=== PATIENT | male | born 1960 | race Caucasian/White ===

== ENCOUNTER 2024-02-08 20:42 | Inpatient (IN) | payer OTHER, SELFPAY ==
[2024-02-08 17:45] VITALS: BP 140/91
[2024-02-08 18:09] LABS: % Basophils 0.6 % (0-2); % Eosinophils 0.6 % (0-6); % Immature Granulocytes 0.4 % (0-0.5); % Lymphocytes 22.4 % (20.5-51.1); % Monocytes 7.7 % (1.7-9.3); % Neutrophils 68.3 % (42.2-75.2); Absolute Basophils 0.1 10^3/uL (0-0.2); Absolute Eosinophils 0.1 10^3/uL (0-0.7); Absolute Lymphocytes 2.4 10^3/uL (1.2-3.4); Absolute Monocytes 0.8 10^3/uL (0.1-0.6); Absolute Neutrophils 7.3 10^3/uL (1.4-6.5); Hematocrit 49.8 % (39.0-52.0); Hemoglobin 16.5 g/dL (13.0-18.0); Mean Corp Hgb Conc. 33.1 g/dL (33.0-37.0); Mean Corpuscular Hgb 31.1 pg (27.0-31.0); Mean Platelet Volume 11.3 fL (7.4-10.4); Nucleated Red Blood Cells % 0 % (-); Platelet Count 207 10^3/uL (130-400); Red Cell Dist. Width 13.8 % (11.5-14.5); White Blood Cell Count 10.7 10^3/uL (4.8-10.8)
[2024-02-08 18:21] LABS: ALT (SGPT) 39 U/L (0-50); AST (SGOT) 35 U/L (17-59); Alkaline Phosphatase 101 U/L (38-126); Blood Urea Nitrogen 24 mg/dl (9-20); Calcium 8.9 mg/dl (8.4-10.2); Carbon Dioxide 30 mmol/L (22-30); Chloride 101 mmol/L (98-107); Glucose 142 mg/dl (70-99); Potassium 4.8 mmol/L (3.5-5.1); Sodium 139 mmol/L (135-145); Total Bilirubin 0.9 mg/dl (0.2-1.3); eGFR > 60.00
[2024-02-08 18:34] LABS: NT-proBNP 6110 pg/ml; Troponin I 0.148 ng/ml
--- NOTE | 2024-02-08 18:51 | ED.GENMED ---
History of Present Illness
General
Chief Complaint: Cardiac Symptoms
Source: patient
Exam Limitations: none
Time Seen by Provider: 02/08/24 18:40
History of Present Illness
History of Present Illness:
This is a 63 year old male that comes in with c/o leg swelling. States that he believes he started with atrial fib about a month go. States that he has been SOB for the past 2 years and he just stopped smoking. State that for the past 2 weeks he has
been sweating but he feels cold. Then in the past 5 days his knee's started with discoloration. States that he has no chest pain. States that he gets dizzy once and while. Denies any fever, chills, chest pain, abd pain, nausea, vomiting, diarrhea,
headache, urinary burning.
Past History
Past History
ED Past Medical History: Arrthythmia (Atrial fibrillation with conversion to sinus rhythm), COPD and Other (Back pain)
ED Past Surgical History: Tonsilectomy and Other
Social History
Tobacco: Former smoker (States that he just stopped recently)
Alcohol: None
Personal:
Living: with family
Employment: Employed
Family History
Family History: Other
Review of Systems
Review of Systems
All Other Systems: ROS reviewed and negative except as documented in HPI and ROS
Constitutional: Reports other (Feels cold and is sweating); Denies fever or chills
EENT: Reports no symptoms
Respiratory: Reports trouble breathing; Denies cough
Cardiac: Denies chest pain
ABD/GI: Reports no symptoms; Denies abdominal pain, nausea, diarrhea or bloody stools
: Reports no symptoms; Denies dysuria, frequency or urgency
Musculoskeletal: Reports no symptoms
Skin: Reports other (Sweating,)
Neurological: Reports dizzy; Denies headache
Psychiatric: Reports no symptoms
Phy Exam
General Physical Exam
General Presentation: no apparent distress
General age: appears stated age
General Skin: diaphoretic
General Habitus: normal
General Mental: alert
General Hydration: appears well hydrated
ENT Exam
ENT Exam: TM's normal, pharynx normal and neck supple
Eye Exam
Eye Exam: EOMI
Cardiovascular Exam
Cardiovascular Exam: normal peripheral pulses and irregularly irregular
Pulmonary Exam
Pulmonary Exam: no respiratory distress, no rales, chest non tender, no crackles, no rhonchi, no cough and other (Faint insp and exp wheezing throughout)
Gastrointestinal Exam
Gastrointestinal Exam: normal bowel sounds, non tender, soft, no organomegaly, no pulsatile mass and distended
Musculoskeletal Exam
Musculoskeletal Exam: full ROM and edema (Pitting +2 of ankles and lower legs into thights)
Skin Exam
Skin Exam: normal color, no petechia and other (Mottling of the knee's and abd)
Psychiatric Exam
Psychiatric Exam: normal mood/affect
Course
Orders/Labs/Results
Orders:
Orders
02/08/24 17:48
ECG [Electrocardiogram (*1)] Urgent
Reason for Study: Shortness of Breath
EKG- Treatment ONCE
02/08/24 17:55
Chest [CR Chest - 2 Views ] Urgent
Comment:
Reason For Exam: shortness of breath
02/08/24 18:03
Complete Blood Count/With Diff Urgent
Comprehensive Metabolic Panel Urgent
NT-proBNP Urgent
Troponin I Urgent
02/08/24 18:49
Diltiazem 125 mg/125 ml Nss [Cardizem] 125 mg in 125 ml IV NOW
Initial dose in mg/hr, then titrate:: 5
Titrate to keep:: Heart rate 80-100 bpm
Titrate by mg/hr:: 5 mg/hr
Frequency of titrations (minutes):: 15
Maximum dose in mg/hr:: 15
Diltiazem HCl [Cardizem] 10 mg IV NOW STA
02/08/24 19:00
CT Chest/abd/pelvis Angio W/wo Urgent
Comment:
Reason For Exam: Hypotension, BP different in arms, abd pain
02/08/24 19:50
EKG- Treatment ONCE
02/08/24 20:02
Furosemide [Lasix] 40 mg IV NOW STA
Ipratropium/Albuterol Sulfate [Duoneb] 3 ml INH R NOW ONE
02/08/24 20:17
Admit/Transfer Patient As Directed
Co-Sign Provider:
Level of Care: Inpatient admission
Assign to:: ICU
Physician / Group: javier oglesby
Diagnosis: atrial fib with RVR
Reason for Hospitalization: atrial fib with RVR
Expected length of stay greater than two midnights?: Yes
ELOS- Estimated Length of Stay in days: 3
I certify the patient meets the requirements for IP care: Yes
PRN Pain Medication Management As Directed
May give lesser potent ordered pain med per pt: Yes
preference::
Protocol:: Medication orders for pain may be administered in a
manner that supports deferring to patient preference
when the pt is:
- Requesting an ordered lesser potent pain medication.
Least to most potent pain medications are defined
as: acetaminophen < NSAID < tramadol < opioids
(morphine, oxycodone, hydromorphone).
- Requesting a lesser dose of the same medication IF
ORDERED.
- Requesting a less intrusive route of administration
if both routes are prescribed by the provider (PO <
IV).
02/08/24 20:18
Code Status As Directed
Resuscitation Status: Full Code
02/08/24 20:58
COVID-19 Antigen Stat
Source: Nasal Swab
Troponin I Urgent
02/08/24 21:00
Electrocardiogram (*1) Urgent
Reason for Study: Shortness of Breath
Other Reason for Exam: Repeat with Troponin
Abnormal Lab Results
02/08/24
18:03
MCH 31.1 H pg
(27.0-31.0)
MPV 11.3 H fL
(7.4-10.4)
Absolute Neuts (auto) 7.3 H 10^3/uL
(1.4-6.5)
Absolute Monos (auto) 0.8 H 10^3/uL
(0.1-0.6)
BUN 24 H mg/dl
(9-20)
Glucose 142 H mg/dl
(70-99)
Troponin I 0.148 H* ng/ml
02/08/24 18:03
02/08/24 18:03
Dehydration. Glucose nonfasting. Troponin 0.148, Pro-BNP 6110
Vital Signs
Initial and Last Documented VS:
Initial Vital Signs
Temp Pulse Resp BP Pulse Ox
98.6 F 121 20 140/91 91
02/08/24 17:45 02/08/24 17:45 02/08/24 17:45 02/08/24 17:45 02/08/24 17:45
Last Documented Vital Signs
Temp Pulse Resp BP Pulse Ox
98.6 F 112 18 127/92 98
02/08/24 17:45 02/08/24 20:33 02/08/24 20:33 02/08/24 20:00 02/08/24 20:00
MDM/Problems Addressed
Differential Diagnosis Includes:
Atrial fib, PVD
MDM/Problems Addressed:
This is a 63 year old male that comes in with c/o legs swelling and atrial fib. States that the atrial fib started a few months ago and he has been SOB for 2 years. States that he has been cold and sweating for the past 2 weeks. States that his legs
started with some discoloration about 5 days ago.
Will get labs, Chest x-ray. Will also get CTA of chest/abd./pelvis. Started on Cardizem and admit patient.
Repeat ECG: Rate 111, NSR with PAC's, Normal axis. NSR. T wave inversion, I, II, aVL, V4, V5, V6
Chronic conditions affecting care:
Atrial fib /flutter
Acute Exacerbation and/or Progression of Chronic Illness:
atrial fib/flutter
*Radiology
Radiology exam reviewed: radiology read reviewed (CTA-No aortic aneurysm or dissectioin. NO significant acute abnormality identified in the chest, abdomen or pelvis as described above. )
*Critical Care Note
Total Time (30-74mins, 75-104mins- exclusive of procedures): Not Applicable
ED Attending Note
-
Portions of this chart may have been created with voice recognition software.� Occasional wrong word or��sound alike� substitutions may have occurred due to the inherent limitations of voice recognition software.
Discharge Plan
Departure
Patient Disposition: Admit
Date of Disposition: 02/08/24
Time of Disposition: 19:50
Admit to: Telemetry
Presentation/result/management discussed w/ accepting MD/DO: Hospitalist
Patient with high blood pressure during this ER visit?: Yes
Condition: Good
Covid-19: Not Applicable
Discharge Problem:
Uncontrolled atrial fibrillation, Elevated troponin, SOB (shortness of breath)
Interventions
Interventions:
*Risk Screen - Suicide Last Done: 02/08/24 19:18
*General Assessment Last Done: 02/08/24 19:18
*Neglect/Abuse Screening Last Done: 02/08/24 19:18
ED- Pulmonary Assessment Last Done: 02/08/24 19:18
ED- Cardiac Assessment Last Done: 02/08/24 19:18
[2024-02-08] MEDS: CARDIZEM 125 IV (19:06)
[2024-02-08] MEDS: CARDIZEM 10 MG IV (19:07)
--- NOTE | 2024-02-08 19:50 | HPS.HSE ---
Family Physician
-
Family Physician: Leticia Quinonez
Chief Complaint
-
sob
cough
discoloration of LE
History of Present Illness
63 year old with PMH of atrial fib presented to us with worsening b/l LE discoloration, edema/ patient stated just noticed discoloration for past two weeks. progressively worsening LE edema. he complained of sob which is worse with exertion. denied
fever, chills, but stated cough with white sputum. denied GIMENEZ, dizzy or syncopal episode. denied abdominal pain,n,v,d. denied dysuria or hematuria. patient also complained f sweating,but he feels cold.
upon arrival patient requiring oxygen. he is also noted in atrial fib with RVR. initiated on heparin drip. gave a dose of Lasix. chest x ray and CT pending.
Medical History
Past Medical History
Past Medical History: Reports Other
Additional Past Medical History:
atrial flutter
COPD
Past Surgical History: Reports Other
Additional Past Surgical History:
back cyst surgery
tonsillectomy
Social History
Tobacco: Smoker (quit today)
Alcohol: Occasional
Drug: None
Personal:
Living: With Family
Employment: Retired
Family History
Family History: Not pertinent
Allergies / Home Medications
Allergies reflects when Allergies were last updated in [facility].
Home Medications with original date entered in [facility]
Allergy/Medication List:
Allergies
Allergy/AdvReac Type Severity Reaction Status Date / Time
No Known Allergies Allergy Verified 02/08/24 17:46
Home Medications
aspirin 81 mg tablet,delayed release 81 mg PO DAILY #1 tab 06/18/17
Review of Systems
-
Constitutional: Reports No Symptoms
EENT: Reports No Symptoms
Respiratory: Reports Cough and Trouble Breathing
Cardiac: Reports Diaphoresis and Palpitations
Abdomen/GI: Reports No Symptoms
: Reports No Symptoms
Musculoskeletal: Reports Edema
Skin: Reports No Symptoms
Neurological: Reports No Symptoms
Endocrine: Reports No Symptoms
Hematologic/Lymphatic: Reports No Symptoms
Psych: Reports No Symptoms
Physical Exam
Vital Signs
Vital Signs
Temp Pulse Resp BP Pulse Ox
98.6 F 124 25 140/91 98
02/08/24 17:45 02/08/24 19:30 02/08/24 19:30 02/08/24 17:45 02/08/24 19:30
Physical Exam
General: Well Developed, Well Nourished and No Apparent Distress
HEENT: NormoCephalic, Moist mucous membranes and Atraumatic
Respiratory: Wheezes
Cardiac: Irregular Rhythm and Tachycardia; No Murmur or Rub
GI: Normal Bowel Sounds, Tender and Distended; No Organomegaly
Rectal: Deferred by Provider
Musculoskeletal: No Clubbing and Other (lE +3edema, b/l LE mottled skin)
Skin: No Rash
Neuro: AO x 3 and Nonfocal/grossly intact
Psych: Calm
Laboratory Results
-
02/08/24 18:03
02/08/24 18:03
Laboratory Results
Total Bilirubin 0.9 mg/dl (0.2-1.3) 02/08/24 18:03
AST 35 U/L (17-59) 02/08/24 18:03
ALT 39 U/L (0-50) 02/08/24 18:03
Alkaline Phosphatase 101 U/L (38-126) 02/08/24 18:03
Troponin I 0.148 ng/ml H* 02/08/24 18:03
Data Reviewed
-
Lab Data: Labs Reviewed by me
Impression/Plan
-
#atrial fib with RVR
-EKg with atrial fib with RVR
-Cardizem drip continued
-cardiology consulted
#elevated trop likely demand ischemia likely from atrial fib
-trop 0.148,trend trop
-no c/o chest pain
#sob/edema/acute hypoxic respiratory failure likely new onset CHF
-BNP in 6000's
-CTA No aortic aneurysm or dissection.No significant acute abnormality identified in the chest, abdomen or pelvis as described above.
-chest x ray pending
-iv Lasix 4o daily
-will obtain ECHO
-strict I &O
-daily weight
-fluid restriction
-Xopenex prn for sob/wheezing
-continue supplemental oxygen to keep sat >92
-wean as tolerated.
-cardiology consulted
#possible COPD
-wheezing on auscultation
-Xopenex added sob/wheezing
-pulmonology consulted
#mottled skin unclear cause
-CTA No aortic aneurysm or dissection.. No significant acute abnormality identified in the chest, abdomen or pelvis as described above.
#nicotine dependence
-quit today
-nicotine patch
#DVT prophylaxis
-heparin sq
#CODE status
-full code
[2024-02-08 20:00] VITALS: BP 127/92
--- NOTE | 2024-02-08 20:12 | W.PN.UPDATE ---
Addendum entered and electronically signed by Bill Perdomo MD 02/09/24 12:23:
Correction:
Total Critical Care Time_70___ minutes. Not 7 mins.
Addendum entered and electronically signed by Bill Perdomo MD 02/08/24 21:16:
Total Critical Care Time_7____ minutes.
I was immediately available to the patient and staff. I personally examined, reviewed labs, diagnostic images/reports, interpretations, treatment plans, discussed patient care with other providers and family or caregivers (if patient is unable to
make decisions), entered orders as appropriate and documented the medical record.
Addendum entered and electronically signed by Bill Perdomo MD 02/08/24 21:13:
02/08/24 Urgent CTA C/A/P
1. No aortic aneurysm or dissection.
2. No significant acute abnormality identified in the chest, abdomen or pelvis as described above.
Original Note:
Update Note
Progress Note Update
This note serves as an addendum to the H&P by chief hydroelectric station operator Bobbi HOPE
HPI
63M Recently quit smoking HX Prx AF since 2014 with conversion to NSR, only on ASA seen at ER for evaluation of discoloration both distal Gerardo and UExs. Associated with sweating and chills.
- associated with b/l Gerardo swelling and significant wt gain
- cold and mottled skin of edematous
ROS:
No CP.
Denies any fever, chills, chest pain, abd pain, nausea, vomiting, diarrhea, headache, urinary burning.
PMHX
Paroxysmal atrial flutter diagnosed in October of 2014.
COPD and Other (Back pain
tobacco abuse.
SHX:
Tobacco: Former smoker (States that he just stopped recently)
Reviewed VS: HR 155- 125 BP 140/90 POx low 90s need 2 L NC O2
PE
Gen: uncomfortable looking , Dyspnea at rest , 2 O2
HEENT: anicteric
Neck: supple , JVD up to 8-10 cm
Lungs: symmetric AE, b/l wheeze
Cor: S1 S2 irregular in AF with VR 120s
Abdomen: distended and firm suspect ant abdominal edema
LATH TIER: AAO3
MS:b/l Gerardo edema 3 plus
Skin: cold and mottled skin both distal Gerardo more than UEx
Psych: appropriate
Data
Unremarkable CBC
BUN 24
Cr 1.0 eGFR > 60
nl LFTs
TPNI pending
pro BNP 6110
Pending CXR
Pending CTA of chest/abd/pelvis.
EKG
ATRIAL FIBRILLATION WITH RAPID VENTRICULAR RESPONSE
ST and T WAVE ABNORMALITY, CONSIDER INFEROLATERAL ISCHEMIA
ABNORMAL ECG
WHEN COMPARED WITH ECG OF 17-JUN-2017 06:05,
SIGNIFICANT CHANGES HAVE OCCURRED
2014 ECHO
LVEF 50-55%
diastolic filling pattern suggests possible mild abnormal relaxation.
ASSESSMENT & PLAN
Acute on chronic SoB with acute hypoxic RI need 2 L O2 + B/L Gerardo edema +pro BNP 6000s
PDX: Suspect acute CHF type unknown : HX nl LVEF in 2014
Significant volume expansion suspect anasarca due to CHF
- CXR pending
- IV Lasix 40 x1 and cont IV Lasix 40 daily daily
- daily IOs and wt
- daily BMPs
- check INR
- ECHO in AM
- DCA card consult
Cold and mottled periphery with dusky discoloration of both Gerardo and UExs ; DDx; Primary vascular insufficiency vs secondary vascular insufficiency
Associated with sweating and chills
- POS both radial pulses of both UEx
- faintly POS Doppler b/l pedal pulse
- Current smoker - reports just quit smoking today
- Pending urgent CTA C/A/P
- Vascular consult
Converted to NSR on Diltiazem gtt
S/p Prox fast AF
[id number] score 1 ( CHF) 0.6 % stroke risk
Maintaining Normotension : BP is holding up
- Cont Diltiazem gtt
- Echo in AM
B/l diffuse wheeze ? Bronchitis vs. acute Pul edema vs both
Suspect undiagnosed COPD given long standing HX smoking
- add Xopenex tid and PRN
-Consult Pul
HX non compliance with medical follow up
DVT Px: LMWH
Code: Full
ICU
[2024-02-08] MEDS: LASIX 40 MG IV (20:32)
[2024-02-08 21:00] VITALS: BP 136/97
[2024-02-08 21:19] LABS: COVID-19 Antigen Negative (Negative)
[2024-02-08 21:53] LABS: Troponin I 0.134 ng/ml
[2024-02-08 22:28] VITALS: BMI 31.1
[2024-02-08 22:39] VITALS: BMI 31.1
--- NOTE | 2024-02-08 23:23 | PTCARENOTE ---
[id number]: Received patient from ED RN to room 3369 on 4L/O2 nc and on Cardizem gtt at 5 mg/hr. Patient ambulated to the bathroom from the stretcher and voided 450 ml yellow urine. Sinus tachy with HR 110. Pt's AAOx3 and able to make his needs
known. Denies pain. Plan of care for the shift and unit orientation reviewed with the patient. Doppler pulses to bilateral lower extremities. B/l LE are cold to the touch and mottled. +2 pitting edema to feet. +1 edema to bilateral upper
extremities. BL/UE red and blanchable . Pt states that swelling and redness have been 'going on for weeks,' and was told to come to the hospital by his friend. Heart failure package and teaching provided. Coarse breath sounds throughout. SpO2 at 94%
on 4L. No cough. abdomen is round and firm. Per the patient, abdomen was 'a lot harder earlier.' Skin is intact. Fluid restriction reviewed with the patient. Swallow evaluation completed. No difficulty with swallowing. The patient however stated
that he had a food bolus about 9 months ago, and his had to perform the Heimlich maneuver. Labs drawn and sent. All needs are met at this time. Bed in the lowest position. Call tompkins and personal belonigns are within reach.
[2024-02-08 23:24] LABS: Magnesium 2.1 mg/dl (1.6-2.3)
[2024-02-09] VITALS (52 sets, daily range): BP systolic 85–156; BP diastolic 48–139; BMI 30.8
--- NOTE | 2024-02-09 00:52 | PTCARENOTE ---
Patient reassessed. Remains on Cardizem gtt at 5 mg/hr. SpO2 at 94% on 4L/O2. pt verbalized being able to 'breath better.' All needs remain within reach. Call tompkins is within reach. No changes from previous assessment.
[2024-02-09 04:05] LABS: Hematocrit 48.4 % (39.0-52.0); Hemoglobin 15.8 g/dL (13.0-18.0); Mean Corp Hgb Conc. 32.6 g/dL (33.0-37.0); Mean Corpuscular Hgb 31.7 pg (27.0-31.0); Mean Platelet Volume 11.4 fL (7.4-10.4); Platelet Count 170 10^3/uL (130-400); Red Blood Cell Count 4.99 10^6/uL (4.70-6.10); Red Cell Dist. Width 13.7 % (11.5-14.5); White Blood Cell Count 12.5 10^3/uL (4.8-10.8)
[2024-02-09 04:15] LABS: INR 1.18; PT 14.9 Sec (11.4-14.6)
[2024-02-09 04:16] LABS: APTT 34.1 Sec (23.4-35.0)
[2024-02-09 04:35] LABS: ALT (SGPT) 38 U/L (0-50); AST (SGOT) 34 U/L (17-59); Albumin 3.6 g/dl (3.5-5.0); Alkaline Phosphatase 95 U/L (38-126); Blood Urea Nitrogen 23 mg/dl (9-20); Calcium 8.7 mg/dl (8.4-10.2); Carbon Dioxide 36 mmol/L (22-30); Chloride 98 mmol/L (98-107); Direct Bilirubin 0.3 mg/dl (0.0-0.4); Estimated Creatinine Clearance 95 ml/min; Glucose 124 mg/dl (70-99); HDL Cholesterol 40 mg/dl; LDL Cholesterol, Calculated 92 mg/dl; Magnesium 1.9 mg/dl (1.6-2.3); Potassium 4.7 mmol/L (3.5-5.1); Sodium 139 mmol/L (135-145); Total Bilirubin 0.9 mg/dl (0.2-1.3); Total Cholesterol 152 mg/dl (50-199); Total Protein 6.3 g/dl (6.3-8.2); Triglyceride 102 mg/dl (10-149); Very Low Density Lipoprotein 20 mg/dl (0-30); eGFR > 60.00
[2024-02-09 04:46] LABS: Troponin I 0.106 ng/ml
[2024-02-09 05:04] LABS: TSH Reflex To Free T4 3.39 uIU/ml (0.47-4.68)
--- NOTE | 2024-02-09 05:11 | PTCARENOTE ---
Patient reassessed. Remains on 4L /O2. SpO2 at 92%. Coarse breath sounds with expiratory wheeze. labs drawn and sent.
[2024-02-09] MEDS: XOPENEX 0.63 MG INHALANT SOLUTION INH ×3 (07:27→19:37)
[2024-02-09] MEDS: NICODERM TRANSDERMAL 21 MG TRANSDERM (07:42)
[2024-02-09] MEDS: HEPARIN 5000 UNITS SC (07:43)
[2024-02-09] MEDS: ASPIR LOW (ENTERIC COATED) 81 MG PO (07:43)
[2024-02-09] MEDS: LASIX 40 MG IV ×2 (07:43→13:31)
--- NOTE | 2024-02-09 07:58 | CON.CAR ---
Addendum entered and electronically signed by Yung Garnica MD 02/09/24 09:54:
I saw and examined the patient.
The PULPER OPERATOR or PA's note was reviewed and I agree with the note.
Comment: General: Well developed, well nourished in NAD.
Neck: Supple, no JVD, HJR, carotids +2 B/L, no bruits bilaterally.
Heart: Non displaced PMI, RRR, no murmurs, No S3, S4, no rubs.
Lungs: Scattered rhonchi
Abdomen: Normal bowel sounds, soft, non-tender, non-distended.
Extremities: Mild lower extremity edema bilaterally.
Neuro: Grossly nonfocal, awake, alert and oriented x3.
Romero has a history of atrial flutter status post ablation, tobacco abuse, COPD, medical noncompliance. He presented with shortness of breath abdominal bloating and lower extremity edema. He is found to have acute CHF and elevated troponin of
0.148.
Will treat with IV Lasix and track troponin. Check echocardiogram. Could consider ischemic evaluation given very high risk of significant CAD and elevated troponin. Continue IV heparin for now. Hold off on Plavix with possible three-vessel
disease.
Original Note:
Consultation
Consultation Request
Date/Time Consultation Requested: 02/09/2024
Date/Time Consultation Performed: 02/09/2024
Requesting Provider: Dr. Perdomo
Performing Provider: Sully Bowie PA-C for Dr. Sj Bentley
Reason for Consultation: Abnormal troponin, atrial flutter
Medical History
-
History of Present Illness:
Patient is a 63-year-old male with past medical significant for paroxysmal atrial flutter, ongoing tobacco abuse, COPD/emphysema and noncompliance of medical follow-up who presents to emergency department 02/08/2024 with progressively worsening
shortness of breath, abdominal bloating, lower extremity edema, palpitations. Patient reports he has had shortness of breath for several years but recently he has noted dyspnea with minimal activity including walking from the couch to the bathroom.
His legs have become cold and discolored over the last week. He also started having palpitations and vibrating in his chest 'for a while'. Recently started with intermittent dizziness with standing. Due to worsening of symptoms he decided to
seek emergency medical attention. Patient tells me the last time he was seen by a medical provider was when he was here in 2017. He takes an aspirin 81 mg daily. He smokes a pack of cigarettes a day. He denies chest pain. On presentation to
emergency department patient was found to be in atrial flutter with rapid ventricular response. Troponin 0.148. proBNP 6110. CT chest/abdomen/pelvis was negative for aortic aneurysm or dissection. Mild emphysematous changes. Mild diffuse
anasarca otherwise unremarkable abdomen, although limited given no contrast was given. He was given 40 mg IV Lasix and was placed on diltiazem drip and converted to sinus rhythm around 3 AM on 02/09/2024.
Past medical history:
Paroxysmal atrial flutter
Ongoing tobacco abuse
Emphysema/COPD (noted on chest CT 02/08/2024)
Past Medical History
Past Medical History: Other (See HPI)
Past Surgical History: Tonsilectomy
Social History
Tobacco: Smoker (Stopped on admission)
Alcohol: None
Drug: None
Personal:
Living: With Family
Employment: Not Employed
Family History
Family History: Other (Mother alive had stroke in her 70s, father had OH in his 30s and pacemaker)
Allergies / Home Medications
Allergy/AdvReac Type Severity Reaction Status Date / Time
No Known Allergies Allergy Verified 02/08/24 17:46
�Medication �Instructions �Recorded �Confirmed �Type
aspirin 81 mg tablet,delayed 81 mg PO DAILY #1 tab 06/18/17 02/08/24 Rx
release
Review of Systems
-
History Source: Patient
All other systems: Negative unless noted
Physical Exam
Vital Signs
Temp Pulse Resp BP Pulse Ox
97.6 F 104 18 134/74 94
02/09/24 07:55 02/09/24 07:34 02/09/24 07:34 02/09/24 07:00 02/09/24 07:34
GEN: No distress, awake, Ox3, sitting in bed wearing oxygen
HEENT: supple, anicteric, mmm
LUNGS: Very diminished/reduced breath sounds with bilateral wheezing, absent breath sounds at bases, no rales, on 4 L of oxygen
CV: Distant heart tones, reg, S1/S2, no murmur, rub or gallop
ABD: soft, BS+, NT/ND
EXT: +1-2 bilateral lower extremity edema, legs cool to touch
NEURO: Gross non-focal
SKIN: No rash, dry, pink
Lab Results
02/09/24 03:55
Troponin I 0.106 ng/ml H* 02/09/24 03:55
Tru-K-Sbpjbubbmdp Pept 6110 pg/ml 02/08/24 18:03
Impression / Plan
-
PCP: None has not seen medical provider since
Beautician Apprentice: Dr. Cintron last seen in August 2015 in office
Impression:
Presented 02/08/2024 with progressively worsening shortness of breath, palpitations, abdominal bloating, lower extremity edema
Acute hypoxic respiratory insufficiency/failure
Acute heart failure with unknown ejection fraction, proBNP 6110
Anasarca
Paroxysmal atrial flutter/fibrillation of unknown duration
Abnormal troponin, peak 0.148
Emphysema/COPD exacerbation
Leukocytosis
Paroxysmal atrial flutter
Paroxysmal atrial fibrillation
[id number] score 1 (heart failure)
Ongoing tobacco abuse
Emphysema/COPD (noted on chest CT 02/08/2024)
Echo 11/14/2014: EF 50 to 55% with no regional wall motion abnormalities. Diastolic dysfunction, mildly dilated left atrium, PAP 33 to 38 mmHg
Plan:
-Presented 02/08/2024 with progressively worsening shortness of breath, palpitations, abdominal bloating, lower extremity edema and anasarca.
-Acute heart failure with unknown ejection fraction, proBNP 6110
-Continue IV diuresis with Lasix, -Weight down 3 pounds since admission, would give additional 40 mg IV this afternoon
-Check echocardiogram
-Monitor electrolytes and renal function with diuresis
-Paroxysmal atrial flutter/fibrillation on admission
-Spontaneously converted to sinus rhythm on IV diltiazem drip
-Await echocardiogram to assess LV function. If preserved can start oral diltiazem. If reduced then would consider initiating beta-tushar therapy if stable from pulmonary/COPD standpoint
-Start IV heparin but will need eventual transition to oral anticoagulation
-TSH normal 3.39
-Abnormal troponin, peak 0.148 upon admission. Trending downward thereafter. Patient denies chest pain. Suspect nonischemic myocardial injury secondary to acute heart failure exacerbation and atrial fibrillation/flutter with rapid ventricular
response
-Continue IV heparin, ASA 81 mg
-Check echocardiogram
-Of note CT of chest without contrast did not show any significant coronary calcification
-Lipids 02/09/2024 TC 152, HDL 40, LDL 92, triglycerides 102
-Acute hypoxic respiratory insufficiency/failure likely multifactorial secondary to Emphysema/COPD exacerbation, acute heart failure exacerbation
-Noted to have emphysema changes on CT of chest
-Currently on 4 to 5 L of oxygen via nasal cannula, wean as tolerated
-Long-term history of tobacco abuse, patient reports he quit on admission; nicotine patch applied; smoking cessation encouraged
-Continue nebulizers per primary service
Plan discussed with patient, nursing, primary service
HPI 02/09/2024:
Patient is a 63-year-old male with past medical significant for paroxysmal atrial flutter, ongoing tobacco abuse, COPD/emphysema and noncompliance of medical follow-up who presents to emergency department 02/08/2024 with progressively worsening
shortness of breath, abdominal bloating, lower extremity edema, palpitations. Patient reports he has had shortness of breath for several years but recently he has noted dyspnea with minimal activity including walking from the couch to the bathroom.
His legs have become cold and discolored over the last week. He also started having palpitations and vibrating in his chest 'for a while'. Recently started with intermittent dizziness with standing. Due to worsening of symptoms he decided to
seek emergency medical attention. Patient tells me the last time he was seen by a medical provider was when he was here in 2017. He takes an aspirin 81 mg daily. He smokes a pack of cigarettes a day. He denies chest pain. On presentation to
emergency department patient was found to be in atrial flutter with rapid ventricular response. Troponin 0.148. proBNP 6110. CT chest/abdomen/pelvis was negative for aortic aneurysm or dissection. Mild emphysematous changes. Mild diffuse
anasarca otherwise unremarkable abdomen, although limited given no contrast was given. He was given 40 mg IV Lasix and was placed on diltiazem drip and converted to sinus rhythm around 3 AM on 02/09/2024.
Data Reviewed
-
EKG: Report Reviewed by me, Discussed with Physician, Discussed with Nurse and Discussed with Patient
Radiology: Report Reviewed by me, Discussed with Physician, Discussed with Nurse and Discussed with Patient
CT Scan: Report Reviewed by me, Discussed with Physician, Discussed with Nurse and Discussed with Patient
Labs: Labs Reviewed by me, Discussed with Physician, Discussed with Nurse and Discussed with Patient
Old Records: Reviewed
--- NOTE | 2024-02-09 08:00 | PTCARENOTE ---
Received patient from passenger car cleaning supervisor. patient is AAOx3, he is on 4L Nasal cannula, with coarse wheezing auscultated throughout lungs. Patient is tachypneic, diaphoretic, dyspneic on exertion with harsh non productive cough. is a smoker, states he
quit yesterday. Patient is in a sinus tach on monitor. had been in Afib overnight and upon admission. Lower extremities are extremely cool, mottled. dopper pulses on right lower extremity. weakly palpated DP on left lower extremity. Patient has
rounded obese firm belly, is able to urinate in urinal, due to get lasix. Cardiac prudent diet ordered. Skin is reddened on upper and lower extremities, mottled on lower. Orders placed to start heparin gtt. will review further orders, reviewed
plan of care with patient. Echo at bedside.
--- NOTE | 2024-02-09 08:26 | CON.INTV ---
Consultation
Consultation Request
Date/Time Consultation Requested: 02/08/2024 - 2100
Date/Time Consultation Performed: 02/09/2024818
Requesting Provider: DARLIN Stewart
Performing Provider: Elliott Gambino MD
Reason for Consultation: Rapid A-fib
Medical History
-
Chief Complaint: SOB; Lower extremity + abdominal swelling
History of Present Illness:
63-year-old male active tobacco smoker with a PMHx of COPD, atrial flutter and palpitations who presented with shortness of breath as well as swelling to lower extremities + abdomen. His lower extremities have also been discolored for the past few
weeks and his shortness of breath has also been progressively worsening over the last few days although he does admit SOB for the past 2 years. He does smoke 0.5 PPD but says that he is now 'done.' In the ER, vitals showed tachycardia to 121,
breathing at 20 breaths/min, BP 140/91, afebrile at 98.6 �F and saturating 91% on room air. Labs showed normal WBC at 10.7, Hb 16.5, initial troponin 0.148, proBNP elevated at 6110, and COVID antigen negative. Initial CXR showed no acute
cardiopulmonary process. CTA chest, abdomen, pelvis showed no aortic aneurysm or dissection, with mild centrilobular emphysema, no evidence of volume overload with no significant acute abnormality in the chest, abdomen or pelvis. He was given
Lasix, Cardizem 10 mg and started on Cardizem drip. Given his rapid A-fib requiring Cardizem drip with shortness of breath, he was admitted to the ICU for further care and critical care services consulted for additional management/recommendations.
Patient seen and evaluated this morning. Cardizem drip turned off earlier this morning (3AM) but is now back on at 10 mg/hr, heart rate labile between 125�145, BP 129/89, SpO2 89% on 5L/min. On heparin gtt as well. He is on his cell phone in no
acute distress, answering my questions appropriately, and says he feels much better currently. He still feels short of breath but it is improved. He currently denies chest pain, GIMENEZ, abdominal pain, nausea, vomiting, diarrhea, fevers or chills.
PMHx: History of atrial flutter, active tobacco use, palpitation, reported history of COPD
PSHx: Surgical cyst removal from back; tonsillectomy
Past Medical History
Past Medical History: Other (Above as per HPI)
Past Surgical History: Other (Above as per HPI)
Social History
Tobacco: Smoker (0.5 PPD X 50 years)
Alcohol: Former
Drug: None
Personal:
Living: With Family
Employment: Retired
Family History
Family History: Reviewed & Not Pertinent
Allergies / Home Medications
Allergies
Allergy/AdvReac Type Severity Reaction Status Date / Time
No Known Allergies Allergy Verified 02/08/24 17:46
Home Medications
�Medication �Instructions �Recorded �Confirmed �Last Taken �Type
aspirin 81 mg tablet,delayed 81 mg PO DAILY #1 tab 06/18/17 02/08/24 02/08/24 Rx
release
Review of Systems
-
History Source: Patient
All other systems: Negative unless noted
Vitals / Labs / Diagnostic Testing
Vital Signs
Temp Pulse Resp BP Pulse Ox
97.6 F 105 20 115/89 94
02/09/24 07:55 02/09/24 09:15 02/09/24 09:15 02/09/24 09:00 02/09/24 09:27
Lab Data
02/09/24 03:55
Laboratory Results
02/09/24 02/09/24
03:55 07:44
PT 14.9 H
INR 1.18
APTT 34.1 Cancelled
Diagnostic Testing:
Physical Exam
-
HEENT: Normocephalic and Anicteric
Cardiovascular: Irregular Rhythm (Irregularly irregular), Peripheral Edema (+2 lower extremity edema bilateral) and Other (Tachycardic)
Respiratory: Wheeze ([place]in upon end-expiration bilaterally), Rales (negative), Rhonchi (negative) and Non-Labored Respirations
GI: Soft, Non Distended, Non Tender and Normal Bowel Sounds
Neurology: AO x 3 and Tremors (negative)
Skin: Warm and Dry
General: Respiratory Distress (negative), Comfortable, Chills (negative) and Sweats (negative)
Assessment
-
Assessment: 63-year-old male active tobacco smoker with a past medical history of COPD, atrial flutter and palpitations who presented with shortness of breath as well as swelling to lower extremities + abdomen. His lower extremities have also been
discolored for the past few weeks and his shortness of breath has also been progressively worsening over the last few days although he does admit SOB for the past 2 years. He does smoke 0.5 PPD but says that he is now 'done.' In the ER, vitals
showed tachycardia to 121, breathing at 20 breaths/min, BP 140/91, afebrile at 98.6 �F and saturating 91% on room air. Labs showed normal WBC at 10.7, Hb 16.5, initial troponin 0.148, proBNP elevated at 6110, and COVID antigen negative. Initial
CXR showed no acute cardiopulmonary process. CTA chest, abdomen, pelvis showed no aortic aneurysm or dissection, with mild centrilobular emphysema, no evidence of volume overload with no significant acute abnormality in the chest, abdomen or
pelvis. He was given Lasix, Cardizem 10 mg and started on Cardizem drip. Given his rapid A-fib requiring Cardizem drip with shortness of breath, he was admitted to the ICU for further care and critical care services consulted for additional
management/recommendations.
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
Impression:
#Atrial fibrillation with RVR on Cardizem drip
#Acute respiratory failure with hypoxia due to rapid A-fib in the setting of suspected COPD exacerbation
#Lower extremity swelling + abdominal distention � concerning for right heart failure considering his lungs did not have pulmonary edema or pleural fluid on CT chest
#Elevated troponin
#Hyperglycemia (HbA1C: 7.2 from 02/09/2024)
#Active tobacco smoker
#Former alcohol use disorder
Plan:
- Heart rate control with goal <110bpm --> continue with cardizem drip and start PO negative chronotropic meds with metoprolol
- Heparin gtt
- Replete electrolytes with K>4, Mg>2
- Keep MAP>65
- Check TTE
- Cardiology consulted and recommendations appreciated
- Diurese with goal net negative 1 - 1.5L per day over next 1-2 days, re-assessing fluid balance daily
- Given his active wheezing with shortness of breath, I will start him on systemic steroids with Solu-Medrol
- Wean as tolerate
- Maintain euglycemia while on systemic steroids with goal BG 140�180 --> change ISS to moderate resistance scale
- Continue xopenex TID, start atrovent TID and continue prn nebulized bronchodilators
- Maintain SpO2 >88-94%
- Nicotine patch
- Check LE duplex
- Incentive spirometer encouraged
- PT/OT - would hold off on rehab services today until HR is better controlled
- DVT ppx: heparin gtt
Recommendation outpatient pulmonary follow up for full PFTs.
Critical care statement: A total of 43 minutes of critical care time was provided for this patient today. This includes management of unstable vital signs, evaluation of the patient at bedside, reviewing the patient's pertinent medical records
including radiographs, microbiology, laboratory evaluations, and discussion with primary team, consultants, pharmacy, nutrition, physical therapy, case management, charge nurse, critical care nursing, and respiratory therapy.
Data:
CTA Chest/Abd/Pelvis w/wo contrast 02/08/2024:
1. No aortic aneurysm or dissection.
2. No significant acute abnormality identified in the chest, abdomen or pelvis
[2024-02-09] MEDS: HEPARIN 25000 UNITS/250 ML IV (09:09)
--- NOTE | 2024-02-09 09:30 | CARDSERVLU ---
Echocardiogram with [facility] completed after protocol screening completed. Allergies verified.
Patent IV site: __Rt FA___
IV site flushed with 0.9% NaCl pre and post administration.
Diluted bolus method utilized to enhance visualization of ventricular dawson.
Total volume given: __3.5__ mL
Patient tolerated all procedures well without complications.
--- NOTE | 2024-02-09 10:14 | W.PN.HOSP.TC ---
Today's Communication/Plan
-
cont rate control
cont heparin
Echo
LE US
start Lopressor
Assessment / Plan
Assessment / Plan
63yo M with PMHx of paroxysmal Afib not on AC, nicotine dependency came with 1 week of b/l LE swelling abd abdominal distension. CTA chest/abd/pelvis without acute abnormality, found with Afib with RVR
A/P:
#CHF, unspecified exacerbation
#Afib with RVR
#Non-ischemic cardiac injury
#Suspected CAD
Lasix, Echo, telemetry, follow daily weights and electrolytes
ASA, heparin drip, statin
Start BB, wean odd Diltiazem
Rate vs rhythm control as per cardio
Troponin downtrending
Cardio consult: might consider ischemic w/u
TSH WNL
LDL 92
HgbA1c pending
US LE for DVT pending
#Acute respiratory insufficiency 2/2 chronic bronchitis 2/2 nicotine dependency
Nicoderm PRN
cont bronchodilators
Emphasized cessation
DVT ppx hep drip
FUll code
I have spent at least 56 min reviewing chart, test results, communication with consultants and direct patient care
Anticipated Discharge: > 48 hours
Subjective/Interval History
-
Date of Service: February 09, 2024
Objective Data
-
Labs:
Laboratory Results
02/09/24 02/09/24 02/09/24
03:55 07:44 15:15
WBC 12.5 H Pending
Hgb 15.8 Pending
Hct 48.4 Pending
Plt Count 170 Pending
PT 14.9 H
INR 1.18
APTT 34.1 Cancelled Pending
Sodium 139
Potassium 4.7
Chloride 98
Carbon Dioxide 36 H
BUN 23 H
Creatinine 1.0
Glucose 124 H
Calcium 8.7
Total Bilirubin 0.9
AST 34
ALT 38
Alkaline Phosphatase 95
Vital Signs:
Vital Signs
Temp Pulse Resp BP Pulse Ox
97.6 F 105 20 115/89 94
02/09/24 07:55 02/09/24 09:15 02/09/24 09:15 02/09/24 09:00 02/09/24 09:27
I&O
02/08/24 02/09/24 02/10/24
06:59 06:59 06:59
Intake Total 150 / 150 10 / 10
Output Total 1200 / 1200 1400 / 1400
Balance -1050 / -1050 -1390 / -1390
Review of Systems
-
History Source: Patient
All other systems: Reviewed and negative
Physical Exam
-
General: No Apparent Distress
HEENT: Normocephalic and Atraumatic
Respiratory: Wheezes
Cardiac: Irregular Rhythm and Tachycardic
GI: Nontender and Distended
Genito-urinary: No Costovertebral Tender
Musculoskeletal: No Clubbing, No Cyanosis, Edema, Right Lower Extrem and Edema, Left Lower Extrem
Skin: Warm
Neuro: Awake, Alert and Oriented
Psych: Calm
--- NOTE | 2024-02-09 10:15 | PTCARENOTE ---
Patient went back into Afib. obtained EKG and restarted cardizem gtt.
[2024-02-09] MEDS: LOPRESSOR 50 MG PO (11:40)
--- NOTE | 2024-02-09 12:20 | CM ---
Cm reviewed medical records. Patient lives independently with with . Patient denies history of VN or SNF. Patient does not have DME in the home. Patient's PCP is Dr. Wright. Patient uses [facility] for medication services.
CM will continue to follow for needs.
[2024-02-09 12:30] LABS: Phosphorus 5.3 mg/dl (2.5-4.5)
--- NOTE | 2024-02-09 12:42 | PTCARENOTE ---
Patient remains on 15mg of cardizem. Still in Afib. Denies any complaints of pain. Still having wheezing and shortness of breath.
[2024-02-09] MEDS: CARDIZEM 125 IV (13:04)
[2024-02-09 13:25] LABS: Glycohemoglobin (HgbA1c) 7.2 % (4.0-5.6)
--- NOTE | 2024-02-09 14:42 | W.PN.UPDATE ---
Addendum entered and electronically signed by Owen Keller MD 02/09/24 14:45:
#New onset DM
insulin SS, accuchecks, DM diet
DM RN consult
Original Note:
Update Note
Progress Note Update
Acute RLE DVT - cont heparin, eventual DOAC
[2024-02-09] MEDS: SOLU-MEDROL PF 125 MG IV (14:58)
[2024-02-09] MEDS: ATROVENT NEBULES 0.5 MG INH ×2 (15:23→19:37)
[2024-02-09 15:35] LABS: Glucose - Point of Care 211 mg/dl (70-99)
[2024-02-09 15:50] LABS: APTT 47.9 Sec (23.4-35.0)
--- NOTE | 2024-02-09 16:00 | PTCARENOTE ---
AWaiting ECHO read, patient continues to be diaphoretic, full bed bath completed. Remains on cardizem and heparin gtt. Heparin gtt titration changed to PE/DVT protocol per ultrasound results. Patient also started in oral glycemic agents and accu
check now ordered QID.
[2024-02-09] MEDS: HEPARIN 8200 UNITS IV (16:09)
[2024-02-09] MEDS: GLUCOPHAGE 500 MG PO (16:13)
[2024-02-09] MEDS: AMARYL 4 MG PO (16:13)
[2024-02-09] MEDS: NOVOLOG FLEXPEN-LOW RESISTANCE 2 UNITS SC (16:19)
[2024-02-09] MEDS: LIPITOR 20 MG PO (17:17)
--- NOTE | 2024-02-09 18:16 | PTCARENOTE ---
Titrated cardizem off per order. Remains in Afib in 70s.
--- NOTE | 2024-02-09 19:21 | PTCARENOTE ---
on assessment pt AAOx3, denies pain, ordered bedrest, Afib on the monitor HR in the 60s, hep gtt infusing, cardizem gtt stopped during dayshift, Lungs diminished/course on 5L NC, pt diaphoretic and tachypnic, dyspneic on exertion, diabetic diet with
1200 FR, urinal at bedside, B/L LE cool and discolored, denies any numbness, tingling or pain to B/LLE, doppler pulses, call tompkins in reach.
[2024-02-09] MEDS: LOPRESSOR PO (19:42)
[2024-02-09] MEDS: SOLU-MEDROL PF 40 MG IV (21:08)
[2024-02-09 22:54] LABS: APTT > 200 Sec (23.4-35.0)
[2024-02-09 23:44] LABS: APTT 166.2 Sec (23.4-35.0)
[2024-02-10] VITALS (25 sets, daily range): BP systolic 83–131; BP diastolic 66–101; PULSE 118; O2SAT 96; BMI 30.7
--- NOTE | 2024-02-10 02:56 | DOWNTIME ---
There was a [employer] Client Electrical Systems Design Engineer Downtime on 02/10/2024 from 0100 to 02/10/2024 at 0252. Downtime documentation of patient's care, including medication administrations, has been reconciled in the electronic record per guidelines. Refer to the
patient's paper chart under the miscellaneous tab to see printed paper medication records and downtime forms.
--- NOTE | 2024-02-10 02:57 | PTCARENOTE ---
no changes from prior assessment, denies pain and SOB, + BLLE pulses with doppler, call tompkins in reach.
[2024-02-10 04:35] LABS: Glucose - Point of Care 157 mg/dl (70-99)
--- NOTE | 2024-02-10 05:19 | PTCARENOTE ---
on reassessment of O2 placement pt become very confused, swinging arms and unable to follow commands, blood sugar was 157, pt diaphoretic, HOB elevated and O2 in place, pt more alert as time goes on, can follow commands, but states he is 'at the
firehouse'. PRODUCT SAFETY SPECIALIST made aware and at bedside, no new orders at this time. Pupils 3 with PERRLA, + pulses, able to tell me name and , vital signs stable pulse ox 94% NC, call tompkins in reach.
[2024-02-10] MEDS: SOLU-MEDROL PF 40 MG IV ×3 (05:51→21:16)
--- NOTE | 2024-02-10 06:14 | PTCARENOTE ---
pt HR bouncing between low 100s and 120s, RANGE ECOLOGIST made aware, RANGE ECOLOGIST okay with holding Cardizem gtt unless sustaining above 120s. pt AAOx3 now, pt denies chest pain, denies palpitations, call tompkins in reach.
[2024-02-10 06:40] LABS: Mean Corp Hgb Conc. 33.3 g/dL (33.0-37.0); Mean Corpuscular Hgb 31.8 pg (27.0-31.0); Mean Corpuscular Volume 95.4 fL (80.0-94.0); Mean Platelet Volume 12.3 fL (7.4-10.4); Platelet Count 192 10^3/uL (130-400); Red Blood Cell Count 5.03 10^6/uL (4.70-6.10); Red Cell Dist. Width 13.5 % (11.5-14.5); White Blood Cell Count 9.3 10^3/uL (4.8-10.8)
[2024-02-10 06:52] LABS: APTT 65.9 Sec (23.4-35.0)
[2024-02-10 07:02] LABS: Blood Urea Nitrogen 42 mg/dl (9-20); Calcium 9.2 mg/dl (8.4-10.2); Carbon Dioxide 34 mmol/L (22-30); Chloride 93 mmol/L (98-107); Estimated Creatinine Clearance 68 ml/min; Glucose 192 mg/dl (70-99); Potassium 4.5 mmol/L (3.5-5.1); Sodium 136 mmol/L (135-145); eGFR 56.83
[2024-02-10] MEDS: NOVOLOG FLEXPEN-MODERATE RESISTANCE 1 UNITS SC (07:51)
[2024-02-10 07:56] LABS: Glucose - Point of Care 161 mg/dl (70-99)
[2024-02-10] MEDS: AMARYL 4 MG PO (07:57)
[2024-02-10] MEDS: ATROVENT NEBULES 0.5 MG INH ×3 (07:58→19:51)
[2024-02-10] MEDS: XOPENEX 0.63 MG INHALANT SOLUTION INH ×3 (07:58→19:51)
[2024-02-10] MEDS: LOPRESSOR 50 MG PO (07:59)
[2024-02-10] MEDS: LOW STRENGTH ASPIRIN 81 MG PO (07:59)
[2024-02-10] MEDS: GLUCOPHAGE 500 MG PO (07:59)
[2024-02-10] MEDS: NICODERM TRANSDERMAL 21 MG TRANSDERM (08:00)
[2024-02-10] MEDS: HEPARIN 25000 UNITS/250 ML IV (08:05)
[2024-02-10] MEDS: HEPARIN 4100 UNITS IV (08:21)
[2024-02-10] MEDS: CARDIZEM 125 IV (08:22)
--- NOTE | 2024-02-10 08:30 | W.PN.INTV ---
Today's Communication / Plan
Recommendations
Cardizem drip with goal HR <110
Replete K>4, Mg>2
NPO p MN for LHC tomorrow
May need DCCV prior to discharge, defer to cardiology
Nebulized bronchodilators with Xopenex/Atrovent
Systemic steroids with wean to can likely titrate down to 40 mg IV q12hr tomorrow
BG goal 140-180mg/dL --> starting lantus
Patient stable for downgrade out of ICU to IVU. Pulmonary service will continue to follow along.
Assessment
-
Assessment: 63-year-old male active tobacco smoker with a past medical history of COPD, atrial flutter and palpitations who presented with shortness of breath as well as swelling to lower extremities + abdomen. His lower extremities have also been
discolored for the past few weeks and his shortness of breath has also been progressively worsening over the last few days although he does admit SOB for the past 2 years. He does smoke 0.5 PPD but says that he is now 'done.' In the ER, vitals
showed tachycardia to 121, breathing at 20 breaths/min, BP 140/91, afebrile at 98.6 �F and saturating 91% on room air. Labs showed normal WBC at 10.7, Hb 16.5, initial troponin 0.148, proBNP elevated at 6110, and COVID antigen negative. Initial
CXR showed no acute cardiopulmonary process. CTA chest, abdomen, pelvis showed no aortic aneurysm or dissection, with mild centrilobular emphysema, no evidence of volume overload with no significant acute abnormality in the chest, abdomen or
pelvis. He was given Lasix, Cardizem 10 mg and started on Cardizem drip. Given his rapid A-fib requiring Cardizem drip with shortness of breath, he was admitted to the ICU for further care and critical care services consulted for additional
management/recommendations.
Chronic conditions WRIST LINER: History of atrial flutter, active tobacco use, palpitation, reported history of COPD
Impression:
#Atrial fibrillation with RVR on Cardizem drip
#Acute respiratory failure with hypoxia due to rapid A-fib in the setting of suspected COPD exacerbation
#Lower extremity swelling + abdominal distention � reduced RV systolic function on echo from 02/09/2024
#Elevated troponin � peaked at 0.148 on 02/08/2024
#JASON
#Right lower extremity DVT involving peroneal vein (Dx on 02/09/2024)
#Hyperglycemia (HbA1C: 7.2 from 02/09/2024)
#Active tobacco smoker
#Former alcohol use disorder
Plan:
- Heart rate control with goal <110bpm --> continue with cardizem drip and continue metoprolol
- Replete electrolytes with K>4, Mg>2
- Keep MAP>65
- TTE checked 02/09/2024 showing preserved LVEF 55 to 6% with no regional WMA, mild concentric LVH, enlarged RV with trace MR, TAPSE 1.5cm, mild TR and normal pulmonary pressures
- Cardiology consulted and recommendations appreciated
- Plan for LHC tomorrow and possible DCCV on Thursday
- NPO pMN
- Continue heparin gtt
- Diurese on hold due to JASON
- Given his active wheezing with shortness of breath, I started him on systemic steroids with Solu-Medrol
- Wean as tolerate --> can wean down to 40mg IV qhr tomorrow
- Maintain euglycemia while on systemic steroids with goal BG 140�180 --> change ISS to moderate resistance scale and start lantus 10 units
- Continue xopenex + atrovent TID, and prn nebulized bronchodilators
- Titrate supplemental O2 flow rate to keep SpO2 >88-94%; check ambulatory pulse oximetry prior to discharge
- Nicotine patch
- Incentive spirometer encouraged
- PT/OT - would hold off on rehab services today until HR is better controlled
- DVT ppx: heparin gtt
Recommendation outpatient pulmonary follow up for full PFTs.
Patient stable for downgrade out of ICU to IVU. NPO past midnight for left heart catheterization tomorrow. Defer cardioversion to cardiology. Pulmonary service will continue to follow along.
Total time spent today was 75 minutes for this encounter. Time includes reviewing laboratory test/imaging results, reviewing pertinent medical records, obtaining and reviewing medical history, performing an appropriate exam, ordering medications,
tests and procedures. Time also includes documentation of this encounter, coordinating patient care and communicating with other healthcare professionals. Total time does not include separately billed tests performed on this date of service.
Data:
CTA Chest/Abd/Pelvis w/wo contrast 02/08/2024:
1. No aortic aneurysm or dissection.
2. No significant acute abnormality identified in the chest, abdomen or pelvis
Subjective Dataa
Subjective Data
Date of Service:
Date of Service: February 10, 2024
Chief Complaint: Differential Repairer Follow Up
Subjective:
Patient seen and evaluated today at bedside. Heart rate 93, BP 110/86. Was off cardizem gtt overnight and it had to be restarted this AM at 5mg/hr due to HR in 130-140s. Saturating 92% on 5 L/min. Net (-) 1.2L last 24 hrs. he says his breathing
has improved, he denies chest pain. Also denies abdominal pain, nausea, vomiting, fevers or chills.
Review of Systems
General: Other (Negative unless mentioned above)
Objective Data
Data Reviewed
Vital Signs / I&O / Oxygen:
Vital Signs
Temp Pulse Resp BP Pulse Ox
98.6 F 143 17 127/84 94
02/10/24 07:40 02/10/24 08:30 02/10/24 08:30 02/10/24 08:00 02/10/24 08:30
Intake and Output
02/09/24 02/10/24 02/11/24
06:59 06:59 06:59
Intake Total 150 / 150 1178 / 1189 408 / 408
Output Total 1200 / 1200 2475 / 2475
Balance -1050 / -1050 -1297 / -1286 408 / 408
SaO2 94
Nasal Cannula flow liters per 6
minute
Physical Exam
General: Respiratory Distress (negative), Comfortable, Chills (negative) and Sweats (negative)
HEENT: Normocephalic and Anicteric
Cardiovascular: Irregular Rhythm (Irregularly irregular), Peripheral Edema (+2 lower extremity pitting edema bilaterally) and Other (Tachycardic)
Respiratory: Wheeze (Expiratory wheezing heard bilaterally), Crackles (negative), Rhonchi (negative) and Non-Labored Respirations
GI: Soft, Non Distended, Non Tender and Normal Bowel Sounds
Neurology: AO x 3 and Tremors (negative)
Skin: Warm and Dry
Labs/Micro/Reports
Lab Data
02/10/24 06:08
02/10/24 06:08
Laboratory Results
02/09/24 02/09/24 02/09/24
15:20 22:21 23:07
APTT 47.9 H > 200 H* 166.2 H*
02/10/24
06:08
APTT 65.9 H
--- NOTE | 2024-02-10 08:31 | PN.DE.MGMTRT ---
Insulin Management
- -
02/10/2024: Diabetes Management Consult
63 year old male with PMH: COPD, A-Flutter, palpitations and active smoker -0.5 PPD X 50 years, presented with SOB, abdominal and BLE swelling
Pt noted for New onset T2DM, glucose on admission was 142(V), A1C 7.2%, Cr 1, eGFR >60.
Patient awake, A/O x3, resting in bed, states he is tired and asking to rest some more, able to briefly discuss diabetes mgt
Was started on IV steroids, continued at 40mg IV Q8hrs, contributing to hyperglycemia. Initiated Metformin and Glimepiride on 02/08
Glucose range of 157 to 211 since admission, fasting 192(V) and 161 POC this AM. Cr 1-->1.4 today
Will make no changes to current regimen, cont Metformin 500mg BID Glimepiride 4mg daily and low corrective with meals
Will monitor glucose trend and consider increasing MFM dose or adding standing standing insulin dose if necessary.
Offered glucose monitor with instructions and pt declined, requested I return tomorrow.
Diabetes History
- -
Type of Diabetes: 2
Pre-Admission Diabetes Regimen
02/10/24
06:08
Creatinine 1.4 H
Lab Results
Hemoglobin A1c Cancelled 02/09/24 07:44
Insulin Pump Settings
IP Diabetes Regimen
02/09/24 02/10/24 02/10/24
15:14 04:24 06:08
Glucose 192 H
POC Glucose 211 H 157 H
02/10/24
07:45
Glucose
POC Glucose 161 H
Meal type: Lunch
Amount consumed: 100%
Patient Education
--- NOTE | 2024-02-10 09:00 | PTCARENOTE ---
Rec'd pt at 0730 awake alert and oriented resting in bed. Overall states he feels better. Denies pain. ABDULLAHI. Speech is clear. Denies headache or dizziness. Skin- lower extremities are cool with some mottling that has remained. Respirs - does get
tachypnic and KOEHLER. BS are decreased with end exp wheezing. Resp therapy in and neb given. O2 sats on 5L nc are anywhere from 89-95%. Coughing an intermittent moist sometimes prod cough for clear-whitish secretions. Monitor AFib- initally rates
108-118 but over the last hr have been more consistently 123-140. Cardizem gtt restarted at 0830 at 5 mg/hr via R hand IV site with goal to keep HR <110. Denies chest pain. VS as documented. + pulses. PT and DP pulses with the doppler. +1 LE edema.
Pt with Heparin gtt infusing- initally this am at 1100 units/hr- PTT this am resulted as 65.9 Dr. Almodovar updated and per protocol 40 unit/kg IV bolus given-4100 units at 0825 and Gtt increased per protocol to 1300 units/hr. Infusing via RAC IV
site. Abd remains sl distended but per pt much less so and much softer. Denies nausea. Good appetite for breakfast. Pt made aware he is on a 1200 ml fluid restriction. Denies need to void currently. Pt able to turn and reposition himself- states
currently he just wants to rest-that he is tired. Plan of care reviewed with pt and call tompkins in reach.
--- NOTE | 2024-02-10 09:03 | W.PN.HOSP.TC ---
Today's Communication/Plan
-
Switch to Toprol
Hold lasix
Switch to ELiquis
Assessment / Plan
Assessment / Plan
63yo M with PMHx of paroxysmal Afib not on AC, nicotine dependency came with 1 week of b/l LE swelling abd abdominal distension. CTA chest/abd/pelvis without acute abnormality, found with Afib with RVR and acute
A/P:
#CHF, unspecified exacerbation
#Afib with RVR
#Non-ischemic cardiac injury
#Suspected CAD
Lasix held on 02/10/24, telemetry with poorly controlled HR, follow daily weights and electrolytes
ASA, heparin drip, statin
Start BB - found hypotension on Lopressor 50mg BID, swithched to toprol 50mg nightly on 02/10/24, wean off Diltiazem, further mgmt as per cardio
Rate vs rhythm control as per cardio
Troponin downtrending
Cardio consult: might consider ischemic w/u
Echo with preserved EF, pulmonary HTN improved compared with 2018
TSH WNL
LDL 92
#Acute RLE DVT
switch to Eliquis on 02/10/24
Recommend outpatient age-appropriate CA screening
CTA chest/abd/pelvis without additional thrombosis or gross signs of cancer
#New onset DM
Accuchecks, Insulin SS, DM diet
Outpatient ophthalmic, renal and podiatry yearly screening emphasized
#Acute respiratory insufficiency 2/2 COPD exacerbation 2/2 nicotine dependency
Nicoderm PRN
cont bronchodilators
Emphasized cessation
Steroids taper
Wean off O2
DVT ppx Eliquis
FUll code
I have spent at least 56 min reviewing chart, test results, communication with consultants and direct patient care
Anticipated Discharge: > 48 hours
Subjective/Interval History
-
Date of Service: February 10, 2024
Objective Data
-
Labs:
Laboratory Results
02/09/24 02/09/24 02/10/24
22:21 23:07 06:08
WBC 9.3
Hgb 16.0
Hct 48.0
Plt Count 192
APTT > 200 H* 166.2 H* 65.9 H
Sodium 136
Potassium 4.5
Chloride 93 L
Carbon Dioxide 34 H
BUN 42 H
Creatinine 1.4 H
Glucose 192 H
Calcium 9.2
02/10/24
14:30
WBC
Hgb
Hct
Plt Count
APTT Pending
Sodium
Potassium
Chloride
Carbon Dioxide
BUN
Creatinine
Glucose
Calcium
Vital Signs:
Vital Signs
Temp Pulse Resp BP Pulse Ox
98.6 F 143 17 127/87 94
02/10/24 07:40 02/10/24 08:30 02/10/24 08:30 02/10/24 08:00 02/10/24 08:30
I&O
02/09/24 02/10/24 02/11/24
06:59 06:59 06:59
Intake Total 150 / 150 1178 / 1189 372 / 372
Output Total 1200 / 1200 2475 / 2475
Balance -1050 / -1050 -1297 / -1286 372 / 372
Review of Systems
-
History Source: Patient
Respiratory: Reports Trouble Breathing
Physical Exam
-
General: No Apparent Distress and Obese
HEENT: Normocephalic and Atraumatic
Respiratory: Wheezes
Cardiac: Regular Rhythm
GI: Soft, Nontender and Nondistended
Genito-urinary: No Costovertebral Tender
Musculoskeletal: No Clubbing, No Cyanosis, Edema, Right Lower Extrem and Edema, Left Lower Extrem
Skin: Warm
Neuro: Awake, Alert, Oriented and AO x 3
Psych: Calm
[2024-02-10 09:09] LABS: Glucose - Point of Care 159 mg/dl (70-99)
--- NOTE | 2024-02-10 09:39 | W.PN.CARDCBS ---
Today's Communication / Plan
-
Increase Toprol to 50 mg p.o. twice daily. After 25 mg p.o. now. Hopefully wean off Cardizem drip. Continue IV heparin. Hold off on starting Eliquis for now.
Plan will be for cardiac cath in a.m. if creatinine is overall stable. Hold Glucophage. Creatinine at 1.4. Hold Lasix. He did receive IV contrast 24-48 ago
May need ZANA cardioversion prior to discharge.
Continue aspirin, atorvastatin, and metoprolol. Eventually add lisinopril once creatinine settles.
Impression / Plan
-
PCP: None has not seen medical provider since
Health Care Coordinator: Dr. Cintron last seen in August 2015 in office
Impression:
Presented 02/08/2024 with progressively worsening shortness of breath, palpitations, abdominal bloating, lower extremity edema
Acute hypoxic respiratory insufficiency/failure
Acute heart failure with preserved ejection fraction, proBNP 6110
Anasarca
Paroxysmal atrial flutter/fibrillation of unknown duration
Abnormal troponin, peak 0.148
Emphysema/COPD exacerbation
Leukocytosis
Paroxysmal atrial flutter
Paroxysmal atrial fibrillation
[id number] score 1 (heart failure)
Ongoing tobacco abuse
Emphysema/COPD (noted on chest CT 02/08/2024)
Echo 11/14/2014: EF 50 to 55% with no regional wall motion abnormalities. Diastolic dysfunction, mildly dilated left atrium, PAP 33 to 38 mmHg
Echo 02/12: Technically difficult study. EF 55%, dilated RV, PA pressure 20-25
CT scan chest abdomen pelvis, no aortic dissection, no pulmonary embolism
Plan:
He overall is slowly improving. His troponins are abnormal with an abnormal EKG. I had a discussion with him today and we agreed to proceed with cardiac catheterization.
Unfortunately his creatinine is up to 1.4 so for today we will hold diuretics and follow his kidney function. Continue IV heparin, aspirin, atorvastatin, and metoprolol.
His ventricular rates remain elevated. Will increase Toprol to 50 mg p.o. twice daily with next 25 mg now. Hopefully we can wean off his Cardizem drip.
He likely will need a ZANA cardioversion prior to discharge pending the results of his catheterization.
Hold metformin with likely cardiac cath in a.m. and rising creatinine of 1.4. Hold diuretics.
Continue nebulizers and steroids.
Will need to continue to assess whether his respiratory status to see for ZANA.
Plan discussed with patient, nursing, primary service
HPI 02/09/2024:
Patient is a 63-year-old male with past medical significant for paroxysmal atrial flutter, ongoing tobacco abuse, COPD/emphysema and noncompliance of medical follow-up who presents to emergency department 02/08/2024 with progressively worsening
shortness of breath, abdominal bloating, lower extremity edema, palpitations. Patient reports he has had shortness of breath for several years but recently he has noted dyspnea with minimal activity including walking from the couch to the bathroom.
His legs have become cold and discolored over the last week. He also started having palpitations and vibrating in his chest 'for a while'. Recently started with intermittent dizziness with standing. Due to worsening of symptoms he decided to
seek emergency medical attention. Patient tells me the last time he was seen by a medical provider was when he was here in 2017. He takes an aspirin 81 mg daily. He smokes a pack of cigarettes a day. He denies chest pain. On presentation to
emergency department patient was found to be in atrial flutter with rapid ventricular response. Troponin 0.148. proBNP 6110. CT chest/abdomen/pelvis was negative for aortic aneurysm or dissection. Mild emphysematous changes. Mild diffuse
anasarca otherwise unremarkable abdomen, although limited given no contrast was given. He was given 40 mg IV Lasix and was placed on diltiazem drip and converted to sinus rhythm around 3 AM on 02/09/2024.
Progress Note - Health Care Coordinator
Subjective
Date of Service: February 10, 2024
His breathing is improved. He has no chest pains.
Objective
Labs:
02/10/24 06:08
02/10/24 06:08
Labs
Hgb 16.0 g/dL (13.0-18.0) 02/10/24 06:08
Hct 48.0 % (39.0-52.0) 02/10/24 06:08
Plt Count 192 10^3/uL (130-400) 02/10/24 06:08
PT 14.9 Sec (11.4-14.6) H 02/09/24 03:55
INR 1.18 02/09/24 03:55
APTT 65.9 Sec (23.4-35.0) H 02/10/24 06:08
Sodium 136 mmol/L (135-145) 02/10/24 06:08
Potassium 4.5 mmol/L (3.5-5.1) 02/10/24 06:08
BUN 42 mg/dl (9-20) H 02/10/24 06:08
Creatinine 1.4 mg/dL (0.7-1.3) H 02/10/24 06:08
Glucose 192 mg/dl (70-99) H 02/10/24 06:08
Troponins
02/08/24 02/08/24 02/08/24
18:03 20:58 22:56
Troponin I 0.148 H* 0.134 H* Cancelled
02/08/24 02/09/24
23:21 03:55
Troponin I 0.130 H* 0.106 H*
Vital Signs and I&O:
Vital Signs
Temp Pulse Resp BP Pulse Ox
98.6 F 143 17 127/84 94
02/10/24 07:40 02/10/24 08:30 02/10/24 08:30 02/10/24 08:00 02/10/24 08:30
Vital Signs
Temp Pulse Resp BP Pulse Ox
98.6 F 143 17 127/84 94
02/10/24 07:40 02/10/24 08:30 02/10/24 08:30 02/10/24 08:00 02/10/24 08:30
Intake & Output
02/08/24 02/09/24 02/10/24 02/11/24
06:59 06:59 06:59 06:59
Intake Total 150 / 150 1178 / 1189 372 / 372
Output Total 1200 / 1200 2475 / 2475
Balance -1050 / -1050 -1297 / -1286 372 / 372
Physical Exam
Physical Exam
GEN: No distress, awake, Ox3
HEENT: supple, anicteric, mmm
LUNGS: bilat rhonchi
CV: irreg, S1/S2, 1/6 syst LSB, no gallop
ABD: soft, BS+, NT/ND
EXT: trace edema
NEURO: Gross non-focal
SKIN: No rash
--- NOTE | 2024-02-10 09:45 | W.PN.UPDATE ---
Update Note
Progress Note Update
As per cardiology - cath in AM - cont heparin drip, no Eliquis switch yet
--- NOTE | 2024-02-10 10:06 | PTCARENOTE ---
Dr. Bee in to see pt and discussed with pt possible cardiac cath tomorrow and Cardioversion Klever, as such will keep pt on Heparin gtt (Eliquis not given). Pt just wants to rest currently. Did not want to watch AFib or CHF videos right now.
Expressing some anxiety at the thought of 'having his heart stopped'. Support and explanations given. Call tompkins remains in reach.
[2024-02-10] MEDS: TOPROL XL 25 MG PO (10:56)
--- NOTE | 2024-02-10 11:00 | PTCARENOTE ---
Sats on 5L have been 94-97%- will try pt on 4L nc- currently sats are 95%. Additoinal Toprol XL 25 mg po given per MD order. Overall HR improved since Cardizem restarted- rates 92-112. Mostly just resting. States he is just tired. Overall affect is
flat but pt admits to being an anxious person at baseline.
--- NOTE | 2024-02-10 12:37 | PTCARENOTE ---
Assisted oob to the chair. Voided. Tolerated getting up - sats 95%. HR 98-110. Afib. No other changes in assessment. Lunch ordered. States he feels comfortable sitting up
[2024-02-10] MEDS: NOVOLOG FLEXPEN-MODERATE RESISTANCE 5 UNITS SC ×2 (12:40→17:17)
[2024-02-10 12:48] LABS: Glucose - Point of Care 317 mg/dl (70-99)
--- NOTE | 2024-02-10 13:30 | PTCARENOTE ---
Pt remains sitting oob. Partial CHG bath given and pt brushed his teeth and hair washed. Assisted to the bathroom- gait is steady. No c/o dizziness. Moved bowels on the toilet. Voiding jada/yellow urine. PT/OT in to work with pt. Pt watched health
videos
[2024-02-10] MEDS: LANTUS 0.1 UNITS SC (14:11)
[2024-02-10 15:35] LABS: APTT 130.8 Sec (23.4-35.0)
--- NOTE | 2024-02-10 16:05 | PTCARENOTE ---
Remains sitting oob in the chair. PTT resulted as 130.8- Per protocol Heparin gtt decreased to 1100 units/hr. Hr over past hr has been mostly in the 118-128 range and will only briefly go under 110. Cardizem increased to 10 mg/hr. Pt overall has
been more active- talking on the phone. moving around. Ready to eat dinner shortly. No other changes
[2024-02-10 17:26] LABS: Glucose - Point of Care 254 mg/dl (70-99)
[2024-02-10] MEDS: LIPITOR 20 MG PO (18:09)
--- NOTE | 2024-02-10 18:30 | PTCARENOTE ---
HR overall better on the 10 mg /hr will still jump up into the 120's with activity but then back to 108-114. Assisted to the bathroom voided and moved his bowels. Excellent appetite for dinner. Currently assisted back to bed. Call turner in reach. Pt
for transfer later to IVU.
[2024-02-10] MEDS: TOPROL XL 50 MG PO (19:27)
--- NOTE | 2024-02-10 20:00 | PTCARENOTE ---
Received patient at 1900. Pt. awake, alert, and oriented. Denies pain/discomfort. Afebrile. Heart rhythm Afib, heparin gtt and cardizem gtt infusing. Blood pressure normotensive. Currently on 3L nasal cannula. Lungs sound diminished. PO diet
ordered, good appetite. Pt. voiding without issue. Skin as documented. Discussed plan of care. Vital signs stable at this time.
[2024-02-10 22:02] LABS: Glucose - Point of Care 212 mg/dl (70-99)
[2024-02-10 22:17] LABS: APTT 98.2 Sec (23.4-35.0)
[2024-02-11] VITALS (22 sets, daily range): BP systolic 97–138; BP diastolic 78–114; BMI 31.1
--- NOTE | 2024-02-11 00:25 | PTCARENOTE ---
Pt. assessment unchanged. Cardizem gtt and heparin gtt infusing. Vital signs stable at this time.
[2024-02-11] MEDS: HEPARIN 25000 UNITS/250 ML IV ×2 (02:21→21:57)
[2024-02-11] MEDS: CARDIZEM 125 IV (02:21)
[2024-02-11] MEDS: TUMS 1 TABLET PO (03:30)
--- NOTE | 2024-02-11 04:20 | PTCARENOTE ---
Pt. c/o stomach pain. Tums given. Pt. assisted to bathroom where he had a bowel movement. AM labs drawn. Vital signs stable at this time.
[2024-02-11 04:38] LABS: % Basophils 0.2 % (0-2); % Immature Granulocytes 0.5 % (0-0.5); % Lymphocytes 6.3 % (20.5-51.1); % Monocytes 4.1 % (1.7-9.3); % Neutrophils 88.9 % (42.2-75.2); Absolute Immature Granulocytes 0.1 10^3/uL (0-0.05); Absolute Lymphocytes 1.1 10^3/uL (1.2-3.4); Absolute Monocytes 0.7 10^3/uL (0.1-0.6); Hematocrit 46.6 % (39.0-52.0); Hemoglobin 15.8 g/dL (13.0-18.0); Mean Corp Hgb Conc. 33.9 g/dL (33.0-37.0); Mean Corpuscular Hgb 31.5 pg (27.0-31.0); Mean Corpuscular Volume 92.8 fL (80.0-94.0); Mean Platelet Volume 11.9 fL (7.4-10.4); Nucleated Red Blood Cells % 0.3 % (-); Platelet Count 245 10^3/uL (130-400); Red Blood Cell Count 5.02 10^6/uL (4.70-6.10); Red Cell Dist. Width 13.9 % (11.5-14.5); White Blood Cell Count 17.9 10^3/uL (4.8-10.8)
[2024-02-11 04:47] LABS: APTT 58.1 Sec (23.4-35.0)
[2024-02-11] MEDS: HEPARIN 8200 UNITS IV (04:56)
[2024-02-11 04:57] LABS: ALT (SGPT) 87 U/L (0-50); AST (SGOT) 74 U/L (17-59); Albumin 3.9 g/dl (3.5-5.0); Alkaline Phosphatase 87 U/L (38-126); Blood Urea Nitrogen 68 mg/dl (9-20); Calcium 9.1 mg/dl (8.4-10.2); Carbon Dioxide 32 mmol/L (22-30); Chloride 91 mmol/L (98-107); Estimated Creatinine Clearance 40 ml/min; Glucose 205 mg/dl (70-99); Magnesium 2.1 mg/dl (1.6-2.3); Potassium 4.2 mmol/L (3.5-5.1); Sodium 134 mmol/L (135-145); Total Bilirubin 0.7 mg/dl (0.2-1.3); Total Protein 6.5 g/dl (6.3-8.2); eGFR 29.76
[2024-02-11] MEDS: SOLU-MEDROL PF 40 MG IV ×3 (05:04→21:09)
[2024-02-11 05:06] LABS: NT-proBNP 9400 pg/ml
[2024-02-11 07:42] LABS: Glucose - Point of Care 184 mg/dl (70-99)
[2024-02-11] MEDS: TOPROL XL 50 MG PO (07:45)
[2024-02-11] MEDS: NOVOLOG FLEXPEN-MODERATE RESISTANCE 1 UNITS SC ×2 (07:45→11:45)
[2024-02-11] MEDS: NICODERM TRANSDERMAL 21 MG TRANSDERM (07:45)
[2024-02-11] MEDS: LOW STRENGTH ASPIRIN 81 MG PO (07:46)
--- NOTE | 2024-02-11 07:56 | PTCARENOTE ---
report received, assessments per work list. Cardizem, heparin as documented. patent denies pain, alert and cooperative. feet dusky, cool with Doppler pulses. +2 anasarca. monitor afib. lungs with crackles 1/3 up bilaterally, expiratory wheezing.
abdomen firmly distended, active bowel sounds. bladder scan per work list. patient updated with plan of care, need for accurate I/O and urine sample.
[2024-02-11] MEDS: ATROVENT NEBULES 0.5 MG INH ×3 (08:11→20:14)
[2024-02-11] MEDS: XOPENEX 0.63 MG INHALANT SOLUTION INH ×3 (08:11→20:14)
--- NOTE | 2024-02-11 08:31 | W.PN.PUL3 ---
Today's Communication / Plan
-
Cardizem drip with goal HR <110
Replete K>4, Mg>2
LHC once sCr improves
May need DCCV prior to discharge, defer to cardiology
Nebulized bronchodilators with Xopenex/Atrovent
Systemic steroids with wean to can likely titrate down to 40 mg IV q12hr tomorrow
BG goal 140-180mg/dL
Bedside POC US shows his lungs are clear and IVC is 25% collapsible --> IVF started with NS 0.9% @ 120cc/hr
Trend BMP, Mg and PO4 with serial labs
Nephrology consulted - recs appreciated
Check LE BURKE ---> low threshhold to consult vascular surgery
Assessment
-
Assessment: 63-year-old male active tobacco smoker with a past medical history of COPD, atrial flutter and palpitations who presented with shortness of breath as well as swelling to lower extremities + abdomen. His lower extremities have also been
discolored for the past few weeks and his shortness of breath has also been progressively worsening over the last few days although he does admit SOB for the past 2 years. He does smoke 0.5 PPD but says that he is now 'done.' In the ER, vitals
showed tachycardia to 121, breathing at 20 breaths/min, BP 140/91, afebrile at 98.6 �F and saturating 91% on room air. Labs showed normal WBC at 10.7, Hb 16.5, initial troponin 0.148, proBNP elevated at 6110, and COVID antigen negative. Initial
CXR showed no acute cardiopulmonary process. CTA chest, abdomen, pelvis showed no aortic aneurysm or dissection, with mild centrilobular emphysema, no evidence of volume overload with no significant acute abnormality in the chest, abdomen or
pelvis. He was given Lasix, Cardizem 10 mg and started on Cardizem drip. Given his rapid A-fib requiring Cardizem drip with shortness of breath, he was admitted to the ICU for further care and critical care services consulted for additional
management/recommendations. Patient downgraded to IVU level of care on 02/09 and pulmonary service continue to follow along.
Chronic conditions PROCUREMENT CONSULTANT: History of atrial flutter, active tobacco use, palpitation, reported history of COPD
Impression:
#Atrial fibrillation with RVR on Cardizem drip
#Acute respiratory failure with hypoxia due to rapid A-fib in the setting of suspected COPD exacerbation
#Lower extremity swelling + abdominal distention � reduced RV systolic function on echo from 02/09/2024
#Elevated troponin � peaked at 0.148 on 02/08/2024
#JASON likely due to DEISY in setting of CHF and hypovolemia
#Right lower extremity DVT involving peroneal vein (Dx on 02/09/2024)
#Hyperglycemia (HbA1C: 7.2 from 02/09/2024)
#Active tobacco smoker
#Former alcohol use disorder
Plan:
- Heart rate control with goal <110bpm --> continue with cardizem drip and continue metoprolol
- Replete electrolytes with K>4, Mg>2
- Keep MAP>65
- TTE checked 02/09/2024 showing preserved LVEF 55 to 6% with no regional WMA, mild concentric LVH, enlarged RV with trace MR, reduced RV systolic function with TAPSE: 1.5cm, mild TR and normal pulmonary pressures
- Cardiology consulted and recommendations appreciated
- Plan for LHC once sCr improves; possible DCCV prior to discharge
- Continue heparin gtt
- Diurese on hold due to JASON
-Bedside PocUS performed today by me: A-line predominant lung christie with no pleural effusion seen, indicating that lungs are dry. IVC collapsibility is 25%, indicating that he is slightly hypovolemic and JASON may be partially due to hypovolemia,
especially in the setting of RV dysfunction in which he is preload dependent.
- Start IVF with NS 0.9% @ 120cc/hr x 16 hours, re-assessing tomorrow after AM labs return - once Cr improves then can stop IVF
- Nephrology consulted --> recs appreciated
- Check lower extremity BURKE and consult vascular surgery if abnormal given mottled appearance of lower extremities and cool to touch; DP pulses (+) by doppler b/l
- Given his active wheezing with shortness of breath, I started him on systemic steroids with Solu-Medrol --> continue this for now at same dose given he is continuing to wheeze
- Maintain euglycemia while on systemic steroids with goal BG 140�180 --> continue ISS moderate resistance scale with AC aspart 4 units, and lantus 10 units
- Continue xopenex + atrovent TID, and prn nebulized bronchodilators
- Titrate supplemental O2 flow rate to keep SpO2 >88-94%; check ambulatory pulse oximetry prior to discharge
- Nicotine patch
- Incentive spirometer encouraged
- PT/OT - would hold off on rehab services until HR is better controlled
- DVT ppx: heparin gtt
Recommendation outpatient pulmonary follow up for full PFTs.
Pulmonary service will continue to follow along.
Total time spent today was 50 minutes for this encounter. Time includes reviewing laboratory test/imaging results, reviewing pertinent medical records, obtaining and reviewing medical history, performing an appropriate exam, ordering medications,
tests and procedures. Time also includes documentation of this encounter, coordinating patient care and communicating with other healthcare professionals. Total time does not include separately billed tests performed on this date of service.
Data:
CTA Chest/Abd/Pelvis w/wo contrast 02/08/2024:
1. No aortic aneurysm or dissection.
2. No significant acute abnormality identified in the chest, abdomen or pelvis
CXR 02/11/2024: Mild interstitial pulmonary edema. No effusion.
Renal US 02/11/2024: No hydronephrosis or nephrolithiasis. Bilateral cortical atrophy.
Bilateral lower extremity duplex US 02/09/2024:
Thrombus within the right peroneal vein.
No evidence for deep venous thrombosis of the left lower extremity.
Transthoracic echocardiogram 02/09/2024:
Technically difficult study.
Normal left ventricular size and function. Normal regional wall motion. Mild
concentric left ventricular hypertrophy. LV ejection fraction is 55-60% by
Barrera's method of discs. Diastolic function indeterminate.
Enlarged right ventricular size.
Dilated RA.
Mitral annular calcification. Trace mitral regurgitation.
Mild tricuspid regurgitation. Estimated pulmonary artery pressure of 20-25
mmHg. Assuming a right atrial pressure of 3 mmHg.
When compared to prior study on 06/17/2017, RA and RV are enlarged; PASP has
improved to 20-25 mmHg from 33-38 mmHg; no other significant change.
Subjective Data
-
Date of Service:
Date of Service: February 11, 2024
Chief Complaint: Pulmonary Follow Up
Subjective:
Patient seen and evaluated today at bedside. Shortness of breath better. Saturating 95% on 3 L/min nasal cannula. Heart rate 90 on Cardizem drip at 5 mg/h. BP 130/99. Lower extremities are mottled. He denies chest pain, GIMENEZ, abdominal pain,
back pain, fevers or chills.
Review of Systems
General: Other (Negative unless mentioned above)
Objective Data
Data Reviewed
Vital Signs / I&O / Oxygen:
Vital Signs
Temp Pulse Resp BP Pulse Ox
97.6 F 100 19 120/100 92
02/11/24 07:46 02/11/24 08:13 02/11/24 08:13 02/11/24 07:45 02/11/24 08:13
Intake and Output
02/10/24 02/11/24 02/12/24
06:59 06:59 06:59
Intake Total 1178 / 1189 2755 / 2780 315 / 315
Output Total 2475 / 2475 350 / 350
Balance -1297 / -1286 2405 / 2430 315 / 315
SaO2 92
Nasal Cannula flow liters per 2
minute
Physical Exam
General: Respiratory Distress (negative), Comfortable, Chills (negative) and Sweats (negative)
HEENT: Normocephalic and Anicteric
Cardiovascular: Irregular Rhythm (Irregularly irregular), Peripheral Edema (+1 lower extremity edema bilaterally) and Cool Extremities (Cool lower extremities bilaterally)
Respiratory: Wheeze (Expiratory wheezing heard in posterior lung christie bilaterally), Crackles (negative), Rhonchi (negative) and Non-Labored Respirations
GI: Soft, Distended (Abdominal obesity), Non Tender and Normal Bowel Sounds
Neurology: AO x 3 and Tremors (negative)
Skin: Dry, Jaundice (negative) and Other (Mottled appearance of lower extremities bilaterally; cool lower extremities; upper extremities are warm to touch)
Labs/Micro/Reports
Lab Data
02/11/24 04:11
02/11/24 04:11
Laboratory Results
02/10/24 02/10/24 02/11/24
15:03 21:52 04:11
APTT 130.8 H 98.2 H 58.1 H
--- NOTE | 2024-02-11 08:57 | W.PN.HOSP.TC ---
Today's Communication/Plan
-
UOsm, Ludwin, UCr, UA
US renal and bladder
Garcia
XR chest
cont Afib mgmt as per cardio
Assessment / Plan
Assessment / Plan
63yo M with PMHx of paroxysmal Afib not on AC, nicotine dependency came with 1 week of b/l LE swelling abd abdominal distension. CTA chest/abd/pelvis without acute abnormality, found with Afib with RVR and acute R non-occlusive DVT. Later developed
JASON, so cardiac cath planned for 02/11/24 had to be delayed
A/P:
#CHF, unspecified exacerbation
#Afib with RVR
#Non-ischemic cardiac injury
#Suspected CAD
Lasix held on 02/10/24, telemetry with poorly controlled HR, follow daily weights and electrolytes
ASA, heparin drip, statin
Start BB - found hypotension on Lopressor 50mg BID, switched to Toprol 50mg nightly on 02/10/24, wean off Diltiazem, further mgmt as per cardio
Rate vs rhythm control as per cardio
Troponin downtrending
Cardio consult: might consider ischemic w/u
Echo with preserved EF, pulmonary HTN improved compared with 2018, no significant valvular disease
TSH WNL
LDL 92
#JASON, oliguric
concern for low perfusion state 2/2 uncontrolled Afib
Urine Osm, Na, Cr, UA, US renal
Patient does not retaining urine as per scan on 02/11/24
Neprho consult
Garcia and strict I&O
#b/l LE cyanosis
previous CTA included pelvis - no signs of arterial occlusion
DVT was found only in RLE and was non-occlusive
Dorsalis pedis pulses present on both LE by doppler
Concerned for low cardiac output 2/2 afib with RVR
#Acute RLE DVT
switch to Eliquis on 02/10/24
Recommend outpatient age-appropriate CA screening
CTA chest/abd/pelvis without additional thrombosis or gross signs of cancer
no DVT on L
#New onset DM
Accuchecks, Insulin SS, DM diet
Outpatient ophthalmic, renal and podiatry yearly screening emphasized
#Acute respiratory insufficiency 2/2 COPD exacerbation 2/2 nicotine dependency
Nicoderm PRN
cont bronchodilators
Emphasized cessation
Steroids taper
Wean off O2
DVT ppx Eliquis
FUll code
I have spent at least 56 min reviewing chart, test results, communication with consultants and direct patient care
Anticipated Discharge: > 48 hours
Subjective/Interval History
-
Date of Service: February 11, 2024
Objective Data
-
Labs:
Laboratory Results
02/10/24 02/11/24 02/11/24
21:52 04:11 11:00
WBC 17.9 H
Hgb 15.8
Hct 46.6
Plt Count 245 D
APTT 98.2 H 58.1 H Pending
Sodium 134 L
Potassium 4.2
Chloride 91 L
Carbon Dioxide 32 H
BUN 68 H
Creatinine 2.4 H
Glucose 205 H
Calcium 9.1
Total Bilirubin 0.7
AST 74 H
ALT 87 H
Alkaline Phosphatase 87
Vital Signs:
Vital Signs
Temp Pulse Resp BP Pulse Ox
97.6 F 100 19 120/100 92
02/11/24 07:46 02/11/24 08:13 02/11/24 08:13 02/11/24 07:45 02/11/24 08:13
I&O
02/10/24 02/11/24 02/12/24
06:59 06:59 06:59
Intake Total 1178 / 1189 2755 / 2780
Output Total 2475 / 2475 350 / 350
Balance -1297 / -1286 2405 / 6693
Review of Systems
-
History Source: Patient
Cardiac: Reports Palpitations
Physical Exam
-
General: No Apparent Distress and Obese
HEENT: Moist Mucous Membranes
Respiratory: Wheezes and Crackles
Cardiac: Irregular Rhythm and Tachycardic
GI: Soft, Nontender and Nondistended
Musculoskeletal: No Clubbing, Cyanosis (b/l), Edema, Right Lower Extrem and Edema, Left Lower Extrem
Neuro: Awake, Alert, Oriented, AO x 3 and No Motor Deficits
Psych: Calm
--- NOTE | 2024-02-11 09:40 | W.CON.NEPH ---
Consultation
-
Date/Time Consultation Requested: 02/11/24 0722
Date/Time Consultation Performed: 02/11/24 1000
Requesting Provider: Owen Mckenna
Performing Provider: Kami Lynn
Reason for Consultation: JASON
Medical History
-
Chief Complaint: sob, edema and LE discoloration
History of Present Illness:
63-year-old male active tobacco smoker with a PMHx of COPD with out meds, A fib on ASA who has not seen doctor for a while presented with edema, sob and bilat feet discoloration. He noted symptoms present for months however worsening sob and edema
with wt gain last few days to a week. H noted to have acute resp failure from CHF and COPD exacerbation. He received lasix initially but held since 02/09 for hypotension. He is maintained on cardizem gtt for afib with RVR, BB added by cardiology and
trying to wean the drip. He had CTA c/a/p with contrast on 02/07 revealed no dissection or aneurysm. His cr on admit was at 1 and now increased upto 2.4. HIs UOP also decreased from yesterday. He just had Verdin placed and no urine came with no urine
in bladder scan. He reprots no cp or n/v. SOB is improving. No dizziness. No fever, he is on 3lit of NC. Nephrology asked to assist in JASON.
Past Medical History
History of atrial flutter, active tobacco use, palpitation, reported history of COPD
Social History
Tobacco: Smoker
Alcohol: Former
Drug: None
Personal:
Living: With Family
Employment: Retired
Family History
Family History: Not Pertinent
Allergies / Home Medications
Allergy/AdvReac Type Severity Reaction Status Date / Time
No Known Allergies Allergy Verified 02/08/24 17:46
�Medication �Instructions �Recorded �Confirmed �Type
aspirin 81 mg tablet,delayed 81 mg PO DAILY #1 tab 06/18/17 02/08/24 Rx
release
Review of Systems
-
All other systems: Negative unless noted
Physical Exam
Vital Signs
Vital Signs
Temp Pulse Resp BP Pulse Ox
97.6 F 100 19 120/100 92
02/11/24 07:46 02/11/24 08:13 02/11/24 08:13 02/11/24 07:45 02/11/24 08:13
Lab Results
WBC 17.9 10^3/uL (4.8-10.8) H 02/11/24 04:11
RBC 5.02 10^6/uL (4.70-6.10) 02/11/24 04:11
Hgb 15.8 g/dL (13.0-18.0) 02/11/24 04:11
Hct 46.6 % (39.0-52.0) 02/11/24 04:11
Plt Count 245 10^3/uL (130-400) D 02/11/24 04:11
Sodium 134 mmol/L (135-145) L 02/11/24 04:11
Potassium 4.2 mmol/L (3.5-5.1) 02/11/24 04:11
Chloride 91 mmol/L (98-107) L 02/11/24 04:11
Carbon Dioxide 32 mmol/L (22-30) H 02/11/24 04:11
BUN 68 mg/dl (9-20) H 02/11/24 04:11
Creatinine 2.4 mg/dL (0.7-1.3) H 02/11/24 04:11
eGFR 29.76 02/11/24 04:11
Glucose 205 mg/dl (70-99) H 02/11/24 04:11
Calcium 9.1 mg/dl (8.4-10.2) 02/11/24 04:11
Phosphorus 5.0 mg/dl (2.5-4.5) H 02/11/24 04:11
Jgw-Z-Hvmnjyhycma Pept 9400 pg/ml 02/11/24 04:11
Albumin 3.9 g/dl (3.5-5.0) 02/11/24 04:11
echo:
CONCLUSIONS
Technically difficult study.
Normal left ventricular size and function. Normal regional wall motion. Mild
concentric left ventricular hypertrophy. LV ejection fraction is 55-60% by
Barrera's method of discs. Diastolic function indeterminate.
Enlarged right ventricular size.
Dilated RA.
Mitral annular calcification. Trace mitral regurgitation.
Mild tricuspid regurgitation. Estimated pulmonary artery pressure of 20-25
mmHg. Assuming a right atrial pressure of 3 mmHg.
When compared to prior study on 06/17/2017, RA and RV are enlarged; PASP has
improved to 20-25 mmHg from 33-38 mmHg; no other significant change.
02/07:
CTA:
IMPRESSION:
1. No aortic aneurysm or dissection.
2. No significant acute abnormality identified in the chest, abdomen or pelvis as described above.
Physical Exam
General: Awake, Alert, Oriented, AOx3, No Distress and Nontoxic
HEENT: EOMI, Anicteric, Facial Symmetry and Neck Supple
Respiratory: Wheezes (mild bilat )
Cardiac: S1/S2 and Regular Rate/Rhythm
Breast: Deferred by me
Abdomen: Soft, Nontender and Nondistended
Musculoskeletal: Cyanosis and Edema (1+)
Neuro: Nonfocal/Grossly Intact
Psych: Mood/afflect pleasant and Appropriate
Data Reviewed
-
Radiology: Report Reviewed by me and Discussed with Patient
Labs: Labs Reviewed by me, Discussed with Nurse and Discussed with Patient
Assessment/Plan
-
IMP:
JASON
Acute respiratory failure
Acute D CHF
suspected COPD exacerbation
Afib with RVR
Non-ischemic cardiac injury
Suspected CAD
b/l LE cyanosis
Acute RLE DVT
New onset DM
COPD
metabolic alkalosis
Plan:
A/w sob, edema, noted acute resp failure from CHF, COPD
new Rt LE DVT and Afib RVR
JASON-possible DEISY (contrast 02/07) and afib, hypotension +diuresis , baseline cr 1 on admit
UA and U lytes pending, oliguric, no UOP today-verdin placed
follow bladder scan , renal US pending report
given significant PVD changes in LE and smoking-check renal art duplex , CTA had limitation reviewed report
cont to hold lasix, and avoid nephrotoxins-not ready for cath
BP sable, med adjustment per cards on BB and wean cardizem gtt
monitor met alkalosis
reviewed with pt about high risk of LIBRARIAN SPECIALIST if renal function worsens
he agrees HD if needed
monitor daily wts , labs later today
d/w nursing
--- NOTE | 2024-02-11 10:14 | PN.DE.MGMTRT ---
Insulin Management
- -
02/11/2024: Diabetes Management Consult Follow up
63 year old male with PMH: COPD, A-Flutter, palpitations and active smoker -0.5 PPD X 50 years, presented with SOB, abdominal and BLE swelling
Pt noted for New onset T2DM, glucose on admission was 142(V), A1C 7.2%, Cr 1, eGFR >60.
Patient awake, A/O x3, resting in bed, states he is tired and very uncomfortable recent verdin inserted, able to briefly discuss diabetes mgt
Was started on IV steroids, continued at 40mg IV Q8hrs, contributing to hyperglycemia.
Metformin and Glimepiride 02/08. Glucose range 161 to 317. Lantus 10 units in AM started at 10am.
02/09 up to 2.4, eGFR 29.76 today. Glimepiride and metformin stopped. Will resume diet and add AC novolog 4 units with corrective insulin
Offered glucose monitor with instructions and pt declined, requested I return tomorrow.
Diabetes History
- -
Type of Diabetes: 2
Pre-Admission Diabetes Regimen
02/11/24
04:11
Creatinine 2.4 H
Lab Results
Hemoglobin A1c Cancelled 02/09/24 07:44
Insulin Pump Settings
IP Diabetes Regimen
02/10/24 02/10/24 02/10/24
12:37 17:15 21:50
Glucose
POC Glucose 317 H 254 H 212 H
02/11/24 02/11/24
04:11 07:31
Glucose 205 H
POC Glucose 184 H
Meal type: Breakfast
Meal type: Dinner
Meal type: Lunch
Amount consumed: 100%
Amount consumed: 100%
Patient Education
[2024-02-11] MEDS: LANTUS 0.1 UNITS SC (10:25)
--- NOTE | 2024-02-11 11:03 | CM ---
Patient seen at bedside in ICU. Patient states that he does not know what he will need at discharge, and is open to VN supports. Patient currently on O2 and is not at home. Patient indicated that he does intend to go home when medically appropriate.
Per chart review patient for further procedure, when medically appropriate. CM will continue to follow for discharge planning needs.
Plan; home with VN; watch for Home O2 needs.
--- NOTE | 2024-02-11 11:06 | PN.CDI ---
Addendum entered and electronically signed by Owen Keller MD 02/11/24 14:19:
no change in documentation
Original Note:
CDI
- -
CDI:
Physician Documentation Request
Admit Date: 02/08/24 20:42
Dear Doctor Krishna,
Patient admitted for Afib with RVR.
02/08 PCN: 'Lungs diminished/course on 5L NC, pt diaphoretic and tachypnic, dyspneic on exertion'
02/09 Brake Shoe Rebuilder PN: 'Acute respiratory failure with hypoxia due to rapid A-fib in the setting of suspected COPD exacerbation'
02/09 Cardiology PN: 'Acute hypoxic respiratory insufficiency/failure'
02/09 PCN: 'Respirs - does get tachypnic and KOEHLER. BS are decreased with end exp wheezing. Resp therapy in and neb given. O2 sats on 5L nc are anywhere from 89-95%. Coughing an intermittent moist sometimes prod cough for clear-whitish secretions.'
02/10 Hospitalist PN: 'Acute respiratory insufficiency 2/2 COPD exacerbation 2/2 nicotine dependency'
Selected Entries
02/09/24
09:27 02/09/24
19:19 02/10/24
08:03
Nasal Cannula flow liters per minute 5 5 6
Clarify which of the following accurately represents the patient's respiratory status:
Acute hypoxic respiratory failure
Acute hypoxic respiratory insufficiency
Other
Additional information for Respiratory Failure:
Recognized criteria for Respiratory Failure (Source: [facility] Apr 2013)
ABGs: (1 or more) Symptoms Please indicate type if known
1. p)2 <60 or RA SPO2 <91% on RA 1. Tachypnea, SOB, dyspnea Hypoxic
2. pCO2 50 and pH <7.35 2. Use of accessory muscles Hypercapnic
3. pO2 decrease of pCO2 increase by 3. Pallor or cyanosis Hypoxic and Hypercapnic
10 mmHg from baseline if known 4. Anxiety or restlessness Unable to determine
5. Unable to speak in full sentences
Supplemental O2 of > 40% (5LPM) Intubation is not required
Use of terms such as suspected, likely, concern for, or probable (associated with a specific diagnosis that is being evaluated, monitored, or treated as if it exists) are acceptable and can be coded in the inpatient setting, when documented at the
time of discharge.
Thank you,
Ange Lewis RN, BSN
CDI Specialist
Available via [place] text
Please use your independent medical judgment in providing your response.
--- NOTE | 2024-02-11 11:08 | PTCARENOTE ---
Addendum entered by Riya Xie RN 02/11/24 11:45:
medicated with ativan per prn order
Original Note:
verdin inserted with great difficulty, required two RN to insert. scant urine output(1ML) post insertion bladder scan 1 ml. hospitalist and footwear sales associate updated. patient very anxious, yelling out, states 'I'm leaving', grinding teeth. Hospitalist
updated. orders pending.
[2024-02-11] MEDS: ATIVAN 1 MG PO (11:18)
[2024-02-11] MEDS: NOVOLOG FLEXPEN 4 UNITS SC ×3 (11:36→22:01)
[2024-02-11 11:45] LABS: Glucose - Point of Care 186 mg/dl (70-99)
[2024-02-11 12:19] LABS: APTT > 200 Sec (23.4-35.0)
[2024-02-11 12:25] LABS: Urine Albumin 1+ (Neg - Trace); Urine Bilirubin 1+ (Negative); Urine Character Very Cloudy (Clear); Urine Color Yellow; Urine Glucose Negative (Negative); Urine Ketone Negative (Negative); Urine Leukocyte Trace (Negative); Urine Nitrite Negative (Negative); Urine Occult Blood 4+ (Negative); Urine Specific Gravity 1.025 (<1.030); Urine Urobilinogen 1+ (Neg - 1+)
--- NOTE | 2024-02-11 12:29 | PTCARENOTE ---
Addendum entered by Juan Ni RN 02/11/24 12:41:
[employer] made aware of temperature, legs remain mottled, warm blankets applied. Will continue to monitor.
Original Note:
Pt. ptt >200, Heparin gtt stopped per protocol, pyridine recovery operator made aware. Temp 95.4, scant amount of urine. Call tompkins at bedside.
[2024-02-11 12:43] LABS: Osmolality Urine 458 mOsm/kg (300-900)
[2024-02-11 13:02] LABS: Urine Squamous Cell >30 /LPF (Few)
[2024-02-11 13:04] LABS: Urine Bacteria Few (Negative); Urine Red Blood Cell 26-30 /HPF (0-2); Urine White Cell 0-2 /HPF (0-5)
[2024-02-11 13:07] LABS: Urine Sodium 11 mmol/L (30-90)
--- NOTE | 2024-02-11 14:07 | W.PN.UPDATE ---
Addendum entered and electronically signed by Owen Keller MD 02/11/24 14:20:
Suspect leukocytosis 2/2 steroids - will cont monitoring
Addendum entered and electronically signed by Owen Keller MD 02/11/24 14:11:
VascSx consult and US arterial LE placed
Original Note:
Update Note
Progress Note Update
FeNa 0.1% - pre-renal. CHF vs DEISY. Since BP good - less likely A.fib
[2024-02-11] MEDS: NSS 1000 IV ×2 (14:35→21:56)
--- NOTE | 2024-02-11 14:57 | W.PN.CARDCBS ---
Today's Communication / Plan
-
Support hemodynamics
Rate control atrial fibrillation/flutter
IV heparin
Appreciate nephrology input; hold Lasix
N.p.o. after midnight for possible procedures on Thursday
Impression / Plan
-
PCP: None has not seen medical provider since
Organization Development Consultant: Dr. Cintron last seen in August 2015 in office
Impression:
Presented 02/08/2024 with progressively worsening shortness of breath, palpitations, abdominal bloating, lower extremity edema
Acute hypoxic respiratory insufficiency/failure
Acute heart failure with preserved ejection fraction, proBNP 6110
Anasarca
Paroxysmal atrial flutter/fibrillation of unknown duration
Abnormal troponin, peak 0.148
Emphysema/COPD exacerbation
Leukocytosis
Paroxysmal atrial flutter
Paroxysmal atrial fibrillation
[id number] score 1 (heart failure)
Ongoing tobacco abuse
Emphysema/COPD (noted on chest CT 02/08/2024)
Echo 11/14/2014: EF 50 to 55% with no regional wall motion abnormalities. Diastolic dysfunction, mildly dilated left atrium, PAP 33 to 38 mmHg
Echo 02/12: Technically difficult study. EF 55%, dilated RV, PA pressure 20-25
CT scan chest abdomen pelvis, no aortic dissection, no pulmonary embolism
Plan:
Medically complex 63-year-old gentleman who has not had medical care since his hospitalization in 2016 found to have heart failure preserved ejection fraction with diffuse anasarca/edema, atrial fibrillation/flutter with rapid ventricular response,
concern for significant PAD, concern for CAD with underlying COPD/emphysema and ongoing tobacco dependence now with acute renal insufficiency
Atrial fibrillation/flutter
-Patient continues to be in relatively rate controlled atrial fibrillation on IV Cardizem drip
-Hopefully will transition to oral medications and continue rate control strategy at this time
-Continue IV heparin drip with plan for possible procedures pending return of his renal function
Heart failure with preserved ejection fraction now with acute renal insufficiency
-Lasix currently held
-Nephrology consulted, suspect DEISY
-Monitor renal function closely, avoid nephrotoxic agents, support hemodynamics. Renal artery ultrasound pending
-Lower extremity ultrasound with thrombus in the right peroneal vein.
-Arterial lower extremity duplex/ABIs are pending.
-CTA of the chest abdomen pelvis 02/08/2024 without pulmonary embolism, aortic aneurysm or dissection. There was no significant acute abnormality identified in the chest, abdomen or pelvis. Study also reports 'no significant coronary artery
calcifications 'no pleural or pericardial effusions.
-Would prefer to proceed with left heart catheterization before ZANA/cardioversion however unable to proceed with left heart catheterization at this time given acute renal insufficiency. Will keep n.p.o. after midnight for possible procedures on
Thursday such as ZANA/cardioversion
Emphysema/COPD on CT of the chest with ongoing tobacco use
-Pulmonary/assembler leather goods consulted
Will follow with you
HPI 02/09/2024:
Patient is a 63-year-old male with past medical significant for paroxysmal atrial flutter, ongoing tobacco abuse, COPD/emphysema and noncompliance of medical follow-up who presents to emergency department 02/08/2024 with progressively worsening
shortness of breath, abdominal bloating, lower extremity edema, palpitations. Patient reports he has had shortness of breath for several years but recently he has noted dyspnea with minimal activity including walking from the couch to the bathroom.
His legs have become cold and discolored over the last week. He also started having palpitations and vibrating in his chest 'for a while'. Recently started with intermittent dizziness with standing. Due to worsening of symptoms he decided to
seek emergency medical attention. Patient tells me the last time he was seen by a medical provider was when he was here in 2017. He takes an aspirin 81 mg daily. He smokes a pack of cigarettes a day. He denies chest pain. On presentation to
emergency department patient was found to be in atrial flutter with rapid ventricular response. Troponin 0.148. proBNP 6110. CT chest/abdomen/pelvis was negative for aortic aneurysm or dissection. Mild emphysematous changes. Mild diffuse
anasarca otherwise unremarkable abdomen, although limited given no contrast was given. He was given 40 mg IV Lasix and was placed on diltiazem drip and converted to sinus rhythm around 3 AM on 02/09/2024.
Progress Note - Organization Development Consultant
Subjective
Date of Service: February 11, 2024
Patient seen and examined. Denies shortness of breath or chest pain. Complaints at the moment are focused around recent placement of Garcia catheter.
Objective
Labs:
02/11/24 04:11
Labs
Hgb 15.8 g/dL (13.0-18.0) 02/11/24 04:11
Hct 46.6 % (39.0-52.0) 02/11/24 04:11
Plt Count 245 10^3/uL (130-400) D 02/11/24 04:11
PT 14.9 Sec (11.4-14.6) H 02/09/24 03:55
INR 1.18 02/09/24 03:55
APTT > 200 Sec (23.4-35.0) H* 02/11/24 11:32
Sodium 134 mmol/L (135-145) L 02/11/24 04:11
Potassium 4.2 mmol/L (3.5-5.1) 02/11/24 04:11
BUN 68 mg/dl (9-20) H 02/11/24 04:11
Creatinine 2.4 mg/dL (0.7-1.3) H 02/11/24 04:11
Glucose 205 mg/dl (70-99) H 02/11/24 04:11
Troponins
02/08/24 02/08/24 02/08/24
18:03 20:58 22:56
Troponin I 0.148 H* 0.134 H* Cancelled
02/08/24 02/09/24
23:21 03:55
Troponin I 0.130 H* 0.106 H*
Vital Signs and I&O:
Vital Signs
Temp Pulse Resp BP Pulse Ox
95.4 F L 90 20 118/92 92
02/11/24 12:25 02/11/24 14:01 02/11/24 14:01 02/11/24 14:01 02/11/24 13:55
Vital Signs
Temp Pulse Resp BP Pulse Ox
95.4 F L 90 20 118/92 92
02/11/24 12:25 02/11/24 14:01 02/11/24 14:01 02/11/24 14:01 02/11/24 13:55
Intake & Output
02/09/24 02/10/24 02/11/24 02/12/24
06:59 06:59 06:59 06:59
Intake Total 150 / 150 1178 / 1189 2755 / 2780 625 / 625
Output Total 1200 / 1200 2475 / 2475 350 / 350 35 / 35
Balance -1050 / -1050 -1297 / -1286 2405 / 2430 590 / 590
Physical Exam
Physical Exam
GEN: No distress, awake, Ox3
HEENT: supple, anicteric, mmm
LUNGS: Coarse of breath sounds bilaterally with wheezes on the left side
CV: irreg, S1/S2, 1/6 syst LSB, no gallop
ABD: Obese, distended. Positive bowel sounds
EXT: Mottled lower extremity with +2 edema to the thighs
--- NOTE | 2024-02-11 16:27 | PTCARENOTE ---
Pt tolerating being out of bed into chair. Dr. Calabrese spoke with pt about leg discoloration. Cardizem gtt remains off. Pt hygiene performed but refused mouth care. All systems reassessed. Call tompkins on table next to chair with reach.
--- NOTE | 2024-02-11 16:30 | CON.VAS ---
Addendum entered and electronically signed by Gurpreet Calabrese MD 02/11/24 16:57:
Seen and examined with FOREIGN Masters. Agree with findings as noted below. Asked to evaluate due to bilateral lower extremity discoloration. Patient admitted with exacerbation of CHF, atrial fibrillation/flutter. Extensive medical issues currently.
Patient denies any significant pain in his feet. He notes coolness and discoloration. No prior history of claudication. No prior history of lower extremity arterial revascularization procedures. He does note a history of tobacco use. He smoked
up till this admission. On exam/she is awake and alert. Breathing is unlabored. Abdomen is soft. Upper extremities initially I difficulty palpating radial pulses. However upon waiting, he had 1+ radial pulses and brachial pulses bilaterally.
He appears to be in atrial fibrillation on the monitor, and he does not appear to be conducting on every beat and that is what made it more challenging. His hands are slightly cool and slightly mottled or cyanotic appearing bilaterally diffusely.
No ulcerations. Abdomen is soft, nondistended, nontender. Lower extremity with 1+/2+ weak femoral pulses bilaterally. Difficulty palpating distally bilaterally. However he has good Doppler signals bilateral DP and PT. His feet are generally
cool with somewhat mottling discoloration from mid knee down bilaterally. However cap refill is present. He has no ulcerations in bilateral feet.
Plan/does not appear to have any acute vascular issue that I could treat surgically here. This appears to be likely related to his systemic process and vasoconstriction/mottling as a result. It appears to be involving all 4 extremities to the most
part. Would obtain noninvasive arterial lower extremity imaging to rule out any occult stenoses or occlusions. However I suspect that he may have some chronic disease but that is not playing into his current findings. Continue to observe.
Original Note:
Consultation
Consultation Request
Date/Time Consultation Performed: 02/11/24 1600
Requesting Provider: Hospitalist
Performing Provider: Verena Masters, FOREIGN-C for Gurpreet Calabrese MD
Reason for Consultation: Bilateral feet discoloration
Medical History
-
Chief Complaint: Bilateral feet discoloration
History of Present Illness:
This is a 63-year-old male with significant past medical history for atrial flutter, COPD, and smoker who presented to ED on 02/08/2024 with reports of worsening bilateral upper and lower extremity discoloration, bilateral lower EXTR edema,
palpitations, and shortness of breath. ED evaluation was significant for uncontrolled atrial fibrillation and shortness of breath prompting admission to hospital. He is currently being worked up for acute CHF, vascular surgery has been consulted
due to discoloration and coolness of bilateral upper extremities and lower extremities. Patient denies rest pain or symptoms of claudication, he admits prior to this admission he could walk long distances without difficulty. Denies prior history
of vascular surgical intervention. Other than shortness of breath, cough, and bilateral lower extremity swelling he offers no complaints.
Past Medical History
Past Medical History: Arrhythmias (Atrial flutter/atrial fibrillation) and COPD
Past Surgical History: Tonsilectomy and Other (Back surgery)
Social History
Tobacco: Smoker
Alcohol: Occasional
Drug: None
Personal:
Living: With Family
Employment: Retired
Allergies / Home Medications
Allergy/AdvReac Type Severity Reaction Status Date / Time
No Known Allergies Allergy Verified 02/08/24 17:46
�Medication �Instructions �Recorded �Confirmed �Type
aspirin 81 mg tablet,delayed 81 mg PO DAILY #1 tab 06/18/17 02/08/24 Rx
release
Review of Systems
-
History Source: Patient
Constitutional: Reports No Symptoms
EENT: Reports No Symptoms
Respiratory: Reports Trouble Breathing
Cardiac: Reports Palpitations
Vascular: Reports Other (Bilateral lower extremity swelling)
Abdomen/GI: Reports Other (Bloating)
Musculoskeletal: Reports No Symptoms
Skin: Reports No Symptoms
Neurological: Reports No Symptoms
Endocrine: Reports No Symptoms
Physical Exam
Vital Signs
Temp Pulse Resp BP Pulse Ox
95.3 F L 95 24 135/106 96
02/11/24 16:10 02/11/24 16:00 02/11/24 16:00 02/11/24 16:00 02/11/24 15:10
Lab Results
02/11/24 04:11
Troponin I 0.106 ng/ml H* 02/09/24 03:55
Jtd-O-Whtcdpupagh Pept 9400 pg/ml 02/11/24 04:11
Physical Exam
General: No Apparent Distress
HEENT: Normocephalic, Anicteric and Atraumatic
Respiratory: Accessory Resp Muscle Use
Cardiac: Negative JVD
GI: Soft, Non Tender and Other (Rotund abdomen)
Musculoskeletal: Edema (+2 edema bilateral lower extremities)
Skin: Warm
Neuro: AO x 3
Pulses: Bilateral Femoral: +1, Bilateral Dorsalis Pedis: Doppler and Bilateral Posterior Tibial: Doppler
Assessment / Plan
-
Assessment: 63-year-old male admitted with worsening shortness of breath, lower extremity edema, chest palpitations, and reports of intermittent discoloration of bilateral upper extremities and lower extremities
Plan:
Low suspicion for peripheral arterial disease contributing to discoloration of bilateral upper extremity and lower extremities, given excellent Doppler signals at distal extremities, patient reports no pain at distal extremities, and no appearance
of wounds.
Noninvasive arterial ultrasound with BURKE/TBI pending, will make additional surgical recommendations following results
I performed this shared service with the attending. I evaluated the patient [id number] and have entered clinical documentation as shown in the encounter note. I performed the following component(s):�history and physical exam. Note that medical
decision making is not final until attested by vascular attending.
[2024-02-11] MEDS: NOVOLOG FLEXPEN-MODERATE RESISTANCE 3 UNITS SC (16:51)
[2024-02-11 17:02] LABS: Glucose - Point of Care 247 mg/dl (70-99)
[2024-02-11] MEDS: LIPITOR 20 MG PO (17:04)
[2024-02-11 17:07] LABS: Blood Urea Nitrogen 74 mg/dl (9-20); Calcium 8.1 mg/dl (8.4-10.2); Carbon Dioxide 29 mmol/L (22-30); Chloride 94 mmol/L (98-107); Estimated Creatinine Clearance 41 ml/min; Glucose 206 mg/dl (70-99); Magnesium 1.9 mg/dl (1.6-2.3); Phosphorus 5.6 mg/dl (2.5-4.5); Potassium 4.5 mmol/L (3.5-5.1); Sodium 136 mmol/L (135-145); eGFR 31.32
[2024-02-11] MEDS: MAGNESIUM OXIDE 500 MG PO (17:37)
--- NOTE | 2024-02-11 17:55 | PTCARENOTE ---
Pt c/o pain during urination w/ Garcia in, urine blood tinged and hairspring staker made aware.
[2024-02-11] MEDS: VALIUM INJECTION 5 MG IV (18:02)
[2024-02-11] MEDS: VALIUM INJECTION 2 MG IV (20:24)
[2024-02-11] MEDS: TOPROL XL 75 MG PO (20:24)
[2024-02-11] MEDS: SEROQUEL 50 MG PO (20:25)
[2024-02-11 21:01] LABS: APTT 95.7 Sec (23.4-35.0)
[2024-02-11 21:22] LABS: Glucose - Point of Care 222 mg/dl (70-99)
[2024-02-11 21:37] LABS: Hepatitis B Core Ab, Total Negative (Negative); Hepatitis B Surface Antibody Negative; Hepatitis B Surface Antigen Negative (Negative); Hepatitis C Antibody Negative (Negative)
--- NOTE | 2024-02-11 22:50 | PTCARENOTE ---
transfer orders to IVU, gave report to receiving RN, transferred pt
--- NOTE | 2024-02-11 23:35 | PTCARENOTE ---
Patient received from the ICU. Patient sleeping at this time. Afib on the monitor, HR 90-100s. Heparin infusing at 1200 units/hr. Bed alarm on for safety. Call tompkins within reach.
[2024-02-12] VITALS (11 sets, daily range): BP systolic 95–135; BP diastolic 72–100; PULSE 97–100; O2SAT 97–99; BMI 31.4
[2024-02-12 03:44] LABS: % Immature Granulocytes 0.3 % (0-0.5); % Lymphocytes 7.3 % (20.5-51.1); % Monocytes 5.6 % (1.7-9.3); % Neutrophils 86.8 % (42.2-75.2); Absolute Lymphocytes 0.8 10^3/uL (1.2-3.4); Absolute Monocytes 0.6 10^3/uL (0.1-0.6); Absolute Neutrophils 9.2 10^3/uL (1.4-6.5); Hematocrit 44.2 % (39.0-52.0); Hemoglobin 15.2 g/dL (13.0-18.0); Mean Corp Hgb Conc. 34.4 g/dL (33.0-37.0); Mean Corpuscular Hgb 31.8 pg (27.0-31.0); Mean Corpuscular Volume 92.5 fL (80.0-94.0); Mean Platelet Volume 11.9 fL (7.4-10.4); Nucleated Red Blood Cells % 0.4 % (-); Platelet Count 167 10^3/uL (130-400); Red Blood Cell Count 4.78 10^6/uL (4.70-6.10); Red Cell Dist. Width 13.6 % (11.5-14.5); White Blood Cell Count 10.6 10^3/uL (4.8-10.8)
--- NOTE | 2024-02-12 03:44 | PTCARENOTE ---
Addendum entered by Bisi Moreau RN 02/12/24 04:02:
RN attempted to recheck accu check following 4 units of NovoLog given in ICU. Pt refusing at this time.
Original Note:
@ ~0300 awoke pt to get his morning blood work and vital signs and started yelling at staff. stating 'get the hell out of here' when asked where he was he stated 'hell' then he proceeded to ask what time worship started. This RN informed pt that he
was in the hospital and we just needed to repeat his blood pressure and get his blood work for his heparin gtt, he lifted a fist at this RN almost swinging. RN called extra staff to help with blood draw and PT then attempted to kick staff and told
staff to 'shut the hell up and get out of here' security called incase he escalated. Blood work was obtained and security stayed while RNs finished necessary morning tasks. Pt still only AAOX1/2 (self and time) at this time. speech garbled but
slightly better after a sip of water, asking where his is confused to what was going on and requesting to look through his black backpack- RN supervised pt searching through his backpack and organizing clothes. Back pack placed on shelf and pt
resting in bed. afib in the 100s -110s 94% on 3L nc. Bed alarm in place for safety.
[2024-02-12 03:54] LABS: APTT 71.3 Sec (23.4-35.0)
[2024-02-12 03:57] LABS: ALT (SGPT) 103 U/L (0-50); AST (SGOT) 57 U/L (17-59); Albumin 3.3 g/dl (3.5-5.0); Alkaline Phosphatase 73 U/L (38-126); Blood Urea Nitrogen 79 mg/dl (9-20); Calcium 8.4 mg/dl (8.4-10.2); Carbon Dioxide 28 mmol/L (22-30); Chloride 95 mmol/L (98-107); Estimated Creatinine Clearance 41 ml/min; Glucose 220 mg/dl (70-99); Potassium 4.4 mmol/L (3.5-5.1); Sodium 135 mmol/L (135-145); Total Bilirubin 0.4 mg/dl (0.2-1.3); Total Protein 5.7 g/dl (6.3-8.2); eGFR 31.32
[2024-02-12] MEDS: HEPARIN 4100 UNITS IV (04:11)
--- NOTE | 2024-02-12 04:22 | PTCARENOTE ---
BRANDEE Meza aware of Delta change in PLT count. no new orders.
[2024-02-12] MEDS: SOLU-MEDROL PF 40 MG IV ×3 (05:40→22:23)
[2024-02-12] MEDS: XOPENEX 0.63 MG INHALANT SOLUTION INH ×4 (07:17→19:24)
[2024-02-12] MEDS: ATROVENT NEBULES 0.5 MG INH ×3 (07:17→19:27)
--- NOTE | 2024-02-12 08:48 | W.PN.CARDCBS ---
Addendum entered and electronically signed by Candi Carroll DO 02/12/24 11:19:
I saw and examined the patient.
The Tongue And Groove Machine Operator's note was reviewed and I agree with the note.
Comment: Patient seen and examined with cardiac PA. Overall he reports stable shortness of breath although diffusely wheezing. No chest pain or pressure. Denies dizziness or lightheadedness.
GEN: No distress, awake, alert, oriented x3; appears older than stated age
HEENT:mmm
LUNGS: Bronchial breath sounds with coarse rhonchi bilaterally with diffuse bilateral wheeze
CV: irreg, S1/S2, 1/6 syst LSB
EXT: Bilateral +2 edema to the thighs
Plan:
Plan:
Medically complex 63-year-old gentleman who has not had medical care since his hospitalization in 2017 found to have heart failure preserved ejection fraction with diffuse anasarca/edema, atrial fibrillation/flutter with rapid ventricular response,
concern for significant PAD, concern for CAD with underlying COPD/emphysema and ongoing tobacco dependence now with acute renal insufficiency
Atrial fibrillation/flutter
-Patient continues to be in atrial fibrillation with increased rates of IV Cardizem and diffuse wheezing
-Spoke with pulmonary and will reduce metoprolol succinate and restart IV Cardizem
-Hopefully will transition to oral medications and continue rate control strategy at this time
-Consider ZANA/cardioversion next week pending clinical status
-Continue IV heparin drip with plan for possible procedures pending return of his renal function
Heart failure with preserved ejection fraction now with acute renal insufficiency
-Creatinine stable compared to yesterday, today 2.3
-Remains volume overloaded but will hold Lasix at this time
-Nephrology consulted, suspect DEISY
-Monitor renal function closely, avoid nephrotoxic agents, support hemodynamics. Renal artery ultrasound pending
-Lower extremity ultrasound with thrombus in the right peroneal vein.
-Arterial lower extremity duplex/ABIs are pending.
-CTA of the chest abdomen pelvis 02/08/2024 without pulmonary embolism, aortic aneurysm or dissection. There was no significant acute abnormality identified in the chest, abdomen or pelvis. Study also reports 'no significant coronary artery
calcifications 'no pleural or pericardial effusions.
-No procedures planned today. Monitor renal function. Consideration for left heart catheterization versus stress testing next week pending renal function.
Emphysema/COPD on CT of the chest with ongoing tobacco use
-Pulmonary/fingerprinter consulted
Will follow with you
Original Note:
Today's Communication / Plan
-
Continue to hold lasix w/ creat 2.3
Will decrease toprol to 25mg BID due to wheezing
Restart Cardizem gtt for rate control
Continue IV heparin
LE arterial US and renal artery US today
Impression / Plan
-
PCP: None has not seen medical provider since
Home Care Chaplain: Dr. Cintron last seen in August 2015 in office
Impression:
Presented w/ progressively worsening SOB, palpitations, LE edema
Acute hypoxic respiratory insufficiency/failure
Acute HFpEF
Anasarca
Paroxysmal atrial flutter/fibrillation w/ RVR
Abnormal troponin, peak 0.148
JASON
Emphysema/COPD exacerbation
Leukocytosis
[id number] score 1 (heart failure)
Ongoing tobacco abuse
Emphysema/COPD (noted on chest CT 02/08/2024)
Echo 11/14/2014: EF 50 to 55% with no regional wall motion abnormalities. Diastolic dysfunction, mildly dilated left atrium, PAP 33 to 38 mmHg
Echo 02/09/2024: Technically difficult study. EF 55%, dilated RV, PA pressure 20-25
Plan:
-Presented with SOB, LE edema, and palpitations. Found to be in acute heart failure exacerbation as well as rapid atrial fibrillation/flutter. There was also concern for COPD exacerbation and PAD.
-Remains in atrial fibrillation on review of telemetry overnight. Heart rates elevated and noted to have increased wheezing today. Toprol dose had been increased to 75 mg twice daily 02/10. Will reduce Toprol to 25 mg twice daily and will restart
Cardizem drip for rate control.
-Continues on IV heparin for anticoagulation as there has been consideration for possible eventual cardiac catheterization.
-Holding off on procedures at this time given JASON with creatinine up to 2.3. Creatinine stable overnight. Nephrology following.
-Lasix remains on hold. Renal artery US pending.
-Also with concern for significant PAD. Lower extremity US with thrombus in the right peroneal vein. Lower extremity arterial US pending today. Await results.
-CTA of the chest abdomen pelvis 02/08/2024 without pulmonary embolism, aortic aneurysm or dissection. There was no significant acute abnormality identified in the chest, abdomen or pelvis. Study also reports 'no significant coronary artery
calcifications 'no pleural or pericardial effusions.
-Pending results of US studies planned for today as well as renal function, may eventually consider LHC and/or ZANA/CV.
-Continue management of emphysema/COPD per pulm.
-Continue aspirin 81mg daily and lipitor 40mg daily. LDL 92
HPI 02/09/2024:
Patient is a 63-year-old male with past medical significant for paroxysmal atrial flutter, ongoing tobacco abuse, COPD/emphysema and noncompliance of medical follow-up who presents to emergency department 02/08/2024 with progressively worsening
shortness of breath, abdominal bloating, lower extremity edema, palpitations. Patient reports he has had shortness of breath for several years but recently he has noted dyspnea with minimal activity including walking from the couch to the bathroom.
His legs have become cold and discolored over the last week. He also started having palpitations and vibrating in his chest 'for a while'. Recently started with intermittent dizziness with standing. Due to worsening of symptoms he decided to
seek emergency medical attention. Patient tells me the last time he was seen by a medical provider was when he was here in 2017. He takes an aspirin 81 mg daily. He smokes a pack of cigarettes a day. He denies chest pain. On presentation to
emergency department patient was found to be in atrial flutter with rapid ventricular response. Troponin 0.148. proBNP 6110. CT chest/abdomen/pelvis was negative for aortic aneurysm or dissection. Mild emphysematous changes. Mild diffuse
anasarca otherwise unremarkable abdomen, although limited given no contrast was given. He was given 40 mg IV Lasix and was placed on diltiazem drip and converted to sinus rhythm around 3 AM on 02/09/2024.
Progress Note - Home Care Chaplain
Subjective
Date of Service: February 12, 2024
Continues to feel poorly by report. No chest pain
Objective
Labs:
02/12/24 03:27
02/12/24 03:26
Labs
Hgb 15.2 g/dL (13.0-18.0) 02/12/24 03:27
Hct 44.2 % (39.0-52.0) 02/12/24 03:27
Plt Count 167 10^3/uL (130-400) D 02/12/24 03:27
PT 14.9 Sec (11.4-14.6) H 02/09/24 03:55
INR 1.18 02/09/24 03:55
APTT 71.3 Sec (23.4-35.0) H 02/12/24 03:26
Sodium 135 mmol/L (135-145) 02/12/24 03:26
Potassium 4.4 mmol/L (3.5-5.1) 02/12/24 03:26
BUN 79 mg/dl (9-20) H 02/12/24 03:26
Creatinine 2.3 mg/dL (0.7-1.3) H 02/12/24 03:26
Glucose 220 mg/dl (70-99) H 02/12/24 03:26
Vital Signs and I&O:
Vital Signs
Temp Pulse Resp BP Pulse Ox
97.6 F 93 18 95/81 97
02/12/24 03:42 02/12/24 07:30 02/12/24 07:20 02/12/24 03:14 02/12/24 07:20
Vital Signs
Temp Pulse Resp BP Pulse Ox
97.6 F 93 18 95/81 97
02/12/24 03:42 02/12/24 07:30 02/12/24 07:20 02/12/24 03:14 02/12/24 07:20
Intake & Output
02/10/24 02/11/24 02/12/24 02/13/24
06:59 06:59 06:59 06:59
Intake Total 1178 / 1189 2755 / 2780 2040 / 2040
Output Total 2475 / 2475 350 / 350 202 / 202
Balance -1297 / -1286 2405 / 2430 1839 / 1839
Physical Exam
Physical Exam
GEN: No distress, awake, alert, oriented x3
HEENT: supple, anicteric, mmm
LUNGS: Diffuse wheezes
CV: irreg, S1/S2, 1/6 syst LSB
EXT: Mottled lower extremity with +2 edema to the thighs
--- NOTE | 2024-02-12 08:51 | W.PN.HOSP.TC ---
Today's Communication/Plan
-
cont current mgmt - Cr improved on IVF
pending further cardio workup
Assessment / Plan
Assessment / Plan
63yo M with PMHx of paroxysmal Afib not on AC, nicotine dependency came with 1 week of b/l LE swelling abd abdominal distension. CTA chest/abd/pelvis without acute abnormality, found with Afib with RVR and acute R non-occlusive DVT. Later developed
JASON, so cardiac cath planned for 02/11/24 had to be delayed
A/P:
#CHF, unspecified exacerbation
#Afib with RVR
#Non-ischemic cardiac injury
#Suspected CAD
Lasix held on 02/10/24, telemetry with poorly controlled HR, follow daily weights and electrolytes
ASA, heparin drip, statin
Start BB - found hypotension on Lopressor 50mg BID, switched to Toprol 50mg nightly on 02/10/24, wean off Diltiazem, further mgmt as per cardio
Rate vs rhythm control as per cardio
Troponin downtrending
Cardio consult: might consider ischemic w/u, CV
Echo with preserved EF, pulmonary HTN improved compared with 2018, no significant valvular disease
TSH WNL
LDL 92
#JASON
concern for low perfusion state 2/2 uncontrolled Afib vs DEISY
Urine Osm, Na, Cr, UA, US renal - prerenal with no abnormalities on US
Patient does not retaining urine as per scan on 02/11/24
Neprho consult
Garcia and strict I&O
#b/l LE cyanosis
Vasc evaluated - most likely low perfusion state 2/2 CHF, Afib with RVR
previous CTA included pelvis - no signs of arterial occlusion
DVT was found only in RLE and was non-occlusive
Dorsalis pedis pulses present on both LE by doppler
#Acute RLE DVT
switch to Eliquis on 02/10/24
Recommend outpatient age-appropriate CA screening
CTA chest/abd/pelvis without additional thrombosis or gross signs of cancer
no DVT on L
#New onset DM
Accuchecks, Insulin SS, DM diet
Outpatient ophthalmic, renal and podiatry yearly screening emphasized
#Acute respiratory insufficiency 2/2 COPD exacerbation 2/2 nicotine dependency
Nicoderm PRN
cont bronchodilators
Emphasized cessation
Steroids taper
Wean off O2
DVT ppx Eliquis
FUll code
I have spent at least 36 min reviewing chart, test results, communication with consultants and direct patient care
Anticipated Discharge: > 48 hours
Subjective/Interval History
-
Date of Service: February 12, 2024
Objective Data
-
Labs:
Laboratory Results
02/11/24 02/12/24 02/12/24
20:33 03:26 03:27
WBC 10.6
Hgb 15.2
Hct 44.2
Plt Count 167 D
APTT 95.7 H 71.3 H
Sodium 135
Potassium 4.4
Chloride 95 L
Carbon Dioxide 28
BUN 79 H
Creatinine 2.3 H
Glucose 220 H
Calcium 8.4
Total Bilirubin 0.4
AST 57
ALT 103 H
Alkaline Phosphatase 73
02/12/24
10:15
WBC
Hgb
Hct
Plt Count
APTT Pending
Sodium
Potassium
Chloride
Carbon Dioxide
BUN
Creatinine
Glucose
Calcium
Total Bilirubin
AST
ALT
Alkaline Phosphatase
Vital Signs:
Vital Signs
Temp Pulse Resp BP Pulse Ox
97.6 F 93 18 95/81 95
02/12/24 03:42 02/12/24 07:30 02/12/24 08:40 02/12/24 03:14 02/12/24 08:40
I&O
02/11/24 02/12/24 02/13/24
06:59 06:59 06:59
Intake Total 2755 / 2780 2040
Output Total 350 / 350 202 / 202 375 / 375
Balance 2405 / 2430 1839 / 1839 -375 / -375
Review of Systems
-
History Source: Patient
All other systems: Reviewed and negative
Physical Exam
-
General: No Apparent Distress
Respiratory: Wheezes and Crackles
Cardiac: Irregular Rhythm
GI: Soft, Nontender and Nondistended
[2024-02-12] MEDS: LOW STRENGTH ASPIRIN 81 MG PO (09:01)
[2024-02-12] MEDS: NICODERM TRANSDERMAL 21 MG TRANSDERM (09:01)
[2024-02-12] MEDS: TOPROL XL 75 MG PO (09:03)
[2024-02-12] MEDS: NOVOLOG FLEXPEN-MODERATE RESISTANCE 1 UNITS SC ×2 (09:04→17:46)
[2024-02-12 09:05] LABS: Glucose - Point of Care 197 mg/dl (70-99)
[2024-02-12] MEDS: NOVOLOG FLEXPEN 4 UNITS SC (09:05)
--- NOTE | 2024-02-12 09:31 | PN.DE.MGMTRT ---
Insulin Management
- -
02/12/2024: Diabetes Management F/U:
63 year old male with PMH: COPD, A-Flutter, palpitations and active smoker -0.5 PPD X 50 years, presented with SOB, abdominal and BLE swelling
Pt noted for New onset T2DM, glucose on admission was 142(V), A1C 7.2%, Cr 1, eGFR >60.
Patient awake, A/O x3, sitting up on bed, working with PT, states he is tired, able to briefly discuss diabetes mgt
Was started on IV steroids, continued at 40mg IV Q8hrs, contributing to hyperglycemia. Metformin and Glimepiride started on 02/08, stopped on 02/09.
02/09 Glucose remained elevated, Lantus 10 units in AM started at 10am and NovoLog 4 units AC. Cr up to 2.3, eGFR 31.32 today.
02/10 persistent hyperglycemia, glucose range 184 to 247, requiring 1-3 units additional corrective insulin. Fasting 220(V) this AM.
Will increase NovoLog to 7 units and Lantus to 15 units. Cont low corrective insulin
Offered glucose monitor with instructions again and pt declined, states he feels drowsy from the sedative requested to try another day.
Updates given to Nurse
Diabetes History
- -
Type of Diabetes: 2 requiring insulin
Pre-Admission Diabetes Regimen
02/11/24 02/12/24
16:03 03:26
Creatinine 2.3 H 2.3 H
Lab Results
Hemoglobin A1c Cancelled 02/09/24 07:44
Insulin Pump Settings
IP Diabetes Regimen
02/11/24 02/11/24 02/11/24
11:34 16:03 16:50
Glucose 206 H
POC Glucose 186 H 247 H
02/11/24 02/12/24 02/12/24
21:11 03:26 09:04
Glucose 220 H
POC Glucose 222 H 197 H
Meal type: Dinner
Meal type: Lunch
Amount consumed: 90%
Amount consumed: 50%
Patient Education
--- NOTE | 2024-02-12 09:54 | W.PN.PUL.V3 ---
Today's Communication / Plan
-
Atrial fibrillation rate control
Diuretics on hold
Monitor renal function
No change in steroids
Continue Xopenex/ipratropium bromide
Eventual cardioversion and left heart catheterization
Assessment
-
Assessment: 63-year-old male active tobacco smoker with a past medical history of COPD, atrial flutter and palpitations who presented with shortness of breath as well as swelling to lower extremities + abdomen. His lower extremities have also been
discolored for the past few weeks and his shortness of breath has also been progressively worsening over the last few days although he does admit SOB for the past 2 years. He does smoke 0.5 PPD but says that he is now 'done.' In the ER, vitals
showed tachycardia to 121, breathing at 20 breaths/min, BP 140/91, afebrile at 98.6 �F and saturating 91% on room air. Labs showed normal WBC at 10.7, Hb 16.5, initial troponin 0.148, proBNP elevated at 6110, and COVID antigen negative. Initial
CXR showed no acute cardiopulmonary process. CTA chest, abdomen, pelvis showed no aortic aneurysm or dissection, with mild centrilobular emphysema, no evidence of volume overload with no significant acute abnormality in the chest, abdomen or
pelvis. He was given Lasix, Cardizem 10 mg and started on Cardizem drip. Given his rapid A-fib requiring Cardizem drip with shortness of breath, he was admitted to the ICU for further care and critical care services consulted for additional
management/recommendations. Patient downgraded to IVU level of care on 02/09 and pulmonary service continue to follow along.
Chronic conditions [employer]: History of atrial flutter, active tobacco use, palpitation, reported history of COPD
Impression:
#Atrial fibrillation with RVR on Cardizem drip
#Acute respiratory failure with hypoxia due to rapid A-fib in the setting of suspected COPD exacerbation
#Lower extremity swelling + abdominal distention � reduced RV systolic function on echo from 02/09/2024
#Elevated troponin � peaked at 0.148 on 02/08/2024
#JASON likely due to DEISY in setting of CHF and hypovolemia
#Right lower extremity DVT involving peroneal vein (Dx on 02/09/2024)
#Hyperglycemia (HbA1C: 7.2 from 02/09/2024)
#Active tobacco smoker
#Former alcohol use disorder
Plan:
Respiratory status still tenuous-significant wheezing on exam-component of COPD as well as 'cardiac wheezing'
Supplemental oxygen as needed
Aspiration precautions
Incentive spirometry
Solu-Medrol 40 mg IV every 8 hours
Xopenex/ipratropium bromide nebulizers-patient with rapid atrial fibrillation
Mucolytic's
Cardiology following-correspondence reviewed
Diuresis as tolerated
Monitor renal function, electrolytes, intake/output, lower extremity edema and weight
Replace electrolytes as needed
Heart rate control-metoprolol decreased with increased wheezing and diltiazem titrated
Replace electrolytes
Heparin drip
Eventual left heart catheterization once renal function improves
Eventual ZANA/cardioversion
Nephrology evaluation-correspondence reviewed-possible contrast-induced nephropathy and/or hypotension/diuresis
Hold diuresis
Smoking cessation counseling ongoing
Nicotine patch
DVT prophylaxis-on heparin
Nutrition
Early mobilization
- Incentive spirometer encouraged
- PT/OT - would hold off on rehab services until HR is better controlled
- DVT ppx: heparin gtt
Recommendation outpatient pulmonary follow up for full PFTs.
Reviewed with nursing and cardiology
Data:
CTA Chest/Abd/Pelvis w/wo contrast 02/08/2024:
1. No aortic aneurysm or dissection.
2. No significant acute abnormality identified in the chest, abdomen or pelvis
CXR 02/11/2024: Mild interstitial pulmonary edema. No effusion.
Renal US 02/11/2024: No hydronephrosis or nephrolithiasis. Bilateral cortical atrophy.
Bilateral lower extremity duplex US 02/09/2024:
Thrombus within the right peroneal vein.
No evidence for deep venous thrombosis of the left lower extremity.
Transthoracic echocardiogram 02/09/2024:
Technically difficult study.
Normal left ventricular size and function. Normal regional wall motion. Mild
concentric left ventricular hypertrophy. LV ejection fraction is 55-60% by
Barrera's method of discs. Diastolic function indeterminate.
Enlarged right ventricular size.
Dilated RA.
Mitral annular calcification. Trace mitral regurgitation.
Mild tricuspid regurgitation. Estimated pulmonary artery pressure of 20-25
mmHg. Assuming a right atrial pressure of 3 mmHg.
When compared to prior study on 06/17/2017, RA and RV are enlarged; PASP has
improved to 20-25 mmHg from 33-38 mmHg; no other significant change.
Subjective Data
-
Date of Service:
Date of Service: February 12, 2024
Chief Complaint: Pulmonary Follow Up and Dyspnea Follow Up
Subjective:
Complaining of wheezing, no chest pain, productive cough, abdominal pain
Review of Systems
General: Other (Per HPI)
Objective Data
Data Reviewed
Vital Signs / I&O:
Vital Signs
Temp Pulse Resp BP Pulse Ox
97.6 F 93 18 95/81 95
02/12/24 03:42 02/12/24 07:30 02/12/24 08:40 02/12/24 03:14 02/12/24 08:40
Intake and Output
02/11/24 02/12/24 02/13/24
06:59 06:59 06:59
Intake Total 2755 / 2780 2040
Output Total 350 / 350 375 / 375
Balance 2405 / 2430 1839 / 1839 -375 / -375
SaO2: 95
Nasal Cannula flow liters per minute: 3
Physical Exam
General: Respiratory Distress (negative), Comfortable, Chills (negative) and Sweats (negative)
HEENT: Normocephalic and Anicteric
Cardiovascular: Irregular Rhythm (Irregularly irregular), Peripheral Edema (+1 lower extremity edema bilaterally) and Cool Extremities (Cool lower extremities bilaterally)
Respiratory: Wheeze (Expiratory wheezing), Crackles (negative), Rhonchi (negative), Non-Labored Respirations and Accessory Resp Muscle Use (n)
GI: Soft, Distended (Abdominal obesity) and Non Tender
Neurology: Awake, Alert and Tremors (negative)
Skin: Warm, Dry, Good Color, Cyanosis (n), Jaundice (negative) and Other (Mottled appearance of lower extremities bilaterally; cool lower extremities; upper extremities are warm to touch)
Labs/Micro/Reports
Lab Data
02/12/24 03:27
02/12/24 03:26
Laboratory Results
02/11/24 02/11/24 02/12/24
11:32 20:33 03:26
APTT > 200 H* 95.7 H 71.3 H
[2024-02-12] MEDS: LANTUS 0.1 UNITS SC (09:57)
[2024-02-12] MEDS: LANTUS 0.05 UNITS SC (11:41)
[2024-02-12] MEDS: CARDIZEM 125 IV (11:42)
[2024-02-12 12:24] LABS: Glucose - Point of Care 134 mg/dl (70-99)
--- NOTE | 2024-02-12 12:26 | PTCARENOTE ---
Assumed care of pt from night RN. Pt received awake and alert, Ox3. VSS, CM shows AF 90's' Cardizem drip initiated at 5 mg/hr as per AUG. POX 97% on 3 liters, exp wheeze heard on auscultation. Ext. arterial studies and Renal arterial duplex
done. Heparin infusing at 1,400 units /hr will continue to monitor closely.
[2024-02-12 12:52] LABS: APTT 90.6 Sec (23.4-35.0)
[2024-02-12] MEDS: NOVOLOG FLEXPEN 7 UNITS SC ×2 (12:52→17:46)
[2024-02-12] MEDS: NOVOLOG FLEXPEN-MODERATE RESISTANCE SC (12:52)
[2024-02-12] MEDS: ATROVENT NEBULES INH (13:33)
--- NOTE | 2024-02-12 14:02 | CM ---
Reviewed chart. Mr. Noble was transferred to IVU. Met with Mr. Noble to review discharge plans.He states prior to admission he resides with his spouse in a three story home. He states he has a first floor set-up. He states prior to admission he
was independent with ambulation and adls. He states he does not have any DME in the home. He states [facility] has met with him to start the Medical Assistance Application. Telephone call to [facility] to see if they can accept M.A. Pending.
[facility] can accept M.A. Pending if VNA indicated. Telephone call to [facility] to see if they can accept M.A. pending. -[facility] can take M.A. pending for home 02 and Nebulizers if indicated on discharge. Will need to see his current
functional level to see if he will have any skilled care needs. Medical work up in progress. The discharge plan is to return home with his spouse and VNA and DME if indicated.
--- NOTE | 2024-02-12 14:14 | W.PN.UPDATE ---
Update Note
Progress Note Update
Patient seen and examined
Remains in IVU
Comfortable resting in bed
Has no pain in bilateral feet or toes
No wounds
Overall feeling better
On physical examination his left foot is warm. He has a palpable left DP and PT pulse once the edema is pressed free
On the right his foot is cool. Light purple discoloration of the forefoot and toes. Motor and sensory grossly intact
Palpable right DP. Nonpalpable right PT. Robust Doppler signals on the right DP and PT
I personally reviewed his lower extremity arterial studies. On the right his BURKE is essentially within normal limits at 0.94. Toe pressure is 0. Arterial duplex examination reveals multiphasic waveforms from the common femoral artery through the
popliteal artery with no focal velocity elevations to suggest significant stenosis. Arterial duplex examination also reveals multiphasic waveforms in the distal right posterior tibial artery as well as the dorsalis pedis artery.
On the left his BURKE is within normal limits at 1.05. TBI within normal limits at 0.98. Arterial duplex examination reveals multiphasic waveforms in the common femoral artery and profunda femoral artery. Monophasic waveforms are identified
throughout the superficial femoral artery and popliteal artery however there are no focal velocity elevations to suggest significant stenosis. Monophasic waveforms are identified in the distal posterior tibial artery and dorsalis pedis artery.
May have small vessel disease on the right with no evidence of proximal occlusive disease. He has no rest pain currently. He has no open wounds or ulcerations. My recommendation is for systemic anticoagulation in conjunction with antiplatelet
therapy. He can follow-up in the office after discharge for ongoing surveillance. Aggressive medical management of arterial disease risk factors.
Donnell Garcia III, MD
[facility]
[phone] (zmme)
[2024-02-12] MEDS: HEPARIN 25000 UNITS/250 ML IV (16:11)
--- NOTE | 2024-02-12 16:33 | W.PN.NEPH.PH ---
Today's Communication / Plan
-
- hold lasix
- monitor UOP and Cr
Assessment/Plan
-
IMP:
JASON
Acute respiratory failure
Acute D CHF
suspected COPD exacerbation
Afib with RVR
Non-ischemic cardiac injury
Suspected CAD
b/l LE cyanosis
Acute RLE DVT
New onset DM
COPD
metabolic alkalosis
Plan:
A/w sob, edema, noted acute resp failure from CHF, COPD
new Rt LE DVT and Afib RVR
JASON-possible DEISY (contrast 02/07) and afib, hypotension +diuresis , baseline cr 1 on admit
UA with blood and protein. appears to be a contaminated sample. will obtain UPCR regardless.
urine sodium low at 11, likely from CHF
UOP at 882.
follow bladder scan , KUS unremarkable with bilateral cortical atrophy.
given significant PVD changes in LE and smoking- renal duplex report pending, CTA had limitation reviewed report
cont to hold lasix, and avoid nephrotoxins-not ready for cath
BP sable, med adjustment per cards on BB and wean cardizem gtt
monitor met alkalosis
reviewed with pt about high risk of MANAGER FILM if renal function worsens
he agrees HD if needed
monitor daily wts
d/w patient
-
-
Date of Service: February 12, 2024
CC / HPI / ROS
-
Chief Complaint:
JASON
History of Present Illness:
Cr bl 1, elevated to 2.3
UOP picking up
Review of Systems:
feeling 'fine', wants to be left alone
Labs
-
Labs:
WBC 10.6 10^3/uL (4.8-10.8) 02/12/24 03:27
RBC 4.78 10^6/uL (4.70-6.10) 02/12/24 03:27
Hgb 15.2 g/dL (13.0-18.0) 02/12/24 03:27
Hct 44.2 % (39.0-52.0) 02/12/24 03:27
Plt Count 167 10^3/uL (130-400) D 02/12/24 03:27
Sodium 135 mmol/L (135-145) 02/12/24 03:26
Potassium 4.4 mmol/L (3.5-5.1) 02/12/24 03:26
Chloride 95 mmol/L (98-107) L 02/12/24 03:26
Carbon Dioxide 28 mmol/L (22-30) 02/12/24 03:26
BUN 79 mg/dl (9-20) H 02/12/24 03:26
Creatinine 2.3 mg/dL (0.7-1.3) H 02/12/24 03:26
eGFR 31.32 02/12/24 03:26
Glucose 220 mg/dl (70-99) H 02/12/24 03:26
Calcium 8.4 mg/dl (8.4-10.2) 02/12/24 03:26
Phosphorus 5.6 mg/dl (2.5-4.5) H 02/11/24 16:03
Meg-S-Tdjfnxogunk Pept 9400 pg/ml 02/11/24 04:11
Albumin 3.3 g/dl (3.5-5.0) L 02/12/24 03:26
Physical Exam
-
Vital Signs:
Vital Signs
Temp Pulse Resp BP Pulse Ox
96.9 F L 110 20 103/80 92
02/12/24 15:19 02/12/24 13:37 02/12/24 15:19 02/12/24 12:29 02/12/24 15:19
Cardiovascular:: Regular rate and rhythm
Respiratory:: Bilateral: Coarse
Lung Excursion:: Normal
Abdomen:: Distended, Nontender and Soft
Bowel Sounds:: Normal
Extremity Edema:: +1: Bilateral:
Garcia Catheter: Yes
[2024-02-12 17:46] LABS: Glucose - Point of Care 158 mg/dl (70-99)
[2024-02-12] MEDS: LIPITOR 20 MG PO (17:47)
[2024-02-12 19:50] LABS: APTT 84.5 Sec (23.4-35.0)
[2024-02-12] MEDS: TOPROL XL 25 MG PO (19:57)
--- NOTE | 2024-02-12 21:19 | PTCARENOTE ---
Received patient for the night in bed. Afib on the monitor, HR in the 90s. Patient is 94% on 3L O2 nasal cannula. Patient is oriented x3 and pleasant. Heparin is infusing at 1400 units/hr, PTT is therapeutic x2. Cardizem is infusing at 5ml/hr. Call
tompkins within reach.
[2024-02-12 22:01] LABS: Glucose - Point of Care 189 mg/dl (70-99)
[2024-02-12] MEDS: SEROQUEL 50 MG PO (22:23)
[2024-02-13 05:28] VITALS: BP 103/78
[2024-02-13 05:48] LABS: % Basophils 0.1 % (0-2); % Immature Granulocytes 0.4 % (0-0.5); % Lymphocytes 6.7 % (20.5-51.1); % Monocytes 5.4 % (1.7-9.3); % Neutrophils 87.4 % (42.2-75.2); Absolute Lymphocytes 0.7 10^3/uL (1.2-3.4); Absolute Monocytes 0.6 10^3/uL (0.1-0.6); Absolute Neutrophils 8.9 10^3/uL (1.4-6.5); Hematocrit 43.8 % (39.0-52.0); Mean Corp Hgb Conc. 34.2 g/dL (33.0-37.0); Mean Corpuscular Hgb 31.3 pg (27.0-31.0); Mean Corpuscular Volume 91.3 fL (80.0-94.0); Mean Platelet Volume 11.9 fL (7.4-10.4); Nucleated Red Blood Cells % 0.3 % (-); Platelet Count 170 10^3/uL (130-400); Red Cell Dist. Width 14.1 % (11.5-14.5); White Blood Cell Count 10.2 10^3/uL (4.8-10.8)
[2024-02-13 06:01] LABS: APTT 93.7 Sec (23.4-35.0)
[2024-02-13] MEDS: SOLU-MEDROL PF 40 MG IV ×3 (06:03→21:58)
[2024-02-13 06:22] LABS: ALT (SGPT) 98 U/L (0-50); AST (SGOT) 38 U/L (17-59); Albumin 3.4 g/dl (3.5-5.0); Alkaline Phosphatase 73 U/L (38-126); Blood Urea Nitrogen 76 mg/dl (9-20); Calcium 8.7 mg/dl (8.4-10.2); Carbon Dioxide 29 mmol/L (22-30); Chloride 97 mmol/L (98-107); Estimated Creatinine Clearance 50 ml/min; Glucose 168 mg/dl (70-99); Potassium 4.7 mmol/L (3.5-5.1); Sodium 135 mmol/L (135-145); Total Bilirubin 0.8 mg/dl (0.2-1.3); Total Protein 5.8 g/dl (6.3-8.2); eGFR 39.39
[2024-02-13] MEDS: XOPENEX 0.63 MG INHALANT SOLUTION INH ×3 (07:40→19:18)
[2024-02-13] MEDS: ATROVENT NEBULES 0.5 MG INH ×2 (07:40→13:13)
[2024-02-13] MEDS: CARDIZEM 125 IV (07:42)
[2024-02-13] MEDS: LOW STRENGTH ASPIRIN 81 MG PO (08:39)
[2024-02-13] MEDS: NICODERM TRANSDERMAL 21 MG TRANSDERM (08:39)
[2024-02-13] MEDS: TOPROL XL 25 MG PO ×2 (08:39→20:05)
--- NOTE | 2024-02-13 08:59 | W.PN.PUL3 ---
Today's Communication / Plan
-
Atrial fibrillation rate control
Dose diuretics daily depending on sCr and clinical status
Monitor renal function
No change in steroids
Continue Xopenex/ipratropium bromide
Eventual cardioversion and left heart catheterization
Assessment
-
Assessment: 63-year-old male active tobacco smoker with a past medical history of COPD, atrial flutter and palpitations who presented with shortness of breath as well as swelling to lower extremities + abdomen. His lower extremities have also been
discolored for the past few weeks and his shortness of breath has also been progressively worsening over the last few days although he does admit SOB for the past 2 years. He does smoke 0.5 PPD but says that he is now 'done.' In the ER, vitals
showed tachycardia to 121, breathing at 20 breaths/min, BP 140/91, afebrile at 98.6 �F and saturating 91% on room air. Labs showed normal WBC at 10.7, Hb 16.5, initial troponin 0.148, proBNP elevated at 6110, and COVID antigen negative. Initial
CXR showed no acute cardiopulmonary process. CTA chest, abdomen, pelvis showed no aortic aneurysm or dissection, with mild centrilobular emphysema, no evidence of volume overload with no significant acute abnormality in the chest, abdomen or
pelvis. He was given Lasix, Cardizem 10 mg and started on Cardizem drip. Given his rapid A-fib requiring Cardizem drip with shortness of breath, he was admitted to the ICU for further care and critical care services consulted for additional
management/recommendations. Patient downgraded to IVU level of care on 02/09 and pulmonary service continue to follow along.
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
Impression:
#Atrial fibrillation with RVR s/p Cardizem drip
#Acute respiratory failure with hypoxia due to rapid A-fib in the setting of suspected COPD exacerbation
#Lower extremity swelling + abdominal distention � reduced RV systolic function on echo from 02/09/2024
#Elevated troponin � peaked at 0.148 on 02/08/2024
#JASON likely due to DEISY in setting of CHF and hypovolemia
#Right lower extremity DVT involving peroneal vein (Dx on 02/09/2024)
#Hyperglycemia (HbA1C: 7.2 from 02/09/2024)
#Active tobacco smoker
#Former alcohol use disorder
Plan:
Respiratory status still tenuous-significant wheezing on exam-component of COPD as well as 'cardiac wheezing'
Supplemental oxygen as needed to keep SpO2 >88%
Aspiration precautions
Incentive spirometry encouraged
Solu-Medrol 40 mg IV every 8 hours
Xopenex/ipratropium bromide nebulizers-patient with rapid atrial fibrillation
Nicotine patch
Cardiology following-correspondence reviewed
Dose diuresis daily depending on sCr and clinical status
Monitor renal function, electrolytes, intake/output, lower extremity edema and weight
Replace electrolytes as needed
Heart rate control-metoprolol decreased with increased wheezing and diltiazem titrated
Replace electrolytes
Heparin drip
Eventual left heart catheterization once renal function improves
Eventual ZANA/cardioversion
Nephrology evaluation-correspondence reviewed-possible contrast-induced nephropathy and/or hypotension/diuresis
Smoking cessation counseling ongoing
Nicotine patch
DVT prophylaxis-on heparin gtt
Nutrition
Early mobilization
Incentive spirometer encouraged
PT/OT
Recommendation outpatient pulmonary follow up for full PFTs.
Reviewed with nursing and cardiology
Pulmonary service will continue to follow along.
Total time spent today was 35 minutes for this encounter. Time includes reviewing laboratory test/imaging results, reviewing pertinent medical records, obtaining and reviewing medical history, performing an appropriate exam, ordering medications,
tests and procedures. Time also includes documentation of this encounter, coordinating patient care and communicating with other healthcare professionals. Total time does not include separately billed tests performed on this date of service.
Data:
CTA Chest/Abd/Pelvis w/wo contrast 02/08/2024:
1. No aortic aneurysm or dissection.
2. No significant acute abnormality identified in the chest, abdomen or pelvis
CXR 02/11/2024: Mild interstitial pulmonary edema. No effusion.
Renal US 02/11/2024: No hydronephrosis or nephrolithiasis. Bilateral cortical atrophy.
Bilateral lower extremity duplex US 02/09/2024:
Thrombus within the right peroneal vein.
No evidence for deep venous thrombosis of the left lower extremity.
Transthoracic echocardiogram 02/09/2024:
Technically difficult study.
Normal left ventricular size and function. Normal regional wall motion. Mild
concentric left ventricular hypertrophy. LV ejection fraction is 55-60% by
Barrera's method of discs. Diastolic function indeterminate.
Enlarged right ventricular size.
Dilated RA.
Mitral annular calcification. Trace mitral regurgitation.
Mild tricuspid regurgitation. Estimated pulmonary artery pressure of 20-25
mmHg. Assuming a right atrial pressure of 3 mmHg.
When compared to prior study on 06/17/2017, RA and RV are enlarged; PASP has
improved to 20-25 mmHg from 33-38 mmHg; no other significant change.
Subjective Data
-
Date of Service:
Date of Service: February 13, 2024
Chief Complaint: Pulmonary Follow Up and Dyspnea Follow Up
Subjective:
Patient seen and evaluated today at bedside. He denies chest pain, shortness of breath, GIMENEZ, abdominal pain, fevers or chills. Currently saturating 93% on 2 L/min nasal cannula. Heart rate 94. BP 103/81.
Review of Systems
General: Other (Negative unless mentioned above)
Objective Data
Data Reviewed
Vital Signs / I&O / Oxygen:
Vital Signs
Temp Pulse Resp BP Pulse Ox
97.4 F 88 20 103/78 95
02/13/24 09:57 02/13/24 08:30 02/13/24 09:57 02/13/24 05:28 02/13/24 09:57
Intake and Output
02/12/24 02/13/24 02/14/24
06:59 06:59 06:59
Intake Total 2040 198 / 198
Output Total 1675 / 1675 450 / 450
Balance 1839 / 1839 -1477 / -1477 -450 / -450
SaO2 95
Nasal Cannula flow liters per 3
minute
Physical Exam
General: Respiratory Distress (negative), Comfortable, Chills (negative) and Sweats (negative)
HEENT: Normocephalic and Anicteric
Cardiovascular: Irregular Rhythm (Irregularly irregular), Peripheral Edema (+1 lower extremity edema bilaterally) and Cool Extremities (Cool lower extremities bilaterally)
Respiratory: Wheeze (Expiratory wheezing), Crackles (negative), Rhonchi (negative), Non-Labored Respirations and Accessory Resp Muscle Use (n)
GI: Soft, Distended (Abdominal obesity) and Non Tender
Neurology: Awake, Alert and Tremors (negative)
Skin: Dry, Good Color, Cyanosis (n), Jaundice (negative) and Other (Mottled appearance of lower extremities bilaterally; cool lower extremities; upper extremities are warm to touch)
Labs/Micro/Reports
Lab Data
02/13/24 05:38
02/13/24 05:38
Laboratory Results
02/12/24 02/12/24 02/13/24
12:25 19:30 05:38
APTT 90.6 H 84.5 H 93.7 H
--- NOTE | 2024-02-13 09:08 | W.PN.CARDCBS ---
Addendum entered and electronically signed by Candi Carroll DO 02/13/24 10:01:
I saw and examined the patient.
The Java Lead Developer's note was reviewed and I agree with the note.
Comment: Patient seen and examined with cardiac PA. Patient was lying supine on room air looking comfortable during sleep. Awoke easily and reports overall feeling better. No cough and less wheezing. Continues to have some shortness of breath.
No chest pain or pressure.
GEN: No distress, awake, alert, oriented x3
HEENT: supple, anicteric, mmm
LUNGS: Overall improved pulmonary exam with bronchovesicular breath sounds, scattered rhonchi. Scant expiratory wheeze. Fine crackles right base
CV: irreg, S1/S2, 1/6 syst LSB
EXT: Improved coloration of legs bilaterally; +1 edema b/l LE
Plan:
Atrial fibrillation/flutter
-Patient continues to be in atrial fibrillation with controlled rates on IV Cardizem
-Will transition IV to oral Cardizem CD1 80 mg daily.
-Pulmonary exam improved with reduction of metoprolol succinate. Metoprolol succinate currently 25 mg twice daily and if needed can try to further reduce
-Eventual plan ZANA/cardioversion next week pending clinical status
-Continue IV heparin drip with plan for possible procedures pending return of his renal function. Eventual transition to NOAC
Heart failure with preserved ejection fraction now with acute renal insufficiency
-Creatinine has started to improve, now 1.9
-Remains volume overloaded but will hold Lasix at this time
-Goal-directed medical therapy limited due to acute renal insufficiency
-Eventual ischemic evaluation. High renal risk of left heart catheterization at this time with minimal elevation of cardiac troponin and no chest pain. CTA chest/abdomen/pelvis earlier this admission also reported no significant coronary artery
calcifications. We will proceed with a Lexiscan nuclear stress test on Thursday
Acute renal insufficiency
-Creatinine has started to improve, today 1.9
-Nephrology consulted, suspect DEISY
-Monitor renal function closely, avoid nephrotoxic agents, support hemodynamics.
-Renal artery ultrasound negative for renal artery stenosis.
Acute DVT
-Lower extremity ultrasound with thrombus in the right peroneal vein.
-Appreciate vascular input; mild infrapopliteal disease on the left. Scattered calcified plaque on the right with no significant stenosis.
Emphysema/COPD on CT of the chest with ongoing tobacco use
-Pulmonary exam is improved today on room air
-Continue Solu-Medrol, bronchodilators
-CTA of the chest abdomen pelvis 02/08/2024 without pulmonary embolism, aortic aneurysm or dissection. There was no significant acute abnormality identified in the chest, abdomen or pelvis. Study also reports 'no significant coronary artery
calcifications 'no pleural or pericardial effusions.
-Pulmonary/locomotive lubricating systems clerk consulted
Will follow with you
Original Note:
Today's Communication / Plan
-
Stop cardizem gtt and transition to Cardizem CD 180mg daily
Continue lower dose Toprol 25mg BID
Hold lasix, renal function improving
Continue IV heparin
Tentative plan for stress test 02/14
Impression / Plan
-
PCP: None has not seen medical provider since
Abstract Manager: Dr. Cintron last seen in August 2015 in office
Impression:
Presented w/ progressively worsening SOB, palpitations, LE edema
Acute hypoxic respiratory insufficiency/failure
Acute HFpEF
Anasarca
Paroxysmal atrial flutter/fibrillation w/ RVR
Abnormal troponin, peak 0.148
JASON
Emphysema/COPD exacerbation
Leukocytosis
[id number] score 1 (heart failure)
Ongoing tobacco abuse
Emphysema/COPD (noted on chest CT 02/08/2024)
Echo 11/14/2014: EF 50 to 55% with no regional wall motion abnormalities. Diastolic dysfunction, mildly dilated left atrium, PAP 33 to 38 mmHg
Echo 02/09/2024: Technically difficult study. EF 55%, dilated RV, PA pressure 20-25
Plan:
-Presented with SOB, LE edema, and palpitations. Found to be in acute heart failure exacerbation as well as rapid atrial fibrillation/flutter. There was also concern for COPD exacerbation and PAD.
-Remains in atrial fibrillation on review of telemetry overnight. HR stable on cardizem gtt, will transition to PO diltiazem 180mg daily. Wheezing improved on lower dose Toprol 25mg BID.
-Continues on IV heparin for anticoagulation as there has been consideration for possible eventual cardiac catheterization.
-Holding off on procedures at this time given JASON with creatinine up to 2.3. Creatinine improved to 1.9 in AM 02/12. Nephrology following. Lasix remains on hold.
-Also with concern for significant PAD. Lower extremity US with thrombus in the right peroneal vein. Lower extremity arterial US without significant stenosis.
-CTA of the chest abdomen pelvis 02/08/2024 without pulmonary embolism, aortic aneurysm or dissection. There was no significant acute abnormality identified in the chest, abdomen or pelvis. Study also reports 'no significant coronary artery
calcifications 'no pleural or pericardial effusions.
-Will follow renal function and plan for stress testing on Thursday, 02/14 if respiratory status remains improved. Also to consider ZANA/CV prior to discharge.
-Continue management of emphysema/COPD per pulm.
-Continue aspirin 81mg daily and lipitor 40mg daily. LDL 92
HPI 02/09/2024:
Patient is a 63-year-old male with past medical significant for paroxysmal atrial flutter, ongoing tobacco abuse, COPD/emphysema and noncompliance of medical follow-up who presents to emergency department 02/08/2024 with progressively worsening
shortness of breath, abdominal bloating, lower extremity edema, palpitations. Patient reports he has had shortness of breath for several years but recently he has noted dyspnea with minimal activity including walking from the couch to the bathroom.
His legs have become cold and discolored over the last week. He also started having palpitations and vibrating in his chest 'for a while'. Recently started with intermittent dizziness with standing. Due to worsening of symptoms he decided to
seek emergency medical attention. Patient tells me the last time he was seen by a medical provider was when he was here in 2017. He takes an aspirin 81 mg daily. He smokes a pack of cigarettes a day. He denies chest pain. On presentation to
emergency department patient was found to be in atrial flutter with rapid ventricular response. Troponin 0.148. proBNP 6110. CT chest/abdomen/pelvis was negative for aortic aneurysm or dissection. Mild emphysematous changes. Mild diffuse
anasarca otherwise unremarkable abdomen, although limited given no contrast was given. He was given 40 mg IV Lasix and was placed on diltiazem drip and converted to sinus rhythm around 3 AM on 02/09/2024.
Progress Note - Abstract Manager
Subjective
Date of Service: February 13, 2024
Breathing improving
Objective
Labs:
02/13/24 05:38
02/13/24 05:38
Labs
Hgb 15.0 g/dL (13.0-18.0) 02/13/24 05:38
Hct 43.8 % (39.0-52.0) 02/13/24 05:38
Plt Count 170 10^3/uL (130-400) 02/13/24 05:38
PT 14.9 Sec (11.4-14.6) H 02/09/24 03:55
INR 1.18 02/09/24 03:55
APTT 93.7 Sec (23.4-35.0) H 02/13/24 05:38
Sodium 135 mmol/L (135-145) 02/13/24 05:38
Potassium 4.7 mmol/L (3.5-5.1) 02/13/24 05:38
BUN 76 mg/dl (9-20) H 02/13/24 05:38
Creatinine 1.9 mg/dL (0.7-1.3) H 02/13/24 05:38
Glucose 168 mg/dl (70-99) H 02/13/24 05:38
Vital Signs and I&O:
Vital Signs
Temp Pulse Resp BP Pulse Ox
97 F 88 18 103/78 93
02/13/24 05:29 02/13/24 08:30 02/13/24 07:45 02/13/24 05:28 02/13/24 08:30
Vital Signs
Temp Pulse Resp BP Pulse Ox
97 F 88 18 103/78 93
02/13/24 05:29 02/13/24 08:30 02/13/24 07:45 02/13/24 05:28 02/13/24 08:30
Intake & Output
02/11/24 02/12/24 02/13/24 02/14/24
06:59 06:59 06:59 06:59
Intake Total 2755 / 2780 204 / 204 198 / 198
Output Total 350 / 350 202 / 202 1675 / 1675
Balance 2405 / 2430 1839 / 1839 -1477 / -1477
Physical Exam
Physical Exam
GEN: No distress, awake, alert, oriented x3
HEENT: supple, anicteric, mmm
LUNGS: Scattered rales, few wheezes
CV: irreg, S1/S2, 1/6 syst LSB
EXT: No clubbing, +1 edema b/l LE
[2024-02-13 09:33] LABS: Glucose - Point of Care 141 mg/dl (70-99)
[2024-02-13] MEDS: NOVOLOG FLEXPEN-MODERATE RESISTANCE SC (09:33)
[2024-02-13] MEDS: NOVOLOG FLEXPEN 7 UNITS SC ×3 (09:33→17:15)
[2024-02-13] MEDS: CARDIZEM CD 180 MG PO (09:40)
[2024-02-13] MEDS: LANTUS 0.15 UNITS SC (09:40)
[2024-02-13 09:54] VITALS: BP 115/84
[2024-02-13] MEDS: HEPARIN 25000 UNITS/250 ML IV (10:50)
[2024-02-13] MEDS: NOVOLOG FLEXPEN-MODERATE RESISTANCE 5 UNITS SC (13:45)
[2024-02-13 13:46] LABS: Glucose - Point of Care 254 mg/dl (70-99)
--- NOTE | 2024-02-13 13:49 | W.PN.HOSP.TC ---
Today's Communication/Plan
-
Cr improving
cont steroids
pending further cardio w/u with stress test and possible CV
Assessment / Plan
Assessment / Plan
63yo M with PMHx of paroxysmal Afib not on AC, nicotine dependency came with 1 week of b/l LE swelling abd abdominal distension. CTA chest/abd/pelvis without acute abnormality, found with Afib with RVR and acute R non-occlusive DVT. Later developed
JASON, so cardiac cath planned for 02/11/24 had to be delayed.
Later Cardiology decided to plan for stress test and possible CV
A/P:
#CHF, unspecified exacerbation
#Afib with RVR
#Non-ischemic cardiac injury
#Suspected CAD
Lasix held on 02/10/24, telemetry with poorly controlled HR, follow daily weights and electrolytes
ASA, heparin drip, statin
Start BB - found hypotension on Lopressor 50mg BID, switched to Toprol 50mg nightly on 02/10/24, wean off Diltiazem, further mgmt as per cardio
Rate vs rhythm control as per cardio
Troponin downtrending
Cardio consult: might consider ischemic w/u, CV, stress test
Echo with preserved EF, pulmonary HTN improved compared with 2018, no significant valvular disease
TSH WNL
LDL 92
#JASON
concern for low perfusion state 2/2 uncontrolled Afib vs DEISY
Urine Osm, Na, Cr, UA, US renal - prerenal with no abnormalities on US
Patient does not retaining urine as per scan on 02/11/24
Neprho consult
Garcia and strict I&O
No renal artery stenosis on US
#b/l LE cyanosis
Vasc evaluated - most likely low perfusion state 2/2 CHF, Afib with RVR
previous CTA included pelvis - no signs of arterial occlusion
DVT was found only in RLE and was non-occlusive
Dorsalis pedis pulses present on both LE by doppler
No signs of arterial occlusive disease on LE US
#Acute RLE DVT
switch to Eliquis on 02/10/24
Recommend outpatient age-appropriate CA screening
CTA chest/abd/pelvis without additional thrombosis or gross signs of cancer
no DVT on L
#New onset DM
Accuchecks, Insulin SS, DM diet
Outpatient ophthalmic, renal and podiatry yearly screening emphasized
#Acute respiratory insufficiency 2/2 COPD exacerbation 2/2 nicotine dependency
Nicoderm PRN
cont bronchodilators
Emphasized cessation
Steroids taper
Wean off O2
DVT ppx Eliquis
FUll code
I have spent at least 36 min reviewing chart, test results, communication with consultants and direct patient care
Anticipated Discharge: > 48 hours
Subjective/Interval History
-
Date of Service: February 13, 2024
Objective Data
-
Labs:
Laboratory Results
02/13/24
05:38
WBC 10.2
Hgb 15.0
Hct 43.8
Plt Count 170
APTT 93.7 H
Sodium 135
Potassium 4.7
Chloride 97 L
Carbon Dioxide 29
BUN 76 H
Creatinine 1.9 H
Glucose 168 H
Calcium 8.7
Total Bilirubin 0.8
AST 38
ALT 98 H
Alkaline Phosphatase 73
Vital Signs:
Vital Signs
Temp Pulse Resp BP Pulse Ox
97.4 F 79 20 115/84 94
02/13/24 09:57 02/13/24 12:00 02/13/24 09:57 02/13/24 09:54 02/13/24 12:00
I&O
02/12/24 02/13/24 02/14/24
06:59 06:59 06:59
Intake Total 2040 / 2040 198 / 198
Output Total 1675 / 1675 450 / 450
Balance 1839 / 1839 -1477 / -1477 -450 / -450
Review of Systems
-
History Source: Patient
All other systems: Reviewed and negative
Physical Exam
-
General: No Apparent Distress
HEENT: Normocephalic
Respiratory: Wheezes
Cardiac: Irregular Rhythm
GI: Soft, Nontender and Nondistended
Musculoskeletal: No Clubbing and No Cyanosis (minima b/l LE)
Skin: Warm
Neuro: Awake, Alert, Oriented and AO x 3
--- NOTE | 2024-02-13 14:08 | W.PN.NEPH.PH ---
Today's Communication / Plan
-
- lasix 40IV
Assessment/Plan
-
IMP:
JASON
Acute respiratory failure
Acute D CHF
suspected COPD exacerbation
Afib with RVR
Non-ischemic cardiac injury
Suspected CAD
b/l LE cyanosis
Acute RLE DVT
New onset DM
COPD
metabolic alkalosis
Plan:
A/w sob, edema, noted acute resp failure from CHF, COPD
new Rt LE DVT and Afib RVR
JASON-possible DEISY (contrast 02/07) and afib, hypotension +diuresis , baseline cr 1 on admit
UA with blood and protein. appears to be a contaminated sample. will obtain UPCR regardless.
urine sodium low at 11, likely from CHF
UOP at 882.
follow bladder scan , KUS unremarkable with bilateral cortical atrophy. renal duplex with no CHU
patient appears more swollen today, will trial some lasix today
per cardiology, planning for stress test on Thursday
BP sable, med adjustment per cards on BB and transitioning to oral cardizem
monitor met alkalosis
reviewed with pt about high risk of PLAN EXAMINER if renal function worsens
he agrees HD if needed
monitor daily wts
d/w patient
-
-
Date of Service: February 13, 2024
CC / HPI / ROS
-
Chief Complaint:
JASON
History of Present Illness:
Cr bl 1, elevated to 1.9
UOP picking up
Review of Systems:
feeling 'fine', wants to be left alone
Labs
-
Labs:
WBC 10.2 10^3/uL (4.8-10.8) 02/13/24 05:38
RBC 4.80 10^6/uL (4.70-6.10) 02/13/24 05:38
Hgb 15.0 g/dL (13.0-18.0) 02/13/24 05:38
Hct 43.8 % (39.0-52.0) 02/13/24 05:38
Plt Count 170 10^3/uL (130-400) 02/13/24 05:38
Sodium 135 mmol/L (135-145) 02/13/24 05:38
Potassium 4.7 mmol/L (3.5-5.1) 02/13/24 05:38
Chloride 97 mmol/L (98-107) L 02/13/24 05:38
Carbon Dioxide 29 mmol/L (22-30) 02/13/24 05:38
BUN 76 mg/dl (9-20) H 02/13/24 05:38
Creatinine 1.9 mg/dL (0.7-1.3) H 02/13/24 05:38
eGFR 39.39 02/13/24 05:38
Glucose 168 mg/dl (70-99) H 02/13/24 05:38
Calcium 8.7 mg/dl (8.4-10.2) 02/13/24 05:38
Phosphorus 5.6 mg/dl (2.5-4.5) H 02/11/24 16:03
Wzv-W-Gyipurfphoq Pept 9400 pg/ml 02/11/24 04:11
Albumin 3.4 g/dl (3.5-5.0) L 02/13/24 05:38
Physical Exam
-
Vital Signs:
Vital Signs
Temp Pulse Resp BP Pulse Ox
97.4 F 79 20 115/84 94
02/13/24 09:57 02/13/24 12:00 02/13/24 09:57 02/13/24 09:54 02/13/24 12:00
Cardiovascular:: Regular rate and rhythm
Respiratory:: Bilateral: Coarse
Lung Excursion:: Normal
Abdomen:: Distended, Nontender and Soft
Bowel Sounds:: Normal
Extremity Edema:: +2: Bilateral:
Garcia Catheter: Yes
[2024-02-13] MEDS: LASIX 40 MG IV (14:34)
[2024-02-13 14:45] VITALS: BMI 31.1
--- NOTE | 2024-02-13 15:19 | SUR.OPER ---
Pt AAOx3, sleeping on and off throughout morning. Monitor Afib 80-90's. ~1000-PO Cardizem given and IV Cardizem gtts dc'd. Heparin gtts infusing at 1400units/hr. Lungs with exp wheezes, +KOEHLER. Garcia draining yellow urine. ~1430-40mg IV Lasix given as
per orders.
[2024-02-13] MEDS: LIPITOR 20 MG PO (17:13)
[2024-02-13] MEDS: NOVOLOG FLEXPEN-MODERATE RESISTANCE 3 UNITS SC (17:15)
[2024-02-13 17:16] LABS: Glucose - Point of Care 241 mg/dl (70-99)
[2024-02-13 17:20] VITALS: BP 129/88
[2024-02-13 18:22] VITALS: BP 145/91
[2024-02-13] MEDS: ATROVENT NEBULES INH (19:18)
[2024-02-13 21:58] VITALS: BP 125/77
[2024-02-13] MEDS: SEROQUEL 50 MG PO (21:58)
[2024-02-13 22:01] LABS: Glucose - Point of Care 175 mg/dl (70-99)
[2024-02-14] VITALS (7 sets, daily range): BP systolic 107–150; BP diastolic 78–119; BMI 31.1
[2024-02-14] MEDS: HEPARIN 25000 UNITS/250 ML IV ×2 (03:42→22:30)
--- NOTE | 2024-02-14 04:03 | PTCARENOTE ---
Pt awoken for vs. O2 found up in pt's hairline ,Pt's sat 85% without o2, improved to 92-93% with O2 at 3 lit n/c. Afib on telemetry.
[2024-02-14 04:13] LABS: % Basophils 0.1 % (0-2); % Immature Granulocytes 0.5 % (0-0.5); % Lymphocytes 4.1 % (20.5-51.1); % Monocytes 4.4 % (1.7-9.3); % Neutrophils 90.9 % (42.2-75.2); Absolute Immature Granulocytes 0.1 10^3/uL (0-0.05); Absolute Lymphocytes 0.5 10^3/uL (1.2-3.4); Absolute Monocytes 0.6 10^3/uL (0.1-0.6); Absolute Neutrophils 11.7 10^3/uL (1.4-6.5); Hemoglobin 15.4 g/dL (13.0-18.0); Mean Corp Hgb Conc. 34.2 g/dL (33.0-37.0); Mean Corpuscular Volume 90.5 fL (80.0-94.0); Mean Platelet Volume 12.1 fL (7.4-10.4); Nucleated Red Blood Cells % 0.2 % (-); Platelet Count 175 10^3/uL (130-400); Red Blood Cell Count 4.97 10^6/uL (4.70-6.10); White Blood Cell Count 12.8 10^3/uL (4.8-10.8)
[2024-02-14 04:35] LABS: ALT (SGPT) 96 U/L (0-50); AST (SGOT) 36 U/L (17-59); Albumin 3.3 g/dl (3.5-5.0); Alkaline Phosphatase 78 U/L (38-126); Blood Urea Nitrogen 71 mg/dl (9-20); Calcium 8.7 mg/dl (8.4-10.2); Carbon Dioxide 37 mmol/L (22-30); Chloride 95 mmol/L (98-107); Estimated Creatinine Clearance 53 ml/min; Glucose 190 mg/dl (70-99); Potassium 4.4 mmol/L (3.5-5.1); Sodium 139 mmol/L (135-145); Total Bilirubin 0.6 mg/dl (0.2-1.3); Total Protein 5.8 g/dl (6.3-8.2); eGFR 42.03
[2024-02-14] MEDS: HEPARIN 4100 UNITS IV (04:43)
--- NOTE | 2024-02-14 04:52 | PTCARENOTE ---
Pt's ptt 72, heparin bolus per protocol given. drip increased to 1600 unit/hr. Pt was upset when nursing stated his verdin would be coming out as per Dr's order at 0600. Pt stated 'let me get back to sleep, your not taking that out it was too painful
going in'.
[2024-02-14] MEDS: SOLU-MEDROL PF 40 MG IV ×2 (05:00→14:33)
[2024-02-14] MEDS: XOPENEX 0.63 MG INHALANT SOLUTION INH ×2 (07:13→18:05)
[2024-02-14] MEDS: ATROVENT NEBULES 0.5 MG INH ×2 (07:13→18:04)
[2024-02-14 07:26] LABS: Glucose - Point of Care 163 mg/dl (70-99)
[2024-02-14] MEDS: TOPROL XL 25 MG PO ×2 (08:37→20:11)
[2024-02-14] MEDS: LOW STRENGTH ASPIRIN 81 MG PO (08:38)
[2024-02-14] MEDS: NICODERM TRANSDERMAL 21 MG TRANSDERM (08:38)
[2024-02-14] MEDS: NOVOLOG FLEXPEN 7 UNITS SC ×3 (08:38→17:40)
[2024-02-14] MEDS: NOVOLOG FLEXPEN-MODERATE RESISTANCE 1 UNITS SC ×2 (08:38→17:40)
[2024-02-14] MEDS: CARDIZEM CD 180 MG PO (08:38)
--- NOTE | 2024-02-14 09:05 | W.PN.HOSP.TC ---
Today's Communication/Plan
-
cont steroids same dose, with persistent wheezing and hypoxia - repeat XR to eval pulmonary edema
pending further cardio w/u
Cr improving s/p Lasix - further doses as per nephro
Assessment / Plan
Assessment / Plan
63yo M with PMHx of paroxysmal Afib not on AC, nicotine dependency came with 1 week of b/l LE swelling abd abdominal distension. CTA chest/abd/pelvis without acute abnormality, found with Afib with RVR and acute R non-occlusive DVT. Later developed
JASON, so cardiac cath planned for 02/11/24 had to be delayed.
Later Cardiology decided to plan for stress test and possible CV
A/P:
#CHF, unspecified exacerbation
#Afib with RVR
#Non-ischemic cardiac injury
#Suspected CAD
Lasix held on 02/10/24, telemetry with poorly controlled HR, follow daily weights and electrolytes
ASA, heparin drip, statin
Start BB - found hypotension on Lopressor 50mg BID, switched to Toprol 50mg nightly on 02/10/24, wean off Diltiazem, further mgmt as per cardio
Rate vs rhythm control as per cardio
Troponin downtrending
Cardio consult: might consider ischemic w/u, CV, stress test
Echo with preserved EF, pulmonary HTN improved compared with 2018, no significant valvular disease
TSH WNL
LDL 92
#Acute respiratory insufficiency 2/2 COPD exacerbation 2/2 nicotine dependency
Nicoderm PRN
cont bronchodilators
Emphasized cessation
Steroids taper
Wean off O2
#JASON
concern for low perfusion state 2/2 uncontrolled Afib vs DEISY
Urine Osm, Na, Cr, UA, US renal - prerenal with no abnormalities on US
Patient does not retaining urine as per scan on 02/11/24
Neprho consult
Garcia and strict I&O
No renal artery stenosis on US
#b/l LE cyanosis
Vasc evaluated - most likely low perfusion state 2/2 CHF, Afib with RVR
previous CTA included pelvis - no signs of arterial occlusion
DVT was found only in RLE and was non-occlusive
Dorsalis pedis pulses present on both LE by doppler
No signs of arterial occlusive disease on LE US
#Acute RLE DVT
switch to Eliquis on 02/10/24
Recommend outpatient age-appropriate CA screening
CTA chest/abd/pelvis without additional thrombosis or gross signs of cancer
no DVT on L
#New onset DM
Accuchecks, Insulin SS, DM diet
Outpatient ophthalmic, renal and podiatry yearly screening emphasized
#mild transaminitis
improving
Hepatitis panel neg
DVT ppx hep drip
FUll code
I have spent at least 36 min reviewing chart, test results, communication with consultants and direct patient care
Anticipated Discharge: > 48 hours
Subjective/Interval History
-
Date of Service: February 14, 2024
Objective Data
-
Labs:
Laboratory Results
02/14/24 02/14/24
03:55 10:45
WBC 12.8 H
Hgb 15.4
Hct 45.0
Plt Count 175
APTT 72.0 H Pending
Sodium 139
Potassium 4.4
Chloride 95 L
Carbon Dioxide 37 H
BUN 71 H
Creatinine 1.8 H
Glucose 190 H
Calcium 8.7
Total Bilirubin 0.6
AST 36
ALT 96 H
Alkaline Phosphatase 78
Vital Signs:
Vital Signs
Temp Pulse Resp BP Pulse Ox
97.5 F 106 20 118/84 94
02/14/24 07:55 02/14/24 08:37 02/14/24 07:55 02/14/24 08:37 02/14/24 07:55
I&O
02/13/24 02/14/24 02/15/24
06:59 06:59 06:59
Intake Total 198 / 198 726 / 726
Output Total 1675 / 1675 3650 / 3650
Balance -1477 / -1477 -2924 / -2924
Review of Systems
-
History Source: Patient
All other systems: Reviewed and negative
Physical Exam
-
General: No Apparent Distress
HEENT: Normocephalic, Atraumatic and Moist Mucous Membranes
Respiratory: Wheezes
Cardiac: Regular Rhythm
GI: Soft, Nontender and Nondistended
Genito-urinary: No Costovertebral Tender
Musculoskeletal: No Clubbing, No Cyanosis, Edema, Right Lower Extrem and Edema, Left Lower Extrem
Neuro: Awake, Alert, Oriented and AO x 3
--- NOTE | 2024-02-14 09:27 | PTCARENOTE ---
verdin removed. pt tolerated. pt continues to be afib on the monitor, hr in the 90s, vss. pt resting in bed. pt educated on plan of care and pt verbalized understanding. call tompkins within reach.
--- NOTE | 2024-02-14 09:46 | W.PN.PUL3 ---
Today's Communication / Plan
-
NPO p MN for Lexiscan stress test tomorrow
Heart rate control with goal <110
Dose diuretics daily depending on sCr and clinical status
Trend sCr and UOP
Reduce solu-medrol today to 40mg IV q12hr given improvement in wheezing and stable O2 requirements
Change Xopenex/ipratropium to spiriva/striverdi and budesonide --> DC home on breztri vs Trelegy vs Anoro + Flovent
Eventual cardioversion
Outpatient pulmonary follow-up for PFTs/6MWT
Pulmonary service will continue to follow along
Assessment
-
Assessment: 63-year-old male active tobacco smoker with a past medical history of COPD, atrial flutter and palpitations who presented with shortness of breath as well as swelling to lower extremities + abdomen. His lower extremities have also been
discolored for the past few weeks and his shortness of breath has also been progressively worsening over the last few days although he does admit SOB for the past 2 years. He does smoke 0.5 PPD but says that he is now 'done.' In the ER, vitals
showed tachycardia to 121, breathing at 20 breaths/min, BP 140/91, afebrile at 98.6 �F and saturating 91% on room air. Labs showed normal WBC at 10.7, Hb 16.5, initial troponin 0.148, proBNP elevated at 6110, and COVID antigen negative. Initial
CXR showed no acute cardiopulmonary process. CTA chest, abdomen, pelvis showed no aortic aneurysm or dissection, with mild centrilobular emphysema, no evidence of volume overload with no significant acute abnormality in the chest, abdomen or
pelvis. He was given Lasix, Cardizem 10 mg and started on Cardizem drip. Given his rapid A-fib requiring Cardizem drip with shortness of breath, he was admitted to the ICU for further care and critical care services consulted for additional
management/recommendations. Patient downgraded to IVU level of care on 02/09 and pulmonary service continue to follow along.
Chronic conditions PATTERN HANGER: History of atrial flutter, active tobacco use, palpitation, reported history of COPD
Impression:
#Atrial fibrillation with RVR s/p Cardizem drip
#Acute respiratory failure with hypoxia due to rapid A-fib in the setting of suspected COPD exacerbation
#Lower extremity swelling + abdominal distention � reduced RV systolic function on echo from 02/09/2024
#Elevated troponin � peaked at 0.148 on 02/08/2024
#JASON likely due to DEISY in setting of CHF and hypovolemia - JASON slowly improving
#Right lower extremity DVT involving peroneal vein (Dx on 02/09/2024)
#Hyperglycemia (HbA1C: 7.2 from 02/09/2024)
#Active tobacco smoker
#Former alcohol use disorder
Plan:
Respiratory status improved - wheezing improved per tpday's exam- component of COPD as well as 'cardiac wheezing'
Supplemental oxygen as needed to keep SpO2 >88%
Aspiration precautions
Incentive spirometry encouraged
Solu-Medrol 40 mg IV every 8 hours --> wean down to 40mg IV q12hr today as his wheezing has improved and his O2 requirements are stable on minimal supplemental O2
Start budesonide nebs given his continued wheezing
Change xopenex and atrovent to spiriva andn striverdi, and DC home on Breztri vs Trelegy; if these are too expensive, DC home on Anoro + flovent and then I'll see him in office for continued management
Xopenex/ipratropium bromide nebulizers-patient with rapid atrial fibrillation
Nicotine patch
Cardiology following-correspondence reviewed
- Lexiscan stress test tomorrow
Dose diuresis daily depending on sCr and clinical status
Monitor renal function, electrolytes, intake/output, lower extremity edema and weight
Replace electrolytes as needed
Heart rate control-metoprolol decreased with increased wheezing and diltiazem titrated
Replace electrolytes
Heparin drip
Defer ischemic eval to cardiology as left heart catheterization on hold given his JASON
Eventual ZANA/cardioversion
Nephrology evaluation-correspondence reviewed-possible contrast-induced nephropathy and/or hypotension/diuresis
Smoking cessation counseling ongoing
Nicotine patch
DVT prophylaxis-on heparin gtt
Nutrition
Early mobilization
Incentive spirometer encouraged
PT/OT
Recommendation outpatient pulmonary follow up for full PFTs.
Reviewed with nursing and cardiology
Pulmonary service will continue to follow along.
Total time spent today was 35 minutes for this encounter. Time includes reviewing laboratory test/imaging results, reviewing pertinent medical records, obtaining and reviewing medical history, performing an appropriate exam, ordering medications,
tests and procedures. Time also includes documentation of this encounter, coordinating patient care and communicating with other healthcare professionals. Total time does not include separately billed tests performed on this date of service.
Data:
CTA Chest/Abd/Pelvis w/wo contrast 02/08/2024:
1. No aortic aneurysm or dissection.
2. No significant acute abnormality identified in the chest, abdomen or pelvis
CXR 02/11/2024: Mild interstitial pulmonary edema. No effusion.
Renal US 02/11/2024: No hydronephrosis or nephrolithiasis. Bilateral cortical atrophy.
Bilateral lower extremity duplex US 02/09/2024:
Thrombus within the right peroneal vein.
No evidence for deep venous thrombosis of the left lower extremity.
Transthoracic echocardiogram 02/09/2024:
Technically difficult study.
Normal left ventricular size and function. Normal regional wall motion. Mild
concentric left ventricular hypertrophy. LV ejection fraction is 55-60% by
Barrera's method of discs. Diastolic function indeterminate.
Enlarged right ventricular size.
Dilated RA.
Mitral annular calcification. Trace mitral regurgitation.
Mild tricuspid regurgitation. Estimated pulmonary artery pressure of 20-25
mmHg. Assuming a right atrial pressure of 3 mmHg.
When compared to prior study on 06/17/2017, RA and RV are enlarged; PASP has
improved to 20-25 mmHg from 33-38 mmHg; no other significant change.
Subjective Data
-
Date of Service:
Date of Service: February 14, 2024
Chief Complaint: Pulmonary Follow Up and Dyspnea Follow Up
Subjective:
Seen and evaluated today at bedside. He feels well, although he did tell nursing staff that he is very frustrated and just wants to go home. Currently saturating 92% on 2 L/min but he does sometimes drop to the 87-88% range with activity or with
removal of oxygen. Heart rate 81 and BP 114/83. He has no specific complaints, although he is eager to go home. He denies chest pain, GIMENEZ, SOB, abdominal pain, fevers or chills. Afebrile overnight.
Review of Systems
General: Other (Negative unless mentioned above)
Objective Data
Data Reviewed
Vital Signs / I&O / Oxygen:
Vital Signs
Temp Pulse Resp BP Pulse Ox
97.5 F 106 20 118/84 94
02/14/24 07:55 02/14/24 08:37 02/14/24 07:55 02/14/24 08:37 02/14/24 07:55
Intake and Output
02/13/24 02/14/24 02/15/24
06:59 06:59 06:59
Intake Total 198 / 198 726 / 726 480 / 480
Output Total 1675 / 1675 3650 / 3650 500 / 500
Balance -1477 / -1477 -2924 / -2924 -20 / -20
SaO2 94
Nasal Cannula flow liters per 3
minute
Physical Exam
General: Respiratory Distress (negative), Comfortable, Chills (negative) and Sweats (negative)
HEENT: Normocephalic and Anicteric
Cardiovascular: Irregular Rhythm (Irregularly irregular), Peripheral Edema (+2 lower extremity edema bilaterally) and Cool Extremities (Cool lower extremities bilaterally)
Respiratory: Wheeze (Faint expiratory wheezing), Crackles (negative), Rhonchi (negative), Non-Labored Respirations and Accessory Resp Muscle Use (n)
GI: Soft, Distended (Abdominal obesity) and Non Tender
Neurology: AO x 3 and Tremors (negative)
Skin: Dry, Cyanosis (n), Jaundice (negative) and Other (Mottled appearance of lower extremities bilaterally; cool lower extremities; upper extremities are warm to touch)
Labs/Micro/Reports
Lab Data
02/14/24 03:55
02/14/24 03:55
Laboratory Results
02/14/24
03:55
APTT 72.0 H
[2024-02-14] MEDS: LANTUS 0.15 UNITS SC (10:42)
[2024-02-14 10:48] LABS: Glucose - Point of Care 274 mg/dl (70-99)
[2024-02-14 11:32] LABS: APTT 168.6 Sec (23.4-35.0)
--- NOTE | 2024-02-14 11:54 | W.PN.UPDATE ---
Update Note
Progress Note Update
#Concern for LLL pneumonia with unspecified organism, HAP
Legionella and S.pneum urinary Ag
Sputum Cx if possible
Vanco/Cefepime
MRSA screen for Abx stewardship
[2024-02-14 12:19] LABS: Glucose - Point of Care 261 mg/dl (70-99)
[2024-02-14] MEDS: VANCOCIN 540 MG IV (13:16)
[2024-02-14] MEDS: NOVOLOG FLEXPEN-MODERATE RESISTANCE 5 UNITS SC (13:17)
--- NOTE | 2024-02-14 13:41 | PHA.VAN.IN ---
Assessment
- Assessment
Renal Function: Appears elevated from baseline (but SCr trending down 2.4 on 02/12 -> 1.8 today)
Concomitant Antimicrobials: cefepime
AUC Dosing Plan
- Empiric Dosing
Initial / Loading Dose: 2000 mg - 02/14/24 1316
Maintenance Regimen: dose by random level due to elevated SCr
Plan
- Plan
Maintenance Regimen: dose by random level
Monitoring: random level 02/15/24 0600
Pharmacokinetics Vancomycin I
- -
Patient Age: 63
Patient Sex: Male
Vancomycin Day #: 1
Indication: Pulmonary/Respiratory
Requesting Provider: Ginny
Height / Weight:
Height 6 ft
Actual Weight 103.9 kg
Pertinent Past Medical History: BMI 31
- Vital Signs / Lab Results
Temp Pulse Resp BP Pulse Ox
98.3 F 106 20 118/84 91
02/14/24 11:43 02/14/24 08:37 02/14/24 11:43 02/14/24 08:37 02/14/24 11:43
Lab Results - Hematology
02/12/24 02/13/24 02/14/24
03:27 05:38 03:55
WBC 10.6 10.2 12.8 H
Lab Results - Chemistry
02/11/24 02/12/24 02/13/24
16:03 03:26 05:38
BUN 74 H 79 H 76 H
Creatinine 2.3 H 2.3 H 1.9 H
Estimated Creat Clear 41 41 50
Albumin 3.3 L 3.4 L
02/14/24
03:55
BUN 71 H
Creatinine 1.8 H
Estimated Creat Clear 53
Albumin 3.3 L
Microbiology Results
02/14/24 12:19 Legionella Urinary Antigen - Final
Urine Negative for Legionella pneumophila Serogroup 1 antigen.
A negative result does not rule out the possiblity of
Legionella infection due to other serogroups or species of
Legionella. Clinical correlation is recommended.
Streptococcus pneumoniae Antigen (M - Final
Negative for Streptococcus pneumoniae antigen.
A negative result does not exclude infection with
Streptococcus pneumoniae. Clinical correlation is
recommended.
--- NOTE | 2024-02-14 14:30 | W.PN.NEPH.PH ---
Today's Communication / Plan
-
- hold lasix
Assessment/Plan
-
IMP:
JASON
Acute respiratory failure
Acute D CHF
suspected COPD exacerbation
Afib with RVR
Non-ischemic cardiac injury
Suspected CAD
b/l LE cyanosis
Acute RLE DVT
New onset DM
COPD
metabolic alkalosis
Plan:
A/w sob, edema, noted acute resp failure from CHF, COPD
new Rt LE DVT and Afib RVR
JASON-possible DEISY (contrast 02/07) and afib, hypotension +diuresis , baseline cr 1 on admit
UA with blood and protein. appears to be a contaminated sample. will obtain UPCR regardless.
urine sodium low at 11, likely from CHF
UOP at 882.
follow bladder scan , KUS unremarkable with bilateral cortical atrophy. renal duplex with no CHU
lasix 40 on hold for now
per cardiology, planning for stress test on Thursday
BP sable, med adjustment per cards on BB and transitioning to oral cardizem
monitor met alkalosis, quick jump in bicarb. --> hold diuretics and see tomorrow.
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
he agrees HD if needed
monitor daily wts
d/w patient
-
-
Date of Service: February 14, 2024
CC / HPI / ROS
-
Chief Complaint:
JASON
History of Present Illness:
Cr bl 1, elevated to 1.8
UOP picking up
Review of Systems:
feeling 'fine', wants to be left alone
Labs
-
Labs:
WBC 12.8 10^3/uL (4.8-10.8) H 02/14/24 03:55
RBC 4.97 10^6/uL (4.70-6.10) 02/14/24 03:55
Hgb 15.4 g/dL (13.0-18.0) 02/14/24 03:55
Hct 45.0 % (39.0-52.0) 02/14/24 03:55
Plt Count 175 10^3/uL (130-400) 02/14/24 03:55
Sodium 139 mmol/L (135-145) 02/14/24 03:55
Potassium 4.4 mmol/L (3.5-5.1) 02/14/24 03:55
Chloride 95 mmol/L (98-107) L 02/14/24 03:55
Carbon Dioxide 37 mmol/L (22-30) H 02/14/24 03:55
BUN 71 mg/dl (9-20) H 02/14/24 03:55
Creatinine 1.8 mg/dL (0.7-1.3) H 02/14/24 03:55
eGFR 42.03 02/14/24 03:55
Glucose 190 mg/dl (70-99) H 02/14/24 03:55
Calcium 8.7 mg/dl (8.4-10.2) 02/14/24 03:55
Phosphorus 5.6 mg/dl (2.5-4.5) H 02/11/24 16:03
Zcj-O-Jrpzuvjnfti Pept 9400 pg/ml 02/11/24 04:11
Albumin 3.3 g/dl (3.5-5.0) L 02/14/24 03:55
Physical Exam
-
Vital Signs:
Vital Signs
Temp Pulse Resp BP Pulse Ox
98.3 F 106 20 118/84 91
02/14/24 11:43 02/14/24 08:37 02/14/24 11:43 02/14/24 08:37 02/14/24 11:43
Cardiovascular:: Regular rate and rhythm
Respiratory:: Bilateral: Coarse
Lung Excursion:: Normal
Abdomen:: Distended, Nontender and Soft
Bowel Sounds:: Normal
Extremity Edema:: +2: Bilateral:
Garcia Catheter: Yes
[2024-02-14] MEDS: MAXIPIME 1000 MG IV ×2 (14:33→22:32)
[2024-02-14] MEDS: STERILE WATER FOR INJECTION 10 ML IV ×2 (14:33→22:31)
--- NOTE | 2024-02-14 14:59 | W.PN.CARDCBS ---
Today's Communication / Plan
-
Will follow with you
Impression / Plan
-
PCP: None has not seen medical provider since
Sales Service Representative: Dr. Cintron last seen in August 2015 in office
Impression:
Presented w/ progressively worsening SOB, palpitations, LE edema
Acute hypoxic respiratory insufficiency/failure
Acute HFpEF
Anasarca
Paroxysmal atrial flutter/fibrillation w/ RVR
Abnormal troponin, peak 0.148
JASON
Emphysema/COPD exacerbation
Leukocytosis
[id number] score 1 (heart failure)
Ongoing tobacco abuse
Emphysema/COPD (noted on chest CT 02/08/2024)
Echo 11/14/2014: EF 50 to 55% with no regional wall motion abnormalities. Diastolic dysfunction, mildly dilated left atrium, PAP 33 to 38 mmHg
Echo 02/09/2024: Technically difficult study. EF 55%, dilated RV, PA pressure 20-25
Plan:
Atrial fibrillation/flutter
-Patient continues to be in atrial fibrillation relatively controlled rates
-Continue Cardizem CD 180 mg daily
-Pulmonary exam improved with reduction of metoprolol succinate. Metoprolol succinate currently 25 mg twice daily and if needed can try to further reduce
-Eventual plan ZANA/cardioversion next week pending clinical status. There is now concern for new hospital-acquired pneumonia.
-Continue IV heparin drip with plan for possible procedures pending return of his renal function. Eventual transition to NOAC
Heart failure with preserved ejection fraction now with acute renal insufficiency
-Creatinine has started to improve, now 1.8
-Remains volume overloaded; diuretic management per nephrology currently held
-Goal-directed medical therapy limited due to acute renal insufficiency
-Eventual ischemic evaluation. High renal risk of left heart catheterization at this time with minimal elevation of cardiac troponin and no chest pain. CTA chest/abdomen/pelvis earlier this admission also reported no significant coronary artery
calcifications. We will proceed with a Lexiscan nuclear stress test on Thursday if respiratory status is stable given new left lower lobe pneumonia-discussed with hospitalist
Left lower lobe pneumonia, hospital-acquired pneumonia started on antibiotics 02/14/2024
-Again requiring nasal cannula O2 now 3 L
Acute renal insufficiency
-Creatinine has started to improve, today 1.8
-Nephrology consulted, suspect DEISY
-Lasix held per nephrology
-Monitor renal function closely, avoid nephrotoxic agents, support hemodynamics.
-Renal artery ultrasound negative for renal artery stenosis.
Acute right lower extremity DVT
-Lower extremity ultrasound with thrombus in the right peroneal vein.
-Appreciate vascular input; mild infrapopliteal disease on the left. Scattered calcified plaque on the right with no significant stenosis.
Emphysema/COPD on CT of the chest with ongoing tobacco use
-Continue Solu-Medrol, bronchodilators
-CTA of the chest abdomen pelvis 02/08/2024 without pulmonary embolism, aortic aneurysm or dissection. There was no significant acute abnormality identified in the chest, abdomen or pelvis. Study also reports 'no significant coronary artery
calcifications 'no pleural or pericardial effusions.
-Pulmonary/probate judge consulted
Will follow with you
HPI 02/09/2024:
Patient is a 63-year-old male with past medical significant for paroxysmal atrial flutter, ongoing tobacco abuse, COPD/emphysema and noncompliance of medical follow-up who presents to emergency department 02/08/2024 with progressively worsening
shortness of breath, abdominal bloating, lower extremity edema, palpitations. Patient reports he has had shortness of breath for several years but recently he has noted dyspnea with minimal activity including walking from the couch to the bathroom.
His legs have become cold and discolored over the last week. He also started having palpitations and vibrating in his chest 'for a while'. Recently started with intermittent dizziness with standing. Due to worsening of symptoms he decided to
seek emergency medical attention. Patient tells me the last time he was seen by a medical provider was when he was here in 2017. He takes an aspirin 81 mg daily. He smokes a pack of cigarettes a day. He denies chest pain. On presentation to
emergency department patient was found to be in atrial flutter with rapid ventricular response. Troponin 0.148. proBNP 6110. CT chest/abdomen/pelvis was negative for aortic aneurysm or dissection. Mild emphysematous changes. Mild diffuse
anasarca otherwise unremarkable abdomen, although limited given no contrast was given. He was given 40 mg IV Lasix and was placed on diltiazem drip and converted to sinus rhythm around 3 AM on 02/09/2024.
Progress Note - Sales Service Representative
Subjective
Date of Service: February 14, 2024
Patient seen and examined. Worsening shortness of breath today now on 3 L nasal cannula. No chest pain or pressure.
Objective
Labs:
02/14/24 03:55
02/14/24 03:55
Labs
Hgb 15.4 g/dL (13.0-18.0) 02/14/24 03:55
Hct 45.0 % (39.0-52.0) 02/14/24 03:55
Plt Count 175 10^3/uL (130-400) 02/14/24 03:55
PT 14.9 Sec (11.4-14.6) H 02/09/24 03:55
INR 1.18 02/09/24 03:55
APTT 168.6 Sec (23.4-35.0) H* 02/14/24 10:54
Sodium 139 mmol/L (135-145) 02/14/24 03:55
Potassium 4.4 mmol/L (3.5-5.1) 02/14/24 03:55
BUN 71 mg/dl (9-20) H 02/14/24 03:55
Creatinine 1.8 mg/dL (0.7-1.3) H 02/14/24 03:55
Glucose 190 mg/dl (70-99) H 02/14/24 03:55
Vital Signs and I&O:
Vital Signs
Temp Pulse Resp BP Pulse Ox
98.3 F 91 20 116/84 91
02/14/24 11:43 02/14/24 14:30 02/14/24 11:43 02/14/24 10:47 02/14/24 11:43
Vital Signs
Temp Pulse Resp BP Pulse Ox
98.3 F 91 20 116/84 91
02/14/24 11:43 02/14/24 14:30 02/14/24 11:43 02/14/24 10:47 02/14/24 11:43
Intake & Output
02/12/24 02/13/24 02/14/24 02/15/24
06:59 06:59 06:59 06:59
Intake Total 204 / 204 198 / 198 726 / 726 480 / 480
Output Total 202 / 202 1675 / 1675 3650 / 3650 500 / 500
Balance 1839 / 1839 -1477 / -1477 -2924 / -2924 -20 / -20
Physical Exam
Physical Exam
GEN: AOA x 3
HEENT: supple, anicteric, mmm
LUNGS: Bronchovesicular breath sounds bilaterally with scattered rhonchi and scant end expiratory wheezes. Fine crackles right base
CV: irreg, S1/S2, 1/6 syst LSB
EXT: Improved coloration of legs bilaterally; +1 edema b/l LE
[2024-02-14 16:58] LABS: Glucose - Point of Care 159 mg/dl (70-99)
[2024-02-14] MEDS: LIPITOR 20 MG PO (17:40)
[2024-02-14] MEDS: PULMICORT 0.5 MG INH (18:04)
[2024-02-14 19:20] LABS: APTT 55.5 Sec (23.4-35.0)
[2024-02-14] MEDS: HEPARIN 8200 UNITS IV (20:11)
[2024-02-14 22:30] LABS: Glucose - Point of Care 157 mg/dl (70-99)
[2024-02-14] MEDS: SEROQUEL 50 MG PO (22:32)
[2024-02-15] VITALS (8 sets, daily range): BP systolic 115–153; BP diastolic 80–103; BMI 31.1
--- NOTE | 2024-02-15 02:15 | PTCARENOTE ---
Pt. received at change of shift. Pt seen and assessed in room. Pt. AOx3, VS WNL., no complaints of pain at this time. Plan of care explained to the patient. Pt. receptive to education. Continuing to monitor the pt at this time.
[2024-02-15] MEDS: STERILE WATER FOR INJECTION 10 ML IV ×3 (03:09→20:31)
[2024-02-15] MEDS: SOLU-MEDROL PF 40 MG IV ×2 (03:10→13:43)
[2024-02-15 03:29] LABS: % Basophils 0.1 % (0-2); % Immature Granulocytes 0.4 % (0-0.5); % Lymphocytes 3.8 % (20.5-51.1); % Monocytes 4.9 % (1.7-9.3); % Neutrophils 90.8 % (42.2-75.2); Absolute Immature Granulocytes 0.1 10^3/uL (0-0.05); Absolute Lymphocytes 0.5 10^3/uL (1.2-3.4); Absolute Monocytes 0.7 10^3/uL (0.1-0.6); Absolute Neutrophils 12.8 10^3/uL (1.4-6.5); Hematocrit 45.8 % (39.0-52.0); Hemoglobin 15.6 g/dL (13.0-18.0); Mean Corp Hgb Conc. 34.1 g/dL (33.0-37.0); Mean Corpuscular Hgb 31.8 pg (27.0-31.0); Mean Corpuscular Volume 93.5 fL (80.0-94.0); Nucleated Red Blood Cells % 0.1 % (-); Platelet Count 162 10^3/uL (130-400); Red Cell Dist. Width 14.1 % (11.5-14.5); White Blood Cell Count 14.1 10^3/uL (4.8-10.8)
[2024-02-15] MEDS: MAXIPIME 1000 MG IV ×3 (03:38→20:31)
[2024-02-15 04:02] LABS: ALT (SGPT) 86 U/L (0-50); AST (SGOT) 33 U/L (17-59); Albumin 3.3 g/dl (3.5-5.0); Alkaline Phosphatase 70 U/L (38-126); Blood Urea Nitrogen 61 mg/dl (9-20); Calcium 8.6 mg/dl (8.4-10.2); Carbon Dioxide 35 mmol/L (22-30); Chloride 99 mmol/L (98-107); Estimated Creatinine Clearance 80 ml/min; Glucose 168 mg/dl (70-99); Potassium 4.8 mmol/L (3.5-5.1); Sodium 138 mmol/L (135-145); Total Bilirubin 0.7 mg/dl (0.2-1.3); Total Protein 5.8 g/dl (6.3-8.2); eGFR > 60.00
[2024-02-15 04:22] LABS: Vancomycin Random 10.9 ug/ml
[2024-02-15 04:23] LABS: APTT > 200 Sec (23.4-35.0)
[2024-02-15 07:37] LABS: Glucose - Point of Care 171 mg/dl (70-99)
[2024-02-15] MEDS: SPIRIVA RESPIMAT 2.5 MCG 2 PUFF INH (08:06)
[2024-02-15] MEDS: STRIVERDI RESPIMAT 2 PUFF INH (08:06)
[2024-02-15] MEDS: PULMICORT 0.5 MG INH (08:06)
--- NOTE | 2024-02-15 08:45 | W.PN.CARDCBS ---
Addendum entered and electronically signed by Candi Carroll DO 02/15/24 10:58:
I saw and examined the patient.
[facility]'s note was reviewed and I agree with the note.
Comment: Patient seen and examined this morning. On nasal cannula 1 L following respiratory treatment this morning no significant wheezes. No chest pain or pressure. N.p.o. for stress test today
GEN: AOA x 3
HEENT: supple, anicteric, mmm
LUNGS: Bronchovesicular breath sounds bilaterally with scattered rhonchi and scant end expiratory wheezes. Fine crackles right base
CV: irreg, S1/S2, 1/6 syst LSB
EXT: Improved coloration of legs bilaterally; +1 edema b/l LE
Plan:
Atrial fibrillation/flutter
-Patient continues to be in atrial fibrillation relatively controlled rates
-Continue Cardizem CD 180 mg daily
-Pulmonary exam improved with reduction of metoprolol succinate. Metoprolol succinate currently 25 mg twice daily and if needed can try to further reduce
-Eventual plan ZANA/cardioversion next week pending clinical status. There is now concern for new hospital-acquired pneumonia.
-Continue IV heparin drip with plan for possible procedures pending return of his renal function. Eventual transition to NOAC
Heart failure with preserved ejection fraction now with acute renal insufficiency
-Peak Cr 2.4 02/11/24 (baseline 1); Creatinine continues to improve, now 1.2
-Remains volume overloaded; will discuss with nephrology but would likely resume diuretics today
-Goal-directed medical therapy limited due to acute renal insufficiency
-Eventual ischemic evaluation. High renal risk of left heart catheterization at this time with minimal elevation of cardiac troponin and no chest pain. CTA chest/abdomen/pelvis earlier this admission also reported no significant coronary artery
calcifications. We will proceed with a Lexiscan nuclear stress test today
-Continue aspirin 81mg daily and lipitor 40mg daily. LDL 92
Left lower lobe pneumonia, hospital-acquired pneumonia started on antibiotics 02/14/2024
-Management per hospitalist and pulmonary
Acute renal insufficiency
-Creatinine has continued to improve, today 1.2
-Nephrology consulted, suspect DEISY
-Lasix held per nephrology but would resume today
-Monitor renal function closely, avoid nephrotoxic agents, support hemodynamics.
-Renal artery ultrasound negative for renal artery stenosis.
Acute right lower extremity DVT
-Lower extremity ultrasound with thrombus in the right peroneal vein.
-Appreciate vascular input; mild infrapopliteal disease on the left. Scattered calcified plaque on the right with no significant stenosis.
Emphysema/COPD on CT of the chest with ongoing tobacco use
-Continue Solu-Medrol, bronchodilators
-CTA of the chest abdomen pelvis 02/08/2024 without pulmonary embolism, aortic aneurysm or dissection. There was no significant acute abnormality identified in the chest, abdomen or pelvis. Study also reports 'no significant coronary artery
calcifications 'no pleural or pericardial effusions.
-Pulmonary/level vial sealer consulted
Will follow with you
Original Note:
Today's Communication / Plan
-
Stress test today
Continue heparin w/ plan to eventually transition to NOAC
Renal function improving
Impression / Plan
-
PCP: None has not seen medical provider since
Jacker Feeder: Dr. Cintron last seen in August 2015 in office
Impression:
Presented w/ progressively worsening SOB, palpitations, LE edema
Acute hypoxic respiratory insufficiency/failure
Acute HFpEF
Anasarca
LLL PNA
Paroxysmal atrial flutter/fibrillation w/ RVR
Abnormal troponin, peak 0.148
JASON
Emphysema/COPD exacerbation
Leukocytosis
[id number] score 1 (heart failure)
Ongoing tobacco abuse
Emphysema/COPD (noted on chest CT 02/08/2024)
Echo 11/14/2014: EF 50 to 55% with no regional wall motion abnormalities. Diastolic dysfunction, mildly dilated left atrium, PAP 33 to 38 mmHg
Echo 02/09/2024: Technically difficult study. EF 55%, dilated RV, PA pressure 20-25
Plan:
-Presented with SOB, LE edema, and palpitations. Found to be in acute heart failure exacerbation as well as rapid atrial fibrillation/flutter. There was also concern for COPD exacerbation and PAD.
-Remains in rate controlled atrial fibrillation on review of tele. Continue cardizem 180mg daily and Toprol 25mg BID.
-On IV heparin with plan for possible procedures w/ improvement of renal function. Eventually transition to NOAC.
-Pending clinical course, may consider ZANA/CV prior to discharge or bringing back for CV after 4 weeks of uninterrupted anticoagulation.
-Lasix remains on hold. Creat continues to improve, down to 1.2 02/14. Nephrology following.
-Plan is for stress test this AM to assess for coronary artery disease given heart failure and elevated troponin. Await results.
-Lower extremity US with thrombus in the right peroneal vein. Lower extremity arterial US without significant stenosis.
-Continue management of pneumonia per primary service.
-Continue aspirin 81mg daily and lipitor 40mg daily. LDL 92
HPI 02/09/2024: Patient is a 63-year-old male with past medical significant for paroxysmal atrial flutter, ongoing tobacco abuse, COPD/emphysema and noncompliance of medical follow-up who presents to emergency department 02/08/2024 with progressively
worsening shortness of breath, abdominal bloating, lower extremity edema, palpitations. Patient reports he has had shortness of breath for several years but recently he has noted dyspnea with minimal activity including walking from the couch to the
bathroom. His legs have become cold and discolored over the last week. He also started having palpitations and vibrating in his chest 'for a while'. Recently started with intermittent dizziness with standing. Due to worsening of symptoms he
decided to seek emergency medical attention. Patient tells me the last time he was seen by a medical provider was when he was here in 2017. He takes an aspirin 81 mg daily. He smokes a pack of cigarettes a day. He denies chest pain. On
presentation to emergency department patient was found to be in atrial flutter with rapid ventricular response. Troponin 0.148. proBNP 6110. CT chest/abdomen/pelvis was negative for aortic aneurysm or dissection. Mild emphysematous changes.
Mild diffuse anasarca otherwise unremarkable abdomen, although limited given no contrast was given. He was given 40 mg IV Lasix and was placed on diltiazem drip and converted to sinus rhythm around 3 AM on 02/09/2024.
Progress Note - Jacker Feeder
Subjective
Date of Service: February 15, 2024
Breathing improving. Admits to feeling tired.
Objective
Labs:
02/15/24 03:21
02/15/24 03:21
Labs
Hgb 15.6 g/dL (13.0-18.0) 02/15/24 03:21
Hct 45.8 % (39.0-52.0) 02/15/24 03:21
Plt Count 162 10^3/uL (130-400) 02/15/24 03:21
PT 14.9 Sec (11.4-14.6) H 02/09/24 03:55
INR 1.18 02/09/24 03:55
APTT > 200 Sec (23.4-35.0) H* 02/15/24 03:21
Sodium 138 mmol/L (135-145) 02/15/24 03:21
Potassium 4.8 mmol/L (3.5-5.1) 02/15/24 03:21
BUN 61 mg/dl (9-20) H 02/15/24 03:21
Creatinine 1.2 mg/dL (0.7-1.3) 02/15/24 03:21
Glucose 168 mg/dl (70-99) H 02/15/24 03:21
Vital Signs and I&O:
Vital Signs
Temp Pulse Resp BP Pulse Ox
97.5 F 82 18 115/85 93
02/15/24 07:40 02/15/24 08:13 02/15/24 08:13 02/15/24 03:09 02/15/24 08:13
Vital Signs
Temp Pulse Resp BP Pulse Ox
97.5 F 82 18 115/85 93
02/15/24 07:40 02/15/24 08:13 02/15/24 08:13 02/15/24 03:09 02/15/24 08:13
Intake & Output
02/13/24 02/14/24 02/15/24 02/16/24
06:59 06:59 06:59 06:59
Intake Total 198 / 198 726 / 726 630 / 630
Output Total 1675 / 1675 3650 / 3650 1400 / 1400
Balance -1477 / -1477 -2924 / -2924 -770 / -770
Physical Exam
Physical Exam
GEN: No distress, awake, alert, oriented x3
HEENT: supple, anicteric, mmm
LUNGS: Few scattered rhonchi
CV: Irreg, S1/S2, 1/6 syst LSB
EXT: No clubbing or cyanosis. Trace edema b/l LE
NEURO: Gross non-focal
SKIN: Warm, dry, no rash
--- NOTE | 2024-02-15 08:56 | PHA.VAN.FU ---
Vancomycin Assessment / Plan
- Assessment
Renal Function: SCR Decreasing
WBC's are: Trending Up
In the past 24 hrs, patient has been: Afebrile
Concomitant Antimicrobials: cefepime
- Assessment - Therapeutic Drug Monitoring
Random Level: 10.9 - drawn ~14H after 2g loading dose
- Dosing Plan
Adjust Regimen to: Vanc 1250mg Q12H - first dose now then 1800
New Regimen Predicts: AUC (438 - 511), Peak (27.2 - 30), Trough (11.3 - 14.3)
Dosing Comments: given improving SCR, utilized CrCl 80-95 ml/min range
- Monitoring Plan
No level(s) ordered at this time: consider levels in next few days
- Follow Up
Pharmacy will continue to follow.
Vancomycin Follow UP
- -
Patient Age: 63
Patient Sex: Male
Vancomycin Day #: 2
Indication: Pulmonary/Respiratory
Requesting Provider: Dr. Keller
Pertinent Antimicrobial Allergies:
NKDA
Height / Weight:
Height 6 ft
Actual Weight 104 kg
Pertinent Past Medical History: BMI 31, DM
- Vital Signs / Lab Results
Temp Pulse Resp BP Pulse Ox
97.5 F 82 18 115/85 93
02/15/24 07:40 02/15/24 08:13 02/15/24 08:13 02/15/24 03:09 02/15/24 08:13
Lab Results - Hematology
02/13/24 02/14/24 02/15/24
05:38 03:55 03:21
WBC 10.2 12.8 H 14.1 H
Lab Results - Chemistry
02/13/24 02/14/24 02/15/24
05:38 03:55 03:21
BUN 76 H 71 H 61 H
Creatinine 1.9 H 1.8 H 1.2
Estimated Creat Clear 50 53 80
Albumin 3.4 L 3.3 L 3.3 L
Microbiology Results
02/14/24 12:19 Legionella Urinary Antigen - Final
Urine Negative for Legionella pneumophila Serogroup 1 antigen.
A negative result does not rule out the possiblity of
Legionella infection due to other serogroups or species of
Legionella. Clinical correlation is recommended.
Streptococcus pneumoniae Antigen (M - Final
Negative for Streptococcus pneumoniae antigen.
A negative result does not exclude infection with
Streptococcus pneumoniae. Clinical correlation is
recommended.
Therapeutic Drug Monitoring
Random Vancomycin 10.9 ug/ml 02/15/24 03:21
--- NOTE | 2024-02-15 09:32 | W.PN.PUL3 ---
Today's Communication / Plan
-
Currently on RA, not wheezing, denies SOB
Transition IV steroids to PO course with taper at discharge
Start maintenance inhalers to continue at home
Smoking cessation was discussed in detail, continue NRT
Outpatient pulmonary FU discussed with PFTs, he was agreeable
Further cardiac management ongoing, ZANA/CV this week
Diuresis ongoing as well
We will sign off at this time, please call with questions
Assessment
-
63-year-old male active tobacco smoker with a past medical history of COPD, atrial flutter and palpitations who presented with shortness of breath as well as swelling to lower extremities + abdomen. His lower extremities have also been discolored
for the past few weeks and his shortness of breath has also been progressively worsening over the last few days although he does admit SOB for the past 2 years. He does smoke 0.5 PPD but says that he is now 'done.' In the ER, vitals showed
tachycardia to 121, breathing at 20 breaths/min, BP 140/91, afebrile at 98.6 �F and saturating 91% on room air. Labs showed normal WBC at 10.7, Hb 16.5, initial troponin 0.148, proBNP elevated at 6110, and COVID antigen negative. Initial CXR
showed no acute cardiopulmonary process. CTA chest, abdomen, pelvis showed no aortic aneurysm or dissection, with mild centrilobular emphysema, no evidence of volume overload with no significant acute abnormality in the chest, abdomen or pelvis.
He was given Lasix, Cardizem 10 mg and started on Cardizem drip. Given his rapid A-fib requiring Cardizem drip with shortness of breath, he was admitted to the ICU for further care and critical care services consulted for additional
management/recommendations. Patient downgraded to IVU level of care on 02/09 and pulmonary service continue to follow along.
Impression:
#Atrial fibrillation with RVR s/p Cardizem drip
#Acute respiratory failure with hypoxia due to rapid A-fib in the setting of suspected COPD exacerbation
#Lower extremity swelling + abdominal distention � reduced RV systolic function on echo from 02/09/2024
#Elevated troponin � peaked at 0.148 on 02/08/2024
#JASON likely due to DEISY in setting of CHF and hypovolemia - JASON slowly improving
#Right lower extremity DVT involving peroneal vein (Dx on 02/09/2024)
#Hyperglycemia (HbA1C: 7.2 from 02/09/2024)
#Active tobacco smoker
Chronic conditions [employer]:
History of atrial flutter
active tobacco use
Palpitation
Severe COPD, FEV1 2017 1.29L 32%
Former alcohol use disorder
Plan:
Respiratory status improved - wheezing improved per today's exam- component of COPD as well as 'cardiac wheezing'
He is currently stable on RA
Supplemental oxygen as needed to keep SpO2 >88%
Aspiration precautions
Incentive spirometry encouraged
Solu-Medrol 40 mg IV every 12 hours --> transition to PO prednisone today, with plan to taper at discharge
Severe COPD history, PFT in 2017 showing severe obstruction at that time, has not had repeat testing
Never evaluated as OP by pulmonary
Had continued smoking up until admission
Will start Symbicort/spiriva and proair to continue as OP
Smoking cessation discussed
Nicotine patch placed daily
Continue as OP
Cardiology following-correspondence reviewed
- Lexiscan stress test tomorrow
Dose diuresis daily depending on sCr and clinical status
Monitor renal function, electrolytes, intake/output, lower extremity edema and weight
Replace electrolytes as needed
Heart rate control-metoprolol decreased with increased wheezing and diltiazem titrated
Replace electrolytes
Heparin drip
Defer ischemic eval to cardiology as left heart catheterization on hold given his JASON
Eventual ZANA/cardioversion this week per team
Nephrology evaluation-correspondence reviewed-possible contrast-induced nephropathy and/or hypotension/diuresis
Diuresis continued per team
Follow I/Os, daily BMP
DVT prophylaxis-on heparin gtt
Nutrition
Early mobilization
Incentive spirometer encouraged
PT/OT
Recommendation outpatient pulmonary follow up for full PFTs.
This was reviewed with patient, information left in chart for FU
Reviewed with nursing and cardiology
Ongoing cardiac management
Diagnostic Data
CTA Chest/Abd/Pelvis w/wo contrast 02/08/2024:
1. No aortic aneurysm or dissection.
2. No significant acute abnormality identified in the chest, abdomen or pelvis
CXR 02/11/2024: Mild interstitial pulmonary edema. No effusion.
Renal US 02/11/2024: No hydronephrosis or nephrolithiasis. Bilateral cortical atrophy.
Bilateral lower extremity duplex US 02/09/2024: Thrombus within the right peroneal vein. No evidence for deep venous thrombosis of the left lower extremity.
Transthoracic echocardiogram 02/09/2024: Technically difficult study. Normal left ventricular size and function. Normal regional wall motion. Mild concentric left ventricular hypertrophy. LV ejection fraction is 55-60% by Barrera's method of
discs. Diastolic function indeterminate. Enlarged right ventricular size. Dilated RA. Mitral annular calcification. Trace mitral regurgitation. Mild tricuspid regurgitation. Estimated pulmonary artery pressure of 20-25 mmHg. Assuming a right atrial
pressure of 3 mmHg. When compared to prior study on 06/17/2017, RA and RV are enlarged; PASP has improved to 20-25 mmHg from 33-38 mmHg; no other significant change.
[place] 2017: FEV1 1.29L 32%, FVC 3.06L 61%, ratio 42, post FEV1 1.6L 40% no BD response (severe obstruction)
-----
Total time spent today was 51 minutes for this encounter. Time includes reviewing laboratory test/imaging results, reviewing pertinent medical records, obtaining and reviewing medical history, performing an appropriate exam, ordering medications,
tests and procedures. Time also includes documentation of this encounter, coordinating patient care and communicating with other healthcare professionals. Total time does not include separately billed tests performed on this date of service.
Subjective Data
-
Date of Service:
Date of Service: February 15, 2024
Chief Complaint: Pulmonary Follow Up and Dyspnea Follow Up
Subjective:
No new events, remains stable on RA
No complaints of SOB/cough
Objective Data
Data Reviewed
Vital Signs / I&O / Oxygen:
Vital Signs
Temp Pulse Resp BP Pulse Ox
97.5 F 101 18 139/82 93
02/15/24 07:40 02/15/24 09:00 02/15/24 08:13 02/15/24 07:44 02/15/24 08:13
Intake and Output
02/14/24 02/15/24 02/16/24
06:59 06:59 06:59
Intake Total 726 / 726 630 / 630
Output Total 3650 / 3650 1400 / 1400
Balance -2924 / -2924 -770 / -770
SaO2 93
Nasal Cannula flow liters per 1
minute
Physical Exam
General: Respiratory Distress (negative), Comfortable, Chills (negative) and Sweats (negative)
HEENT: Normocephalic and Anicteric
Cardiovascular: S1-S2, Irregular Rhythm (Irregularly irregular), Peripheral Edema (+2 lower extremity edema bilaterally) and Cool Extremities (Cool lower extremities bilaterally)
Respiratory: Clear, Crackles (negative), Rhonchi (negative), Non-Labored Respirations and Accessory Resp Muscle Use (n)
GI: Soft, Distended (Abdominal obesity) and Non Tender
Neurology: AO x 3 and Tremors (negative)
Skin: Dry, Cyanosis (n), Jaundice (negative) and Other (Mottled appearance of lower extremities bilaterally; cool lower extremities; upper extremities are warm to touch)
Labs/Micro/Reports
Lab Data
02/15/24 03:21
02/15/24 03:21
Laboratory Results
02/14/24 02/14/24 02/15/24
10:54 18:54 03:21
APTT 168.6 H* 55.5 H > 200 H*
Microbiology
02/14/24 12:19 Urine Legionella Urinary Antigen - Final
Negative for Legionella pneumophila Serogroup 1 antigen.
A negative result does not rule out the possiblity of
Legionella infection due to other serogroups or species of
Legionella. Clinical correlation is recommended.
02/14/24 12:19 Urine Streptococcus pneumoniae Antigen (M - Final
Negative for Streptococcus pneumoniae antigen.
A negative result does not exclude infection with
Streptococcus pneumoniae. Clinical correlation is
recommended.
[2024-02-15] MEDS: LEXISCAN 0.4 MG IV (11:21)
[2024-02-15] MEDS: FLUSH (NSS) 1 FLUSH IV (11:21)
--- NOTE | 2024-02-15 11:26 | PN.DE.MGMTRT ---
Insulin Management
- -
02/15/2024: Diabetes Management F/U:
63 year old male with PMH: COPD, A-Flutter, palpitations and active smoker -0.5 PPD X 50 years, presented with SOB, abdominal and BLE swelling
Pt noted for New onset T2DM, glucose on admission was 142(V), A1C 7.2%, Cr 1, eGFR >60.
Patient awake, A/O x3, resting in bed, able to discuss diabetes mgt. Pt has been NPO since ME for stress test today.
Remains on IV Steroids Prednisone 40mg Q12 hrs.
02/13 premeal range 159 to 274, requiring 1-5 units of additional corrective insulin. Fasting 168 this AM
Will increase NovoLog to 9 units and Lantus to 20 units. Cont low corrective insulin.
Offered to go over glucose monitor and insulin instructions again and pt declined, stating that he is not ready for diabetes education because he just got back from his test and is very hungry. Informed pt that it is important for our team to
provide diabetes education given his new dx and that he will be required to monitor his blood sugars daily at home. Pt requested to try again tomorrow.
Updates given to Nurse at bedside.
Diabetes History
- -
Type of Diabetes: 2
Pre-Admission Diabetes Regimen
02/15/24
03:21
Creatinine 1.2
Lab Results
Hemoglobin A1c Cancelled 02/09/24 07:44
Insulin Pump Settings
IP Diabetes Regimen
02/14/24 02/14/24 02/14/24
12:17 16:57 22:29
Glucose
POC Glucose 261 H 159 H 157 H
02/15/24 02/15/24
03:21 07:36
Glucose 168 H
POC Glucose 171 H
Amount consumed: 85%
Patient Education
[2024-02-15] MEDS: NICODERM TRANSDERMAL 21 MG TRANSDERM (13:23)
[2024-02-15] MEDS: NOVOLOG FLEXPEN-MODERATE RESISTANCE SC (13:23)
[2024-02-15] MEDS: NOVOLOG FLEXPEN SC (13:23)
[2024-02-15 13:30] LABS: Glucose - Point of Care 215 mg/dl (70-99)
[2024-02-15] MEDS: VANCOCIN 275 MG IV (13:33)
[2024-02-15] MEDS: LOW STRENGTH ASPIRIN 81 MG PO (13:54)
[2024-02-15] MEDS: CARDIZEM CD 180 MG PO (13:55)
[2024-02-15] MEDS: TOPROL XL 25 MG PO ×2 (13:56→20:30)
[2024-02-15] MEDS: NOVOLOG FLEXPEN 7 UNITS SC ×2 (14:00→17:41)
[2024-02-15 14:01] LABS: APTT 40.8 Sec (23.4-35.0)
[2024-02-15] MEDS: NOVOLOG FLEXPEN-MODERATE RESISTANCE 3 UNITS SC (14:01)
--- NOTE | 2024-02-15 14:53 | W.PN.NEPH.PH ---
Today's Communication / Plan
-
lasix
Assessment/Plan
-
IMP:
JASON
Acute respiratory failure
Acute D CHF
suspected COPD exacerbation
Afib with RVR
Non-ischemic cardiac injury
Suspected CAD
b/l LE cyanosis
Acute RLE DVT
New onset DM
COPD
metabolic alkalosis
Plan:
follow BMP
lasix IV 40mg today
edema likely cardiac related. not nephrotic
-
-
Date of Service: February 15, 2024
CC / HPI / ROS
-
Chief Complaint:
JASON
History of Present Illness:
JASON/Cr down to 1.2
BP stable
c/o edema
s/p stress test today
decompensated HF, lasix held for JASON
Review of Systems:
no CP/SOB
Labs
-
Labs:
WBC 14.1 10^3/uL (4.8-10.8) H 02/15/24 03:21
RBC 4.90 10^6/uL (4.70-6.10) 02/15/24 03:21
Hgb 15.6 g/dL (13.0-18.0) 02/15/24 03:21
Hct 45.8 % (39.0-52.0) 02/15/24 03:21
Plt Count 162 10^3/uL (130-400) 02/15/24 03:21
Sodium 138 mmol/L (135-145) 02/15/24 03:21
Potassium 4.8 mmol/L (3.5-5.1) 02/15/24 03:21
Chloride 99 mmol/L (98-107) 02/15/24 03:21
Carbon Dioxide 35 mmol/L (22-30) H 02/15/24 03:21
BUN 61 mg/dl (9-20) H 02/15/24 03:21
Creatinine 1.2 mg/dL (0.7-1.3) 02/15/24 03:21
eGFR > 60.00 02/15/24 03:21
Glucose 168 mg/dl (70-99) H 02/15/24 03:21
Calcium 8.6 mg/dl (8.4-10.2) 02/15/24 03:21
Phosphorus 5.6 mg/dl (2.5-4.5) H 02/11/24 16:03
Tty-G-Yoeznxqeivf Pept 9400 pg/ml 02/11/24 04:11
Albumin 3.3 g/dl (3.5-5.0) L 02/15/24 03:21
Physical Exam
-
Vital Signs:
Vital Signs
Temp Pulse Resp BP Pulse Ox
97.5 F 102 18 123/92 91
02/15/24 07:40 02/15/24 14:00 02/15/24 08:13 02/15/24 13:56 02/15/24 14:00
Cardiovascular:: Regular rate and rhythm
Respiratory:: Bilateral: Coarse
Lung Excursion:: Normal
Abdomen:: Nontender and Soft
Bowel Sounds:: Normal
Extremity Edema:: +3: Bilateral: (to thigh)
[2024-02-15] MEDS: LASIX 40 MG IV (15:06)
[2024-02-15] MEDS: LANTUS SC (15:07)
--- NOTE | 2024-02-15 15:13 | W.PN.HOSP.TC ---
Today's Communication/Plan
-
stress test
rate control
iv lasix
dc vanc, cont cefepime for now
wean steroids as tolerated
Assessment / Plan
Assessment / Plan
63yo M with PMHx of paroxysmal Afib not on AC, nicotine dependency came with 1 week of b/l LE swelling abd abdominal distension. CTA chest/abd/pelvis without acute abnormality, found with Afib with RVR and acute R non-occlusive DVT. Later developed
JASON, so cardiac cath planned for 02/11/24 had to be delayed.
Later Cardiology decided to plan for stress test and possible CV
A/P:
#CHF, unspecified exacerbation
#Afib with RVR
#Non-ischemic cardiac injury
#Suspected CAD
resume lasix IV
ASA, heparin drip, statin
Toprol, Cardizem
-Eventual plan for ZANA/cardioversion next week
Rate vs rhythm control as per cardio
Troponin downtrending
stress test
Echo with preserved EF, pulmonary HTN improved compared with 2018, no significant valvular disease
LDL 92
#Acute respiratory insufficiency 2/2 COPD exacerbation 2/2 nicotine dependency +/- Pneumonia
Nicoderm PRN
cont bronchodilators
Emphasized cessation
Steroids taper
Wean off O2
Outpatient pulmonary follow-up for PFTs/6MWT
#?Pneumonia
-dc vanc, mrsa negative
-cont cefepime
-sputum cultures if expectoring
#JASON
-suspected DEISY v pre-renal
-can resume lasix and monitor
-nephro consulted
-Garcia and strict I&O
- No renal artery stenosis on US
#b/l LE cyanosis
Vasc evaluated - most likely low perfusion state 2/2 CHF, Afib with RVR
previous CTA included pelvis - no signs of arterial occlusion
DVT was found only in RLE and was non-occlusive
Dorsalis pedis pulses present on both LE by doppler
No signs of arterial occlusive disease on LE US
#Acute RLE DVT
switch to Eliquis once off Hep ggt
Recommend outpatient age-appropriate CA screening
CTA chest/abd/pelvis without additional thrombosis or gross signs of cancer
no DVT on L
#New onset DM
Accuchecks, Insulin SS, DM diet
Outpatient ophthalmic, renal and podiatry yearly screening emphasized
-dm educator consulted
#mild transaminitis
improving
Hepatitis panel neg
DVT ppx hep drip
FUll code
Total time spent on today's encounter was 50 minutes which included time spent in counseling the patient/family regarding diagnosis and treatment plan as listed above, goals of care, and symptom management. Case was discussed with nursing staff,
specialists, and care coordinators/case management. All labs and imaging personally reviewed by me. Remainder the time spent in detailed review of previous records, lab data, imaging, and other medical provider documentation.
Anticipated Discharge: 24 - 48 hours
Subjective/Interval History
-
Date of Service: February 15, 2024
stress test today
no acute events overnight
Objective Data
-
Labs:
Laboratory Results
02/15/24 02/15/24 02/15/24
03:21 13:28 20:30
WBC 14.1 H
Hgb 15.6
Hct 45.8
Plt Count 162
APTT > 200 H* 40.8 H Pending
Sodium 138
Potassium 4.8
Chloride 99
Carbon Dioxide 35 H
BUN 61 H
Creatinine 1.2
Glucose 168 H
Calcium 8.6
Total Bilirubin 0.7
AST 33
ALT 86 H
Alkaline Phosphatase 70
Vital Signs:
Vital Signs
Temp Pulse Resp BP Pulse Ox
97.5 F 111 18 123/92 91
02/15/24 07:40 02/15/24 15:06 02/15/24 08:13 02/15/24 15:06 02/15/24 14:00
I&O
02/14/24 02/15/24 02/16/24
06:59 06:59 06:59
Intake Total 726 / 726 630 / 630 240 / 240
Output Total 3650 / 3650 1400 / 1400 800 / 800
Balance -2924 / -2924 -770 / -770 -560 / -560
Review of Systems
-
History Source: Patient
All other systems: Not reviewed unless documented
Data Reviewed
-
Diagnostic Radiology: Image personally visualized and interpreted and Report Reviewed by me
Ultrasound: Report Reviewed by me
Labs: Labs Reviewed by me
[2024-02-15] MEDS: LANTUS 0.2 UNITS SC (15:34)
--- NOTE | 2024-02-15 15:45 | CM ---
Reviewed chart. Met with Mrs. Noble to review discharge plans. She brought ion the financial information for [facility]. Sent information to [facility]. Prior to admission Mr. Noble resides with his spouse in a three story home. He has a first floor set-up.
Prior to admission he was independent with ambualtion and adls. He does not have any DME in the home. Will need to confirm with him if he has a PCP if he will need VNA Services. Continue to follow for any home 02 needs. Will need to see his
current functional level to see if he will have any skilled care needs. Medical work-up in progress. The discharge plan is to return home with his spouse with VNA and DME if indicated when medically stable.
[2024-02-15] MEDS: LIPITOR 20 MG PO (17:13)
[2024-02-15] MEDS: HEPARIN 25000 UNITS/250 ML IV (17:14)
[2024-02-15 17:25] LABS: Glucose - Point of Care 285 mg/dl (70-99)
[2024-02-15] MEDS: NOVOLOG FLEXPEN-MODERATE RESISTANCE 5 UNITS SC (17:40)
[2024-02-15] MEDS: SYMBICORT 160/4.5 MCG INHALER 2 PUFF INH (19:24)
[2024-02-15 21:00] LABS: APTT 108.4 Sec (23.4-35.0)
[2024-02-15 22:18] LABS: Glucose - Point of Care 175 mg/dl (70-99)
[2024-02-15] MEDS: SEROQUEL 50 MG PO (22:22)
[2024-02-16] VITALS (7 sets, daily range): BP systolic 103–140; BP diastolic 72–87; PULSE 101; O2SAT 97; BMI 30.4
[2024-02-16] MEDS: MAXIPIME 1000 MG IV ×3 (03:00→19:50)
[2024-02-16] MEDS: STERILE WATER FOR INJECTION 10 ML IV ×3 (03:00→19:50)
[2024-02-16 03:22] LABS: % Basophils 0.1 % (0-2); % Immature Granulocytes 0.6 % (0-0.5); % Lymphocytes 3.7 % (20.5-51.1); % Neutrophils 89.6 % (42.2-75.2); Absolute Immature Granulocytes 0.1 10^3/uL (0-0.05); Absolute Lymphocytes 0.5 10^3/uL (1.2-3.4); Absolute Monocytes 0.9 10^3/uL (0.1-0.6); Hematocrit 48.1 % (39.0-52.0); Hemoglobin 16.1 g/dL (13.0-18.0); Mean Corp Hgb Conc. 33.5 g/dL (33.0-37.0); Mean Corpuscular Hgb 31.6 pg (27.0-31.0); Mean Corpuscular Volume 94.5 fL (80.0-94.0); Mean Platelet Volume 12.4 fL (7.4-10.4); Nucleated Red Blood Cells % 0 % (-); Platelet Count 155 10^3/uL (130-400); Red Blood Cell Count 5.09 10^6/uL (4.70-6.10); Red Cell Dist. Width 14.1 % (11.5-14.5); White Blood Cell Count 14.5 10^3/uL (4.8-10.8)
[2024-02-16 03:39] LABS: Blood Urea Nitrogen 58 mg/dl (9-20); Calcium 8.7 mg/dl (8.4-10.2); Chloride 94 mmol/L (98-107); Estimated Creatinine Clearance 80 ml/min; Glucose 142 mg/dl (70-99); Magnesium 2.3 mg/dl (1.6-2.3); Potassium 4.7 mmol/L (3.5-5.1); Sodium 139 mmol/L (135-145); eGFR > 60.00
[2024-02-16 03:45] LABS: APTT 156.6 Sec (23.4-35.0)
[2024-02-16 03:50] LABS: Carbon Dioxide 36 mmol/L (22-30)
[2024-02-16 07:44] LABS: Glucose - Point of Care 125 mg/dl (70-99)
[2024-02-16] MEDS: NOVOLOG FLEXPEN SC (08:02)
[2024-02-16] MEDS: SYMBICORT 160/4.5 MCG INHALER 2 PUFF INH ×2 (08:03→19:39)
[2024-02-16] MEDS: SPIRIVA RESPIMAT 2.5 MCG 2 PUFF INH (08:03)
--- NOTE | 2024-02-16 08:44 | PN.DE.MGMTRT ---
Insulin Management
- -
02/16/2024: Diabetes Management Follow up:
Patient admitted with SOB, abdominal and BLE swelling. PMH: COPD, A-Flutter, palpitations and active smoker -0.5 PPD X 50 years.
Pt noted for New onset T2DM, glucose on admission was 142(V), A1C 7.2%.
Patient is sleeping soundly, not disturbed. I did discuss with patients nurse diabetes plan.
Remains on Prednisone 50mg PO daily.
02/14 premeal range 171 to 285, requiring 1-5 units of additional corrective insulin. Fasting 168 this AM
AC NovoLog increased from 7 units AC to 10 units, first dose with dinner, moderate corrective changed to low corrective. Lantus increased from 15 units to 20 units.
02/14 Patient declined glucose monitor and insulin instructions again stating that he is not ready for diabetes education. Informed pt that it is important for our team to provide diabetes education given his new dx and that he will be required to
monitor his blood sugars daily at home. Pt requested to try again tomorrow.
Updates given to Nurse at bedside. Will address meter and insulin instruction 02/16.
Diabetes History
- -
Type of Diabetes: 2
Pre-Admission Diabetes Regimen
02/16/24
02:54
Creatinine 1.2
Lab Results
Hemoglobin A1c Cancelled 02/09/24 07:44
Insulin Pump Settings
IP Diabetes Regimen
02/15/24 02/15/24 02/15/24
13:29 17:21 22:17
Glucose
POC Glucose 215 H 285 H 175 H
02/16/24 02/16/24
02:54 07:43
Glucose 142 H
POC Glucose 125 H
Meal type: Dinner
Amount consumed: 100%
Patient Education
[2024-02-16] MEDS: NOVOLOG FLEXPEN-MODERATE RESISTANCE SC (08:52)
[2024-02-16] MEDS: NICODERM TRANSDERMAL 21 MG TRANSDERM (08:54)
[2024-02-16] MEDS: CARDIZEM CD 180 MG PO (08:55)
[2024-02-16] MEDS: TOPROL XL 25 MG PO ×2 (08:55→19:50)
[2024-02-16] MEDS: LASIX 40 MG IV (08:55)
[2024-02-16] MEDS: FLUSH (NSS) 1 FLUSH IV ×2 (08:56→12:13)
[2024-02-16] MEDS: LOW STRENGTH ASPIRIN 81 MG PO (08:56)
[2024-02-16] MEDS: DELTASONE 50 MG PO (09:04)
[2024-02-16] MEDS: NOVOLOG FLEXPEN 7 UNITS SC ×2 (09:25→12:08)
--- NOTE | 2024-02-16 09:38 | W.PN.NEPH.PH ---
Today's Communication / Plan
-
lasix
Assessment/Plan
-
IMP:
JASON
Acute respiratory failure
Acute D CHF
suspected COPD exacerbation
Afib with RVR
Non-ischemic cardiac injury
Suspected CAD
b/l LE cyanosis
Acute RLE DVT
New onset DM
COPD
metabolic alkalosis
Plan:
follow BMP
lasix IV 40mg daily
await stress test reading
edema likely cardiac related. not nephrotic
-
-
Date of Service: February 16, 2024
CC / HPI / ROS
-
Chief Complaint:
JASON
History of Present Illness:
JASON/Cr down to 1.2 stable
BP stable
still with edema, but good response to lasix
s/p stress test yesterday, not read
Review of Systems:
no CP/SOB
Labs
-
Labs:
WBC 14.5 10^3/uL (4.8-10.8) H 02/16/24 02:54
RBC 5.09 10^6/uL (4.70-6.10) 02/16/24 02:54
Hgb 16.1 g/dL (13.0-18.0) 02/16/24 02:54
Hct 48.1 % (39.0-52.0) 02/16/24 02:54
Plt Count 155 10^3/uL (130-400) 02/16/24 02:54
Sodium 139 mmol/L (135-145) 02/16/24 02:54
Potassium 4.7 mmol/L (3.5-5.1) 02/16/24 02:54
Chloride 94 mmol/L (98-107) L 02/16/24 02:54
Carbon Dioxide 36 mmol/L (22-30) H 02/16/24 02:54
BUN 58 mg/dl (9-20) H 02/16/24 02:54
Creatinine 1.2 mg/dL (0.7-1.3) 02/16/24 02:54
eGFR > 60.00 02/16/24 02:54
Glucose 142 mg/dl (70-99) H 02/16/24 02:54
Calcium 8.7 mg/dl (8.4-10.2) 02/16/24 02:54
Phosphorus 5.6 mg/dl (2.5-4.5) H 02/11/24 16:03
Gvd-U-Raqbctervls Pept 9400 pg/ml 02/11/24 04:11
Albumin 3.3 g/dl (3.5-5.0) L 02/15/24 03:21
Physical Exam
-
Vital Signs:
Vital Signs
Temp Pulse Resp BP Pulse Ox
97.5 F 93 14 140/72 88
02/16/24 07:33 02/16/24 08:55 02/16/24 08:08 02/16/24 08:55 02/16/24 08:08
Cardiovascular:: Regular rate and rhythm
Respiratory:: Bilateral: Coarse
Lung Excursion:: Normal
Abdomen:: Nontender and Soft
Bowel Sounds:: Normal
Extremity Edema:: +2: Bilateral:
[2024-02-16] MEDS: HEPARIN 25000 UNITS/250 ML IV (10:09)
[2024-02-16] MEDS: LANTUS 0.2 UNITS SC (10:11)
--- NOTE | 2024-02-16 11:26 | PTCARENOTE ---
received patient this am, with sunglasses on and in a dark room. patient is very pleasant, monitor shows Afib, VSS IV heparin @ 1400units/hr without difficulties. patient verbalizes no complaints at this time.
[2024-02-16 12:03] LABS: Glucose - Point of Care 244 mg/dl (70-99)
[2024-02-16] MEDS: NOVOLOG FLEXPEN-MODERATE RESISTANCE 3 UNITS SC (12:09)
--- NOTE | 2024-02-16 13:00 | CM ---
Reviewed chart. Met with Mr. Noble to review discharge plans. He states he is feeling a little better. He ambulated 100 feet x 2 today. We reviewed VNA Services and he is agreeable to VNA Service. Telephone call to [facility] to make
the referral. Sent to the referral. Prior to admission he resides with his spouse in a three story home. He has a first floor set-up. Prior to admission he was independent with ambulation and adls. He does not have any DME in the home. Medical
work-up in progress. The discharge plan is to return sonja with his spouse and [facility] when medically stable.
--- NOTE | 2024-02-16 15:21 | W.PN.CARDCBS ---
Today's Communication / Plan
-
Remains in rate controlled atrial fibrillation
Will plan on outpatient cardioversion if proves to be compliant with Eliquis
Change heparin to Eliquis if okay with primary service
Impression / Plan
-
PCP: None has not seen medical provider since
[employer]: Dr. Cintron last seen in August 2015 in office
Impression:
Presented w/ progressively worsening SOB, palpitations, LE edema
Acute hypoxic respiratory insufficiency/failure
Acute HFpEF
Anasarca
LLL PNA
Lower extremity US with thrombus in the right peroneal vein.
Paroxysmal atrial flutter/fibrillation w/ RVR
Abnormal troponin, peak 0.148
JASON�resolved
Emphysema/COPD exacerbation
Leukocytosis
[id number] score 1 (heart failure)
Ongoing tobacco abuse
Emphysema/COPD (noted on chest CT 02/08/2024)
Echo 11/14/2014: EF 50 to 55% with no regional wall motion abnormalities. Diastolic dysfunction, mildly dilated left atrium, PAP 33 to 38 mmHg
Echo 02/09/2024: Technically difficult study. EF 55%, dilated RV, PA pressure 20-25
Lexiscan sestamibi stress test 02/15/2024: Fixed inferior and apical defect consistent with soft tissue attenuation�intermediate risk stress test
Plan:
Lexiscan sestamibi stress test surprisingly negative for ischemia and was reviewed with the patient
He remains in atrial fibrillation with relatively reasonable rate control
At this point would consider outpatient cardioversion if remains in A-fib as he is likely asymptomatic
He would also need to demonstrate compliance with Eliquis
Will switch heparin to Eliquis if okay with primary service
Renal function has normalized and nephrology giving IV Lasix
HPI 02/09/2024: Patient is a 63-year-old male with past medical significant for paroxysmal atrial flutter, ongoing tobacco abuse, COPD/emphysema and noncompliance of medical follow-up who presents to emergency department 02/08/2024 with progressively
worsening shortness of breath, abdominal bloating, lower extremity edema, palpitations. Patient reports he has had shortness of breath for several years but recently he has noted dyspnea with minimal activity including walking from the couch to the
bathroom. His legs have become cold and discolored over the last week. He also started having palpitations and vibrating in his chest 'for a while'. Recently started with intermittent dizziness with standing. Due to worsening of symptoms he
decided to seek emergency medical attention. Patient tells me the last time he was seen by a medical provider was when he was here in 2017. He takes an aspirin 81 mg daily. He smokes a pack of cigarettes a day. He denies chest pain. On
presentation to emergency department patient was found to be in atrial flutter with rapid ventricular response. Troponin 0.148. proBNP 6110. CT chest/abdomen/pelvis was negative for aortic aneurysm or dissection. Mild emphysematous changes.
Mild diffuse anasarca otherwise unremarkable abdomen, although limited given no contrast was given. He was given 40 mg IV Lasix and was placed on diltiazem drip and converted to sinus rhythm around 3 AM on 02/09/2024.
Progress Note - [employer]
Subjective
Date of Service: February 16, 2024
No complaints
Objective
Labs:
02/16/24 02:54
02/16/24 02:54
Labs
Hgb 16.1 g/dL (13.0-18.0) 02/16/24 02:54
Hct 48.1 % (39.0-52.0) 02/16/24 02:54
Plt Count 155 10^3/uL (130-400) 02/16/24 02:54
PT 14.9 Sec (11.4-14.6) H 02/09/24 03:55
INR 1.18 02/09/24 03:55
APTT 78.0 Sec (23.4-35.0) H 02/16/24 11:03
Sodium 139 mmol/L (135-145) 02/16/24 02:54
Potassium 4.7 mmol/L (3.5-5.1) 02/16/24 02:54
BUN 58 mg/dl (9-20) H 02/16/24 02:54
Creatinine 1.2 mg/dL (0.7-1.3) 02/16/24 02:54
Glucose 142 mg/dl (70-99) H 02/16/24 02:54
Vital Signs and I&O:
Vital Signs
Temp Pulse Resp BP Pulse Ox
97.5 F 93 20 140/72 92
02/16/24 11:09 02/16/24 08:55 02/16/24 11:09 02/16/24 08:55 02/16/24 11:09
Vital Signs
Temp Pulse Resp BP Pulse Ox
97.5 F 93 20 140/72 92
02/16/24 11:09 02/16/24 08:55 02/16/24 11:09 02/16/24 08:55 02/16/24 11:09
Intake & Output
02/14/24 02/15/24 02/16/24 02/17/24
06:59 06:59 06:59 06:59
Intake Total 726 / 726 630 / 630 1148 / 1148
Output Total 3650 / 3650 1400 / 1400 3825 / 3825 2800 / 2800
Balance -2924 / -2924 -770 / -770 -2677 / -2677 -2800 / -2800
Physical Exam
Physical Exam
General: Well developed, well nourished in NAD.
Neck: Supple, no JVD, HJR, carotids +2 B/L, no bruits bilaterally.
Heart: Non displaced PMI, irregular, no murmurs, No S3, S4, no rubs.
Lungs: Scattered rhonchi
Extremities: No clubbing, cyanosis or edema bilaterally.
Neuro: Grossly nonfocal, awake, alert and oriented x3.
--- NOTE | 2024-02-16 15:41 | W.PN.HOSP.TC ---
Today's Communication/Plan
-
switch to eliquis
iv lasix
abx
Assessment / Plan
Assessment / Plan
63yo M with PMHx of paroxysmal Afib not on AC, nicotine dependency came with 1 week of b/l LE swelling abd abdominal distension. CTA chest/abd/pelvis without acute abnormality, found with Afib with RVR and acute R non-occlusive DVT. Later developed
JASON, so cardiac cath planned for 02/11/24 had to be delayed.
Later Cardiology decided to plan for stress test and possible CV
A/P:
#CHF, unspecified exacerbation
#Afib with RVR
#Non-ischemic cardiac injury
#Suspected CAD
lasix IV
ASA, heparin drip, statin; can switch to Eliquis
Toprol, Cardizem
-Eventual plan for ZANA/cardioversion next week outpatient if compliant with Eliquis
Troponin downtrending
stress test: Fixed inferior and apical defect consistent with soft tissue attenuation�intermediate risk stress test
Echo with preserved EF, pulmonary HTN improved compared with 2018, no significant valvular disease
LDL 92
#Acute respiratory insufficiency 2/2 COPD exacerbation 2/2 nicotine dependency +/- Pneumonia
Nicoderm PRN
cont bronchodilators
Emphasized cessation
Steroids taper - switch to po pred
Wean off O2
Outpatient pulmonary follow-up for PFTs/6MWT
#?Pneumonia
-dc vanc, mrsa negative
-cont cefepime - will complete 5 day course of abx
-sputum cultures if expectoring - ngtd
#JASON
-suspected DEISY v pre-renal
-can resume lasix and monitor
-nephro consulted
-Garcia and strict I&O
- No renal artery stenosis on US
#b/l LE cyanosis
Vasc evaluated - most likely low perfusion state 2/2 CHF, Afib with RVR
previous CTA included pelvis - no signs of arterial occlusion
DVT was found only in RLE and was non-occlusive
Dorsalis pedis pulses present on both LE by doppler
No signs of arterial occlusive disease on LE US
#Acute RLE DVT
switch to Eliquis now that going off hep ggt
Recommend outpatient age-appropriate CA screening
CTA chest/abd/pelvis without additional thrombosis or gross signs of cancer
no DVT on L
#New onset DM
Accuchecks, Insulin SS, DM diet
Outpatient ophthalmic, renal and podiatry yearly screening emphasized
-dm educator consulted
#mild transaminitis
improving
Hepatitis panel neg
DVT ppx Eliquis
FUll code
Anticipated Discharge: Within 24 hours
Subjective/Interval History
-
Date of Service: February 16, 2024
swelling improved
Objective Data
-
Labs:
Laboratory Results
02/16/24 02/16/24 02/16/24
02:54 11:03 17:30
APTT 156.6 H* 78.0 H Pending
Carbon Dioxide 36 H
Vital Signs:
Vital Signs
Temp Pulse Resp BP Pulse Ox
97.5 F 93 20 140/72 92
02/16/24 11:09 02/16/24 08:55 02/16/24 11:09 02/16/24 08:55 02/16/24 11:09
I&O
02/15/24 02/16/24 02/17/24
06:59 06:59 06:59
Intake Total 630 / 630 1148 / 1148
Output Total 1400 / 1400 3825 / 3825 2800 / 2800
Balance -770 / -770 -2677 / -2677 -2800 / -2800
Review of Systems
-
History Source: Patient
All other systems: Not reviewed unless documented
Physical Exam
-
General: No Apparent Distress
HEENT: Normocephalic, Atraumatic and Moist Mucous Membranes
Respiratory: Wheezes
Cardiac: Regular Rhythm
GI: Soft, Nontender and Nondistended
Genito-urinary: No Costovertebral Tender
Musculoskeletal: No Clubbing, No Cyanosis, Edema, Right Lower Extrem and Edema, Left Lower Extrem
Neuro: Awake, Alert, Oriented and AO x 3
Data Reviewed
-
Diagnostic Radiology: Image personally visualized and interpreted and Report Reviewed by me
Ultrasound: Report Reviewed by me
Labs: Labs Reviewed by me
[2024-02-16 17:53] LABS: Glucose - Point of Care 194 mg/dl (70-99)
[2024-02-16] MEDS: NOVOLOG FLEXPEN-LOW RESISTANCE 1 UNITS SC (18:03)
[2024-02-16] MEDS: NOVOLOG FLEXPEN 10 UNITS SC (18:03)
[2024-02-16] MEDS: LIPITOR 20 MG PO (18:04)
[2024-02-16 18:14] LABS: APTT 65.3 Sec (23.4-35.0)
[2024-02-16] MEDS: HEPARIN 4100 UNITS IV (18:30)
[2024-02-16] MEDS: ELIQUIS 5 MG PO (19:50)
--- NOTE | 2024-02-16 20:53 | PTCARENOTE ---
Pt. seen and assessed in room. No complaints at this time. HR reading Afib in 100s-110s. BP 120/73. Heparin gtt d/c, pt started on eliquis. Mouth hygiene education provided. Continuing to monitor pt at this time.
[2024-02-16 22:27] LABS: Glucose - Point of Care 165 mg/dl (70-99)
[2024-02-16] MEDS: SEROQUEL 50 MG PO (22:32)
[2024-02-17] VITALS (10 sets, daily range): BP systolic 101–141; BP diastolic 78–97; PULSE 104–128; O2SAT 92; BMI 30.4
[2024-02-17] MEDS: MAXIPIME 1000 MG IV ×3 (03:02→19:09)
[2024-02-17] MEDS: STERILE WATER FOR INJECTION 10 ML IV ×3 (03:02→19:09)
[2024-02-17 03:26] LABS: Hematocrit 48.8 % (39.0-52.0); Hemoglobin 16.5 g/dL (13.0-18.0); Mean Corp Hgb Conc. 33.8 g/dL (33.0-37.0); Mean Corpuscular Hgb 30.8 pg (27.0-31.0); Mean Platelet Volume 11.8 fL (7.4-10.4); Platelet Count 154 10^3/uL (130-400); Red Blood Cell Count 5.36 10^6/uL (4.70-6.10); Red Cell Dist. Width 14.2 % (11.5-14.5); White Blood Cell Count 15.4 10^3/uL (4.8-10.8)
[2024-02-17 03:37] LABS: APTT 29.3 Sec (23.4-35.0)
[2024-02-17 03:41] LABS: Blood Urea Nitrogen 54 mg/dl (9-20); Calcium 8.7 mg/dl (8.4-10.2); Chloride 94 mmol/L (98-107); Estimated Creatinine Clearance 86 ml/min; Glucose 136 mg/dl (70-99); Potassium 4.3 mmol/L (3.5-5.1); Sodium 140 mmol/L (135-145); eGFR > 60.00
[2024-02-17 03:51] LABS: Carbon Dioxide 35 mmol/L (22-30)
[2024-02-17 07:33] LABS: Glucose - Point of Care 91 mg/dl (70-99)
[2024-02-17] MEDS: SYMBICORT 160/4.5 MCG INHALER 2 PUFF INH ×2 (08:20→20:42)
[2024-02-17] MEDS: SPIRIVA RESPIMAT 2.5 MCG 2 PUFF INH (08:20)
[2024-02-17] MEDS: CARDIZEM CD 180 MG PO ×2 (08:28→19:09)
[2024-02-17] MEDS: LOW STRENGTH ASPIRIN 81 MG PO (08:28)
[2024-02-17] MEDS: NICODERM TRANSDERMAL 21 MG TRANSDERM (08:28)
[2024-02-17] MEDS: TOPROL XL 25 MG PO ×2 (08:28→19:08)
[2024-02-17] MEDS: ELIQUIS 5 MG PO ×2 (08:29→19:09)
[2024-02-17] MEDS: FLUSH (NSS) 1 FLUSH IV ×3 (08:30→16:07)
[2024-02-17] MEDS: LASIX 40 MG IV ×2 (08:30→16:06)
[2024-02-17] MEDS: NOVOLOG FLEXPEN 10 UNITS SC ×2 (08:33→12:34)
[2024-02-17] MEDS: DELTASONE 50 MG PO (08:33)
[2024-02-17] MEDS: NOVOLOG FLEXPEN-LOW RESISTANCE SC ×3 (08:34→17:29)
--- NOTE | 2024-02-17 08:58 | PN.DE.MGMTRT ---
Insulin Management
- -
02/16/2024: Diabetes Management Follow up:
Patient admitted with SOB, abdominal and BLE swelling. PMH: COPD, A-Flutter, palpitations and active smoker -0.5 PPD X 50 years.
Pt noted for New onset T2DM, glucose on admission was 142(V), A1C 7.2%.
Patient is sleeping soundly, not disturbed. I did discuss with patients nurse diabetes plan.
Remains on Prednisone 50mg PO daily.
02/15 premeal range 125 to 244, requiring 1-5 units of additional corrective insulin. Fasting 91 this AM
AC NovoLog increased 02/15 from 7 units AC to 10 units, first dose with dinner, moderate corrective changed to low corrective. Lantus increased from 15 units to 20 units in AM.
02/14 Patient declined glucose monitor and insulin instructions again stating that he is not ready for diabetes education. Informed pt that it is important for our team to provide diabetes education given his new dx and that he will be required to
monitor his blood sugars daily at home. Pt requested to try again tomorrow.
Updates given to Nurse at bedside.
70
02/16 Patient states he has no insurance or money and can't afford insulin. Instructed on use of prefilled pen, Novolin 70/30 should be less expensive. Instructed patient to take 28 units with breakfast and 28 units with dinner. To test glucose
before each meal and HS. Due to cost recommend Reli-On glucose monitor. Patient verbalizes understanding.
Diabetes History
- -
Type of Diabetes: 2
Pre-Admission Diabetes Regimen
02/17/24
03:15
Creatinine 1.1
Lab Results
Hemoglobin A1c Cancelled 02/09/24 07:44
Insulin Pump Settings
IP Diabetes Regimen
02/16/24 02/16/24 02/16/24
12:01 17:50 22:26
Glucose
POC Glucose 244 H 194 H 165 H
02/17/24 02/17/24
03:15 07:31
Glucose 136 H
POC Glucose 91
Meal type: Breakfast
Meal type: Dinner
Meal type: Breakfast
Amount consumed: 100%
Amount consumed: 100%
Amount consumed: 100%
Patient Education
--- NOTE | 2024-02-17 09:21 | PTCARENOTE ---
received patient this am , voices no concerns. monitor shows Afib, VSS.
[2024-02-17] MEDS: LANTUS 0.2 UNITS SC (10:21)
--- NOTE | 2024-02-17 10:53 | W.PN.CARDCBS ---
Addendum entered and electronically signed by Oli Mcdaniel MD 02/17/24 14:22:
I saw and examined the patient.
The Manager Materials Management's note was reviewed and I agree with the note.
Comment: Briefly, 63-year-old man past medical history of paroxysmal atrial fibrillation presenting with palpitations, dyspnea and lower extremity edema found to be in A-fib RVR and acute decompensated heart failure
Also thought to have COPD exacerbation and pneumonia contributing to his dyspnea
Still appears mildly volume overloaded on exam, would continue IV Lasix today with tentative transition to p.o. in the next 24 to 48 hours
Remains in atrial fibrillation with rates around 100-110 bpm, plan to uptitrate Cardizem for better heart rate control
Will discharge on Eliquis for cardioembolic prophylaxis
Plan for outpatient cardiology follow-up and consideration of direct-current cardioversion at that time
Troponin was found to be mildly elevated on admission and he underwent pharmacologic nuclear stress test without evidence of ischemia
Suspect nonischemic myocardial injury troponin elevation in the setting of heart failure
Original Note:
Today's Communication / Plan
-
increase IV lasix dose
increase cardizem for improved rate control
continue eliquis
consider for OP cardioversion if compliant
Impression / Plan
-
PCP: None has not seen medical provider since
Packaging Materials Inspector: Dr. Cintron last seen in August 2015 in office
Impression:
Presented w/ progressively worsening SOB, palpitations, LE edema
Acute hypoxic respiratory insufficiency/failure
Acute HFpEF
Anasarca
LLL PNA
Lower extremity US with thrombus in the right peroneal vein.
Paroxysmal atrial flutter/fibrillation w/ RVR
Abnormal troponin, peak 0.148
JASON�resolved
Emphysema/COPD exacerbation
Leukocytosis
[id number] score 1 (heart failure)
Ongoing tobacco abuse
Emphysema/COPD (noted on chest CT 02/08/2024)
Echo 11/14/2014: EF 50 to 55% with no regional wall motion abnormalities. Diastolic dysfunction, mildly dilated left atrium, PAP 33 to 38 mmHg
Echo 02/09/2024: Technically difficult study. EF 55%, dilated RV, PA pressure 20-25
Lexiscan sestamibi stress test 02/15/2024: Fixed inferior and apical defect consistent with soft tissue attenuation�intermediate risk stress test
Plan:
-He presented with shortness of breath and acute heart failure.
-Diuresing well with IV Lasix, however remains with some wheezing on exam. Cr improving, 1.1 on 02/16. will increase lasix dose to 40mg IV BID overnight and assess response. likely also degree of underlying COPD/lung disease. patient states he quit
smoking on way in to the hospital. he is being treated for PNA with abx in addition
-remains in afib with HRs ~100 bpm on review of tele overnight. will increase cardizem dose to 180mg BID. continue toprol 25mg BID.
-consider for OP cardioversion if compliant with eliquis
-of note, patient without prescription insurance. will provide patient with 30 day 0$ copay card and then likely for some samples. will have our office assess patient for prescription assistance.
-trop peaked at 0.148. lexiscan stress this admission negative for ischemia 02/14.
-SGLT2 inhibitor not affordable to patient at this time
-OP cardiac follow up arranged
-d/w nursing
HPI 02/09/2024: Patient is a 63-year-old male with past medical significant for paroxysmal atrial flutter, ongoing tobacco abuse, COPD/emphysema and noncompliance of medical follow-up who presents to emergency department 02/08/2024 with progressively
worsening shortness of breath, abdominal bloating, lower extremity edema, palpitations. Patient reports he has had shortness of breath for several years but recently he has noted dyspnea with minimal activity including walking from the couch to the
bathroom. His legs have become cold and discolored over the last week. He also started having palpitations and vibrating in his chest 'for a while'. Recently started with intermittent dizziness with standing. Due to worsening of symptoms he
decided to seek emergency medical attention. Patient tells me the last time he was seen by a medical provider was when he was here in 2017. He takes an aspirin 81 mg daily. He smokes a pack of cigarettes a day. He denies chest pain. On
presentation to emergency department patient was found to be in atrial flutter with rapid ventricular response. Troponin 0.148. proBNP 6110. CT chest/abdomen/pelvis was negative for aortic aneurysm or dissection. Mild emphysematous changes.
Mild diffuse anasarca otherwise unremarkable abdomen, although limited given no contrast was given. He was given 40 mg IV Lasix and was placed on diltiazem drip and converted to sinus rhythm around 3 AM on 02/09/2024.
Progress Note - Packaging Materials Inspector
Subjective
Date of Service: February 17, 2024
no issues overnight.
Objective
Labs:
02/17/24 03:15
02/17/24 03:15
Labs
Hgb 16.5 g/dL (13.0-18.0) 02/17/24 03:15
Hct 48.8 % (39.0-52.0) 02/17/24 03:15
Plt Count 154 10^3/uL (130-400) 02/17/24 03:15
PT 14.9 Sec (11.4-14.6) H 02/09/24 03:55
INR 1.18 02/09/24 03:55
APTT 29.3 Sec (23.4-35.0) 02/17/24 03:15
Sodium 140 mmol/L (135-145) 02/17/24 03:15
Potassium 4.3 mmol/L (3.5-5.1) 02/17/24 03:15
BUN 54 mg/dl (9-20) H 02/17/24 03:15
Creatinine 1.1 mg/dL (0.7-1.3) 02/17/24 03:15
Glucose 136 mg/dl (70-99) H 02/17/24 03:15
Vital Signs and I&O:
Vital Signs
Temp Pulse Resp BP Pulse Ox
98.1 F 105 18 115/88 96
02/17/24 07:25 02/17/24 09:00 02/17/24 07:25 02/17/24 08:30 02/17/24 08:30
Vital Signs
Temp Pulse Resp BP Pulse Ox
98.1 F 105 18 115/88 96
02/17/24 07:25 02/17/24 09:00 02/17/24 07:25 02/17/24 08:30 02/17/24 08:30
Intake & Output
02/15/24 02/16/24 02/17/24 02/18/24
07:59 07:59 07:59 07:59
Intake Total 150 / 150 1148 / 1148 318 / 318
Output Total 900 / 900 4175 / 4175 3475 / 3475 1700 / 1700
Balance -750 / -750 -3027 / -3027 -3157 / -3157 -1700 / -1700
Physical Exam
Physical Exam
GEN: No distress, awake, alert, oriented x3
HEENT: supple, anicteric, mmm, eomi
LUNGS: Wheezes B/L, no rales
CV: Irreg, S1/S2, no murmur
EXT: No cyanosis, clubbing. 1+ edema of B/L LE
NEURO: Gross non-focal
SKIN: Warm, pink, dry. No rash
--- NOTE | 2024-02-17 11:44 | W.PN.NEPH.PH ---
Today's Communication / Plan
-
lasix per cards and monitor met alkalosis
Assessment/Plan
-
IMP:
JASON
Acute respiratory failure
Acute D CHF
suspected COPD exacerbation
Afib with RVR
Non-ischemic cardiac injury
Suspected CAD
b/l LE cyanosis
Acute RLE DVT
New onset DM
COPD
metabolic alkalosis
Plan:
cr stable at 1.1
monitor met alkalosis
lasix increased per cards
edema likely cardiac related.
leucocytosis from steroids
will s/o, call with ?s
-
-
Date of Service: February 17, 2024
CC / HPI / ROS
-
Chief Complaint:
JASON
History of Present Illness:
JASON/Cr down to 1.1 stable
BP stable
still with edema, but good response to lasix
Review of Systems:
no CP/SOB
non oliguric
on RA
Labs
-
Labs:
WBC 15.4 10^3/uL (4.8-10.8) H 02/17/24 03:15
RBC 5.36 10^6/uL (4.70-6.10) 02/17/24 03:15
Hgb 16.5 g/dL (13.0-18.0) 02/17/24 03:15
Hct 48.8 % (39.0-52.0) 02/17/24 03:15
Plt Count 154 10^3/uL (130-400) 02/17/24 03:15
Sodium 140 mmol/L (135-145) 02/17/24 03:15
Potassium 4.3 mmol/L (3.5-5.1) 02/17/24 03:15
Chloride 94 mmol/L (98-107) L 02/17/24 03:15
Carbon Dioxide 35 mmol/L (22-30) H 02/17/24 03:15
BUN 54 mg/dl (9-20) H 02/17/24 03:15
Creatinine 1.1 mg/dL (0.7-1.3) 02/17/24 03:15
eGFR > 60.00 02/17/24 03:15
Glucose 136 mg/dl (70-99) H 02/17/24 03:15
Calcium 8.7 mg/dl (8.4-10.2) 02/17/24 03:15
Phosphorus 5.6 mg/dl (2.5-4.5) H 02/11/24 16:03
Xvb-A-Tnigngjmalb Pept 9400 pg/ml 02/11/24 04:11
Albumin 3.3 g/dl (3.5-5.0) L 02/15/24 03:21
Physical Exam
-
Vital Signs:
Vital Signs
Temp Pulse Resp BP Pulse Ox
98.1 F 105 18 115/88 96
02/17/24 07:25 02/17/24 09:00 02/17/24 07:25 02/17/24 08:30 02/17/24 08:30
Cardiovascular:: Regular rate and rhythm
Lung Excursion:: Normal (decreased)
Abdomen:: Nontender and Soft
Extremity Edema:: +1: Bilateral:
Garcia Catheter: No
[2024-02-17 12:13] LABS: Glucose - Point of Care 108 mg/dl (70-99)
--- NOTE | 2024-02-17 12:39 | PTCARENOTE ---
instructed patient how to give him self insulin, patient demonstrated how to use insulin pen and how to give himself insulin.
--- NOTE | 2024-02-17 14:25 | W.PN.HOSP.TC ---
Today's Communication/Plan
-
cardizem bid
iv lasix
Assessment / Plan
Assessment / Plan
63yo M with PMHx of paroxysmal Afib not on AC, nicotine dependency came with 1 week of b/l LE swelling abd abdominal distension. CTA chest/abd/pelvis without acute abnormality, found with Afib with RVR and acute R non-occlusive DVT. Later developed
JASON, so cardiac cath planned for 02/11/24 had to be delayed.
Later Cardiology decided to plan for stress test and possible CV
A/P:
#CHF, unspecified exacerbation
#Afib with RVR
#Non-ischemic cardiac injury
#Suspected CAD
lasix IV BID
ASA, heparin drip, statin; can switch to Eliquis
Toprol, Cardizem (increase to BID)
-Eventual plan for ZANA/cardioversion next week outpatient if compliant with Eliquis
Troponin downtrending
stress test: Fixed inferior and apical defect consistent with soft tissue attenuation�intermediate risk stress test
Echo with preserved EF, pulmonary HTN improved compared with 2018, no significant valvular disease
LDL 92
#Acute respiratory insufficiency 2/2 COPD exacerbation 2/2 nicotine dependency +/- Pneumonia
Nicoderm PRN
cont bronchodilators
Emphasized cessation
Steroids taper - switch to po pred
Wean off O2
Outpatient pulmonary follow-up for PFTs/6MWT
#?Pneumonia
-dc vanc, mrsa negative
-cont cefepime - will complete 5 day course of abx
-sputum cultures if expectorating - ngtd
#JASON
-suspected DEISY v pre-renal
-can resume lasix and monitor
-resolved
-nephro consulted
-Garcia and strict I&O
- No renal artery stenosis on US
#b/l LE cyanosis
Vasc evaluated - most likely low perfusion state 2/2 CHF, Afib with RVR
previous CTA included pelvis - no signs of arterial occlusion
DVT was found only in RLE and was non-occlusive
Dorsalis pedis pulses present on both LE by doppler
No signs of arterial occlusive disease on LE US
#Acute RLE DVT
switch to Eliquis now that going off hep ggt
Recommend outpatient age-appropriate CA screening
CTA chest/abd/pelvis without additional thrombosis or gross signs of cancer
no DVT on L
#New onset DM
Accuchecks, Insulin SS, DM diet
Outpatient ophthalmic, renal and podiatry yearly screening emphasized
-dm educator consulted
#mild transaminitis
improving
Hepatitis panel neg
DVT ppx Eliquis
FUll code
Anticipated Discharge: Within 24 hours
Subjective/Interval History
-
Date of Service: February 17, 2024
no acute events, diuresing well
Objective Data
-
Labs:
Laboratory Results
02/17/24
03:15
WBC 15.4 H
Hgb 16.5
Hct 48.8
Plt Count 154
APTT 29.3
Sodium 140
Potassium 4.3
Chloride 94 L
Carbon Dioxide 35 H
BUN 54 H
Creatinine 1.1
Glucose 136 H
Calcium 8.7
Vital Signs:
Vital Signs
Temp Pulse Resp BP Pulse Ox
98.3 F 105 18 115/88 92
02/17/24 11:59 02/17/24 09:00 02/17/24 11:59 02/17/24 08:30 02/17/24 11:59
I&O
02/16/24 02/17/24 02/18/24
06:59 06:59 06:59
Intake Total 1148 / 1148 318 / 318
Output Total 3825 / 3825 3300 / 3300 3050 / 3050
Balance -2677 / -2677 -2982 / -2982 -3050 / -3050
Review of Systems
-
History Source: Patient
All other systems: Not reviewed unless documented
Data Reviewed
-
Diagnostic Radiology: Image personally visualized and interpreted and Report Reviewed by me
Ultrasound: Report Reviewed by me
Labs: Labs Reviewed by me
--- NOTE | 2024-02-17 15:32 | CM ---
Reviewed chart. Met with Mr. Fitzgerald to review discharge plans. Telephone call to Mrs. Noble to review discharge plans. We reviewed medications and cost. He states he does not have any extra money to cover the cost of medications. Telephone call
to [facility] to review with them. [facility] needs to have a Medical Assistance Insurance denial before they can accept patient and he will have to complete application and bring his denial for Medical Assistance to the clinic for them to
approve. [facility] but it is a sliding scale fee. Placed the one month free Eliquis coupon in his red discharge folder. VIA Approved partial payment for some of the medications. Waiting to hear
back from the [employer] to see if they will cover any medications. Will need a month supply scripts to go to [facility] to fill the one month supply. Also reviewed with them that [facility] can not see him until he sees
his PCP because he has not seen his PCP in 15 years. Telephone call to [facility] to put the referral on hold. Medical work-up in progress. The discharge plan is to return home with spouse when medically stable.
[2024-02-17 17:21] LABS: Glucose - Point of Care 119 mg/dl (70-99)
[2024-02-17] MEDS: NOVOLOG MIX 70/30 FLEXPEN 28 UNITS SC (17:46)
[2024-02-17] MEDS: LIPITOR 20 MG PO (17:46)
--- NOTE | 2024-02-17 21:47 | PTCARENOTE ---
Pt. received at change of shift. Pt. seen and assessed in room. Pt. AOx3. VS WNL. Tele reading Afib. No complaints of pain at this time. Continuing to monitor the pt at this time.
[2024-02-17] MEDS: SEROQUEL 50 MG PO (22:32)
[2024-02-17 22:33] LABS: Glucose - Point of Care 111 mg/dl (70-99)
[2024-02-18] VITALS (10 sets, daily range): BP systolic 111–145; BP diastolic 70–129; BMI 30.2
[2024-02-18] MEDS: MAXIPIME 1000 MG IV ×3 (03:07→19:54)
[2024-02-18] MEDS: STERILE WATER FOR INJECTION 10 ML IV ×3 (03:07→19:54)
[2024-02-18 03:26] LABS: Hematocrit 50.7 % (39.0-52.0); Hemoglobin 17.7 g/dL (13.0-18.0); Mean Corp Hgb Conc. 34.9 g/dL (33.0-37.0); Mean Corpuscular Hgb 31.2 pg (27.0-31.0); Mean Corpuscular Volume 89.3 fL (80.0-94.0); Mean Platelet Volume 11.8 fL (7.4-10.4); Platelet Count 150 10^3/uL (130-400); Red Blood Cell Count 5.68 10^6/uL (4.70-6.10); Red Cell Dist. Width 14.1 % (11.5-14.5); White Blood Cell Count 15.2 10^3/uL (4.8-10.8)
[2024-02-18 03:52] LABS: ALT (SGPT) 101 U/L (0-50); AST (SGOT) 43 U/L (17-59); Albumin 3.6 g/dl (3.5-5.0); Alkaline Phosphatase 71 U/L (38-126); Blood Urea Nitrogen 54 mg/dl (9-20); Calcium 8.8 mg/dl (8.4-10.2); Chloride 90 mmol/L (98-107); Estimated Creatinine Clearance 84 ml/min; Glucose 58 mg/dl (70-99); Potassium 4.4 mmol/L (3.5-5.1); Sodium 139 mmol/L (135-145); Total Bilirubin 1.2 mg/dl (0.2-1.3); Total Protein 6.2 g/dl (6.3-8.2); eGFR > 60.00
[2024-02-18 04:03] LABS: Carbon Dioxide 39 mmol/L (22-30)
[2024-02-18 05:01] LABS: Glucose - Point of Care 82 mg/dl (70-99)
[2024-02-18] MEDS: SYMBICORT 160/4.5 MCG INHALER 2 PUFF INH ×2 (06:19→19:38)
[2024-02-18] MEDS: SPIRIVA RESPIMAT 2.5 MCG 2 PUFF INH (06:19)
[2024-02-18 07:46] LABS: Glucose - Point of Care 59 mg/dl (70-99)
[2024-02-18 08:07] LABS: Glucose - Point of Care 54 mg/dl (70-99)
[2024-02-18] MEDS: DELTASONE 50 MG PO (08:13)
[2024-02-18] MEDS: NICODERM TRANSDERMAL 21 MG TRANSDERM (08:15)
[2024-02-18] MEDS: NOVOLOG FLEXPEN-LOW RESISTANCE SC (08:15)
[2024-02-18 08:27] LABS: Glucose - Point of Care 112 mg/dl (70-99)
[2024-02-18] MEDS: LOW STRENGTH ASPIRIN 81 MG PO (08:29)
[2024-02-18] MEDS: CARDIZEM CD 180 MG PO (08:29)
[2024-02-18] MEDS: ELIQUIS 5 MG PO ×2 (08:29→19:54)
[2024-02-18] MEDS: TOPROL XL 25 MG PO ×2 (08:30→19:55)
[2024-02-18] MEDS: MICRONASE 5 MG PO ×2 (09:06→16:34)
[2024-02-18] MEDS: GLUCOPHAGE 500 MG PO ×2 (09:06→16:34)
[2024-02-18] MEDS: LASIX 40 MG IV ×2 (09:07→17:39)
[2024-02-18] MEDS: NOVOLOG MIX 70/30 FLEXPEN SC (09:21)
--- NOTE | 2024-02-18 09:50 | W.PN.CARDCBS ---
Addendum entered and electronically signed by Oli Mcdaniel MD 02/18/24 12:26:
I saw and examined the patient.
The Patrol Captain's note was reviewed and I agree with the note.
Comment: Briefly, 63-year-old man past medical history of paroxysmal atrial fibrillation presenting with palpitations, dyspnea and lower extremity edema found to be in A-fib RVR and acute decompensated heart failure
Also thought to have COPD exacerbation and pneumonia contributing to his dyspnea
Volume status is reasonable today, plan to transition to lasix p.o. 40mg BID in anticipation of discharge
Remains in atrial fibrillation with rates around 100 bpm, plan to further uptitrate Cardizem for better heart rate control
Will discharge on Eliquis for cardioembolic prophylaxis
Plan for outpatient cardiology follow-up and consideration of direct-current cardioversion at that time
Troponin was found to be mildly elevated on admission and he underwent pharmacologic nuclear stress test without evidence of ischemia
Suspect nonischemic myocardial injury troponin elevation in the setting of heart failure
Stable cardiac status
We will sign off
Outpatient follow-up has been arranged
Original Note:
Today's Communication / Plan
-
continue IV lasix while admitted. po lasix 40mg BID upon DC
BMP in 1 week
increase cardizem
consider for OP CV if compliant
OP cardiac follow up arranged
Impression / Plan
-
PCP: None has not seen medical provider since
Shoder Filler: Dr. Cintron last seen in August 2015 in office
Impression:
Presented w/ progressively worsening SOB, palpitations, LE edema
Acute hypoxic respiratory insufficiency/failure
Acute HFpEF
Anasarca
LLL PNA
Lower extremity US with thrombus in the right peroneal vein.
Paroxysmal atrial flutter/fibrillation w/ RVR
Abnormal troponin, peak 0.148
JASON�resolved
Emphysema/COPD exacerbation
Leukocytosis
[id number] score 1 (heart failure)
Ongoing tobacco abuse
Emphysema/COPD (noted on chest CT 02/08/2024)
Echo 11/14/2014: EF 50 to 55% with no regional wall motion abnormalities. Diastolic dysfunction, mildly dilated left atrium, PAP 33 to 38 mmHg
Echo 02/09/2024: Technically difficult study. EF 55%, dilated RV, PA pressure 20-25
Lexiscan sestamibi stress test 02/15/2024: Fixed inferior and apical defect consistent with soft tissue attenuation�intermediate risk stress test
Plan:
-He presented with shortness of breath and acute heart failure.
-continue diuresis with IV lasix 40mg BID while admitted. Cr stable at 1.0. will [address] on po lasix 40mg BID upon DC
-remains with wheezing, likely underlying COPD. patient states he quit smoking on way in to the hospital. on prednisone. he is being treated for PNA with abx in addition
-remains in afib with HRs ~90-100 bpm on review of tele overnight. will increase cardizem dose to 240mg BID. continue toprol 25mg BID, hesitant to increase with wheezing at this time.
-consider for OP cardioversion if compliant with eliquis
-of note, patient without prescription insurance. will provide patient with 30 day 0$ copay card and then likely for some samples. will have our office assess patient for prescription assistance.
-trop peaked at 0.148. lexiscan stress this admission negative for ischemia 02/14.
-SGLT2 inhibitor not affordable to patient at this time
-OP cardiac follow up arranged
-d/w nursing, hospitalist
HPI 02/09/2024: Patient is a 63-year-old male with past medical significant for paroxysmal atrial flutter, ongoing tobacco abuse, COPD/emphysema and noncompliance of medical follow-up who presents to emergency department 02/08/2024 with progressively
worsening shortness of breath, abdominal bloating, lower extremity edema, palpitations. Patient reports he has had shortness of breath for several years but recently he has noted dyspnea with minimal activity including walking from the couch to the
bathroom. His legs have become cold and discolored over the last week. He also started having palpitations and vibrating in his chest 'for a while'. Recently started with intermittent dizziness with standing. Due to worsening of symptoms he
decided to seek emergency medical attention. Patient tells me the last time he was seen by a medical provider was when he was here in 2017. He takes an aspirin 81 mg daily. He smokes a pack of cigarettes a day. He denies chest pain. On
presentation to emergency department patient was found to be in atrial flutter with rapid ventricular response. Troponin 0.148. proBNP 6110. CT chest/abdomen/pelvis was negative for aortic aneurysm or dissection. Mild emphysematous changes.
Mild diffuse anasarca otherwise unremarkable abdomen, although limited given no contrast was given. He was given 40 mg IV Lasix and was placed on diltiazem drip and converted to sinus rhythm around 3 AM on 02/09/2024.
Progress Note - Shoder Filler
Subjective
Date of Service: February 18, 2024
Without complaints overnight
Objective
Labs:
02/18/24 03:04
02/18/24 03:04
Labs
Hgb 17.7 g/dL (13.0-18.0) 02/18/24 03:04
Hct 50.7 % (39.0-52.0) 02/18/24 03:04
Plt Count 150 10^3/uL (130-400) 02/18/24 03:04
PT 14.9 Sec (11.4-14.6) H 02/09/24 03:55
INR 1.18 02/09/24 03:55
APTT 29.3 Sec (23.4-35.0) 02/17/24 03:15
Sodium 139 mmol/L (135-145) 02/18/24 03:04
Potassium 4.4 mmol/L (3.5-5.1) 02/18/24 03:04
BUN 54 mg/dl (9-20) H 02/18/24 03:04
Creatinine 1.0 mg/dL (0.7-1.3) 02/18/24 03:04
Glucose 58 mg/dl (70-99) L 02/18/24 03:04
Vital Signs and I&O:
Vital Signs
Temp Pulse Resp BP Pulse Ox
97.6 F 98 20 138/88 91
02/18/24 07:41 02/18/24 09:10 02/18/24 07:41 02/18/24 09:10 02/18/24 07:41
Vital Signs
Temp Pulse Resp BP Pulse Ox
97.6 F 98 20 138/88 91
02/18/24 07:41 02/18/24 09:10 02/18/24 07:41 02/18/24 09:10 02/18/24 07:41
Intake & Output
02/16/24 02/17/24 02/18/24 02/19/24
07:59 07:59 07:59 07:59
Intake Total 1148 / 1148 318 / 318 268 / 268
Output Total 4175 / 4175 3475 / 3475 4525 / 4525
Balance -3027 / -3027 -3157 / -3157 -4257 / -4257
Physical Exam
Physical Exam
GEN: No distress, awake, alert, oriented x3
HEENT: supple, anicteric, mmm, eomi
LUNGS: Exp wheezes B/L, no rales
CV: Irreg, S1/S2, no murmur
EXT: No cyanosis, clubbing. trace edema of B/L LE
NEURO: Gross non-focal
SKIN: Warm, pink, dry. No rash
--- NOTE | 2024-02-18 10:28 | PTCARENOTE ---
Blood glucose 59, 8 oz of orange juice given. Blood glucose 15 minutes later was 54, 8 oz of orange juice given. Repeat blood glucose 112. Will monitor.
[2024-02-18 10:35] LABS: Glucose - Point of Care 226 mg/dl (70-99)
--- NOTE | 2024-02-18 11:57 | PN.DE.MGMTRT ---
Insulin Management
- -
02/18/2024: Diabetes Management Follow up:
Patient admitted with SOB, abdominal and BLE swelling. PMH: COPD, A-Flutter, palpitations and active smoker -0.5 PPD X 50 years.
Pt noted for New onset T2DM, glucose on admission was 142(V), A1C 7.2%.
Patient is awake, in darkened room with sunglasses on. He did respond to my conversation regarding diabetes plan.
Remains on Prednisone 50mg PO daily.
02/16 Due to patient lack of insurance and no ability to pay out of pocket insulin was changed to 70/30. Glucose low this AM treated now 226. Cr 1.0, eGFR >60. Insulin stopped. Metformin 500 mg BID started first dose with breakfast and glipizide
5 mg BID fist dose with breakfast started.
Discussed with patient importance of taking medication and testing glucose and reporting to his doctor.
Diabetes History
- -
Type of Diabetes: 2
Pre-Admission Diabetes Regimen
02/18/24
03:04
Creatinine 1.0
Lab Results
Hemoglobin A1c Cancelled 02/09/24 07:44
Insulin Pump Settings
IP Diabetes Regimen
02/17/24 02/17/24 02/17/24
12:11 17:19 22:31
Glucose
POC Glucose 108 H 119 H 111 H
02/18/24 02/18/24 02/18/24
03:04 04:59 07:45
Glucose 58 L
POC Glucose 82 59 L
02/18/24 02/18/24 02/18/24
08:05 08:23 10:33
Glucose
POC Glucose 54 L* 112 H 226 H
Meal type: Lunch
Amount consumed: 100%
Patient Education
[2024-02-18 12:26] LABS: Glucose - Point of Care 168 mg/dl (70-99)
[2024-02-18] MEDS: NOVOLOG FLEXPEN-LOW RESISTANCE 1 UNITS SC ×2 (12:43→16:33)
--- NOTE | 2024-02-18 15:06 | W.PN.HOSP.TC ---
Today's Communication/Plan
-
cont iv diuresis
wean steroids
Cardizem titration
dm regimen
anticipate clear for dc tomorrow
Assessment / Plan
Assessment / Plan
63yo M with PMHx of paroxysmal Afib not on AC, nicotine dependency came with 1 week of b/l LE swelling abd abdominal distension. CTA chest/abd/pelvis without acute abnormality, found with Afib with RVR and acute R non-occlusive DVT. Later developed
JASON, so cardiac cath planned for 02/11/24 had to be delayed.
Later Cardiology decided to plan for stress test and possible CV
A/P:
#CHF, unspecified exacerbation
#Afib with RVR
#Non-ischemic cardiac injury
#Suspected CAD
Switch to p.o. Lasix 40 mg twice daily
ASA, heparin drip, statin; can switch to Eliquis
Toprol, Cardizem (increase to 240 mg BID)
-Eventual plan for ZANA/cardioversion next week outpatient if compliant with Eliquis
Troponin downtrending
stress test: Fixed inferior and apical defect consistent with soft tissue attenuation�intermediate risk stress test
Echo with preserved EF, pulmonary HTN improved compared with 2018, no significant valvular disease
LDL 92
#Acute respiratory insufficiency 2/2 COPD exacerbation 2/2 nicotine dependency +/- Pneumonia
Nicoderm PRN
cont bronchodilators
Emphasized cessation
Steroids taper - switch to po pred - wean to 40mg tomorrow
Wean off O2
Outpatient pulmonary follow-up for PFTs/6MWT
#?Pneumonia
-dc vanc, mrsa negative
-cont cefepime - will complete 5 day course of abx (D4)
-sputum cultures if expectorating - ngtd
#Leukocytosis
-most likely 2/2 to steroids
-monitor fever curve
-will need repeat cbc outpateint
#JASON
-suspected DEISY v pre-renal
-can resume lasix and monitor
-resolved
-nephro consulted
-Garcia and strict I&O
- No renal artery stenosis on US
#b/l LE cyanosis
Vasc evaluated - most likely low perfusion state 2/2 CHF, Afib with RVR
previous CTA included pelvis - no signs of arterial occlusion
DVT was found only in RLE and was non-occlusive
Dorsalis pedis pulses present on both LE by doppler
No signs of arterial occlusive disease on LE US
#Acute RLE DVT
switch to Eliquis now that going off hep ggt
Recommend outpatient age-appropriate CA screening
CTA chest/abd/pelvis without additional thrombosis or gross signs of cancer
no DVT on L
#New onset DM
Accuchecks, Insulin SS, DM diet
Outpatient ophthalmic, renal and podiatry yearly screening emphasized
-dm educator consulted: Due to patient lack of insurance and no ability to pay with glucose being low - DC on Metformin 500 mg BID and glipizide 5 mg BID fist dose with breakfast started.
#mild transaminitis
improving
Hepatitis panel neg
DVT ppx Eliquis
FUll code
Anticipated Discharge: Within 24 hours
Subjective/Interval History
-
Date of Service: February 18, 2024
Heart rate still elevated
Objective Data
-
Labs:
Laboratory Results
02/18/24
03:04
WBC 15.2 H
Hgb 17.7
Hct 50.7
Plt Count 150
Sodium 139
Potassium 4.4
Chloride 90 L
Carbon Dioxide 39 H
BUN 54 H
Creatinine 1.0
Glucose 58 L
Calcium 8.8
Total Bilirubin 1.2
AST 43
ALT 101 H
Alkaline Phosphatase 71
Vital Signs:
Vital Signs
Temp Pulse Resp BP Pulse Ox
97.7 F 104 20 138/88 91
02/18/24 12:05 02/18/24 10:00 02/18/24 12:05 02/18/24 09:10 02/18/24 07:41
I&O
02/17/24 02/18/24 02/19/24
06:59 06:59 06:59
Intake Total 318 / 318 268 / 268 700 / 700
Output Total 3300 / 3300 5050 / 5050 800 / 800
Balance -2982 / -2982 -4782 / -4782 -100 / -100
Review of Systems
-
History Source: Patient
All other systems: Not reviewed unless documented
Physical Exam
-
General: No Apparent Distress
HEENT: Normocephalic, Atraumatic and Moist Mucous Membranes
Respiratory: Wheezes
Cardiac: Regular Rhythm
GI: Soft, Nontender and Nondistended
Genito-urinary: No Costovertebral Tender
Musculoskeletal: No Clubbing, No Cyanosis, Edema, Right Lower Extrem and Edema, Left Lower Extrem
Neuro: Awake, Alert, Oriented and AO x 3
Data Reviewed
-
Diagnostic Radiology: Image personally visualized and interpreted and Report Reviewed by me
Ultrasound: Report Reviewed by me
Labs: Labs Reviewed by me
[2024-02-18 16:39] LABS: Glucose - Point of Care 187 mg/dl (70-99)
[2024-02-18] MEDS: LIPITOR 20 MG PO (17:36)
[2024-02-18] MEDS: CARDIZEM CD 240 MG PO (19:55)
[2024-02-18] MEDS: SEROQUEL 50 MG PO (22:28)
[2024-02-18 22:30] LABS: Glucose - Point of Care 207 mg/dl (70-99)
--- NOTE | 2024-02-18 23:06 | PTCARENOTE ---
Received patient for the night in the chair. Afib on the monitor, HR in the 110s. 94% on room air. Patient has no complaints at this time. Patient ambulated in the hallway. Call tompkins within reach.
[2024-02-19] MEDS: MAXIPIME 1000 MG IV ×2 (03:31→12:07)
[2024-02-19] MEDS: STERILE WATER FOR INJECTION 10 ML IV ×2 (03:31→12:07)
[2024-02-19 03:33] VITALS: BP 110/77
[2024-02-19 03:49] LABS: Glucose - Point of Care 122 mg/dl (70-99)
[2024-02-19 04:37] LABS: Hematocrit 49.4 % (39.0-52.0); Hemoglobin 17.2 g/dL (13.0-18.0); Mean Corp Hgb Conc. 34.8 g/dL (33.0-37.0); Mean Corpuscular Hgb 31.2 pg (27.0-31.0); Mean Corpuscular Volume 89.7 fL (80.0-94.0); Mean Platelet Volume 12.1 fL (7.4-10.4); Platelet Count 146 10^3/uL (130-400); Red Blood Cell Count 5.51 10^6/uL (4.70-6.10); Red Cell Dist. Width 14.1 % (11.5-14.5); White Blood Cell Count 13.8 10^3/uL (4.8-10.8)
[2024-02-19 04:59] LABS: ALT (SGPT) 86 U/L (0-50); AST (SGOT) 33 U/L (17-59); Albumin 3.4 g/dl (3.5-5.0); Alkaline Phosphatase 70 U/L (38-126); Blood Urea Nitrogen 52 mg/dl (9-20); Calcium 8.8 mg/dl (8.4-10.2); Chloride 90 mmol/L (98-107); Estimated Creatinine Clearance 76 ml/min; Glucose 131 mg/dl (70-99); Potassium 4.5 mmol/L (3.5-5.1); Sodium 136 mmol/L (135-145); Total Bilirubin 1.3 mg/dl (0.2-1.3); eGFR > 60.00
[2024-02-19 05:08] LABS: Carbon Dioxide 32 mmol/L (22-30)
[2024-02-19 06:00] VITALS: BMI 27.8
--- NOTE | 2024-02-19 07:11 | PTCARENOTE ---
Standing scale zeroed- when pt weight this am and tele monitor held up appropriately
[2024-02-19 07:12] LABS: Glucose - Point of Care 101 mg/dl (70-99)
[2024-02-19 07:20] VITALS: BP 116/79
--- NOTE | 2024-02-19 07:38 | PN.DE.MGMTRT ---
Insulin Management
- -
02/19/2024: Diabetes Management F/U:
Patient admitted with SOB, abdominal and BLE swelling. PMH: COPD, A-Flutter, palpitations and active smoker -0.5 PPD X 50 years.
Pt noted for New onset T2DM, glucose on admission was 142(V), A1C 7.2%. Cr 1.0, eGFR >60.
Patient is awake, A/O x3, rsting in bed, offers no complaints, able to discuss diabetes plan.
Remains on Prednisone dose tapered down to 40mg PO daily.
02/16 Insulin was changed to 70/30 due to patient lack of insurance and no ability to pay out of pocket .
02/17 Insulin stopped due to episode of Hypoglycemia as low as 58.
Metformin 500 mg BID and glipizide 5 mg BID started. Glucose stable, fasting 131 this AM, premeal 168 to 187.
Cont current regimen at discharge: Metformin 500 mg BID and glipizide 5 mg BID. all added to ambulatory orders.
Discussed with patient importance of taking medication and testing glucose and reporting to his doctor.
Diabetes History
- -
Type of Diabetes: 2
Pre-Admission Diabetes Regimen
02/19/24
03:49
Creatinine 1.1
Lab Results
Hemoglobin A1c Cancelled 02/09/24 07:44
Insulin Pump Settings
IP Diabetes Regimen
02/18/24 02/18/24 02/18/24
07:45 08:05 08:23
Glucose
POC Glucose 59 L 54 L* 112 H
02/18/24 02/18/24 02/18/24
10:33 12:25 16:30
Glucose
POC Glucose 226 H 168 H 187 H
02/18/24 02/19/24 02/19/24
22:27 03:47 03:49
Glucose 131 H
POC Glucose 207 H 122 H
02/19/24
07:11
Glucose
POC Glucose 101 H
Meal type: Dinner
Amount consumed: 100%
Patient Education
[2024-02-19] MEDS: NOVOLOG FLEXPEN-LOW RESISTANCE SC (07:57)
[2024-02-19] MEDS: NICODERM TRANSDERMAL 21 MG TRANSDERM (07:58)
[2024-02-19] MEDS: DELTASONE 40 MG PO (07:58)
[2024-02-19] MEDS: TOPROL XL 25 MG PO (07:58)
[2024-02-19] MEDS: CARDIZEM CD 240 MG PO (07:59)
[2024-02-19] MEDS: LASIX 40 MG PO (07:59)
[2024-02-19] MEDS: ELIQUIS 5 MG PO (07:59)
[2024-02-19] MEDS: MICRONASE 5 MG PO (07:59)
[2024-02-19] MEDS: GLUCOPHAGE 500 MG PO (07:59)
[2024-02-19] MEDS: LOW STRENGTH ASPIRIN 81 MG PO (07:59)
[2024-02-19] MEDS: SPIRIVA RESPIMAT 2.5 MCG 2 PUFF INH (08:12)
[2024-02-19] MEDS: SYMBICORT 160/4.5 MCG INHALER 2 PUFF INH (08:12)
--- NOTE | 2024-02-19 08:29 | W.PN.CARDCBS ---
Today's Communication / Plan
-
po lasix 40mg BID
BMP in 1 week
continue cardizem 240mg BID and toprol 25mg BID
eliquis 5mg BID
consider for OP CV
Cardiac follow up arranged
Impression / Plan
-
PCP: None has not seen medical provider since
Halftone Operator: Dr. Cintron last seen in August 2015 in office
Impression:
Presented w/ progressively worsening SOB, palpitations, LE edema
Acute hypoxic respiratory insufficiency/failure
Acute HFpEF
Anasarca
LLL PNA
Lower extremity US with thrombus in the right peroneal vein.
Paroxysmal atrial flutter/fibrillation w/ RVR
Abnormal troponin, peak 0.148
JASON�resolved
Emphysema/COPD exacerbation
Leukocytosis
[id number] score 1 (heart failure)
Ongoing tobacco abuse
Emphysema/COPD (noted on chest CT 02/08/2024)
Echo 11/14/2014: EF 50 to 55% with no regional wall motion abnormalities. Diastolic dysfunction, mildly dilated left atrium, PAP 33 to 38 mmHg
Echo 02/09/2024: Technically difficult study. EF 55%, dilated RV, PA pressure 20-25
Lexiscan sestamibi stress test 02/15/2024: Fixed inferior and apical defect consistent with soft tissue attenuation�intermediate risk stress test
Plan:
-plan for po lasix 40mg BID for DC. Cr stable at 1.1
-remains with wheezing, likely underlying COPD. patient states he quit smoking on way in to the hospital. on prednisone. he is being treated for PNA with abx in addition
-BMP in 1 week
-remains in afib with adequate HR control. continue cardizem 240mg BID and toprol 25mg BID
-consider for OP cardioversion if compliant with eliquis
-of note, patient without prescription insurance. will provide patient with 30 day 0$ copay card for eliquis and then likely for some samples. will have our office assess patient for prescription assistance.
-trop peaked at 0.148. lexiscan stress this admission negative for ischemia 02/14.
-SGLT2 inhibitor not affordable to patient at this time
-OP cardiac follow up arranged
-d/w nursing
HPI 02/09/2024: Patient is a 63-year-old male with past medical significant for paroxysmal atrial flutter, ongoing tobacco abuse, COPD/emphysema and noncompliance of medical follow-up who presents to emergency department 02/08/2024 with progressively
worsening shortness of breath, abdominal bloating, lower extremity edema, palpitations. Patient reports he has had shortness of breath for several years but recently he has noted dyspnea with minimal activity including walking from the couch to the
bathroom. His legs have become cold and discolored over the last week. He also started having palpitations and vibrating in his chest 'for a while'. Recently started with intermittent dizziness with standing. Due to worsening of symptoms he
decided to seek emergency medical attention. Patient tells me the last time he was seen by a medical provider was when he was here in 2017. He takes an aspirin 81 mg daily. He smokes a pack of cigarettes a day. He denies chest pain. On
presentation to emergency department patient was found to be in atrial flutter with rapid ventricular response. Troponin 0.148. proBNP 6110. CT chest/abdomen/pelvis was negative for aortic aneurysm or dissection. Mild emphysematous changes.
Mild diffuse anasarca otherwise unremarkable abdomen, although limited given no contrast was given. He was given 40 mg IV Lasix and was placed on diltiazem drip and converted to sinus rhythm around 3 AM on 02/09/2024.
Progress Note - Halftone Operator
Subjective
Date of Service: February 19, 2024
Eager for discharge. No issues overnight
Objective
Labs:
02/19/24 03:49
02/19/24 03:49
Labs
Hgb 17.2 g/dL (13.0-18.0) 02/19/24 03:49
Hct 49.4 % (39.0-52.0) 02/19/24 03:49
Plt Count 146 10^3/uL (130-400) 02/19/24 03:49
PT 14.9 Sec (11.4-14.6) H 02/09/24 03:55
INR 1.18 02/09/24 03:55
APTT 29.3 Sec (23.4-35.0) 02/17/24 03:15
Sodium 136 mmol/L (135-145) 02/19/24 03:49
Potassium 4.5 mmol/L (3.5-5.1) 02/19/24 03:49
BUN 52 mg/dl (9-20) H 02/19/24 03:49
Creatinine 1.1 mg/dL (0.7-1.3) 02/19/24 03:49
Glucose 131 mg/dl (70-99) H 02/19/24 03:49
Vital Signs and I&O:
Vital Signs
Temp Pulse Resp BP Pulse Ox
97.4 F 68 16 116/79 95
02/19/24 07:16 02/19/24 08:10 02/19/24 08:10 02/19/24 07:58 02/19/24 08:10
Vital Signs
Temp Pulse Resp BP Pulse Ox
97.4 F 68 16 116/79 95
02/19/24 07:16 02/19/24 08:10 02/19/24 08:10 02/19/24 07:58 02/19/24 08:10
Intake & Output
02/17/24 02/18/24 02/19/24 02/20/24
07:59 07:59 07:59 07:59
Intake Total 318 / 318 268 / 268 1300 / 1300
Output Total 3475 / 3475 4525 / 4525 2650 / 2650
Balance -3157 / -3157 -4257 / -4257 -1350 / -1350
Physical Exam
Physical Exam
GEN: No distress, awake, alert, oriented x3
HEENT: supple, anicteric, mmm, eomi
LUNGS: Exp wheezes B/L, no rales
CV: Irreg, S1/S2, no murmur
EXT: No cyanosis, clubbing. trace edema of B/L LE
NEURO: Gross non-focal
SKIN: Warm, pink, dry. No rash
[2024-02-19 11:01] VITALS: BP 143/113
[2024-02-19 11:01] LABS: Glucose - Point of Care 200 mg/dl (70-99)
[2024-02-19 11:03] VITALS: BP 126/95
[2024-02-19] MEDS: NOVOLOG FLEXPEN-LOW RESISTANCE 2 UNITS SC (12:06)
--- NOTE | 2024-02-19 12:39 | W.PN.HOSP.TC ---
Addendum entered and electronically signed by Sourav De La Rosa MD 02/20/24 14:08:
[id number]
Original Note:
Today's Communication/Plan
-
Switch to p.o. Lasix 40 mg twice daily; BMP in 1 week with PCP/cardiology
Eliquis
Toprol, Cardizem
-Eventual plan for ZANA/cardioversion next week outpatient if compliant with Eliquis
Symbicort, Spiriva, butyryl
Statin
Metformin, glipizide
Steroid taper
F/u PCP, Pulm, Cards, Vascular outpatient
Assessment / Plan
Assessment / Plan
63yo M with PMHx of paroxysmal Afib not on AC, nicotine dependency came with 1 week of b/l LE swelling abd abdominal distension. CTA chest/abd/pelvis without acute abnormality, found with Afib with RVR and acute R non-occlusive DVT. Later developed
JASON, so cardiac cath planned for 02/11/24 had to be delayed.
Later Cardiology decided to plan for stress test and possible CV
A/P:
#CHF, unspecified exacerbation
#Afib with RVR
#Non-ischemic cardiac injury
#Suspected CAD
Switch to p.o. Lasix 40 mg twice daily; BMP in 1 week with PCP/cardiology
ASA, heparin drip, statin; can switch to Eliquis
Toprol, Cardizem (increase to 240 mg BID)
-Eventual plan for ZANA/cardioversion next week outpatient if compliant with Eliquis
Troponin downtrending
stress test: Fixed inferior and apical defect consistent with soft tissue attenuation�intermediate risk stress test
Echo with preserved EF, pulmonary HTN improved compared with 2018, no significant valvular disease
LDL 92
#Acute respiratory insufficiency 2/2 COPD exacerbation 2/2 nicotine dependency +/- Pneumonia
Nicoderm PRN
cont bronchodilators
Emphasized cessation
Steroids taper - switch to po pred -continue steroid taper at home
� Follow-up pulmonary outpatient
� Symbicort, Spiriva, albuterol prn on discharge
Wean off O2
Outpatient pulmonary follow-up for PFTs/6MWT
#?Pneumonia
-dc vanc, mrsa negative
-completed 5 day course efepime - will complete 5 day course of abx (D5)
-sputum cultures if expectorating - ngtd
#Leukocytosis
-most likely 2/2 to steroids
-monitor fever curve
-will need repeat cbc outpateint
#JASON
-suspected DEISY v pre-renal
-can resume lasix and monitor
-resolved
-nephro consulted
-Garcia and strict I&O
- No renal artery stenosis on US
#b/l LE cyanosis
Vasc evaluated - most likely low perfusion state 2/2 CHF, Afib with RVR
previous CTA included pelvis - no signs of arterial occlusion
DVT was found only in RLE and was non-occlusive
Dorsalis pedis pulses present on both LE by doppler
No signs of arterial occlusive disease on LE US
f/u vascular outpatient
#Acute RLE DVT
switch to Eliquis now that going off hep ggt
Recommend outpatient age-appropriate CA screening
CTA chest/abd/pelvis without additional thrombosis or gross signs of cancer
no DVT on L
#New onset DM
Accuchecks, Insulin SS, DM diet
Outpatient ophthalmic, renal and podiatry yearly screening emphasized
-dm educator consulted: Due to patient lack of insurance and no ability to pay with glucose being low - DC on Metformin 500 mg BID and glipizide 5 mg BID
#mild transaminitis
improving
Hepatitis panel neg
DVT ppx Eliquis
FUll code
More than 30 minutes spent in discharge including
Final examination of the patient
Summarizing hospital stay
Instructions for continuing care to all relevant caregivers
Preparation of discharge records, prescriptions, and referral forms
Total time spent (35 in minutes):
Anticipated Discharge: Today
Subjective/Interval History
-
Date of Service: February 19, 2024
no acute events overnight
Objective Data
-
Labs:
Laboratory Results
02/19/24
03:49
WBC 13.8 H
Hgb 17.2
Hct 49.4
Plt Count 146
Sodium 136
Potassium 4.5
Chloride 90 L
Carbon Dioxide 32 H
BUN 52 H
Creatinine 1.1
Glucose 131 H
Calcium 8.8
Total Bilirubin 1.3
AST 33
ALT 86 H
Alkaline Phosphatase 70
Vital Signs:
Vital Signs
Temp Pulse Resp BP Pulse Ox
98.5 F 91 20 126/95 93
02/19/24 11:07 02/19/24 12:00 02/19/24 11:07 02/19/24 11:03 02/19/24 11:07
I&O
02/18/24 02/19/24 02/20/24
06:59 06:59 06:59
Intake Total 268 / 268 1300 / 1300 600 / 600
Output Total 5050 / 5050 2650 / 2650 1200 / 1200
Balance -4782 / -4782 -1350 / -1350 -600 / -600
Review of Systems
-
History Source: Patient
All other systems: Not reviewed unless documented
Data Reviewed
-
Diagnostic Radiology: Image personally visualized and interpreted and Report Reviewed by me
Ultrasound: Report Reviewed by me
Labs: Labs Reviewed by me
--- NOTE | 2024-02-19 12:45 | W.DS.TRANS ---
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
-
Discharge Instructions:
Sleep Apnea Risk Intermediate
Discharge Diagnosis/Procedures afib, CHF, COPD exacerbation, pneumonia
Diet 2 Gram Sodium,Restrict fluids to 48 oz
Activity As tolerated
Blood Work cbc, BMP in 1 week
Other Services VN
Specialty Instructions Weigh Daily
Instructions: *DCA Heart Failure Instructions
Stand-Alone Forms:
Changes to Home Medications: Yes
Discharge Medications:
DC Medications w/original date entered in [facility]
blood sugar diagnostic (ReliOn Prime Test Strips) #50 ea 02/17/24
blood-glucose meter (ReliOn All-In-One Meter kit) #1 ea 02/17/24
lancets 23 gauge (ReliaMed Lancet) #200 ea 02/17/24
glipizide 5 mg tablet 5 mg PO BID@0800,1700 #60 tabs 02/18/24
metformin 500 mg tablet 500 mg PO BID@0800,1700 #60 tabs 02/18/24
albuterol sulfate 90 mcg/actuation aerosol inhaler 2 puff inhalation Q6H PRN shortness of breath or wheezing 30 days #8.5 grams 02/19/24
apixaban 5 mg tablet (Eliquis) 5 mg PO BID 30 days #60 tabs 02/19/24
aspirin 81 mg chewable tablet 81 mg PO DAILY 30 days #30 tabs 02/19/24
atorvastatin 20 mg tablet 20 mg PO QPM 30 days #30 tabs 02/19/24
budesonide-formoterol HFA 160 mcg-4.5 mcg/actuation aerosol inhaler (Symbicort) 2 puff inhalation R BID 30 days #10.2 grams 02/19/24
diltiazem HCl 240 mg capsule,extended release 24 hr 240 mg PO BID 30 days #60 caps 02/19/24
furosemide 40 mg tablet 40 mg PO BID AT 0800,1600 30 days #60 tabs 02/19/24
metoprolol succinate 25 mg tablet,extended release 24 hr 25 mg PO BID 30 days #60 tabs 02/19/24
prednisone 10 mg tablet See Rx Instructions .Route .COMPLEX #30 tabs 02/19/24
quetiapine 25 mg tablet 50 mg (2 x 25 mg) PO HS 30 days #60 tabs 02/19/24
tiotropium bromide 2.5 mcg/actuation mist for inhalation (Spiriva Respimat) 2 puff inhalation R DAILY 30 days #4 grams 02/19/24
Home Medication Changes
blood sugar diagnostic (ReliOn Prime Test Strips) #50 ea 02/17/24
blood-glucose meter (ReliOn All-In-One Meter kit) #1 ea 02/17/24
lancets 23 gauge (ReliaMed Lancet) #200 ea 02/17/24
glipizide 5 mg tablet 5 mg PO BID@0800,1700 #60 tabs 02/18/24
metformin 500 mg tablet 500 mg PO BID@0800,1700 #60 tabs 02/18/24
albuterol sulfate 90 mcg/actuation aerosol inhaler 2 puff inhalation Q6H PRN shortness of breath or wheezing 30 days #8.5 grams 02/19/24
apixaban 5 mg tablet (Eliquis) 5 mg PO BID 30 days #60 tabs 02/19/24
aspirin 81 mg chewable tablet 81 mg PO DAILY 30 days #30 tabs 02/19/24
atorvastatin 20 mg tablet 20 mg PO QPM 30 days #30 tabs 02/19/24
budesonide-formoterol HFA 160 mcg-4.5 mcg/actuation aerosol inhaler (Symbicort) 2 puff inhalation R BID 30 days #10.2 grams 02/19/24
diltiazem HCl 240 mg capsule,extended release 24 hr 240 mg PO BID 30 days #60 caps 02/19/24
furosemide 40 mg tablet 40 mg PO BID AT 0800,1600 30 days #60 tabs 02/19/24
metoprolol succinate 25 mg tablet,extended release 24 hr 25 mg PO BID 30 days #60 tabs 02/19/24
prednisone 10 mg tablet See Rx Instructions .Route .COMPLEX #30 tabs 02/19/24
quetiapine 25 mg tablet 50 mg (2 x 25 mg) PO HS 30 days #60 tabs 02/19/24
tiotropium bromide 2.5 mcg/actuation mist for inhalation (Spiriva Respimat) 2 puff inhalation R DAILY 30 days #4 grams 02/19/24
Pending Results: No
[2024-02-19 13:07] VITALS: O2SAT 91
--- NOTE | 2024-02-19 13:50 | CM ---
Reviewed chart. Also reviewed with attending physician. Scripts sent to [facility] for them to fill one month supply with [employer] and case management funding. Reviewed with patient . Reviewed with his spouse via phone. He has the free thirty day
card for his Eliquis to go to his pharmacy to complete. He is walking around in the hallway today. Prior to admission he resides with his spouse in a three story home. He has a first floor set-up. Spouse is retired and will be home to assist in
his care. Medical work-up in progress. The discharge plan is to return home with his spouse when medically stable.
== END 2024-02-19 16:45 | disposition home health service (06) | DRG 308 ==
LOC: IVU 20:42
PROVIDERS: Clinical Nurse Specialist Family Health; Emergency Medicine; Internal Medicine; Nurse Practitioner Primary Care; Physician Assistant; Registered Nurse; Specialist; ADMITTING PHYSICIAN Internal Medicine; ATTENDING PHYSICIAN Internal Medicine; CONSULT PHYSICIAN Internal Medicine; CONSULT PHYSICIAN Internal Medicine Critical Care Medicine; CONSULT PHYSICIAN Nuclear Medicine Nuclear Cardiology; CONSULT PHYSICIAN Surgery Vascular Surgery; EMERGENCY PHYSICIAN Student in an Organized Health Care Education/Training Program; FAMILY PHYSICIAN Nurse Practitioner Adult Health
DX: I48.0 Paroxysmal atrial fibrillation (principal); I50.31 Acute diastolic (congestive) heart failure; J18.9 Pneumonia, unspecified organism; J44.0 Chronic obstructive pulmonary disease with (acute) lower respiratory infection; N17.9 Acute kidney failure, unspecified; E87.3 Alkalosis; I82.451 Acute embolism and thrombosis of right peroneal vein; F17.210 Nicotine dependence, cigarettes, uncomplicated; E11.65 Type 2 diabetes mellitus with hyperglycemia; E86.0 Dehydration
CPT/HCPCS: 71045; 71046; 71275; 74174; 76770; 78452; 80048; 80053; 80061; 80202; 81003; 81015; 82248; 82570; 82962; 83036; 83735; 83880; 83935; 84100; 84300; 84443; 84484; 85025; 85027; 85610; 85730; 86704; 86706; 86803; 87070; 87205; 87340; 87449; 87811; 87899; 93005; 93017; 93306; 93922; 93925; 93970; 93975; 94640; 96365; 96366; 97110; 97116; 97163; 97167; 97530; 97535; 99285; 99406; A9500; J2785; Q9950; Q9967

== ENCOUNTER 2024-06-09 17:03 | Inpatient (IN) | payer OTHER, SELFPAY ==
[2024-06-09] VITALS (20 sets, daily range): BP systolic 94–141; BP diastolic 62–104; BMI 29.8; BMI 28.5
--- NOTE | 2024-06-09 14:09 | ED.GENMED ---
ED Provider Triage
<Nanci Salas PA-C - Last Filed: 06/09/24 14:16>
-
Patient seen by provider in Triage?: Seen in Triage
Attestation: A medical screening examination has been initiated by a qualified medical provider. Based on the assessment performed at this time, it has been determined that an emergent medical condition may exist and the patient has been informed
that further medical evaluation and possible additional diagnostic testing may be needed.
HPI: 64yoM here with SOB and CP. Hx of afib, CHF, COPD. Out of all medications (Eliquis, Lasix, metoprolol) for several months.
GENERAL: Alert , in no apparent distress
EYE: No visual abnormalities.
NECK: Trachea midline
ENT: No visible abnormalities.
LUNGS: No acute respiratory distress
NEUROLOGICAL: Alert and oriented
SKIN: Skin intact. No visible changes.
MUSCULOSKELETAL: Moving extremities normally
PSYCH: Normal and appropriate interaction.
This is a medical evaluation conducted in person to initiate diagnostic evaluation and provide initial therapeutics. Please see further documentation by the treating clinician.
Oxygen saturation 86-87% in triage. EKG shows rapid afib with HR in 130s. Cardiac labs, magnesium, EKG, and CXR ordered. Patient placed on 2L NC.
History of Present Illness
<Nanci Salas PA-C - Last Filed: 06/09/24 14:16>
General
Chief Complaint: Chest Pain
Time Seen by Provider: 06/09/24 15:41
<Damien cShwab DO - Last Filed: 06/09/24 22:02>
History of Present Illness
History of Present Illness:
TIME OF INITIAL ENCOUNTER: 3:45 PM
HPI: The patient has been having chest pain and shortness of breath. Of note, the patient ran out of his medications and could not afford these as of about a month ago. His medications include Eliquis, COPD meds, diltiazem, and Lasix. He also
reports increasing lower extremity edema.
EXAM:
GENERAL: The patient is mild respiratory distress
HEENT: Moist oral mucosa
CARDIOVASCULAR: No murmurs, tachycardic heart rate, irregular rhythm, No chest wall tenderness
PULMONARY: Minimal respiratory distress, breath sounds are equally decreased with some wheeze
ABDOMEN: Soft with no peritoneal signs, no tenderness
NEUROLOGIC: Excellent strength all extremities, no coordination deficits
PSYCHIATRIC: Appropriate mental status, normal insight and judgement
EXTREMITIES: Nontender, 1+ bilateral lower extremity edema, moves all extremities equally
SKIN: No rash, no lesions
NUMBER AND COMPLEXITY OF PROBLEMS ADDRESSED AT THE ENCOUNTER
� Chronic conditions affecting care: COPD/A-fib, hyperlipidemia, CHF, history of alcohol abuse
� Acute Exacerbation and/or Progression of Chronic Illness: This is an acute but recurring problem
� Differential Diagnosis includes: Medication noncompliance, COPD exacerbation, CHF exacerbation
AMOUNT AND/OR COMPLEXITY OF DATA TO BE REVIEWED AND ANALYZED
� I performed an independent evaluation of and my interpretation is:
EKG: A-fib with RVR, ventricular rate 134, normal axis, lateral ST abnormality
CT:
X-rays: Chest x-ray suggests some pulmonary vascular congestion
Laboratory Studies: White count and hemoglobin are normal, bicarb 34, BUN 27, troponin 0.35, BNP 4240
Other:
� Review of other/old records: I reviewed records, the patient's troponin was elevated this past January however today it is 3 times what it was in January; BNP chronically elevated and lower than prior
� Clinical information was obtained by an independent historian: None needed
� Prescriptions/Medications Considered but not given:
� Further testing considered but not performed:
RISK OF COMPLICATIONS AND/OR MORBIDITY OR MORTALITY OF PATIENT MANAGEMENT
� Social determinants of health affecting care: Lives at home, cannot afford his medications
� Discussion with other providers: I notified [facility] as well as hospitalist�I have asked [facility] to decide about Eliquis versus heparin.
� Escalation of care including admission/observation vs risk of discharge considered: Patient has not been taking any of his medications. I have ordered IV Lasix, DuoNebs, steroids IV, and diltiazem.
ANY OTHER UPDATES:
Past History
<Nanci Salas PA-C - Last Filed: 06/09/24 14:16>
Past History
ED Past Medical History: Arrthythmia (Atrial fibrillation with conversion to sinus rhythm), COPD and Other (Back pain)
ED Past Surgical History: Tonsilectomy and Other
Social History
Tobacco: Former smoker (States that he just stopped recently)
Alcohol: None
Personal:
Living: with family
Employment: Employed
Family History
Family History: Other
Phy Exam
<Damien Schwab DO - Last Filed: 06/09/24 22:02>
Physical Exam
Physical Exam:
See HPI
Scores
<Damien Schwab DO - Last Filed: 06/09/24 22:02>
Heart Score for Chest Pain Patients
STEMI patient?: Not applicable
Course
<Nanci Salas PA-C - Last Filed: 06/09/24 14:16>
Orders/Labs/Results
Orders:
Orders
06/09/24 14:01
EKG [Electrocardiogram (*1)] Urgent
Reason for Study: Chest Pain
EKG- Treatment ONCE
06/09/24 14:28
Complete Blood Count/With Diff Urgent
Comprehensive Metabolic Panel Urgent
Magnesium Urgent
NT-proBNP Urgent
Troponin I Urgent
06/09/24 Dinner
2000 calorie (17 carb) Diabetic
Fluid Restriction: 1500 mL/day (50 oz)
Diabetic Diet: Sodium, 2 Gram
06/09/24 15:48
Diltiazem HCl [Cardizem] 10 mg IV NOW STA
Furosemide [Lasix] 40 mg IV NOW STA
06/09/24 15:52
Ipratropium/Albuterol Sulfate [Duoneb] 3 ml INH R NOW ONE
MethylPREDNISolone PF [Solu-Medrol Pf] 125 mg IV NOW STA
06/09/24 16:00
Diltiazem 125 mg/125 ml Nss [Cardizem] 125 mg in 125 ml IV PER PROTOCOL
Initial dose in mg/hr, then titrate:: 5
Titrate to keep:: Heart rate 80-100 bpm
Titrate by mg/hr:: 5 mg/hr
Frequency of titrations (minutes):: 15
Maximum dose in mg/hr:: 15
06/09/24 16:43
Heparin Protocol- PTT Orders As Directed
PTT per Heparin protocol: -Obtain CBC and baseline PTT - if not already collected.
-Obtain PTT 6 hours from start of infusion. Then, every 6 hours until 2 consecutive
PTT's are therapeutic. Then, PTT Daily.
-With each rate change, obtain PTT every 6 hours until 2 consecutive PTT's are
therapeutic. Then, PTT Daily.
Notify MD As Directed
Notify physician if: PTT is greater than or equal to 200.
06/09/24 16:45
Heparin 42123 Units/250 ml 25,000 units in 250 ml IV PER PROTOCOL
Weight to be used for heparin protocol in kilograms (kg):: 99.5
Protocol:: Cardiac Tx/Acute Coronary
PTT Goal Range to be used:: PTT 73 to 111 seconds
Order type:: Initial
INITIAL Infusion Dose (UNITS/KG/hr) & then follow protocol:: 12 units/kg/hr
Infusion Dose in UNITS/hr & then follow protocol (UNITS/hr):: 1,000
INFUSION RATE in mL/hr & then follow protocol (mL/hr):: 10
PTT less than or equal to 64 seconds:: Increase rate by 200 units/hr (+ 2 mL/hr)
PTT 64.1 to 72.9 seconds:: Increase rate by 100 units/hr (+ 1 mL/hr)
PTT 73 to 111 seconds:: Target Range. No change in rate.
PTT 111.1 to 130.9 seconds:: Decrease rate by 100 units/hr (- 1 mL/hr)
PTT 131 to 199.9 seconds:: HOLD for 1 hr. Then decrease rate by 200 units/hr (- 2 mL/hr)
PTT greater than or equal to 200 seconds:: HOLD for 2 hrs & Notify Provider. Then decrease by 200 units/hr (-
2 mL/hr)
Lab follow-up:: Each change, PTT q6h until 2 consecutive are therapeutic. Then PTT
daily.
CR Chest - 2 Views Urgent
Comment:
Reason For Exam: sob
06/09/24 16:47
Admit/Transfer Patient As Directed
Co-Sign Provider:
Level of Care: Inpatient admission
Assign to:: IVU
Physician / Group: Hospitalist
Diagnosis: Acute hypoxic respiratory insufficiency, A-fib, COPD
Reason for Hospitalization: Acute hypoxic respiratory insufficiency, A-fib, COPD
Expected length of stay greater than two midnights?: Yes
ELOS- Estimated Length of Stay in days: 3
I certify the patient meets the requirements for IP care: Yes
PRN Pain Medication Management As Directed
May give lesser potent ordered pain med per pt: Yes
preference::
Protocol:: Medication orders for pain may be administered in a
manner that supports deferring to patient preference
when the pt is:
- Requesting an ordered lesser potent pain medication.
Least to most potent pain medications are defined
as: acetaminophen < NSAID < tramadol < opioids
(morphine, oxycodone, hydromorphone).
- Requesting a lesser dose of the same medication IF
ORDERED.
- Requesting a less intrusive route of administration
if both routes are prescribed by the provider (PO <
IV).
06/09/24 16:48
Code Status As Directed
Resuscitation Status: Full Code
PTT Urgent
Comment: Obtain baseline before beginning heparin infusion if not already collected
06/09/24 16:53
Aspirin 325 mg PO NOW STA
06/09/24 19:53
Troponin I Q6H
06/09/24 20:00
Metoprolol Xl [Toprol Xl] 25 mg PO BID
06/09/24 20:05
Troponin I Q6H
Comment: at admission & every 6 hours x 2 (3 total), ECG to be done with each level
Budesonide/Formoterol 160/4.5 [Symbicort 160/4.5 Mcg Inhaler] 2 puff INH R BID
Dextrose 50%-Water [Dextrose 50% Syringe] 12.5 grams IV [id number] PRN
Doxycycline [Vibramycin] 100 mg PO Q12
GlipiZIDE [Glucotrol] 5 mg PO BID@0800,1700
Glucagon [GlucaGen] 1 mg IM PRN PRN
Ipratropium Nebs [Atrovent Nebules] 0.5 mg INH R Q6HPRN PRN
Ipratropium Nebs [Atrovent Nebules] 0.5 mg INH R TID
Levalbuterol [Xopenex 1.25 mg Inhalant Solution] 1.25 mg INH R Q6HPRN PRN
Levalbuterol [Xopenex 1.25 mg Inhalant Solution] 1.25 mg INH R TID
METFORMIN HCl [Glucophage] 500 mg PO BID@0800,1700
06/09/24 20:05
Echo 2D MMode Color/Doppler Routine
Reason for Study: heart failure
CARDIOLOGY CONSULT Routine
Consulting Provider: Carlos Alvarez
Was physician already notified: Yes
Reason for consult: afib,chf
HF DIETARY CONSULT Routine
HF EDUCATOR CONSULT Routine
Comment:
Activity As Directed
Activity Level: Out of Bed-Early Mobility
Bedside Glucose Monitoring As Directed
Frequency: AC&HS
Additional Instructions:: Change to q6h if pt on TPN, tube feeding or not eating
Intake/ Output As Directed
Frequency: Per unit guidelines
Patient Education As Directed
Type: CHF folder
Comment: give on admission. Document in Interdisciplinary Education record
Sleep Apnea Assessment by RN As Directed
Comment:
Physician Instructions:
Vital Signs As Directed
Frequency: Other
Additional Instructions:: Q12 or per unit guidelines if more frequent.
Weight As Directed
Frequency: Daily
Type of Scale: Standing Scale
Comment: Daily morning weight. If unable to stand, use balanced bed scale.
Weight As Directed
Frequency: Once
Type of Scale: Standing Scale
Comment: Upon Admission. If unable to stand, use balanced bed scale.
Xopenex Reason for Use As Directed
Reason for ordering Xopenex instead of Albuterol: tachy
Pulse Ox/cont/shift [RESP] Routine
Quantity: 1
Special Instructions: Daily pulse oximetry at rest. If greater than 92% at rest also obtain pulse oximetry
while ambulating as tolerated.
Smoking Cessation Counseling [RESP] Routine
06/09/24 22:00
CefTRIAXone [Rocephin] 1,000 mg IV Q24H
06/10/24 00:00
Dexamethasone Sod Phosphate [Decadron] 4 mg IV Q8H
06/10/24 02:05
Troponin I Q6H
Comment: at admission & every 6 hours x 2 (3 total), ECG to be done with each level
06/10/24 06:00
Echo 2D MMode Color/Doppler IN AM
Reason for Study: Afib, CHF, elevated troponin
NPO
Allow oral meds: Yes
Allow clear liquids: No
Basic Metabolic Panel IN AM
Glycohemoglobin (HgbA1c) IN AM
Magnesium IN AM
TSH Reflex To Free T4 IN AM
06/10/24 07:30
Insulin Aspart Corrective Low [Novolog Flexpen-Low Resistance] See Protocol SC AC
06/10/24 08:00
Aspirin Chewable [Low Strength Aspirin] 81 mg PO DAILY
Furosemide [Lasix] 80 mg IV BID AT 0800,1600
06/10/24 08:05
Troponin I Q6H
Comment: at admission & every 6 hours x 2 (3 total), ECG to be done with each level
06/11/24 06:00
Basic Metabolic Panel IN AM
Complete Blood Count/No Diff Q2D
Comment: Notify MD if platelet count is <130,000 or decreases by 50% from baseline
06/12/24 06:00
Basic Metabolic Panel IN AM
06/13/24 06:00
Complete Blood Count/No Diff Q2D
Comment: Notify MD if platelet count is <130,000 or decreases by 50% from baseline
06/15/24 06:00
Complete Blood Count/No Diff Q2D
Comment: Notify MD if platelet count is <130,000 or decreases by 50% from baseline
06/17/24 06:00
Complete Blood Count/No Diff Q2D
Comment: Notify MD if platelet count is <130,000 or decreases by 50% from baseline
06/19/24 06:00
Complete Blood Count/No Diff Q2D
Comment: Notify MD if platelet count is <130,000 or decreases by 50% from baseline
06/21/24 06:00
Complete Blood Count/No Diff Q2D
Comment: Notify MD if platelet count is <130,000 or decreases by 50% from baseline
06/23/24 06:00
Complete Blood Count/No Diff Q2D
Comment: Notify MD if platelet count is <130,000 or decreases by 50% from baseline
06/25/24 06:00
Complete Blood Count/No Diff Q2D
Comment: Notify MD if platelet count is <130,000 or decreases by 50% from baseline
Abnormal Lab Results
06/09/24
14:28
MCV 99.6 H fL
(80.0-94.0)
MCH 31.8 H pg
(27.0-31.0)
MCHC 32.0 L g/dL
(33.0-37.0)
MPV 11.2 H fL
(7.4-10.4)
Abs Immat Gran (auto) 0.1 H 10^3/uL
(0-0.05)
Absolute Monos (auto) 0.9 H 10^3/uL
(0.1-0.6)
Lymphocytes % 18.8 L %
(20.5-51.1)
Carbon Dioxide 34 H mmol/L
(22-30)
BUN 27 H mg/dl
(9-20)
Glucose 163 H mg/dl
(70-99)
Troponin I 0.357 H* ng/ml
06/09/24 14:28
06/09/24 14:28
Vital Signs
Initial and Last Documented VS:
Initial Vital Signs
Temp Pulse Resp BP Pulse Ox
36.5 C 134 18 128/94 94
06/09/24 14:13 06/09/24 14:13 06/09/24 14:13 06/09/24 14:13 06/09/24 14:13
Last Documented Vital Signs
Temp Pulse Resp BP Pulse Ox
36.5 C 82 20 123/87 93
06/09/24 20:11 06/09/24 19:50 06/09/24 20:11 06/09/24 19:50 06/09/24 20:11
<Damien Schwab DO - Last Filed: 06/09/24 22:02>
Orders/Labs/Results
Orders:
Orders
06/09/24 14:01
EKG [Electrocardiogram (*1)] Urgent
Reason for Study: Chest Pain
EKG- Treatment ONCE
06/09/24 14:28
Complete Blood Count/With Diff Urgent
Comprehensive Metabolic Panel Urgent
Magnesium Urgent
NT-proBNP Urgent
Troponin I Urgent
06/09/24 Dinner
2000 calorie (17 carb) Diabetic
Fluid Restriction: 1500 mL/day (50 oz)
Diabetic Diet: Sodium, 2 Gram
06/09/24 15:48
Diltiazem HCl [Cardizem] 10 mg IV NOW STA
Furosemide [Lasix] 40 mg IV NOW STA
06/09/24 15:52
Ipratropium/Albuterol Sulfate [Duoneb] 3 ml INH R NOW ONE
MethylPREDNISolone PF [Solu-Medrol Pf] 125 mg IV NOW STA
06/09/24 16:00
Diltiazem 125 mg/125 ml Nss [Cardizem] 125 mg in 125 ml IV PER PROTOCOL
Initial dose in mg/hr, then titrate:: 5
Titrate to keep:: Heart rate 80-100 bpm
Titrate by mg/hr:: 5 mg/hr
Frequency of titrations (minutes):: 15
Maximum dose in mg/hr:: 15
06/09/24 16:43
Heparin Protocol- PTT Orders As Directed
PTT per Heparin protocol: -Obtain CBC and baseline PTT - if not already collected.
-Obtain PTT 6 hours from start of infusion. Then, every 6 hours until 2 consecutive
PTT's are therapeutic. Then, PTT Daily.
-With each rate change, obtain PTT every 6 hours until 2 consecutive PTT's are
therapeutic. Then, PTT Daily.
Notify MD As Directed
Notify physician if: PTT is greater than or equal to 200.
06/09/24 16:45
Heparin 40958 Units/250 ml 25,000 units in 250 ml IV PER PROTOCOL
Weight to be used for heparin protocol in kilograms (kg):: 99.5
Protocol:: Cardiac Tx/Acute Coronary
PTT Goal Range to be used:: PTT 73 to 111 seconds
Order type:: Initial
INITIAL Infusion Dose (UNITS/KG/hr) & then follow protocol:: 12 units/kg/hr
Infusion Dose in UNITS/hr & then follow protocol (UNITS/hr):: 1,000
INFUSION RATE in mL/hr & then follow protocol (mL/hr):: 10
PTT less than or equal to 64 seconds:: Increase rate by 200 units/hr (+ 2 mL/hr)
PTT 64.1 to 72.9 seconds:: Increase rate by 100 units/hr (+ 1 mL/hr)
PTT 73 to 111 seconds:: Target Range. No change in rate.
PTT 111.1 to 130.9 seconds:: Decrease rate by 100 units/hr (- 1 mL/hr)
PTT 131 to 199.9 seconds:: HOLD for 1 hr. Then decrease rate by 200 units/hr (- 2 mL/hr)
PTT greater than or equal to 200 seconds:: HOLD for 2 hrs & Notify Provider. Then decrease by 200 units/hr (-
2 mL/hr)
Lab follow-up:: Each change, PTT q6h until 2 consecutive are therapeutic. Then PTT
daily.
CR Chest - 2 Views Urgent
Comment:
Reason For Exam: sob
06/09/24 16:47
Admit/Transfer Patient As Directed
Co-Sign Provider:
Level of Care: Inpatient admission
Assign to:: IVU
Physician / Group: Hospitalist
Diagnosis: Acute hypoxic respiratory insufficiency, A-fib, COPD
Reason for Hospitalization: Acute hypoxic respiratory insufficiency, A-fib, COPD
Expected length of stay greater than two midnights?: Yes
ELOS- Estimated Length of Stay in days: 3
I certify the patient meets the requirements for IP care: Yes
PRN Pain Medication Management As Directed
May give lesser potent ordered pain med per pt: Yes
preference::
Protocol:: Medication orders for pain may be administered in a
manner that supports deferring to patient preference
when the pt is:
- Requesting an ordered lesser potent pain medication.
Least to most potent pain medications are defined
as: acetaminophen < NSAID < tramadol < opioids
(morphine, oxycodone, hydromorphone).
- Requesting a lesser dose of the same medication IF
ORDERED.
- Requesting a less intrusive route of administration
if both routes are prescribed by the provider (PO <
IV).
06/09/24 16:48
Code Status As Directed
Resuscitation Status: Full Code
PTT Urgent
Comment: Obtain baseline before beginning heparin infusion if not already collected
06/09/24 16:53
Aspirin 325 mg PO NOW STA
06/09/24 19:53
Troponin I Q6H
06/09/24 20:00
Metoprolol Xl [Toprol Xl] 25 mg PO BID
06/09/24 20:05
Troponin I Q6H
Comment: at admission & every 6 hours x 2 (3 total), ECG to be done with each level
Budesonide/Formoterol 160/4.5 [Symbicort 160/4.5 Mcg Inhaler] 2 puff INH R BID
Dextrose 50%-Water [Dextrose 50% Syringe] 12.5 grams IV [id number] PRN
Doxycycline [Vibramycin] 100 mg PO Q12
GlipiZIDE [Glucotrol] 5 mg PO BID@0800,1700
Glucagon [GlucaGen] 1 mg IM PRN PRN
Ipratropium Nebs [Atrovent Nebules] 0.5 mg INH R Q6HPRN PRN
Ipratropium Nebs [Atrovent Nebules] 0.5 mg INH R TID
Levalbuterol [Xopenex 1.25 mg Inhalant Solution] 1.25 mg INH R Q6HPRN PRN
Levalbuterol [Xopenex 1.25 mg Inhalant Solution] 1.25 mg INH R TID
METFORMIN HCl [Glucophage] 500 mg PO BID@0800,1700
06/09/24 20:05
Echo 2D MMode Color/Doppler Routine
Reason for Study: heart failure
CARDIOLOGY CONSULT Routine
Consulting Provider: Carlos Alvarez
Was physician already notified: Yes
Reason for consult: afib,chf
HF DIETARY CONSULT Routine
HF EDUCATOR CONSULT Routine
Comment:
Activity As Directed
Activity Level: Out of Bed-Early Mobility
Bedside Glucose Monitoring As Directed
Frequency: AC&HS
Additional Instructions:: Change to q6h if pt on TPN, tube feeding or not eating
Intake/ Output As Directed
Frequency: Per unit guidelines
Patient Education As Directed
Type: CHF folder
Comment: give on admission. Document in Interdisciplinary Education record
Sleep Apnea Assessment by RN As Directed
Comment:
Physician Instructions:
Vital Signs As Directed
Frequency: Other
Additional Instructions:: Q12 or per unit guidelines if more frequent.
Weight As Directed
Frequency: Daily
Type of Scale: Standing Scale
Comment: Daily morning weight. If unable to stand, use balanced bed scale.
Weight As Directed
Frequency: Once
Type of Scale: Standing Scale
Comment: Upon Admission. If unable to stand, use balanced bed scale.
Xopenex Reason for Use As Directed
Reason for ordering Xopenex instead of Albuterol: tachy
Pulse Ox/cont/shift [RESP] Routine
Quantity: 1
Special Instructions: Daily pulse oximetry at rest. If greater than 92% at rest also obtain pulse oximetry
while ambulating as tolerated.
Smoking Cessation Counseling [RESP] Routine
06/09/24 22:00
CefTRIAXone [Rocephin] 1,000 mg IV Q24H
06/10/24 00:00
Dexamethasone Sod Phosphate [Decadron] 4 mg IV Q8H
06/10/24 02:05
Troponin I Q6H
Comment: at admission & every 6 hours x 2 (3 total), ECG to be done with each level
06/10/24 06:00
Echo 2D MMode Color/Doppler IN AM
Reason for Study: Afib, CHF, elevated troponin
NPO
Allow oral meds: Yes
Allow clear liquids: No
Basic Metabolic Panel IN AM
Glycohemoglobin (HgbA1c) IN AM
Magnesium IN AM
TSH Reflex To Free T4 IN AM
06/10/24 07:30
Insulin Aspart Corrective Low [Novolog Flexpen-Low Resistance] See Protocol SC AC
06/10/24 08:00
Aspirin Chewable [Low Strength Aspirin] 81 mg PO DAILY
Furosemide [Lasix] 80 mg IV BID AT 0800,1600
06/10/24 08:05
Troponin I Q6H
Comment: at admission & every 6 hours x 2 (3 total), ECG to be done with each level
06/11/24 06:00
Basic Metabolic Panel IN AM
Complete Blood Count/No Diff Q2D
Comment: Notify if platelet count is <130,000 or decreases by 50% from baseline
06/12/24 06:00
Basic Metabolic Panel IN AM
06/13/24 06:00
Complete Blood Count/No Diff Q2D
Comment: Notify MD if platelet count is <130,000 or decreases by 50% from baseline
06/15/24 06:00
Complete Blood Count/No Diff Q2D
Comment: Notify MD if platelet count is <130,000 or decreases by 50% from baseline
06/17/24 06:00
Complete Blood Count/No Diff Q2D
Comment: Notify MD if platelet count is <130,000 or decreases by 50% from baseline
06/19/24 06:00
Complete Blood Count/No Diff Q2D
Comment: Notify MD if platelet count is <130,000 or decreases by 50% from baseline
06/21/24 06:00
Complete Blood Count/No Diff Q2D
Comment: Notify MD if platelet count is <130,000 or decreases by 50% from baseline
06/23/24 06:00
Complete Blood Count/No Diff Q2D
Comment: Notify MD if platelet count is <130,000 or decreases by 50% from baseline
06/25/24 06:00
Complete Blood Count/No Diff Q2D
Comment: Notify MD if platelet count is <130,000 or decreases by 50% from baseline
Abnormal Lab Results
06/09/24
14:28
MCV 99.6 H fL
(80.0-94.0)
MCH 31.8 H pg
(27.0-31.0)
MCHC 32.0 L g/dL
(33.0-37.0)
MPV 11.2 H fL
(7.4-10.4)
Abs Immat Gran (auto) 0.1 H 10^3/uL
(0-0.05)
Absolute Monos (auto) 0.9 H 10^3/uL
(0.1-0.6)
Lymphocytes % 18.8 L %
(20.5-51.1)
Carbon Dioxide 34 H mmol/L
(22-30)
BUN 27 H mg/dl
(9-20)
Glucose 163 H mg/dl
(70-99)
Troponin I 0.357 H* ng/ml
06/09/24 14:28
12/19/24 14:28
Vital Signs
Initial and Last Documented VS:
Initial Vital Signs
Temp Pulse Resp BP Pulse Ox
36.5 C 134 18 128/94 94
06/09/24 14:13 06/09/24 14:13 06/09/24 14:13 06/09/24 14:13 06/09/24 14:13
Last Documented Vital Signs
Temp Pulse Resp BP Pulse Ox
36.5 C 82 20 123/87 93
06/09/24 20:11 06/09/24 19:50 06/09/24 20:11 06/09/24 19:50 06/09/24 20:11
<Damien Schwab DO - Last Filed: 06/09/24 22:02>
*Critical Care Note
Total Time (30-74mins, 75-104mins- exclusive of procedures): Not Applicable
ED Attending Note
<Nanci Salas PA-C - Last Filed: 06/09/24 14:16>
-
Portions of this chart may have been created with voice recognition software.� Occasional wrong word or��sound alike� substitutions may have occurred due to the inherent limitations of voice recognition software.
Discharge Plan
Departure
Patient Disposition: Admit
Date of Disposition: 06/09/24
Time of Disposition: 15:55
Presentation/result/management discussed w/ accepting MD/DO: Hospitalist
Discharge Problem:
Hypoxia
Interventions
Interventions:
*Risk Screen - Suicide Last Done: 06/09/24 15:51
*General Assessment Last Done: 06/09/24 15:51
*Neglect/Abuse Screening Last Done: 06/09/24 15:51
ED- Fall Risk Assessment Last Done: 06/09/24 15:53
*ED COVID-19 Vaccine History Last Done: 06/09/24 15:51
*Nursing Disposition Last Done: 06/09/24 20:14
ED- Cardiac Assessment Last Done: 06/09/24 15:53
Discharge Date and Time
Discharge Date/Time: 06/09/24 20:14
[2024-06-09 14:38] LABS: % Basophils 0.6 % (0-2); % Eosinophils 1.7 % (0-6); % Immature Granulocytes 0.5 % (0-0.5); % Lymphocytes 18.8 % (20.5-51.1); % Monocytes 9.3 % (1.7-9.3); % Neutrophils 69.1 % (42.2-75.2); Absolute Basophils 0.1 10^3/uL (0-0.2); Absolute Eosinophils 0.2 10^3/uL (0-0.7); Absolute Immature Granulocytes 0.1 10^3/uL (0-0.05); Absolute Lymphocytes 1.8 10^3/uL (1.2-3.4); Absolute Monocytes 0.9 10^3/uL (0.1-0.6); Absolute Neutrophils 6.4 10^3/uL (1.4-6.5); Hematocrit 49.1 % (39.0-52.0); Hemoglobin 15.7 g/dL (13.0-18.0); Mean Corpuscular Hgb 31.8 pg (27.0-31.0); Mean Corpuscular Volume 99.6 fL (80.0-94.0); Mean Platelet Volume 11.2 fL (7.4-10.4); Nucleated Red Blood Cells % 0 % (-); Platelet Count 187 10^3/uL (130-400); Red Blood Cell Count 4.93 10^6/uL (4.70-6.10); Red Cell Dist. Width 13.8 % (11.5-14.5); White Blood Cell Count 9.3 10^3/uL (4.8-10.8)
[2024-06-09 14:51] LABS: ALT (SGPT) 23 U/L (0-50); AST (SGOT) 30 U/L (17-59); Albumin 3.9 g/dl (3.5-5.0); Alkaline Phosphatase 79 U/L (38-126); Blood Urea Nitrogen 27 mg/dl (9-20); Calcium 8.6 mg/dl (8.4-10.2); Carbon Dioxide 34 mmol/L (22-30); Chloride 99 mmol/L (98-107); Glucose 163 mg/dl (70-99); Potassium 4.6 mmol/L (3.5-5.1); Sodium 139 mmol/L (135-145); Total Bilirubin 0.6 mg/dl (0.2-1.3); Total Protein 6.6 g/dl (6.3-8.2); eGFR > 60.00
[2024-06-09 15:04] LABS: NT-proBNP 4240 pg/ml; Troponin I 0.357 ng/ml
[2024-06-09] MEDS: SOLU-MEDROL PF 125 MG IV (16:02)
[2024-06-09] MEDS: LASIX 40 MG IV (16:05)
[2024-06-09] MEDS: CARDIZEM 10 MG IV (16:08)
[2024-06-09] MEDS: DUONEB 3 ML INH (16:10)
[2024-06-09] MEDS: CARDIZEM 125 IV (16:10)
--- NOTE | 2024-06-09 16:10 | CON.CAR ---
Addendum entered and electronically signed by Chris Cintron MD 06/09/24 17:03:
Patient seen and examined
Agree with PA-C note and assessment
Agree with PA-C plan
He has recently run out of medications and has been noncompliant with medical instruction. Some of this barrier appears to be financial. He has ongoing tobacco use. I have not personally met him although he has been seen in our office in
as well as recently approximately 3 months ago and was due to see me for consultation regarding his atrial arrhythmias this past week and was a no-show for the appointment. He presents to the ER with approximately 2 weeks of increased dyspnea on
exertion, lower extremity edema and dietary noncompliance. His weight is approximately up 15 pounds. His echocardiogram from January demonstrates normal function although interestingly his ejection fraction is noted to be 20% on his nuclear stress
test from January which showed a fixed inferior and fixed apical defect. His troponin is 0.35 on presentation without chest pain and is noted to have rapid atrial fibrillation in the 110 to 120 bpm range with nonspecific inferolateral ST-T changes.
He examines to moderate congestive heart failure and is receiving nebulizer and IV Lasix concurrently in the emergency room. He has 2+ edema at his mid calf with rales and all of his studies have been personally reviewed. He does have prior
typical atrial flutter from 1 ECG in 2014 and the remainder over the last 3 months being atrial fibrillation.
Examination:
JVP 8
Rales to mid lung
Cor irregular irregular 1 out of 6 systolic ejection murmur at the axilla and a summation gallop
Abdomen is obese and soft and nontender
2+ edema to mid calf
Nonfocal neurologically
Alert and x 3
Impression:
Presented with SOB
Acute on chronic HFpEF
Elevated troponin
Paroxysmal atrial flutter/fibrillation w/ RVR
Emphysema/COPD w/ acute exacerbation
Ongoing tobacco abuse
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
Noncompliance
Echo 11/14/2014: EF 50 to 55% with no regional wall motion abnormalities. Diastolic dysfunction, mildly dilated left atrium, PAP 33 to 38 mmHg
Echo 02/09/2024: Technically difficult study. EF 55%, dilated RV, PA pressure 20-25
Echo 06/10/2024: Study pending
Lexiscan sestamibi stress test 02/15/2024: Fixed inferior and apical defect consistent with soft tissue attenuation�intermediate risk stress test
Plan:
-Presented with SOB and weight gain. Admitted with acute HF exacerbation. Noncompliant w/ follow up and had stopped all of OP medications about 1 month ago.
-Will diurese with IV lasix 80mg BID. Creat 0.8. Weight up 14 lbs compared to prior discharge weight. Weight 219 lbs 06/09.
-Follow daily weights, I&Os.
-In rapid afib on ECG and review of telemetry.
-Continue cardizem gtt for rate control, currently running @ 5. Will restart Toprol 25mg BID.
-Start IV Heparin for anticoagulation. Previously on Eliquis 5mg BID, however has not taken for weeks. Regarding his arrhythmias this is somewhat dependent on his diagnostic testing although we had a long discussion regarding options for his
persistent atrial fibrillation and one-time atrial flutter which is either typical or atypical. I think would be most reasonable to consider PVI plus minus atrial flutter ablation as an outpatient with at least 4 weeks of compliance with novel oral
anticoagulant and preablation ZANA given his recent noncompliance. Obviously if he demonstrates noncompliance we would not offer him this procedure as he would require 3 months of uninterrupted oral coagulation post procedure. Of course this is
also somewhat dependent on whether he has coronary artery disease which is amenable either interventionally or surgically. Certainly if he has advanced coronary artery disease and will require coronary bypass grafting would perform concomitant
surgical maze and SANDRITA clip. For catheter ablation I described a 1 in a thousand risk of ND stroke and a 2% risk of vascular or cardiac injury. I performed a full informed consent discussion as a has been relatively noncompliant with visits
to the office and wanted to cover this information while he was in the emergency room.
-Elevated troponin noted at 0.357. Trend to peak. Give aspirin 324mg now, restart aspirin 81mg daily. Will not give dual antiplatelet as I suspect multivessel coronary artery disease given his prior fixed inferior and apical defects and new low
ejection fraction on his January stress test to 20%. I discussed left and right heart catheterization with patient who was amenable and had preliminary discussion with Dr. West with timing pending his diuresis either tomorrow or perhaps after some
IV diuresis over the weekend and subsequent cath on Thursday. We will reassess in AM.
-Nuclear stress test with fixed defect in 01/2024, however EF 20% on that study.
-Echo 01/2024 with EF 55-60% and trace MR. Repeat echo in AM.
-Keep NPO after midnight with plan for R&LHC in AM if able to lie flat.
-Continue management of COPD per primary service.
Original Note:
Consultation
Consultation Request
Date/Time Consultation Requested: 06/09/2024
Date/Time Consultation Performed: 06/09/2024
Requesting Provider: Dr. Schwab
Performing Provider: Ashley Marrero PA-C for Dr. Cintron
Reason for Consultation: Afib w/ RVR, CHF
Medical History
-
History of Present Illness:
HPI: Romero is a 64 year old male with PMH of chronic HFpEF, paroxysmal atrial fibrillation, COPD, tobacco abuse, and R peroneal vein thrombus. Presented to [facility] for evaluation of chest pain and SOB. Patient ran out of his medications and could not
afford to refill a few months ago. He then started feeling more SOB and chest pain and came to ER for evaluation. In ER, found to be in rapid afib and acute heart failure. Given IV steroids and IV lasix in ER and admitted for further workup and
management. Hypoxic in ER and receiving duoneb at time of evaluation. He was admitted in 01/2024 with similar symptoms and when seen in follow up in cardiology office as OP, was complaint with medications and was arranged for follow up to have
cardioversion and EP evaluation to discuss ablation. He did not contact the office with worsening symptoms and states he 'doesn't really go to to doctors'. Weight in ER up 14 lbs compared to prior discharge weight.
PMH:
Chronic HFpEF
Paroxysmal atrial flutter/fibrillation
Emphysema/COPD
Ongoing tobacco abuse
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
Past Medical History
Past Medical History: Other (See HPI)
Past Surgical History: Tonsilectomy
Social History
Tobacco: Smoker (Stopped on admission)
Alcohol: None
Drug: None
Personal:
Living: With Family
Employment: Not Employed
Family History
Family History: Other (Mother alive had stroke in her 70s, father had ND in his 30s and pacemaker)
Allergies / Home Medications
Allergy/AdvReac Type Severity Reaction Status Date / Time
iodine Allergy Unknown Verified 06/09/24 15:48
�Medication �Instructions �Recorded �Confirmed �Type
blood sugar diagnostic (ReliOn #50 ea 02/17/24 Rx
Prime Test Strips)
blood-glucose meter (ReliOn #1 ea 02/17/24 Rx
All-In-One Meter kit)
lancets 23 gauge (ReliaMed Lancet) #200 ea 02/17/24 Rx
glipizide 5 mg tablet 5 mg PO BID@0800,1700 #60 tabs 02/18/24 Rx
metformin 500 mg tablet 500 mg PO BID@0800,1700 #60 tabs 02/18/24 Rx
apixaban 5 mg tablet (Eliquis) 5 mg PO BID 30 days #60 tabs 02/19/24 Rx
aspirin 81 mg chewable tablet 81 mg PO DAILY 30 days #30 tabs 02/19/24 Rx
atorvastatin 20 mg tablet 20 mg PO QPM 30 days #30 tabs 02/19/24 Rx
budesonide-formoterol HFA 160 2 puff inhalation R BID 30 days 02/19/24 Rx
mcg-4.5 mcg/actuation aerosol #10.2 grams
inhaler (Symbicort)
diltiazem HCl 240 mg 240 mg PO BID 30 days #60 caps 02/19/24 Rx
capsule,extended release 24 hr
furosemide 40 mg tablet 40 mg PO BID AT 0800,1600 30 days 02/19/24 Rx
#60 tabs
levalbuterol tartrate 45 2 puff inhalation R Q4HPRN PRN 02/19/24 Rx
mcg/actuation aerosol inhaler SOB,WHEEZE,COUGH 30 days #15 grams
(Xopenex HFA)
metoprolol succinate 25 mg 25 mg PO BID 30 days #60 tabs 02/19/24 Rx
tablet,extended release 24 hr
prednisone 10 mg tablet See Rx Instructions .Route 02/19/24 Rx
.COMPLEX #30 tabs
quetiapine 25 mg tablet 50 mg (2 x 25 mg) PO HS 30 days 02/19/24 Rx
#60 tabs
tiotropium bromide 2.5 2 puff inhalation R DAILY 30 days 02/19/24 Rx
mcg/actuation mist for inhalation #4 grams
(Spiriva Respimat)
Review of Systems
-
History Source: Patient
All other systems: Negative unless noted
Physical Exam
Vital Signs
Temp Pulse Resp BP Pulse Ox
97.7 F 131 20 114/88 94
06/09/24 14:13 06/09/24 15:53 06/09/24 15:53 06/09/24 15:55 06/09/24 14:13
Lab Results
06/09/24 14:28
06/09/24 14:28
Troponin I 0.357 ng/ml H* 06/09/24 14:28
Ftt-J-Jkfruneqauh Pept 4240 pg/ml 06/09/24 14:28
Physical Exam
General: Well Developed and Well Nourished
HEENT: Normocephalic, Anicteric and Moist Mucous Membranes
Respiratory: Crackles
Cardiac: S1/S2 and Irregular Rhythm
Musculoskeletal: No Clubbing and Edema
Skin: Warm and Dry
Neuro: AO x 3 and Nonfocal/Grossly Intact
Psych: Calm
Impression / Plan
-
PCP:
Contract Loader: Dr. Cintron
Impression:
Presented with SOB
Acute on chronic HFpEF
Elevated troponin
Paroxysmal atrial flutter/fibrillation w/ RVR
Emphysema/COPD w/ acute exacerbation
Ongoing tobacco abuse
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
Noncompliance
Echo 11/14/2014: EF 50 to 55% with no regional wall motion abnormalities. Diastolic dysfunction, mildly dilated left atrium, PAP 33 to 38 mmHg
Echo 02/09/2024: Technically difficult study. EF 55%, dilated RV, PA pressure 20-25
Echo 06/10/2024: Study pending
Lexiscan sestamibi stress test 02/15/2024: Fixed inferior and apical defect consistent with soft tissue attenuation�intermediate risk stress test
Plan:
-Presented with SOB and weight gain. Admitted with acute HF exacerbation. Noncompliant w/ follow up and had stopped all of OP medications about 1 month ago.
-Will diurese with IV lasix 80mg BID. Creat 0.8. Weight up 14 lbs compared to prior discharge weight. Weight 219 lbs 06/09.
-Follow daily weights, I&Os.
-In rapid afib on ECG and review of telemetry.
-Continue cardizem gtt for rate control, currently running @ 5. Will restart Toprol 25mg BID.
-Start IV Heparin for anticoagulation. Previously on Eliquis 5mg BID, however has not taken for weeks.
-Elevated troponin noted at 0.357. Trend to peak. Give aspirin 324mg now, restart aspirin 81mg daily.
-Nuclear stress test with fixed defect in 01/2024, however EF 20% on that study.
-Echo 01/2024 with EF 55-60% and trace MR. Repeat echo in AM.
-Keep NPO after midnight with plan for R&LHC in AM if able to lie flat.
-Continue management of COPD per primary service.
HPI: Romero is a 64 year old male with PMH of chronic HFpEF, paroxysmal atrial fibrillation, COPD, tobacco abuse, and R peroneal vein thrombus. Presented to [facility] for evaluation of chest pain and SOB. Patient ran out of his medications and could not
afford to refill a few months ago. He then started feeling more SOB and chest pain and came to ER for evaluation. In ER, found to be in rapid afib and acute heart failure. Given IV steroids and IV lasix in ER and admitted for further workup and
management. Hypoxic in ER and receiving duoneb at time of evaluation. He was admitted in 01/2024 with similar symptoms and when seen in follow up in cardiology office as OP, was complaint with medications and was arranged for follow up to have
cardioversion and EP evaluation to discuss ablation. He did not contact the office with worsening symptoms and states he 'doesn't really go to to doctors'. Weight in ER up 14 lbs compared to prior discharge weight.
Data Reviewed
-
EKG: Tracing Personally Visualized and interpreted
Labs: Labs Reviewed by me
Old Records: Reviewed
--- NOTE | 2024-06-09 16:25 | HPS.HSE ---
Family Physician
-
Family Physician:
Chief Complaint
-
Chest pain
History of Present Illness
64-year-old male presented to the hospital with chest pain. He ran out of his medicines as he could not afford them for up month or so. He has not been taking Eliquis Cardizem Lasix and some of his other medicines. He has had increasing lower
extremity edema and shortness of breath
Medical History
Past Medical History
Past Medical History: Reports Other
Additional Past Medical History:
HFpEF, paroxysmal atrial fibrillation/flutter, emphysema, hyperlipidemia, diabetes
Past Surgical History: Reports Other
Additional Past Surgical History:
Cyst removed from back, tonsillectomy
Social History
Tobacco: Smoker
Alcohol: None (Stopped drinking years ago)
Drug: None
Family History
Family History: Diabetes
Allergies / Home Medications
Allergies reflects when Allergies were last updated in [facility].
Home Medications with original date entered in [facility]
Allergy/Medication List:
Allergies
Allergy/AdvReac Type Severity Reaction Status Date / Time
iodine Allergy Unknown Verified 06/09/24 15:48
Home Medications
blood sugar diagnostic (ReliOn Prime Test Strips) #50 ea 02/17/24
blood-glucose meter (ReliOn All-In-One Meter kit) #1 ea 02/17/24
lancets 23 gauge (ReliaMed Lancet) #200 ea 02/17/24
glipizide 5 mg tablet 5 mg PO BID@0800,1700 #60 tabs 02/18/24
metformin 500 mg tablet 500 mg PO BID@0800,1700 #60 tabs 02/18/24
apixaban 5 mg tablet (Eliquis) 5 mg PO BID 30 days #60 tabs 02/19/24
aspirin 81 mg chewable tablet 81 mg PO DAILY 30 days #30 tabs 02/19/24
atorvastatin 20 mg tablet 20 mg PO QPM 30 days #30 tabs 02/19/24
budesonide-formoterol HFA 160 mcg-4.5 mcg/actuation aerosol inhaler (Symbicort) 2 puff inhalation R BID 30 days #10.2 grams 02/19/24
furosemide 40 mg tablet 40 mg PO BID AT 0800,1600 30 days #60 tabs 02/19/24
levalbuterol tartrate 45 mcg/actuation aerosol inhaler (Xopenex HFA) 2 puff inhalation R Q4HPRN PRN SOB,WHEEZE,COUGH 30 days #15 grams 02/19/24
metoprolol succinate 25 mg tablet,extended release 24 hr 25 mg PO BID 30 days #60 tabs 02/19/24
tiotropium bromide 2.5 mcg/actuation mist for inhalation (Spiriva Respimat) 2 puff inhalation R DAILY 30 days #4 grams 02/19/24
diltiazem HCl 240 mg capsule,extended release 24 hr (Cartia XT) 240 mg PO DAILY 06/09/24
Patient not taking any medicines for the past 2 months this for the prescribed medicines last admission.
Review of Systems
-
A 12 point ROS was completed and negative except as noted: Yes
Respiratory: Reports Cough and Trouble Breathing
Cardiac: Denies Chest Pain
Physical Exam
Vital Signs
Vital Signs
Temp Pulse Resp BP Pulse Ox
97.7 F 115 15 128/102 94
06/09/24 14:13 06/09/24 16:15 06/09/24 16:15 06/09/24 16:15 06/09/24 14:13
Physical Exam
General: Conversant and Respiratory Distress
Respiratory: Wheezes, Rales and Rhonchi
Cardiac: S1/S2 and Irregular Rhythm
GI: Soft, Non Tender and Distended
Musculoskeletal: Edema, Left Lower Extremity and Edema, Right Lower Extremity
Skin: Warm
Neuro: Awake, No Motor Deficits and Nonfocal/grossly intact
Laboratory Results
-
06/09/24 14:28
06/09/24 14:28
Laboratory Results
Total Bilirubin 0.6 mg/dl (0.2-1.3) 06/09/24 14:28
AST 30 U/L (17-59) 06/09/24 14:28
ALT 23 U/L (0-50) 06/09/24 14:28
Alkaline Phosphatase 79 U/L (38-126) 06/09/24 14:28
Troponin I 0.357 ng/ml H* 06/09/24 14:28
Data Reviewed
-
Medical Tests (Nuc Med, Echo, EKG etc): Image Personally Visualized and interpreted (EKG atrial fibrillation with RVR nonspecific ST-T changes in the anteroinferior leads)
Impression/Plan
-
IMPRESSION/PLAN:
# Acute hypoxic respiratory insufficiency
Secondary to acute on chronic HFpEF and also COPD exacerbation
Patient also likely has a URI
Chest x-ray pending to see if there is a pneumonia
Oxygen supplementation wean as tolerated
# Acute on chronic HFpEF
Echo 02/09/2024-normal LV size and function. EF 55 to 60%. Enlarged RV. Dilated RA. Trace MR. Trace TR. Pulmonary artery pressure 20 to 25 mmHg.
Monitor on telemetry
IV Lasix
Intake output charting and daily weights
Rate control as this could be driving fluid retention
Cardiology evaluation
Repeat echo
Follow troponin
Aspirin, statin, beta-tushar
# Elevated troponin
Type II non-STEMI versus nonischemic myocardial injury secondary to tachycardia and CHF
Trend check echo
Stress test February 15, 2024-negative for ischemia. Fixed inferior and apical defect suggestive of soft tissue attenuation. Intermediate risk stress test
Heparin drip
# Atrial fibrillation with RVR
Continue Cardizem drip
Heparin drip started by cardiology. Will continue
# COPD exacerbation
IV steroids nebulizer treatments, mucolytics
continue Spiriva frequent and nebulizer treatments as needed Xopenex
will also add antibiotics
# Diabetes
Was on metformin, glipizide as outpatient- noncompliant.
Update hemoglobin A1c
He states that his numbers have not been elevated
Continue both with sliding scale coverage and Accu-Cheks
Watch blood sugars while on steroids
# Hyperlipidemia-continue statin
# Hypertension-continue beta-blockers. Also calcium channel tushar now
# Obesity per BMI
# Active smoking-cessation counseling
# DVT prophylaxis-Heparin
# Full code
D/W Pharmacy at bed side
time spent over 75 min
[2024-06-09 17:15] LABS: APTT 31.4 Sec (23.4-35.0)
[2024-06-09] MEDS: HEPARIN 25000 UNITS/250 ML IV (17:45)
[2024-06-09 20:23] LABS: Troponin I 0.264 ng/ml
[2024-06-09 20:45] LABS: Glucose - Point of Care 206 mg/dl (70-99)
[2024-06-09] MEDS: TOPROL XL 25 MG PO (20:46)
[2024-06-09] MEDS: VIBRAMYCIN 100 MG PO (20:46)
[2024-06-09] MEDS: GLUCOPHAGE 500 MG PO (20:46)
[2024-06-09] MEDS: GLUCOTROL 5 MG PO (20:47)
[2024-06-09] MEDS: XOPENEX 1.25 MG INHALANT SOLUTION INH (21:13)
[2024-06-09] MEDS: SYMBICORT 160/4.5 MCG INHALER 2 PUFF INH (21:13)
[2024-06-09] MEDS: ATROVENT NEBULES 0.5 MG INH (21:13)
[2024-06-09] MEDS: ROCEPHIN 1000 MG IV (22:07)
[2024-06-09] MEDS: STERILE WATER FOR INJECTION 10 ML IV (22:07)
[2024-06-09] MEDS: DECADRON 4 MG IV (23:42)
[2024-06-10] VITALS (14 sets, daily range): BP systolic 91–135; BP diastolic 54–108; BMI 28.4
[2024-06-10 00:23] LABS: Troponin I 0.193 ng/ml
[2024-06-10 00:24] LABS: APTT 47.5 Sec (23.4-35.0)
--- NOTE | 2024-06-10 00:38 | PTCARENOTE ---
Pt remains in afib with ht rate dropping occ to 60 then back up to 80. Cardizem gtt decreased to 10 mg/hr.
--- NOTE | 2024-06-10 01:50 | PTCARENOTE ---
At 0051 pt had 9 beat run of VT, sleeping at the time easily arousable without complaint.
[2024-06-10 06:52] LABS: Glucose - Point of Care 170 mg/dl (70-99)
[2024-06-10 07:14] LABS: Blood Urea Nitrogen 32 mg/dl (9-20); Calcium 9.2 mg/dl (8.4-10.2); Carbon Dioxide 29 mmol/L (22-30); Chloride 97 mmol/L (98-107); Estimated Creatinine Clearance 104 ml/min; Glucose 195 mg/dl (70-99); Potassium 5.3 mmol/L (3.5-5.1); Sodium 139 mmol/L (135-145); eGFR > 60.00
[2024-06-10 07:19] LABS: TSH Reflex To Free T4 0.83 uIU/ml (0.47-4.68)
[2024-06-10 07:33] LABS: Hepatitis C Antibody Negative (Negative)
[2024-06-10] MEDS: SYMBICORT 160/4.5 MCG INHALER 2 PUFF INH ×2 (08:09→19:41)
[2024-06-10] MEDS: XOPENEX 1.25 MG INHALANT SOLUTION INH ×3 (08:09→19:41)
[2024-06-10] MEDS: ATROVENT NEBULES 0.5 MG INH ×2 (08:09→19:41)
[2024-06-10] MEDS: LASIX 80 MG IV ×2 (08:50→15:57)
[2024-06-10] MEDS: VIBRAMYCIN 100 MG PO (08:50)
[2024-06-10] MEDS: TOPROL XL 25 MG PO ×2 (08:50→19:39)
[2024-06-10] MEDS: LOW STRENGTH ASPIRIN 81 MG PO (08:50)
[2024-06-10] MEDS: DECADRON 4 MG IV ×2 (08:51→19:38)
[2024-06-10] MEDS: NOVOLOG FLEXPEN-LOW RESISTANCE 1 UNITS SC (08:52)
[2024-06-10 10:02] LABS: Glycohemoglobin (HgbA1c) 6.6 % (4.0-5.6)
--- NOTE | 2024-06-10 11:13 | W.PN.CARDCBS ---
Addendum entered and electronically signed by Con West MD 06/10/24 15:18:
Attending addendum: Patient seen and examined. PA note reviewed and findings confirmed. I met with the patient and spoke re: right and left heart catheterization. He is feeling better with diuresis. Planned catheterization today
Original Note:
Today's Communication / Plan
-
NPO for L/RHC today
continue diuresis
continue IV cardizem, po toprol. wean off IV cardizem post cath
IV heparin. transition to eliquis post cath
Impression / Plan
-
PCP:
Claims Assistant: Dr. Cintron
Impression:
Presented with SOB
Acute on chronic HFrEF
Elevated troponin
Paroxysmal atrial flutter/fibrillation w/ RVR
Emphysema/COPD w/ acute exacerbation
Ongoing tobacco abuse
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
Noncompliance
Echo 11/14/2014: EF 50 to 55% with no regional wall motion abnormalities. Diastolic dysfunction, mildly dilated left atrium, PAP 33 to 38 mmHg
Echo 02/09/2024: Technically difficult study. EF 55%, dilated RV, PA pressure 20-25
Echo 06/10/2024: Prelim with EF 25 to 30%.
Lexiscan sestamibi stress test 02/15/2024: Fixed inferior and apical defect consistent with soft tissue attenuation�intermediate risk stress test
Plan:
-He reports feeling better today, however remains with some wheezing and lower extremity edema
-Trop peaked at 0.357.
-Continue aspirin, statin
-Nuclear stress test with fixed defect in 01/2024, however EF 20% on that study.
-He was able to lie pretty flat for echo, off oxygen. Prelim with EF 25 to 30%, previously EF was preserved
-N.p.o. for R/L cath today.
-He had stopped all of his outpatient meds about a month ago. Stressed need for compliance with medications and discussed risks to patient if noncompliant. He expressed understanding and states will be compliant to the best of his ability
-Continue diuresis with IV Lasix 80 mg twice daily. Creatinine stable. Weight down 10 pounds overnight if accurate
-Remains in rate controlled atrial fibrillation on IV Cardizem and p.o. Toprol. wean off IV cardizem post cath
-Continue IV heparin. Eventual transition to Eliquis. Will discuss with office possible patient assistance as he reports medicine is expensive for him.
-eventual GDMT of CM as able. unlikely able to afford entresto or SGLT2 inhibitor.
-Continue management of COPD per primary service. encouraged tobacco cessation
-d/w nursing
HPI: Romero is a 64 year old male with PMH of chronic HFpEF, paroxysmal atrial fibrillation, COPD, tobacco abuse, and R peroneal vein thrombus. Presented to [facility] for evaluation of chest pain and SOB. Patient ran out of his medications and could not
afford to refill a few months ago. He then started feeling more SOB and chest pain and came to ER for evaluation. In ER, found to be in rapid afib and acute heart failure. Given IV steroids and IV lasix in ER and admitted for further workup and
management. Hypoxic in ER and receiving duoneb at time of evaluation. He was admitted in 01/2024 with similar symptoms and when seen in follow up in cardiology office as OP, was complaint with medications and was arranged for follow up to have
cardioversion and EP evaluation to discuss ablation. He did not contact the office with worsening symptoms and states he 'doesn't really go to to doctors'. Weight in ER up 14 lbs compared to prior discharge weight.
Progress Note - Claims Assistant
Subjective
Date of Service: June 10, 2024
reports remains with some wheezing, LE edema. no CP.
Objective
Labs:
06/09/24 14:28
06/10/24 06:06
Labs
Hgb 15.7 g/dL (13.0-18.0) 06/09/24 14:28
Hct 49.1 % (39.0-52.0) 06/09/24 14:28
Plt Count 187 10^3/uL (130-400) 06/09/24 14:28
APTT 42.0 Sec (23.4-35.0) H 06/10/24 06:06
Sodium 139 mmol/L (135-145) 06/10/24 06:06
Potassium 5.3 mmol/L (3.5-5.1) H 06/10/24 06:06
BUN 32 mg/dl (9-20) H 06/10/24 06:06
Creatinine 0.8 mg/dL (0.7-1.3) 06/10/24 06:06
Glucose 195 mg/dl (70-99) H 06/10/24 06:06
Troponins
06/09/24 06/09/24 06/09/24
14:28 19:53 23:52
Troponin I 0.357 H* 0.264 H* D 0.193 H* D
06/10/24 06/10/24
02:05 08:05
Troponin I Cancelled Cancelled
Vital Signs and I&O:
Vital Signs
Temp Pulse Resp BP Pulse Ox
98.8 F 89 18 121/80 91
06/10/24 06:45 06/10/24 09:30 06/10/24 08:17 06/10/24 08:50 06/10/24 08:17
Vital Signs
Temp Pulse Resp BP Pulse Ox
98.8 F 89 18 121/80 91
06/10/24 06:45 06/10/24 09:30 06/10/24 08:17 06/10/24 08:50 06/10/24 08:17
Intake & Output
06/08/24 06/09/24 06/10/24 06/11/24
07:59 07:59 07:59 07:59
Intake Total 227 / 227
Output Total 1400 / 1400
Balance -1173 / -1173
Physical Exam
Physical Exam
GEN: No distress, awake, alert, oriented x3
HEENT: supple, anicteric, mmm, eomi
LUNGS: Scattered wheezes B/L
CV: Irreg, S1/S2, no murmur
ABD: soft, BS+, NT/ND
EXT: No cyanosis, clubbing. 2+ edema of B/L LE
NEURO: Gross non-focal
SKIN: Warm, pink, dry. No rash
--- NOTE | 2024-06-10 11:34 | PTCARENOTE ---
Pt noted to have an 11 beat run of VT. Pt resting in bed at the time of the episode. Pt stated that he felt fluttering in his chest. Will monitor.
[2024-06-10 11:36] LABS: Procalcitonin < 0.05 ng/ml (0.0-0.25)
[2024-06-10] MEDS: NICODERM TRANSDERMAL 14 MG TRANSDERM (12:06)
[2024-06-10] MEDS: NOVOLOG FLEXPEN-LOW RESISTANCE 2 UNITS SC ×2 (12:47→17:03)
[2024-06-10 12:50] LABS: Glucose - Point of Care 211 mg/dl (70-99)
[2024-06-10] MEDS: ATROVENT NEBULES INH (13:47)
--- NOTE | 2024-06-10 14:27 | ITS.CL.CATH ---
[facility] - Catheterization
Cardiac Catheterization
Procedure Report:
RIGHT AND LEFT HEART STUDY
Date of Procedure: June 10, 2024
Referring: Dr. Chris Cintron
PROCEDURES:
1. Right heart catheterization
2. Left heart catheterization with coronary and single-plane left ventriculography
INDICATION: This is a 64-year-old gentleman who has a past medical history notable for significant tobacco abuse, COPD, and paroxysmal atrial fibrillation. He presented to [facility] with increased shortness of breath and was found to have
LV dysfunction and mildly elevated troponin. He is now referred for coronary angiography.
ACCESS: Right radial artery, 6 Hungarian sheath and right brachial vein, 6 Hungarian sheath
HEMODYNAMICS : mmHg
RA (m) : 25
RV (s/d,m) : 53/18, 28
PA (s/d, m) : 55/34, 42
PCWP (m) : 35
AO (s/d, m) : 119/78, 88
LV (s/d) : 108/23
LVEDP : 30
Estimated Britt Cardiac Output: 4.4 L / min and Cardiac Index: 2.0 L/ min / m-2
Systemic vascular resistance: 14.3 Wood units or 1145 [id number](-5)
Pulmonary vascular resistance: 1.6 Wood units or 127 [id number]-[id number](-5)
CORONARY FINDINGS :
Dominance: Right
LEFT MAIN: Normal
LEFT ANTERIOR DESCENDING: The LAD arises normally from the left main and runs in the anterior interventricular groove. The LAD supplies a large first diagonal branch. Only minor luminal irregularities are noted
CIRCUMFLEX: The circumflex is a large-caliber nondominant vessel that has only minor luminal irregularities and supplies a small first obtuse marginal branch and a medium caliber OM 2 and OM 3 which are widely patent
RIGHT CORONARY ARTERY: The right coronary artery is a large-caliber dominant vessel that is widely patent over its course
VENTRICULOGRAPHY: The left ventricle is severely dilated and globally hypokinetic with a visually estimated ejection fraction of 25-30%
RADIATION SUMMARY: Fluoro Time (min): 3.4, Dose (mGy): 528.4, DAP (Gy.cm2) : 36.5
CONCLUSIONS
1. Elevated right and left ventricular filling pressures
2. Normal coronary arteries
3. Severe left ventricular systolic dysfunction
RECOMMENDATIONS
1. Medical therapy for nonischemic dilated cardiomyopathy and atrial fibrillation of unclear duration
Copy to: Dr. Chris Cintron
[2024-06-10] MEDS: GLUCOPHAGE PO (14:56)
[2024-06-10] MEDS: GLUCOTROL 5 MG PO (14:56)
--- NOTE | 2024-06-10 14:59 | W.PN.HOSP.TC ---
Today's Communication/Plan
-
cont iv diuresis
transition back to noac as per cards
wean off cardizem ggt now that post cath; increase BB as needed for hr
Assessment / Plan
Assessment / Plan
Physical Exam
General: Conversant and Respiratory Distress
Respiratory: Scattered wheezes B/L
Cardiac: S1/S2 and Irregular Rhythm
GI: Soft, Non Tender and Distended
Musculoskeletal: Edema, Left Lower Extremity and Edema, Right Lower Extremity
Skin: Warm
Neuro: Awake, No Motor Deficits and Nonfocal/grossly intact
# Acute hypoxic respiratory insufficiency
Secondary to acute on chronic HFpEF and also COPD exacerbation
Patient also likely has a URI
wean o2 as tolerated; goal o2>90%
-Cont diuresis, steroids
# Acute on chronic HFpEF
Echo 02/09/2024-normal LV size and function. EF 55 to 60%. Enlarged RV. Dilated RA. Trace MR. Trace TR. Pulmonary artery pressure 20 to 25 mmHg.
Monitor on telemetry
IV Lasix
Intake output charting and daily weights
Rate control as this could be driving fluid retention
Cardiology evaluation
Repeat echo
Follow troponin
Aspirin, statin, beta-tushar
# Elevated troponin
Type II non-STEMI versus nonischemic myocardial injury secondary to tachycardia and CHF
ECHO F/u
[facility] 06/10: Medical therapy for nonischemic dilated cardiomyopathy and atrial fibrillation of unclear duration
Heparin drip - transition to doac as per cards
# Atrial fibrillation with RVR
Continue Cardizem drip
Heparin drip started by cardiology. Will continue - tranasition to doac as per cards
# COPD exacerbation
IV steroids nebulizer treatments, mucolytics
continue Spiriva frequent and nebulizer treatments as needed Xopenex
will also add antibiotics
# Diabetes
Was on metformin, glipizide as outpatient- noncompliant.
hemoglobin A1c 6.6
He states that his numbers have not been elevated
Continue both with sliding scale coverage and Accu-Cheks
Watch blood sugars while on steroids
# Hyperlipidemia-continue statin
# Hypertension-continue beta-blockers. Also calcium channel tushar now
# Obesity per BMI
# Active smoking-cessation counseling
# DVT prophylaxis-Heparin
# Full code
Total time spent on today's encounter was 51 minutes which included time spent in counseling the patient/family regarding diagnosis and treatment plan as listed above, goals of care, and symptom management. Case was discussed with nursing staff,
specialists, and care coordinators/case management. All labs and imaging personally reviewed by me. Remainder the time spent in detailed review of previous records, lab data, imaging, and other medical provider documentation.
Anticipated Discharge: 24 - 48 hours
Subjective/Interval History
-
Date of Service: June 10, 2024
feeling better
Objective Data
-
Labs:
Laboratory Results
06/10/24 06/10/24
06:06 13:00
APTT 42.0 H Pending
Sodium 139
Potassium 5.3 H
Chloride 97 L
Carbon Dioxide 29
BUN 32 H
Creatinine 0.8
Glucose 195 H
Calcium 9.2
Vital Signs:
Vital Signs
Temp Pulse Resp BP Pulse Ox
98.4 F 98 18 114/89 92
06/10/24 11:24 06/10/24 11:45 06/10/24 11:24 06/10/24 11:44 06/10/24 11:24
I&O
06/09/24 06/10/24 06/11/24
06:59 06:59 06:59
Intake Total 227 / 227
Output Total 1400 / 1400 1100 / 1100
Balance -1173 / -1173 -1100 / -1100
Review of Systems
-
History Source: Patient
All other systems: Not reviewed unless documented
Physical Exam
-
General: No Apparent Distress
HEENT: Normocephalic, Atraumatic and Moist Mucous Membranes
Respiratory: Wheezes
Cardiac: Regular Rhythm
GI: Soft, Nontender and Nondistended
Genito-urinary: No Costovertebral Tender
Musculoskeletal: No Clubbing, No Cyanosis, Edema, Right Lower Extrem and Edema, Left Lower Extrem
Neuro: Awake, Alert, Oriented and AO x 3
Data Reviewed
-
Diagnostic Radiology: Image personally visualized and interpreted and Report Reviewed by me
Ultrasound: Report Reviewed by me
Labs: Labs Reviewed by me
--- NOTE | 2024-06-10 15:34 | CM ---
Reviewed chart. Met with Mr. Noble to review discharge plans. He states prior to admission he resides with two roommates in a spilt level home with two steps to enter. He states he has six steps to get to the lower level where he stays. He does
have to go upstairs to shower. He states prior to admission he was independent with ambulation and adls. He states he does not have any DME in the home. He states his spouse and daughter reside a mile down the road. We reviewed that he has a
prescription plan with him insurance. Telephone call to [facility] benefit to check on co-pay for Eliquis. His co-pay would be zero. Updated Mr. Noble. Will need to see his current functional status to see if he walker have any skilled care
needs. Medical work-up in progress. The discharge plan is return home with his roommates when medically stable.
--- NOTE | 2024-06-10 16:39 | PTCARENOTE ---
Received pt from the bundle tier and labeler post right and left heart cath. VSS. Right radial site w/ R band inflated w/ 10 ml of air. Right brachial vein site w/ 4x4 and tegadern clean and intact. Pt denies chest or any discomfort. Cardizem drip remains at
5 mg/hr. Will monitor.
--- NOTE | 2024-06-10 16:44 | PTCARENOTE ---
Right antecubital INT discontinued in the center medical and lab director for brachial access site.
[2024-06-10] MEDS: GLUCOTROL PO (17:04)
[2024-06-10 17:09] LABS: Glucose - Point of Care 248 mg/dl (70-99)
[2024-06-10] MEDS: LIPITOR 20 MG PO (17:13)
[2024-06-10] MEDS: ELIQUIS 5 MG PO (21:14)
[2024-06-10] MEDS: CARDIZEM 125 IV (21:16)
[2024-06-10 22:35] LABS: Glucose - Point of Care 191 mg/dl (70-99)
--- NOTE | 2024-06-10 23:30 | PTCARENOTE ---
Pt continues with dyspnea with exertion. Pt states abd soft, less distended and feels much better than he did at home. lungs remain diminished with exp wheeze throughout. Afib on telemetry rate controlled at rest. With activity ht rate up to 120
with ambulation. Pt currently sitting in family lounge at end of [place] watching the snow come down.
[2024-06-11 03:56] VITALS: BP 118/86
[2024-06-11 04:10] VITALS: BMI 28.1
[2024-06-11 04:48] LABS: Hematocrit 47.9 % (39.0-52.0); Hemoglobin 15.4 g/dL (13.0-18.0); Mean Corp Hgb Conc. 32.2 g/dL (33.0-37.0); Mean Corpuscular Hgb 31.8 pg (27.0-31.0); Mean Corpuscular Volume 98.8 fL (80.0-94.0); Platelet Count 178 10^3/uL (130-400); Red Blood Cell Count 4.85 10^6/uL (4.70-6.10); White Blood Cell Count 13.4 10^3/uL (4.8-10.8)
[2024-06-11 05:13] LABS: Blood Urea Nitrogen 51 mg/dl (9-20); Calcium 9.4 mg/dl (8.4-10.2); Carbon Dioxide 34 mmol/L (22-30); Chloride 88 mmol/L (98-107); Estimated Creatinine Clearance 75 ml/min; Glucose 190 mg/dl (70-99); Potassium 4.7 mmol/L (3.5-5.1); Sodium 135 mmol/L (135-145); eGFR > 60.00
[2024-06-11 07:00] VITALS: BP 116/85
[2024-06-11 07:02] LABS: Glucose - Point of Care 181 mg/dl (70-99)
[2024-06-11] MEDS: LOW STRENGTH ASPIRIN 81 MG PO (08:06)
[2024-06-11] MEDS: ELIQUIS 5 MG PO ×2 (08:06→20:24)
[2024-06-11] MEDS: GLUCOTROL 5 MG PO ×2 (08:06→16:51)
[2024-06-11] MEDS: TOPROL XL 25 MG PO ×2 (08:07→20:23)
[2024-06-11] MEDS: NICODERM TRANSDERMAL 14 MG TRANSDERM (08:07)
[2024-06-11] MEDS: LASIX 80 MG IV ×2 (08:14→16:53)
[2024-06-11] MEDS: DECADRON 4 MG IV ×2 (08:14→20:24)
[2024-06-11] MEDS: NOVOLOG FLEXPEN-LOW RESISTANCE 1 UNITS SC (08:15)
[2024-06-11] MEDS: XOPENEX 1.25 MG INHALANT SOLUTION INH ×3 (08:26→20:22)
[2024-06-11] MEDS: ATROVENT NEBULES 0.5 MG INH ×3 (08:27→20:22)
[2024-06-11] MEDS: SYMBICORT 160/4.5 MCG INHALER 2 PUFF INH ×2 (08:27→20:22)
--- NOTE | 2024-06-11 08:36 | W.PN.CARDCBS ---
Addendum entered and electronically signed by Carlos Alvarez MD 06/11/24 10:14:
I saw and examined the patient.
The Stockholder's note was reviewed and I agree with the note.
Comment:
GEN: No distress, awake, Ox3
HEENT: supple, anicteric, mmm
LUNGS: CTA, no wheezes/rales
CV: irreg, S1/S2, 1/6 syst LSB, S3+
ABD: soft, BS+, NT/ND
EXT: No edema
NEURO: Gross non-focal
SKIN: No rash
PLan:
Cath results were reviewed. No significant coronary artery disease with elevated filling pressures and severe LV dysfunction.
Continue aggressive IV diuresis. Will start amiodarone 40 mg p.o. 3 times daily. Plan ZANA cardioversion 1223.
Wean Cardizem drip as tolerated. Hopefully start Entresto over next 24 hours. Will add Farxiga as well.
Creatinine currently normal.
Original Note:
Today's Communication / Plan
-
Start amiodarone 400 mg 3 times daily
Daily EKGs
Wean Cardizem as heart rate allows
Tentative ZANA cardioversion 06/13/2024
Continue Eliquis
Case management consulted for cost analysis of Entresto, SGLT2 inhibitors
Eventual addition of GDMT with ARB and/or Entresto
Impression / Plan
-
PCP:
Head Loft Worker: Dr. Cintron
Impression:
Presented 06/09/2024 with SOB
Acute on chronic HFrEF, proBNP 4240
Elevated troponin, peaked 0.357
Paroxysmal atrial flutter/fibrillation w/ RVR
Nonischemic cardiomyopathy, new diagnosis
Emphysema/COPD w/ acute exacerbation
Ongoing tobacco abuse
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
Noncompliance
Echo 11/14/2014: EF 50 to 55% with no regional wall motion abnormalities. Diastolic dysfunction, mildly dilated left atrium, PAP 33 to 38 mmHg
Echo 02/09/2024: Technically difficult study. EF 55%, dilated RV, PA pressure 20-25
Echo 06/10/2024: EF 25 to 30%. Moderate to severely reduced LV systolic function. Mild concentric LVH. Moderate biatrial dilation. Mild MR. Mild TR. RVSP 35 to 40 mmHg
Lexiscan sestamibi stress test 02/15/2024: Fixed inferior and apical defect consistent with soft tissue attenuation�intermediate risk stress test
Cardiac catheterization 06/10/2024: Normal coronary arteries. Elevated right and left ventricular filling pressors. HEMODYNAMICS : mmHg RA (m) : 25; RV (s/d,m) : 53/18, 28; PA (s/d, m) : 55/34, 42; PCWP (m) : 35
AO (s/d, m) : 119/78, 88; LV (s/d) : 108/23; LVEDP : 30; Estimated Britt Cardiac Output: 4.4 L / min and Cardiac Index: 2.0 L/ min / m-2; Systemic vascular resistance: 14.3 Wood units or 1145 [id number](-5); Pulmonary vascular resistance: 1.6 Wood
units or 127 [id number](-5)
Plan:
-Presented 06/09/2024 with shortness of breath and was found to have elevated troponin and proBNP.
-He had stopped all of his outpatient meds about a month ago. Stressed need for compliance with medications and discussed risks to patient if noncompliant. He expressed understanding and states will be compliant to the best of his ability
-Acute heart failure exacerbation with reduced ejection fraction, proBNP 4240 and new nonischemic cardiomyopathy
-He reports feeling better today, however remains with some wheezing and lower extremity edema
-Continue diuresis with IV Lasix 80 mg twice daily. Creatinine stable. Weight down 12 pounds overnight if accurate
-Monitor renal function and electrolytes, creatinine stable at 1.1
-GDMT: Continue Toprol, will add valsartan in hopes that patient will be able to afford Entresto. Ideally would also like to place patient on SGLT2 inhibitor. Case management has been consulted for cost analysis of Entresto and SGLT2 inhibitors.
-Abnormal troponin peaked at 0.357, found to have normal coronary arteries on cardiac catheterization. Troponin elevation secondary to nonischemic myocardial injury secondary to acute heart failure exacerbation
-Continue aspirin, statin
-Remains in atrial fibrillation on IV Cardizem and p.o. Toprol. Heart rates still not optimally controlled on telemetry. Brief run of NSVT also noted.
-Would start amiodarone load 400 mg TID, daily ECG to monitor QTc, wean diltiazem drip as heart rate allows
-Given acute heart failure exacerbation and newly reduced ejection fraction patient would likely benefit from ZANA/cardioversion. Tentatively scheduled for 06/13/2024
-Continue Eliquis. Per case management co-pay for this is $0
-Continue management of COPD per primary service. encouraged tobacco cessation
-d/w nursing
HPI: Romero is a 64 year old male with PMH of chronic HFpEF, paroxysmal atrial fibrillation, COPD, tobacco abuse, and R peroneal vein thrombus. Present[facility] for evaluation of chest pain and SOB. Patient ran out of his medications and could not
afford to refill a few months ago. He then started feeling more SOB and chest pain and came to ER for evaluation. In ER, found to be in rapid afib and acute heart failure. Given IV steroids and IV lasix in ER and admitted for further workup and
management. Hypoxic in ER and receiving duoneb at time of evaluation. He was admitted in 01/2024 with similar symptoms and when seen in follow up in cardiology office as OP, was complaint with medications and was arranged for follow up to have
cardioversion and EP evaluation to discuss ablation. He did not contact the office with worsening symptoms and states he 'doesn't really go to to doctors'. Weight in ER up 14 lbs compared to prior discharge weight.
Progress Note - Head Loft Worker
Subjective
Date of Service: June 11, 2024
Patient seen and examined. Patient resting comfortably in bed. Reports he still is having some wheezing although it is improving. He was able to ambulate around the floors with improved shortness of breath but still does not feel back to baseline
Objective
Labs:
06/11/24 04:05
06/11/24 04:05
Labs
Hgb 15.4 g/dL (13.0-18.0) 06/11/24 04:05
Hct 47.9 % (39.0-52.0) 06/11/24 04:05
Plt Count 178 10^3/uL (130-400) 06/11/24 04:05
APTT Cancelled 06/10/24 13:00
Sodium 135 mmol/L (135-145) 06/11/24 04:05
Potassium 4.7 mmol/L (3.5-5.1) 06/11/24 04:05
BUN 51 mg/dl (9-20) H 06/11/24 04:05
Creatinine 1.1 mg/dL (0.7-1.3) 06/11/24 04:05
Glucose 190 mg/dl (70-99) H 06/11/24 04:05
Troponins
06/09/24 06/09/24 06/09/24
14:28 19:53 23:52
Troponin I 0.357 H* 0.264 H* D 0.193 H* D
06/10/24 06/10/24
02:05 08:05
Troponin I Cancelled Cancelled
Vital Signs and I&O:
Vital Signs
Temp Pulse Resp BP Pulse Ox
98.6 F 106 16 116/85 94
06/11/24 07:05 06/11/24 08:29 06/11/24 08:29 06/11/24 08:07 06/11/24 07:05
Vital Signs
Temp Pulse Resp BP Pulse Ox
98.6 F 106 16 116/85 94
06/11/24 07:05 06/11/24 08:29 06/11/24 08:29 06/11/24 08:07 06/11/24 07:05
Intake & Output
06/09/24 06/10/24 06/11/24 06/12/24
06:59 06:59 06:59 06:59
Intake Total 227 / 227 1404 / 1404
Output Total 1400 / 1400 2700 / 2700
Balance -1173 / -1173 -1296 / -1296
Physical Exam
Physical Exam
GEN: No distress, awake, Ox3, sitting in bed
HEENT: supple, anicteric, mmm
LUNGS: Diffuse wheezing bilaterally with diminished breath sounds, few crackles at bases
CV: Irregularly irregular, tachycardic, S1/S2, no murmur, rub or gallop
ABD: soft, mildly distended, nontender, BS+,
EXT: +2 bilateral lower extremity edema; right radial access site dressing clean dry intact with mild ecchymosis, no hematoma or infection
NEURO: Gross non-focal
SKIN: No rash, warm, dry, pink
[2024-06-11] MEDS: PACERONE 400 MG PO ×3 (10:00→21:59)
[2024-06-11 11:44] VITALS: BP 127/89
[2024-06-11 11:49] LABS: Glucose - Point of Care 249 mg/dl (70-99)
[2024-06-11] MEDS: NOVOLOG FLEXPEN-LOW RESISTANCE 2 UNITS SC (12:42)
[2024-06-11 15:20] VITALS: BP 118/84
--- NOTE | 2024-06-11 16:06 | W.PN.HOSP.TC ---
Today's Communication/Plan
-
farxiga
wean dilt ggt
amiodarone
iv lasix
cardioversion 06/13
Assessment / Plan
Assessment / Plan
Physical Exam
General: Conversant and Respiratory Distress
Respiratory: Scattered wheezes B/L
Cardiac: S1/S2 and Irregular Rhythm
GI: Soft, Non Tender and Distended
Musculoskeletal: Edema, Left Lower Extremity and Edema, Right Lower Extremity
Skin: Warm
Neuro: Awake, No Motor Deficits and Nonfocal/grossly intact
# Acute hypoxic respiratory insufficiency, weaned off oxygen
Secondary to acute on chronic HFpEF and also COPD exacerbation
Patient also likely has a URI
wean o2 as tolerated; goal o2>90%
-Cont diuresis, steroids
# Acute on chronic HFpEF
Echo 02/09/2024-normal LV size and function. EF 55 to 60%. Enlarged RV. Dilated RA. Trace MR. Trace TR. Pulmonary artery pressure 20 to 25 mmHg.
Monitor on telemetry
IV Lasix
Intake output charting and daily weights
Rate control as this could be driving fluid retention
Cardiology evaluation
Repeat echo�EF 25%
Follow troponin
Aspirin, statin, beta-tushar
-�Started Farxiga
� Hopeful start Entresto in 24 hours
# Elevated troponin
Type II non-STEMI versus nonischemic myocardial injury secondary to tachycardia and CHF
ECHO F/u
[facility] 06/10: Medical therapy for nonischemic dilated cardiomyopathy and atrial fibrillation of unclear duration; no STEMI coronary disease
Heparin drip - transition to doac
# Atrial fibrillation with RVR
Continue Cardizem drip�wean by cardiology
Continue anticoagulation
Start amiodarone 400 mg 3 times daily
ZANA cardioversion on 06/13
# COPD exacerbation
IV steroids nebulizer treatments, mucolytics
continue Spiriva frequent and nebulizer treatments as needed Xopenex
Cont steroids
# Diabetes
Was on metformin, glipizide as outpatient- noncompliant.
hemoglobin A1c 6.6
He states that his numbers have not been elevated
Continue both with sliding scale coverage and Accu-Cheks
Watch blood sugars while on steroids
# Hyperlipidemia-continue statin
# Hypertension-continue beta-blockers. Also calcium channel tushar now
# Obesity per BMI
# Active smoking-cessation counseling
# DVT prophylaxis-Heparin
# Full code
Total time spent on today's encounter was 53 minutes which included time spent in counseling the patient/family regarding diagnosis and treatment plan as listed above, goals of care, and symptom management. Case was discussed with nursing staff,
specialists, and care coordinators/case management. All labs and imaging personally reviewed by me. Remainder the time spent in detailed review of previous records, lab data, imaging, and other medical provider documentation.
Anticipated Discharge: > 48 hours
Subjective/Interval History
-
Date of Service: June 11, 2024
No STEMI coronary disease on heart cath, elevated filling pressures and severe LV dysfunction
Objective Data
-
Labs:
Laboratory Results
06/11/24
04:05
WBC 13.4 H
Hgb 15.4
Hct 47.9
Plt Count 178
Sodium 135
Potassium 4.7
Chloride 88 L
Carbon Dioxide 34 H
BUN 51 H
Creatinine 1.1
Glucose 190 H
Calcium 9.4
Vital Signs:
Vital Signs
Temp Pulse Resp BP Pulse Ox
97.4 F 102 18 116/85 94
06/11/24 15:24 06/11/24 14:02 06/11/24 15:24 06/11/24 08:07 06/11/24 15:24
I&O
06/10/24 06/11/24 06/12/24
06:59 06:59 06:59
Intake Total 227 / 227 1404 / 1404
Output Total 1400 / 1400 2700 / 2700 2049
Balance -1173 / -1173 -1296 / -1296 -2049
Review of Systems
-
History Source: Patient
All other systems: Not reviewed unless documented
Physical Exam
-
General: No Apparent Distress
HEENT: Normocephalic, Atraumatic and Moist Mucous Membranes
Respiratory: Wheezes
Cardiac: Regular Rhythm
GI: Soft, Nontender and Nondistended
Genito-urinary: No Costovertebral Tender
Musculoskeletal: No Clubbing, No Cyanosis, Edema, Right Lower Extrem and Edema, Left Lower Extrem
Neuro: Awake, Alert, Oriented and AO x 3
[2024-06-11 16:42] LABS: Glucose - Point of Care 261 mg/dl (70-99)
[2024-06-11] MEDS: LIPITOR 20 MG PO (16:56)
[2024-06-11] MEDS: NOVOLOG FLEXPEN-LOW RESISTANCE 3 UNITS SC (16:57)
--- NOTE | 2024-06-11 17:48 | PTCARENOTE ---
Pt voiding large amts clear yellow urine today after given IV Lasix, as ordered.
[2024-06-11] MEDS: CARDIZEM 125 IV (18:10)
[2024-06-11 19:02] VITALS: BP 118/84
[2024-06-11 20:32] LABS: Glucose - Point of Care 223 mg/dl (70-99)
[2024-06-11 22:04] VITALS: BP 113/73
[2024-06-12] VITALS (7 sets, daily range): BP systolic 101–138; BP diastolic 77–99; BMI 27.1
--- NOTE | 2024-06-12 02:31 | PTCARENOTE ---
Assumed care of the pt @ 1900. AAOx3 A Fib 90's on the monitor. IV Cardizem infusing @ 5mg/HR Lungs decreased with exp wheezes. Call tompkins within reach.
[2024-06-12 05:16] LABS: Blood Urea Nitrogen 54 mg/dl (9-20); Calcium 9.3 mg/dl (8.4-10.2); Chloride 86 mmol/L (98-107); Estimated Creatinine Clearance 69 ml/min; Glucose 257 mg/dl (70-99); Potassium 4.7 mmol/L (3.5-5.1); Sodium 136 mmol/L (135-145); eGFR > 60.00
[2024-06-12 05:26] LABS: Carbon Dioxide 37 mmol/L (22-30)
[2024-06-12 07:00] LABS: Glucose - Point of Care 234 mg/dl (70-99)
[2024-06-12] MEDS: NOVOLOG FLEXPEN-LOW RESISTANCE 2 UNITS SC (07:20)
[2024-06-12] MEDS: PACERONE 400 MG PO ×3 (08:25→22:46)
[2024-06-12] MEDS: TOPROL XL 25 MG PO ×2 (08:25→19:31)
[2024-06-12] MEDS: GLUCOTROL 5 MG PO ×2 (08:25→17:27)
[2024-06-12] MEDS: ELIQUIS 5 MG PO ×2 (08:26→19:31)
[2024-06-12] MEDS: LOW STRENGTH ASPIRIN 81 MG PO (08:27)
[2024-06-12] MEDS: SYMBICORT 160/4.5 MCG INHALER 2 PUFF INH ×2 (08:28→20:33)
[2024-06-12] MEDS: ATROVENT NEBULES 0.5 MG INH ×3 (08:28→20:33)
[2024-06-12] MEDS: LASIX 80 MG IV (08:28)
[2024-06-12] MEDS: XOPENEX 1.25 MG INHALANT SOLUTION INH ×3 (08:28→20:34)
[2024-06-12] MEDS: DECADRON 4 MG IV (08:29)
[2024-06-12] MEDS: NICODERM TRANSDERMAL 14 MG TRANSDERM (08:29)
--- NOTE | 2024-06-12 09:36 | W.PN.CARDCBS ---
Today's Communication / Plan
-
Continue amiodarone load. Plan for ZANA cardioversion in a.m. Continue Toprol and Eliquis.
Switch IV Lasix to 60 mg p.o. twice daily.
Follow creatinine.
N.p.o. after midnight.
Will add valsartan today and follow for low blood pressure.
Case management will look into cost of Farxiga and Entresto
Impression / Plan
-
PCP:
Compensation Intern: Dr. Cintron
Impression:
Presented 06/09/2024 with SOB
Acute on chronic HFrEF, proBNP 4240
Elevated troponin, peaked 0.357
Paroxysmal atrial flutter/fibrillation w/ RVR
Nonischemic cardiomyopathy, new diagnosis
Emphysema/COPD w/ acute exacerbation
Ongoing tobacco abuse
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
Noncompliance
Echo 11/14/2014: EF 50 to 55% with no regional wall motion abnormalities. Diastolic dysfunction, mildly dilated left atrium, PAP 33 to 38 mmHg
Echo 02/09/2024: Technically difficult study. EF 55%, dilated RV, PA pressure 20-25
Echo 06/10/2024: EF 25 to 30%. Moderate to severely reduced LV systolic function. Mild concentric LVH. Moderate biatrial dilation. Mild MR. Mild TR. RVSP 35 to 40 mmHg
Lexiscan sestamibi stress test 02/15/2024: Fixed inferior and apical defect consistent with soft tissue attenuation�intermediate risk stress test
Cardiac catheterization 06/10/2024: Normal coronary arteries. Elevated right and left ventricular filling pressors. HEMODYNAMICS : mmHg RA (m) : 25; RV (s/d,m) : 53/18, 28; PA (s/d, m) : 55/34, 42; PCWP (m) : 35
AO (s/d, m) : 119/78, 88; LV (s/d) : 108/23; LVEDP : 30; Estimated Britt Cardiac Output: 4.4 L / min and Cardiac Index: 2.0 L/ min / m-2; Systemic vascular resistance: 14.3 Wood units or 1145 [id number]-[id number](-5); Pulmonary vascular resistance: 1.6 Wood
units or 127 dceuq-agk-jd(-5)
Plan:
-Presented 06/09/2024 with shortness of breath and was found to have elevated troponin and proBNP.
-He had stopped all of his outpatient meds about a month ago. Stressed need for compliance with medications and discussed risks to patient if noncompliant. He expressed understanding and states will be compliant to the best of his ability
-Acute heart failure exacerbation with reduced ejection fraction, proBNP 4240 and new nonischemic cardiomyopathy
-He reports feeling better today, however remains with some wheezing and lower extremity edema
-He has diuresed well. Will switch Lasix to 40 mg p.o. twice daily.
-GDMT: Continue Toprol, will add valsartan in hopes that patient will be able to afford Entresto. Ideally would also like to place patient on SGLT2 inhibitor. Case management has been consulted for cost analysis of Entresto and SGLT2 inhibitors.
-Abnormal troponin peaked at 0.357, found to have normal coronary arteries on cardiac catheterization. Troponin elevation secondary to nonischemic myocardial injury secondary to acute heart failure exacerbation
-Continue aspirin, statin
-Remains in atrial fibrillation on IV Cardizem and p.o. Toprol. Heart rates still not optimally controlled on telemetry.
-Continue amiodarone load 400 mg TID, daily ECG to monitor QTc, wean diltiazem drip as heart rate allows
-Given acute heart failure exacerbation and newly reduced ejection fraction patient would likely benefit from ZANA/cardioversion. Tentatively scheduled for 06/13/2024
-Continue Eliquis. Per case management co-pay for this is $0
-Continue management of COPD per primary service. encouraged tobacco cessation
-d/w nursing
HPI: Romero is a 64 year old male with PMH of chronic HFpEF, paroxysmal atrial fibrillation, COPD, tobacco abuse, and R peroneal vein thrombus. Presented to [facility] for evaluation of chest pain and SOB. Patient ran out of his medications and could not
afford to refill a few months ago. He then started feeling more SOB and chest pain and came to ER for evaluation. In ER, found to be in rapid afib and acute heart failure. Given IV steroids and IV lasix in ER and admitted for further workup and
management. Hypoxic in ER and receiving duoneb at time of evaluation. He was admitted in 01/2024 with similar symptoms and when seen in follow up in cardiology office as OP, was complaint with medications and was arranged for follow up to have
cardioversion and EP evaluation to discuss ablation. He did not contact the office with worsening symptoms and states he 'doesn't really go to to doctors'. Weight in ER up 14 lbs compared to prior discharge weight.
Progress Note - Compensation Intern
Subjective
Date of Service: June 12, 2024
Remains in A-fib. Breathing is improved and he has diuresed well.
Objective
Labs:
06/12/24 04:07
Labs
Hgb 15.4 g/dL (13.0-18.0) 06/11/24 04:05
Hct 47.9 % (39.0-52.0) 06/11/24 04:05
Plt Count 178 10^3/uL (130-400) 06/11/24 04:05
APTT Cancelled 06/10/24 13:00
Sodium 136 mmol/L (135-145) 06/12/24 04:07
Potassium 4.7 mmol/L (3.5-5.1) 06/12/24 04:07
BUN 54 mg/dl (9-20) H 06/12/24 04:07
Creatinine 1.2 mg/dL (0.7-1.3) 06/12/24 04:07
Glucose 257 mg/dl (70-99) H 06/12/24 04:07
Troponins
06/09/24 06/09/24 06/09/24
14:28 19:53 23:52
Troponin I 0.357 H* 0.264 H* D 0.193 H* D
06/10/24 06/10/24
02:05 08:05
Troponin I Cancelled Cancelled
Vital Signs and I&O:
Vital Signs
Temp Pulse Resp BP Pulse Ox
97.6 F 100 18 111/91 91
06/12/24 07:29 06/12/24 08:34 06/12/24 08:34 06/12/24 03:54 06/12/24 08:34
Vital Signs
Temp Pulse Resp BP Pulse Ox
97.6 F 100 18 111/91 91
06/12/24 07:29 06/12/24 08:34 06/12/24 08:34 06/12/24 03:54 06/12/24 08:34
Intake & Output
06/10/24 06/11/24 06/12/24 06/13/24
06:59 06:59 06:59 06:59
Intake Total 227 / 227 1404 / 1404 120 / 120
Output Total 1400 / 1400 2700 / 2700 4025 / 4025
Balance -1173 / -1173 -1296 / -1296 -3905 / -3905
Physical Exam
Physical Exam
GEN: No distress, awake, Ox3
HEENT: supple, anicteric, mmm
LUNGS: CTA, no wheezes/rales
CV: Irreg, S1/S2, 1/6 syst LSB, no gallop
ABD: soft, BS+, NT/ND
EXT: No edema
NEURO: Gross non-focal
SKIN: No rash
[2024-06-12 09:42] LABS: Hematocrit 43.7 % (39.0-52.0); Hemoglobin 14.6 g/dL (13.0-18.0); Mean Corp Hgb Conc. 33.4 g/dL (33.0-37.0); Mean Corpuscular Hgb 31.9 pg (27.0-31.0); Mean Corpuscular Volume 95.6 fL (80.0-94.0); Mean Platelet Volume 11.7 fL (7.4-10.4); Platelet Count 187 10^3/uL (130-400); Red Blood Cell Count 4.57 10^6/uL (4.70-6.10); Red Cell Dist. Width 13.9 % (11.5-14.5); White Blood Cell Count 12.6 10^3/uL (4.8-10.8)
[2024-06-12 12:22] LABS: Glucose - Point of Care 312 mg/dl (70-99)
[2024-06-12] MEDS: NOVOLOG FLEXPEN-LOW RESISTANCE 4 UNITS SC (12:49)
--- NOTE | 2024-06-12 14:22 | W.PN.HOSP.TC ---
Today's Communication/Plan
-
Switch to p.o. prednisone
Continue amiodarone load, plan for ZANA cardioversion 06/13 tomorrow
Switch to p.o. Lasix
Assessment / Plan
Assessment / Plan
Physical Exam
General: Conversant and Respiratory Distress
Respiratory: Wheezing gratly improved
Cardiac: S1/S2 and Irregular Rhythm
GI: Soft, Non Tender and Distended
Musculoskeletal: Edema, Left Lower Extremity and Edema, Right Lower Extremity
Skin: Warm
Neuro: Awake, No Motor Deficits and Nonfocal/grossly intact
# Acute hypoxic respiratory insufficiency, weaned off oxygen
Secondary to acute on chronic HFpEF and also COPD exacerbation
Patient also likely has a URI
wean o2 as tolerated; goal o2>90%
-Cont diuresis, steroids
# Acute on chronic HFpEF
Echo 02/09/2024-normal LV size and function. EF 55 to 60%. Enlarged RV. Dilated RA. Trace MR. Trace TR. Pulmonary artery pressure 20 to 25 mmHg.
Monitor on telemetry
IV Lasix - switched to PO lasix 60mg BID
Intake output charting and daily weights
Rate control as this could be driving fluid retention
Cardiology evaluation
Repeat echo�EF 25%
Follow troponin
Aspirin, statin, beta-tushar
-�CM will investiage costs of Farxiga, Entresto
-Valsartan
� Hopeful start Entresto in 24 hours
# Elevated troponin
Type II non-STEMI versus nonischemic myocardial injury secondary to tachycardia and CHF
[facility] 06/10: Medical therapy for nonischemic dilated cardiomyopathy and atrial fibrillation of unclear duration; no STEMI coronary disease
Heparin drip - transition to doac
# Atrial fibrillation with RVR
Continue Cardizem drip�wean by cardiology
Continue anticoagulation
Cont Toprol
Start amiodarone 400 mg 3 times daily
ZANA cardioversion tomorrow on 06/13
# COPD exacerbation
IV steroids nebulizer treatments, mucolytics
continue Spiriva frequent and nebulizer treatments as needed Xopenex
Cont steroids
# Diabetes
Was on metformin, glipizide as outpatient- noncompliant.
hemoglobin A1c 6.6
He states that his numbers have not been elevated
Continue both with sliding scale coverage and Accu-Cheks
Watch blood sugars while on steroids - transition to po pred
# Hyperlipidemia-continue statin
# Hypertension-continue beta-blockers. Also calcium channel tushar now
# Obesity per BMI
# Active smoking-cessation counseling
# DVT prophylaxis-Heparin
# Full code
Total time spent on today's encounter was 51 minutes which included time spent in counseling the patient/family regarding diagnosis and treatment plan as listed above, goals of care, and symptom management. Case was discussed with nursing staff,
specialists, and care coordinators/case management. All labs and imaging personally reviewed by me. Remainder the time spent in detailed review of previous records, lab data, imaging, and other medical provider documentation.
Anticipated Discharge: 24 - 48 hours
Subjective/Interval History
-
Date of Service: June 12, 2024
No acute events overnight
Objective Data
-
Labs:
Laboratory Results
06/12/24 06/12/24
04:07 09:27
WBC 12.6 H
Hgb 14.6
Hct 43.7
Plt Count 187
Sodium 136
Potassium 4.7
Chloride 86 L
Carbon Dioxide 37 H
BUN 54 H
Creatinine 1.2
Glucose 257 H
Calcium 9.3
Vital Signs:
Vital Signs
Temp Pulse Resp BP Pulse Ox
98.5 F 107 16 124/77 93
06/12/24 11:26 06/12/24 14:11 06/12/24 14:11 06/12/24 11:28 06/12/24 11:26
I&O
06/11/24 06/12/24 06/13/24
06:59 06:59 06:59
Intake Total 1404 / 1404 120 / 120
Output Total 2700 / 2700 4025 / 4025 300 / 300
Balance -1296 / -1296 -3905 / -3905 -300 / -300
Review of Systems
-
History Source: Patient
All other systems: Not reviewed unless documented
Physical Exam
-
General: No Apparent Distress
HEENT: Normocephalic, Atraumatic and Moist Mucous Membranes
Respiratory: Wheezes
Cardiac: Regular Rhythm
GI: Soft, Nontender and Nondistended
Genito-urinary: No Costovertebral Tender
Musculoskeletal: No Clubbing, No Cyanosis, Edema, Right Lower Extrem and Edema, Left Lower Extrem
Neuro: Awake, Alert, Oriented and AO x 3
Data Reviewed
-
Diagnostic Radiology: Image personally visualized and interpreted and Report Reviewed by me
Ultrasound: Report Reviewed by me
Labs: Labs Reviewed by me
[2024-06-12] MEDS: DELTASONE 40 MG PO (14:45)
[2024-06-12] MEDS: LASIX 60 MG PO (15:40)
[2024-06-12 17:06] LABS: Glucose - Point of Care 253 mg/dl (70-99)
[2024-06-12] MEDS: LIPITOR 20 MG PO (17:27)
[2024-06-12] MEDS: NOVOLOG FLEXPEN-LOW RESISTANCE 3 UNITS SC (17:28)
[2024-06-12] MEDS: CARDIZEM 125 IV (18:28)
--- NOTE | 2024-06-12 20:13 | PTCARENOTE ---
assumed care of patient at the change of shift. AAOx3. denies any cp/sob. Afib on tele 80s-90s. cardizem gtt infusing per protocol. +1 edema noted- patient states much improved. cath sites intact. reviewed plan of care with patient and verbalized
understanding. NPO at midnight for ZANA/CV in AM. call tompkins within reach. makes needs known.
[2024-06-12 21:02] LABS: Glucose - Point of Care 316 mg/dl (70-99)
[2024-06-12] MEDS: NOVOLOG FLEXPEN 4 UNITS SC (22:45)
--- NOTE | 2024-06-12 23:12 | PTCARENOTE ---
Addendum entered by Solomon Shine RN 06/13/24 01:11:
blood glucose 250.
Original Note:
HS blood glucose 316. updated Arelis Huff [employer]. 4 units of Novolog insulin ordered and given, see mar. will recheck in 2 hours.
[2024-06-13] VITALS (8 sets, daily range): BP systolic 96–134; BP diastolic 69–105; BMI 27.2
[2024-06-13 00:46] LABS: Glucose - Point of Care 250 mg/dl (70-99)
[2024-06-13 03:56] LABS: Hematocrit 46.5 % (39.0-52.0); Hemoglobin 15.4 g/dL (13.0-18.0); Mean Corp Hgb Conc. 33.1 g/dL (33.0-37.0); Mean Corpuscular Hgb 31.9 pg (27.0-31.0); Mean Corpuscular Volume 96.3 fL (80.0-94.0); Mean Platelet Volume 12.2 fL (7.4-10.4); Platelet Count 193 10^3/uL (130-400); Red Blood Cell Count 4.83 10^6/uL (4.70-6.10); Red Cell Dist. Width 13.6 % (11.5-14.5); White Blood Cell Count 12.2 10^3/uL (4.8-10.8)
[2024-06-13 04:28] LABS: Blood Urea Nitrogen 60 mg/dl (9-20); Calcium 9.4 mg/dl (8.4-10.2); Chloride 83 mmol/L (98-107); Estimated Creatinine Clearance 69 ml/min; Glucose 175 mg/dl (70-99); Sodium 135 mmol/L (135-145); eGFR > 60.00
[2024-06-13 04:39] LABS: Carbon Dioxide 34 mmol/L (22-30)
--- NOTE | 2024-06-13 06:57 | W.PN.HOSP.TC ---
Today's Communication/Plan
-
On Cardizem gtt
Assessment / Plan
Assessment / Plan
Physical Exam
General: Conversant and Respiratory Distress
Respiratory: Wheezing gratly improved
Cardiac: S1/S2 and Irregular Rhythm
GI: Soft, Non Tender and Distended
Musculoskeletal: Edema, Left Lower Extremity and Edema, Right Lower Extremity
Skin: Warm
Neuro: Awake, No Motor Deficits and Nonfocal/grossly intact
Psych: calm
# Acute hypoxic respiratory insufficiency, weaned off oxygen
Secondary to acute on chronic HFpEF and also COPD exacerbation
Patient also likely has a URI
weaned o2 as tolerated; goal o2>90%
-Cont diuresis, steroids
# Acute new onset systolic heart failure on chronic HFrEF
Echo 02/09/2024-normal LV size and function. EF 55 to 60%. Enlarged RV. Dilated RA. Trace MR. Trace TR. Pulmonary artery pressure 20 to 25 mmHg.
Monitor on telemetry
IV Lasix - switched to PO Lasix 60mg BID
Intake output charting and daily weights
Rate control as this could be driving fluid retention
Cardiology evaluation appreciated.
Repeat echo�EF 25 to 30%. Moderate to severely reduced LV systolic function. Mild concentric LVH. Moderate biatrial dilation. Mild MR. Mild TR. RVSP 35 to 40 mmHg
Aspirin, statin, beta-tushar
# Elevated troponin
Type II non-STEMI versus nonischemic myocardial injury secondary to tachycardia and CHF
[facility] 06/10: Medical therapy for nonischemic dilated cardiomyopathy and atrial fibrillation of unclear duration; no STEMI coronary disease
Heparin drip - transition to doac
# Paroxysmal atrial flutter/fibrillation w/ RVR
Continue Cardizem drip�weaned by cardiology
Continue anticoagulation
Cont Toprol
Started amiodarone load
ZANA cardioversion tomorrow on 06/13
# COPD exacerbation
IV steroids nebulizer treatments, mucolytics
continue Spiriva frequent and nebulizer treatments as needed Xopenex
Cont steroids
# hyperkalemia, resolved.
# Diabetes
Was on metformin, glipizide as outpatient- noncompliant.
hemoglobin A1c 6.6
He states that his numbers have not been elevated
Continue both with sliding scale coverage and Accu-Cheks
Watch blood sugars while on steroids - transition to po pred
# Hyperlipidemia-continue statin
# Hypertension-continue beta-blockers. Also calcium channel tushar now
# Obesity per BMI
# Active smoking-cessation counseling
# DVT prophylaxis-Heparin
# Full code
Total time spent on today's encounter was 55 minutes which included time spent in counseling the patient/family regarding diagnosis and treatment plan as listed above, goals of care, and symptom management. Case was discussed with nursing staff,
specialists, and care coordinators/case management. All labs and imaging personally reviewed by me. Remainder the time spent in detailed review of previous records, lab data, imaging, and other medical provider documentation.
Anticipated Discharge: 24 - 48 hours
Subjective/Interval History
-
Date of Service: June 13, 2024
No chest pain
No sob
Objective Data
-
Labs:
Laboratory Results
06/13/24
03:12
WBC 12.2 H
Hgb 15.4
Hct 46.5
Plt Count 193
Sodium 135
Potassium 5.0
Chloride 83 L
Carbon Dioxide 34 H
BUN 60 H
Creatinine 1.2
Glucose 175 H
Calcium 9.4
Vital Signs:
Vital Signs
Temp Pulse Resp BP Pulse Ox
97.6 F 95 20 110/98 93
06/13/24 03:02 06/13/24 03:18 06/13/24 03:02 06/13/24 03:18 06/13/24 03:02
I&O
06/11/24 06/12/24 06/13/24
06:59 06:59 06:59
Intake Total 1404 / 1404 120 / 120 650 / 650
Output Total 2700 / 2700 4025 / 4025 2150 / 2150
Balance -1296 / -1296 -3905 / -3905 -1500 / -1500
[2024-06-13 07:05] LABS: Glucose - Point of Care 167 mg/dl (70-99)
[2024-06-13] MEDS: NOVOLOG FLEXPEN-LOW RESISTANCE SC (07:55)
[2024-06-13] MEDS: ELIQUIS 5 MG PO ×2 (08:03→20:52)
[2024-06-13] MEDS: DELTASONE 40 MG PO (08:03)
[2024-06-13] MEDS: TOPROL XL 25 MG PO ×2 (08:04→14:17)
[2024-06-13] MEDS: GLUCOTROL PO (08:05)
[2024-06-13] MEDS: LOW STRENGTH ASPIRIN 81 MG PO (08:05)
[2024-06-13] MEDS: PACERONE 400 MG PO ×3 (08:06→23:03)
[2024-06-13] MEDS: NICODERM TRANSDERMAL 14 MG TRANSDERM (08:06)
[2024-06-13] MEDS: LASIX PO (08:15)
[2024-06-13] MEDS: XOPENEX 1.25 MG INHALANT SOLUTION INH ×3 (08:18→19:38)
[2024-06-13] MEDS: SYMBICORT 160/4.5 MCG INHALER 2 PUFF INH ×2 (08:18→19:38)
[2024-06-13] MEDS: ATROVENT NEBULES 0.5 MG INH ×3 (08:18→19:38)
--- NOTE | 2024-06-13 09:19 | CM ---
Pricing on Entresto through the patients [facility] Prescription Plan is $0 copay
Farxiga is $0 copay
--- NOTE | 2024-06-13 11:36 | PTCARENOTE ---
Pt returned from ZANA/CV, A,A+Ox3, VSS.
--- NOTE | 2024-06-13 11:41 | PN.CDI ---
Addendum entered and electronically signed by Zahira Chong MD 06/13/24 11:54:
JASON
Original Note:
CDI
- -
CDI:
Physician Documentation Request
Admit Date: 06/09/24 17:03
Dear Doctor Castillo,
Please review the following and provide your response in the progress notes.
Clinical Indicators:
Pt admitted with Acute on Chronic systolic CHF on IV diuresis /New NICM
Renal functions are as below
06/09/24 06/11/24 06/13/24
14:28 04:05 03:12
Creatinine 0.8 1.1 1.2
Clarify which of the following accurately represents the patient's renal status:
JASON
Abnormal lab value
Other ( please specify)
Criteria for JASON*
1 Increase in serum creatinine by > or = to 0.3 mg/dL (> or = to 26.5 micromol/L) within 48 hours, OR
2 Increase in serum creatinine to > or = to 1.5 times baseline, which is known or presumed to have occurred within 7 days, OR
3 Urine volume < 0.5 nL/kg/hour for six hours
Use of terms such as suspected, likely, concern for, or probable (associated with a specific diagnosis that is being evaluated, monitored, or treated as if it exists) are acceptable and can be coded in the inpatient setting, when documented at the
time of discharge.
Thank you,
July Dubon RN
CDI Specialist
[facility] [employer]
Please use your independent medical judgment in providing your response.
*Source: Kidney Disease: Improving Global Outcomes (KDIGO) 2012
--- NOTE | 2024-06-13 11:59 | CM ---
Chart reviewed. Patient is independent of ADLS, lives with his 2 roomates, split level, 2 ROSALVA, 0 DME. Plan is for the patient to return home. CM to follow
[2024-06-13] MEDS: ENTRESTO 24 MG/26 MG 1 TAB PO ×2 (14:16→23:02)
[2024-06-13] MEDS: FARXIGA 10 MG PO (14:16)
[2024-06-13] MEDS: LASIX 40 MG IV (14:18)
[2024-06-13 15:12] LABS: Glucose - Point of Care 262 mg/dl (70-99)
[2024-06-13] MEDS: NOVOLOG FLEXPEN-LOW RESISTANCE 3 UNITS SC ×2 (15:30→18:02)
--- NOTE | 2024-06-13 15:30 | W.PN.CARDCBS ---
Addendum entered and electronically signed by Candi Carroll DO 06/13/24 17:51:
I saw and examined the patient.
The Director Outpatient Services's note was reviewed and I agree with the note.
Comment: Patient seen and examined prior to scheduled transesophageal echocardiogram and cardioversion. Continues to have shortness of breath but denies chest pain or pressure.
GEN: AAOx3, NAD
HEENT: mmm
LUNGS: Bronchovesicular breath sounds, decreased bilaterally with coarse rhonchi
CV: Irregularly irregular. Positive S1-S2. 2/6 SM
ABD:Obese, nontender. Positive bowel sounds
EXT: trace edema
Plan:
-Patient had an initially successful ZANA/CV 06/13/24, but recurred with Afib when he awoke from sedation.
-Patient is symptomatic with palpitations.
-Increased Toprol XL to 50 mg BID on 06/13/24
-Cont amiodarone 400 mg TID, patient has received a 2.8 gram load as of 06/13/24 AM.
-Would recommend amiodarone 200 mg BID at time of d/c until he is seen in the office for follow up.
-Patient missed his appt at the cardiology office on 06/03/24 to discuss ablation. Currently rescheduled for 07/01/24 and if he is compliant with this f/u appt then will plan on ablation at the end of June
-Patient stopped all of his outpatient meds about a month ago and missed cardiology appt as noted.
-Cont Eliquis 5 mg BID (age 64, Cre 1.2). Appreciate help of CM on checking cost of Eliquis, he has a $0 co-pay.
-Weight is down 10 lbs from admission with Lasix 80 mg IV BID initially and then transitioned to Lasix 60 mg PO BID 06/12/24. Given CV 06/13/24 will give another dose of Lasix 40 mg IV x1 and then back to 60 mg PO BID. Of note, patient was taking
Lasix 40 mg PO BID prior to admission.
-Outpatient dose of Cardizem CD stopped due to worsened EF
-Toprol XL dose increased
-Started Entresto 24/26 mg BID 06/13/24. Presumably copay is also $0 as it was for Farxiga and Eliquis
-Started Farxiga 10 mg daily 06/13/24. Appreciate help of CM on checking cost of Farxiga, he has a $0 co-pay.
-Troponin peaked at 0.357. Nonobstructive CAD by cath 06/10/24, will managed as a nonischemic myocardial injury Troponin elevation.
-Recommend outpatient sleep apnea evaluation
-Possible d/c to home 06/14/24
Original Note:
Today's Communication / Plan
-
Increased Toprol XL to 50 mg BID
Cont amiodarone 400 mg TID load
If patient is compliant with outpatient follow up then will plan on ablation at end of June
Impression / Plan
-
PCP: Dr. Romo
Manager Card: Dr. Cintron
Impression:
Presented 06/09/2024 with SOB
Acute on chronic HFrEF, proBNP 4240
Elevated troponin, peaked 0.357
Paroxysmal atrial flutter/fibrillation w/ RVR
initially successful ZANA/CV, but recurred shortly thereafter 06/13/24
Nonischemic cardiomyopathy, new diagnosis
Emphysema/COPD w/ acute exacerbation
Ongoing tobacco abuse
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
Noncompliance
Echo 11/14/2014: EF 50 to 55% with no regional wall motion abnormalities. Diastolic dysfunction, mildly dilated left atrium, PAP 33 to 38 mmHg
Echo 02/09/2024: Technically difficult study. EF 55%, dilated RV, PA pressure 20-25
Echo 06/10/2024: EF 25 to 30%. Moderate to severely reduced LV systolic function. Mild concentric LVH. Moderate biatrial dilation. Mild MR. Mild TR. RVSP 35 to 40 mmHg
Lexiscan sestamibi stress test 02/15/2024: Fixed inferior and apical defect consistent with soft tissue attenuation�intermediate risk stress test
Cardiac catheterization 06/10/2024: Normal coronary arteries. Elevated right and left ventricular filling pressors. HEMODYNAMICS : mmHg RA (m) : 25; RV (s/d,m) : 53/18, 28; PA (s/d, m) : 55/34, 42; PCWP (m) : 35
AO (s/d, m) : 119/78, 88; LV (s/d) : 108/23; LVEDP : 30; Estimated Britt Cardiac Output: 4.4 L / min and Cardiac Index: 2.0 L/ min / m-2; Systemic vascular resistance: 14.3 Wood units or 1145 [id number]-cof-ic(-5); Pulmonary vascular resistance: 1.6 Wood
units or 127 kncfx-[id number]-jl(-5)
Plan:
-Patient had an initially successful ZANA/CV 06/13/24, but recurred with Afib when he awoke from sedation. Patient is symptomatic with palpitations.
-Increased Toprol XL to 50 mg BID on 06/13/24
-Cont amiodarone 400 mg TID, patient has received a 2.8 gram load as of 06/13/24 AM. Would recommend amiodarone 200 mg BID at time of d/c until he is seen in the office for follow up.
-Patient missed his appt at the cardiology office on 06/03/24 to discuss ablation. Currently rescheduled for 07/01/24 and if he is compliant with this f/u appt then will plan on ablation at the end of June
-Patient stopped all of his outpatient meds about a month ago and missed cardiology appt as noted.
-Cont Eliquis 5 mg BID (age 64, Cre 1.2). Appreciate help of CM on checking cost of Eliquis, he has a $0 co-pay.
-Weight is down 10 lbs from admission with Lasix 80 mg IV BID initially and then transitioned to Lasix 60 mg PO BID 06/12/24. Given CV 06/13/24 will give another dose of Lasix 40 mg IV x1 and then back to 60 mg PO BID. Of note, patient was taking
Lasix 40 mg PO BID prior to admission.
-Outpatient dose of Cardizem CD stopped due to worsened EF
-Toprol XL dose increased
-Started Entresto 24/26 mg BID 06/13/24. Presumably copay is also $0 as it was for Farxiga and Eliquis
-Started Farxiga 10 mg daily 06/13/24. Appreciate help of CM on checking cost of Farxiga, he has a $0 co-pay.
-Troponin peaked at 0.357. Nonobstructive CAD by cath 06/10/24, will managed as a nonischemic myocardial injury Troponin elevation.
-Possible d/c to home 06/14/24
HPI: Romero is a 64 year old male with PMH of chronic HFpEF, paroxysmal atrial fibrillation, COPD, tobacco abuse, and R peroneal vein thrombus. Presented to [facility] for evaluation of chest pain and SOB. Patient ran out of his medications and could not
afford to refill a few months ago. He then started feeling more SOB and chest pain and came to ER for evaluation. In ER, found to be in rapid afib and acute heart failure. Given IV steroids and IV lasix in ER and admitted for further workup and
management. Hypoxic in ER and receiving duoneb at time of evaluation. He was admitted in 01/2024 with similar symptoms and when seen in follow up in cardiology office as OP, was complaint with medications and was arranged for follow up to have
cardioversion and EP evaluation to discuss ablation. He did not contact the office with worsening symptoms and states he 'doesn't really go to to doctors'. Weight in ER up 14 lbs compared to prior discharge weight.
Progress Note - Manager Card
Subjective
Date of Service: June 13, 2024
He feels palpitations
Objective
Labs:
06/13/24 03:12
06/13/24 03:12
Labs
Hgb 15.4 g/dL (13.0-18.0) 06/13/24 03:12
Hct 46.5 % (39.0-52.0) 06/13/24 03:12
Plt Count 193 10^3/uL (130-400) 06/13/24 03:12
APTT Cancelled 06/10/24 13:00
Sodium 135 mmol/L (135-145) 06/13/24 03:12
Potassium 5.0 mmol/L (3.5-5.1) 06/13/24 03:12
BUN 60 mg/dl (9-20) H 06/13/24 03:12
Creatinine 1.2 mg/dL (0.7-1.3) 06/13/24 03:12
Glucose 175 mg/dl (70-99) H 06/13/24 03:12
Vital Signs and I&O:
Vital Signs
Temp Pulse Resp BP Pulse Ox
97.7 F 108 18 134/105 90
06/13/24 15:16 06/13/24 13:22 06/13/24 15:16 06/13/24 11:47 06/13/24 15:16
Vital Signs
Temp Pulse Resp BP Pulse Ox
97.7 F 108 18 134/105 90
06/13/24 15:16 06/13/24 13:22 06/13/24 15:16 06/13/24 11:47 06/13/24 15:16
Intake & Output
06/11/24 06/12/24 06/13/24 06/14/24
06:59 06:59 06:59 06:59
Intake Total 1404 / 1404 120 / 120 650 / 650
Output Total 2700 / 2700 4025 / 4025 2150 / 2150 500 / 500
Balance -1296 / -1296 -3905 / -3905 -1500 / -1500 -500 / -500
Physical Exam
Physical Exam
GEN: AAOx3
HEENT: EOMI, MMM
LUNGS: RA. No audible wheeze
CV: Afib on tele. Irreg irreg
ABD: ND
EXT: No edema B/L
NEURO: Gross non-focal
SKIN: No rash
[2024-06-13] MEDS: LASIX 60 MG PO (17:14)
[2024-06-13] MEDS: LIPITOR 20 MG PO (17:14)
[2024-06-13] MEDS: GLUCOTROL 5 MG PO (17:15)
[2024-06-13 17:54] LABS: Glucose - Point of Care 258 mg/dl (70-99)
--- NOTE | 2024-06-13 18:32 | ITS.CL.CARDI ---
Chief Minister - Cardioversion
Cardioversion
Procedure Report:
Date of Procedure: 06/13/24
Procedure: Cardioversion
Indication: Symptomatic atrial fibrillation
Performing Physician: Candi Carroll DO [facility]
Anticoagulation: Eliquis
Precardioversion transesophageal echocardiogram without left atrial Appendage thrombus
Technique: The patient was brought to the holding area. Signed informed consent was obtained. A time out was called and performed. The patient was anesthetized by the anesthesia service. Anticoagulation status was reviewed and
appropriate.Transesophageal echocardiogram performed; no left atrial appendage thrombus. R2 pads were placed anteriorly and posteriorly. A 200 J synchronized biphasic shock Transiently restored normal sinus rhythm. Unfortunately, patient went back
into atrial fibrillation once he woke from anesthesia. There were no complications.
Conclusion: Brief cardioversion to sinus rhythm before reverting back to atrial fibrillation
Recommendation: Routine post cardioversion care. 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
[2024-06-13] MEDS: TOPROL XL 50 MG PO (20:52)
[2024-06-13 21:00] LABS: Glucose - Point of Care 298 mg/dl (70-99)
[2024-06-14] VITALS (9 sets, daily range): BP systolic 93–107; BP diastolic 71–94; BMI 26.7
--- NOTE | 2024-06-14 05:06 | PTCARENOTE ---
patient had a 13 beat run of VT. asymptomatic. resting in bed. bp 93/76. HR currently Afib 80s. updated Tali Brand NP. labs ordered and sent.
patient also complaining of extreme itchiness on his back. upper back red at site where zoll pads were placed during CV. Silvadene cream ordered per MD. awaiting medication from Pharmacy.
[2024-06-14 05:40] LABS: Blood Urea Nitrogen 57 mg/dl (9-20); Calcium 8.7 mg/dl (8.4-10.2); Carbon Dioxide 40 mmol/L (22-30); Chloride 89 mmol/L (98-107); Estimated Creatinine Clearance 75 ml/min; Glucose 209 mg/dl (70-99); Magnesium 2.4 mg/dl (1.6-2.3); Potassium 3.6 mmol/L (3.5-5.1); Sodium 135 mmol/L (135-145); eGFR > 60.00
--- NOTE | 2024-06-14 06:30 | W.PN.HOSP.TC ---
Today's Communication/Plan
-
dc
Assessment / Plan
Assessment / Plan
Physical Exam
General: Conversant and Respiratory Distress
Respiratory: Wheezing gratly improved
Cardiac: S1/S2 and Irregular Rhythm
GI: Soft, Non Tender and Distended
Musculoskeletal: Edema, Left Lower Extremity and Edema, Right Lower Extremity
Skin: Warm
Neuro: Awake, No Motor Deficits and Nonfocal/grossly intact
Psych: calm
# Acute hypoxic respiratory insufficiency, weaned off oxygen
Secondary to acute on chronic HFpEF and also COPD exacerbation
Patient also likely has a URI
weaned o2 as tolerated; goal o2>90%
-Cont diuresis, steroids
# Acute new onset systolic heart failure on chronic HFrEF
Echo 02/09/2024-normal LV size and function. EF 55 to 60%. Enlarged RV. Dilated RA. Trace MR. Trace TR. Pulmonary artery pressure 20 to 25 mmHg.
Monitored on telemetry
IV Lasix - switched to PO Lasix 60mg BID
Intake output charting and daily weights
Rate control is better with higher dose of BB
Cardiology evaluation appreciated.
Repeat echo�EF 25 to 30%. Moderate to severely reduced LV systolic function. Mild concentric LVH. Moderate biatrial dilation. Mild MR. Mild TR. RVSP 35 to 40 mmHg
Aspirin, statin, beta-tushar
# Elevated troponin
Type II non-STEMI versus nonischemic myocardial injury secondary to tachycardia and CHF
[facility] 06/10: Medical therapy for nonischemic dilated cardiomyopathy and atrial fibrillation of unclear duration; no STEMI coronary disease
Heparin drip - transition to doac
# Paroxysmal atrial flutter/fibrillation w/ RVR
Continue Cardizem drip�weaned by cardiology
Continue anticoagulation
Cont Toprol
Started amiodarone load
ZANA cardioversion tomorrow on 06/13
# COPD exacerbation
IV steroids nebulizer treatments, mucolytics
continue Spiriva frequent and nebulizer treatments as needed Xopenex
Cont steroids, start tapering
# hyperkalemia, resolved.
# Diabetes
Was on metformin, glipizide as outpatient- noncompliant.
hemoglobin A1c 6.6
He states that his numbers have not been elevated
Continue both with sliding scale coverage and Accu-Cheks
Watch blood sugars while on steroids - transition to po pred
# Hyperlipidemia-continue statin
# Hypertension-continue beta-blockers. Also calcium channel tushar now
# Obesity per BMI
# Active smoking-cessation counseling
# DVT prophylaxis-Heparin
# Full code
Total discharge time spent to see the patient, examine the patient, review data and lab results, discuss the discharge plan with patient, cardiology, nursing staff around 65 minutes
Anticipated Discharge: Today
Subjective/Interval History
-
Date of Service: June 14, 2024
Doing well
He feels better
Objective Data
-
Labs:
Laboratory Results
06/14/24
05:01
Sodium 135
Potassium 3.6 D
Chloride 89 L
Carbon Dioxide 40 H
BUN 57 H
Creatinine 1.1
Glucose 209 H
Calcium 8.7
Vital Signs:
Vital Signs
Temp Pulse Resp BP Pulse Ox
97.5 F 84 18 97/81 90
06/14/24 04:02 06/14/24 04:00 06/13/24 23:17 06/14/24 03:57 06/14/24 04:02
I&O
06/12/24 06/13/24 06/14/24
06:59 06:59 06:59
Intake Total 120 / 120 650 / 650 250 / 250
Output Total 4025 / 4025 2150 / 2150 2975 / 2975
Balance -3905 / -3905 -1500 / -1500 -2725 / -2725
[2024-06-14 07:33] LABS: Glucose - Point of Care 204 mg/dl (70-99)
[2024-06-14] MEDS: NOVOLOG FLEXPEN-LOW RESISTANCE 2 UNITS SC (07:44)
[2024-06-14] MEDS: TOPROL XL 50 MG PO (07:45)
[2024-06-14] MEDS: ENTRESTO 24 MG/26 MG 1 TAB PO (07:45)
[2024-06-14] MEDS: FARXIGA 10 MG PO (07:45)
[2024-06-14] MEDS: LOW STRENGTH ASPIRIN 81 MG PO (07:45)
[2024-06-14] MEDS: DELTASONE 40 MG PO (07:45)
[2024-06-14] MEDS: PACERONE 400 MG PO (07:45)
[2024-06-14] MEDS: LASIX 60 MG PO (07:46)
[2024-06-14] MEDS: GLUCOTROL 5 MG PO (07:46)
[2024-06-14] MEDS: ELIQUIS 5 MG PO (07:46)
[2024-06-14] MEDS: NICODERM TRANSDERMAL 14 MG TRANSDERM (08:22)
[2024-06-14] MEDS: XOPENEX 1.25 MG INHALANT SOLUTION INH (08:37)
[2024-06-14] MEDS: ATROVENT NEBULES 0.5 MG INH (08:37)
[2024-06-14] MEDS: SYMBICORT 160/4.5 MCG INHALER 2 PUFF INH (08:37)
--- NOTE | 2024-06-14 08:50 | W.PN.CARDCBS ---
Addendum entered and electronically signed by Chris Cintron MD 06/14/24 11:33:
patient seen and examined
agree with BRANDEE Cope's notes and assessment
agree with BRANDEE Cope's plan
discussed importance of compliance with patient given his new EF%, need for GDMT, compliance with NOAC for stroke prevention, and need for rhythm control in the intermediate term. Failed CV this admission but not reached full amiodarone loading.
Rates much better (with amiodarone as adjunct rate control) and overall feels better with significant diuresis.
if he remains compliant and doing well at 07/01/24 office visit will plan PVI/LAPW isolation with Farapulse at earliest available date. If he still remains dyspneic with a significant wait for elective case can do CV after the office visit in the
short term to temporize.
exam:
aao x 3
non focal neurologically
jvp 6
cor irregularly irregular
lungs ctab
abd soft nt nd
no ext edema
aao x 3
PCP: Dr. Romo
Brickmason Supervisor: Dr. Cintron
Impression:
Presented 06/09/2024 with SOB
Acute on chronic HFrEF, proBNP 4240
Elevated troponin, peaked 0.357
Paroxysmal atrial flutter/fibrillation w/ RVR
initially successful ZANA/CV, but recurred shortly thereafter 06/13/24Nonischemic cardiomyopathy, new diagnosis
Emphysema/COPD w/ acute exacerbation
Ongoing tobacco abuse
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
Noncompliance
Echo 11/14/2014: EF 50 to 55% with no regional wall motion abnormalities. Diastolic dysfunction, mildly dilated left atrium, PAP 33 to 38 mmHg
Echo 02/09/2024: Technically difficult study. EF 55%, dilated RV, PA pressure 20-25
Echo 06/10/2024: EF 25 to 30%. Moderate to severely reduced LV systolic function. Mild concentric LVH. Moderate biatrial dilation. Mild MR. Mild TR. RVSP 35 to 40 mmHg
Lexiscan sestamibi stress test 02/15/2024: Fixed inferior and apical defect consistent with soft tissue attenuation�intermediate risk stress test
Cardiac catheterization 06/10/24: Normal coronary arteries. Elevated right and left ventricular filling pressors. HEMODYNAMICS : mmHg RA (m) : 25; RV (s/d,m) : 53/18, 28; PA (s/d, m) : 55/34, 42; PCWP (m) : 35
AO (s/d, m) : 119/78, 88; LV (s/d) : 108/23; LVEDP : 30; Estimated Britt Cardiac Output: 4.4 L / min and Cardiac Index: 2.0 L/ min / m-2; Systemic vascular resistance: 14.3 Wood units or 1145 [id number]-vmc-ep(-5); Pulmonary vascular resistance: 1.6 Wood
units or 127 nnigb-qep-ld(-5)
Plan:
-Remains in Afib with improved rate control in the 80s on ECg reviewed by me 06/14/24. ZANA/CV was initially successful 06/13/24, but recurred with Afib when he awoke from sedation.
-Cont higher dose Toprol XL 50 mg BID
-New to amiodarone this admission and has received a 4 gram load as of 06/14/24. Cont amiodarone 200 mg BID at time of d/c until he is seen in the office for follow up.
-Patient missed his appt at the cardiology office on 06/03/24 to discuss ablation. Currently rescheduled for 07/01/24 and if he is compliant with this f/u appt then will plan on ablation at the end of June
-Patient stopped all of his outpatient meds about a month ago as well
-Cont Eliquis 5 mg BID (age 64, Cre 1.2). Appreciate help of CM on checking cost of Eliquis, he has a $0 co-pay.
-Weight is down 14 lbs from admission with Lasix 80 mg IV BID initially and then transitioned to Lasix 60 mg PO BID 06/12/24. Of note, patient was taking Lasix 40 mg PO BID prior to admission.
-Outpatient dose of Cardizem CD stopped due to worsened EF
-Toprol XL dose increased as above
-Started Entresto 24/26 mg BID 06/13/24. Presumably copay is also $0 as it was for Farxiga and Eliquis
-Started Farxiga 10 mg daily 06/13/24. Appreciate help of CM on checking cost of Farxiga, he has a $0 co-pay.
-Troponin peaked at 0.357. Nonobstructive CAD by cath 06/10/24, will managed as a nonischemic myocardial injury Troponin elevation.
-D/C to home 06/14/24
Original Note:
Today's Communication / Plan
-
54 min with coordination of care and e-scribing cardiac meds and arranging follow up
Impression / Plan
-
PCP: Dr. Romo
Brickmason Supervisor: Dr. Cintron
Impression:
Presented 06/09/2024 with SOB
Acute on chronic HFrEF, proBNP 4240
Elevated troponin, peaked 0.357
Paroxysmal atrial flutter/fibrillation w/ RVR
initially successful ZANA/CV, but recurred shortly thereafter 06/13/24
Nonischemic cardiomyopathy, new diagnosis
Emphysema/COPD w/ acute exacerbation
Ongoing tobacco abuse
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
Noncompliance
Echo 11/14/2014: EF 50 to 55% with no regional wall motion abnormalities. Diastolic dysfunction, mildly dilated left atrium, PAP 33 to 38 mmHg
Echo 02/09/2024: Technically difficult study. EF 55%, dilated RV, PA pressure 20-25
Echo 06/10/2024: EF 25 to 30%. Moderate to severely reduced LV systolic function. Mild concentric LVH. Moderate biatrial dilation. Mild MR. Mild TR. RVSP 35 to 40 mmHg
Lexiscan sestamibi stress test 02/15/2024: Fixed inferior and apical defect consistent with soft tissue attenuation�intermediate risk stress test
Cardiac catheterization 06/10/24: Normal coronary arteries. Elevated right and left ventricular filling pressors. HEMODYNAMICS : mmHg RA (m) : 25; RV (s/d,m) : 53/18, 28; PA (s/d, m) : 55/34, 42; PCWP (m) : 35
AO (s/d, m) : 119/78, 88; LV (s/d) : 108/23; LVEDP : 30; Estimated Britt Cardiac Output: 4.4 L / min and Cardiac Index: 2.0 L/ min / m-2; Systemic vascular resistance: 14.3 Wood units or 1145 jiugt-nqb-ef(-5); Pulmonary vascular resistance: 1.6 Wood
units or 127 npukr-wvq-wl(-5)
Plan:
-Remains in Afib with improved rate control in the 80s on ECg reviewed by me 06/14/24. ZANA/CV was initially successful 06/13/24, but recurred with Afib when he awoke from sedation.
-Cont higher dose Toprol XL 50 mg BID
-New to amiodarone this admission and has received a 4 gram load as of 06/14/24. Cont amiodarone 200 mg BID at time of d/c until he is seen in the office for follow up.
-Patient missed his appt at the cardiology office on 06/03/24 to discuss ablation. Currently rescheduled for 07/01/24 and if he is compliant with this f/u appt then will plan on ablation at the end of June
-Patient stopped all of his outpatient meds about a month ago as well
-Cont Eliquis 5 mg BID (age 64, Cre 1.2). Appreciate help of CM on checking cost of Eliquis, he has a $0 co-pay.
-Weight is down 14 lbs from admission with Lasix 80 mg IV BID initially and then transitioned to Lasix 60 mg PO BID 06/12/24. Of note, patient was taking Lasix 40 mg PO BID prior to admission.
-Outpatient dose of Cardizem CD stopped due to worsened EF
-Toprol XL dose increased as above
-Started Entresto 24/26 mg BID 06/13/24. Presumably copay is also $0 as it was for Farxiga and Eliquis
-Started Farxiga 10 mg daily 06/13/24. Appreciate help of CM on checking cost of Farxiga, he has a $0 co-pay.
-Troponin peaked at 0.357. Nonobstructive CAD by cath 06/10/24, will managed as a nonischemic myocardial injury Troponin elevation.
-D/C to home 06/14/24
HPI: Romero is a 64 year old male with PMH of chronic HFpEF, paroxysmal atrial fibrillation, COPD, tobacco abuse, and R peroneal vein thrombus. Presented to [facility] for evaluation of chest pain and SOB. Patient ran out of his medications and could not
afford to refill a few months ago. He then started feeling more SOB and chest pain and came to ER for evaluation. In ER, found to be in rapid afib and acute heart failure. Given IV steroids and IV lasix in ER and admitted for further workup and
management. Hypoxic in ER and receiving duoneb at time of evaluation. He was admitted in 01/2024 with similar symptoms and when seen in follow up in cardiology office as OP, was complaint with medications and was arranged for follow up to have
cardioversion and EP evaluation to discuss ablation. He did not contact the office with worsening symptoms and states he 'doesn't really go to to doctors'. Weight in ER up 14 lbs compared to prior discharge weight.
Progress Note - Brickmason Supervisor
Subjective
Date of Service: June 14, 2024
He feels well, less palpitations, wants to go home
Objective
Labs:
06/13/24 03:12
06/14/24 05:01
Labs
Hgb 15.4 g/dL (13.0-18.0) 06/13/24 03:12
Hct 46.5 % (39.0-52.0) 06/13/24 03:12
Plt Count 193 10^3/uL (130-400) 06/13/24 03:12
APTT Cancelled 06/10/24 13:00
Sodium 135 mmol/L (135-145) 06/14/24 05:01
Potassium 3.6 mmol/L (3.5-5.1) D 06/14/24 05:01
BUN 57 mg/dl (9-20) H 06/14/24 05:01
Creatinine 1.1 mg/dL (0.7-1.3) 06/14/24 05:01
Glucose 209 mg/dl (70-99) H 06/14/24 05:01
Vital Signs and I&O:
Vital Signs
Temp Pulse Resp BP Pulse Ox
97.5 F 87 16 95/80 94
06/14/24 04:02 06/14/24 08:40 06/14/24 08:40 06/14/24 07:55 06/14/24 08:40
Vital Signs
Temp Pulse Resp BP Pulse Ox
97.5 F 87 16 95/80 94
06/14/24 04:02 06/14/24 08:40 06/14/24 08:40 06/14/24 07:55 06/14/24 08:40
Intake & Output
06/12/24 06/13/24 06/14/24 06/15/24
06:59 06:59 06:59 06:59
Intake Total 120 / 120 650 / 650 250 / 250
Output Total 4025 / 4025 2150 / 2150 2975 / 2975
Balance -3905 / -3905 -1500 / -1500 -2725 / -2725
Physical Exam
Physical Exam
GEN: AAOx3
HEENT: EOMI, MMM
LUNGS: RA. Wearing nebulizer mask for treatment. No audible wheeze
CV: Afib on tele. Irreg irreg
ABD: ND
EXT: No edema B/L
NEURO: Gross non-focal
SKIN: No rash
--- NOTE | 2024-06-14 13:13 | PTCARENOTE ---
Patient escorted to friends car in a wheelchair, all belonging sent along with written instructions, patient verbalized understanding
--- NOTE | 2024-06-14 13:49 | W.DCSUMMARY ---
Discharge Summary
Discharge Data
Date of Admission: 06/09/24
Date of Discharge: 06/14/24
-
Pending Results: No
Hospital Course
64 years old male presented to the hospital with chest pain. He ran out of his medications as he could not afford them for up one month or so. He complained of increasing lower extremity edema and shortness of breath. He was diagnosed with acute
on chronic heart failure with previously preserved ejection fraction with an element of COPD exacerbation. he had mild respiratory insufficiency but later resolved. He was treated with a steroid and inhalation therapy for COPD and was advised to
avoid smoking. He was given nicotine patch. Cardiology evaluated the patient. Repeat echocardiogram showed left ventricular ejection fraction 25 to 30%, moderate to severely reduced LV systolic function, mild concentric LVH, moderate biatrial
dilation, mild mitral regurgitation and tricuspid regurgitation. He had elevated troponin that was consistent with nonischemic myocardial injury secondary to tachycardia and heart failure. Patient was noticed to have uncontrolled paroxysmal atrial
flutter/fibrillation. He was placed on Cardizem drip then weaned off to amiodarone load. A trial of cardioversion failed and patient was in persistent atrial flutter. dose of beta-tushar was increased and with continuation of loading dose of
Imdur around, heart rate started to become better control and patient felt better. He was maintained on Lasix therapy. Case management was involved in discharge planning and cost of medications. Patient was counseled regarding compliance with
medications and instructions, he verbalized understanding. Patient remained hemodynamically stable. Patient was discharged to follow-up with in a stable condition his doctors in a stable condition.
Discharge Plan
-
Patient Disposition: Home (Routine Discharge)
Discharge Diagnosis/Procedures: Acute heart failure with a reduced ejection fraction, persistent atrial fibrillation, unsuccessful transesophageal echocardiogram and cardioversion 06/13/24
Condition: Fair
Diet: 2 Gram Sodium and Restrict fluids to 48 oz
Activity: Other activity
Driving Restrictions: No driving for 24 hours
Bathing Restrictions: OK to Shower
Specialty Instructions: Weigh Daily- Call MD for wt gain/loss 3 lbs overnight/5 lbs in 1 week
Stand Alone Forms: DC Instructions- Cath/EP Lab
Referrals:
Yung Romo MD [Family Provider] -
Chris Cintron MD [Active] - 07/01/24 12:40 pm (You have an appt to see Dr. Cintron's nurse practitioner, Mimi, at the [place] office on 07/01/24 at 12:40 PM. Please call [phone] if you need to reschedule.)
Additional Discharge Medication Instructions: -Stop Metformin
-STOP taking Cardizem CD (diltiazem).
-Increase your dose of Toprol XL (metoprolol succinate) to 50 mg (one 50 mg tablet or two 25 mg tablets) twice a day
-Start taking amiodarone 200 mg twice a day and when we see you in the office on 07/01/24 we will probably lower the dose to once a day.
-Start taking Farxiga 10 mg daily to help with heart failure.
-Start taking Entresto 24/26 mg twice a day to help with heart failure.
Prescriptions:
New
sacubitril-valsartan [Entresto] 24-26 mg Tablet
1 tab PO BID Qty: 60 11RF
dapagliflozin propanediol 10 mg Tablet
10 mg PO DAILY Qty: 30 11RF
amiodarone 200 mg Tablet
200 mg PO BID Qty: 60 6RF
metoprolol succinate 50 mg Tablet Extended Release 24 Hr
50 mg PO BID Qty: 60 11RF
furosemide 20 mg Tablet
60 mg PO BID@0800,1600 Qty: 90 11RF
nicotine 14 mg/24 hr Patch 24 Hour
14 mg transdermal DAILY Qty: 28 0RF
aspirin 81 mg Tablet,Chewable
81 mg PO DAILY Qty: 30 0RF
prednisone 10 mg tablet
10 mg PO DAILY Qty: 3 0RF
Continued
(DME) blood-glucose meter [ReliOn All-In-One Meter] Kit
Qty: 1 0RF
Rx Instructions:
As Directed
(DME) ReliOn Prime Test Strips Strip
Qty: 50 0RF
Rx Instructions:
Test before each meal and bedtime
As Directed
(DME) ReliaMed Lancet 23 gauge Misc
Qty: 200 0RF
Rx Instructions:
Test glucose before each meal and bedtime As Directed
glipizide 5 mg Tablet
5 mg PO BID@0800,1700 Qty: 60 0RF
Spiriva Respimat 2.5 mcg/actuation Mist
2 puff inhalation R DAILY 30 Days Qty: 4 0RF
quetiapine 25 mg Tablet
50 mg PO HS 30 Days Qty: 60 0RF
aspirin 81 mg Tablet,Chewable
81 mg PO DAILY 30 Days Qty: 30 0RF
budesonide-formoterol [Symbicort] 160-4.5 mcg/actuation Hfa Aerosol Inhaler
2 puff inhalation R BID 30 Days Qty: 10.2 0RF
levalbuterol tartrate [Xopenex HFA] 45 mcg/actuation Hfa Aerosol Inhaler
2 puff inhalation R Q4HPRN PRN (Reason: SOB,WHEEZE,COUGH) 30 Days Qty: 15 0RF
Eliquis 5 mg Tablet
5 mg PO BID 30 Days Qty: 60 11RF
atorvastatin 20 mg Tablet
20 mg PO QPM 30 Days Qty: 30 11RF
Discontinued
metformin 500 mg Tablet
500 mg PO BID@0800,1700 Qty: 60 0RF
metoprolol succinate 25 mg Tablet Extended Release 24 Hr
25 mg PO BID 30 Days Qty: 60 0RF
furosemide 40 mg Tablet
40 mg PO BID AT 0800,1600 30 Days Qty: 60 0RF
diltiazem HCl [Cartia XT] 240 mg capsule,extended release 24hr
240 mg PO DAILY
Discharge Orders:
Discharge Patient (As Directed); Ordered 06/14/24
Ordered By: Zahira Chong
Discharge Date and Time
Discharge Date/Time: 06/14/24 13:17
Print Language: YAKUT
== END 2024-06-14 13:17 | disposition home or self-care (01) | DRG 286 ==
LOC: IVU 17:03
PROVIDERS: Internal Medicine; Internal Medicine Cardiovascular Disease; Internal Medicine Interventional Cardiology; Nurse Practitioner Family; Physician Assistant; ADMITTING PHYSICIAN Hospitalist; ATTENDING PHYSICIAN Internal Medicine; EMERGENCY PHYSICIAN Emergency Medicine; FAMILY PHYSICIAN Family Medicine; OTHER PHYSICIAN Internal Medicine Cardiovascular Disease
PROC: 4A023N8 Measurement of Cardiac Sampling and Pressure, Bilateral, Percutaneous Approach (ICD-10-PCS; 2024-06-10)
PROC: B215YZZ Fluoroscopy of Left Heart using Other Contrast (ICD-10-PCS; 2024-06-10)
PROC: B211YZZ Fluoroscopy of Multiple Coronary Arteries using Other Contrast (ICD-10-PCS; 2024-06-10)
PROC: 5A2204Z Restoration of Cardiac Rhythm, Single (ICD-10-PCS; 2024-06-13)
PROC: B24BZZ4 Ultrasonography of Heart with Aorta, Transesophageal (ICD-10-PCS; 2024-06-13)
DX: I11.0 Hypertensive heart disease with heart failure (principal); I50.33 Acute on chronic diastolic (congestive) heart failure; I48.19 Other persistent atrial fibrillation; J44.1 Chronic obstructive pulmonary disease with (acute) exacerbation; N17.9 Acute kidney failure, unspecified; Q21.12 Patent foramen ovale; I48.92 Unspecified atrial flutter; I5A Non-ischemic myocardial injury (non-traumatic); E11.9 Type 2 diabetes mellitus without complications; E78.5 Hyperlipidemia, unspecified; J43.9 Emphysema, unspecified; I42.0 Dilated cardiomyopathy; J06.9 Acute upper respiratory infection, unspecified; F17.200 Nicotine dependence, unspecified, uncomplicated; E66.9 Obesity, unspecified; Z91.041 Radiographic dye allergy status; Z86.718 Personal history of other venous thrombosis and embolism; Z79.899 Other long term (current) drug therapy; Z79.84 Long term (current) use of oral hypoglycemic drugs; Z79.82 Long term (current) use of aspirin; Z79.51 Long term (current) use of inhaled steroids; Z79.01 Long term (current) use of anticoagulants; R09.02 Hypoxemia; Z68.29 Body mass index [BMI] 29.0-29.9, adult; Z91.141 Patient's other noncompliance with medication regimen due to financial hardship
CPT/HCPCS: 71046; 80048; 80053; 82962; 83036; 83735; 83880; 84145; 84443; 84484; 85025; 85027; 85730; 86803; 92960; 93005; 93306; 93312; 93320; 93325; 93460; 94640; 96374; 96375; 99285; 99406; C1894; Q9967

== ENCOUNTER → 2024-07-20 09:00 | Outpatient (REF) | payer OTHER, SELFPAY ==
[2024-07-20 09:27] LABS: % Basophils 0.3 % (0-2); % Immature Granulocytes 0.5 % (0-0.5); % Lymphocytes 8.9 % (20.5-51.1); % Monocytes 1.5 % (1.7-9.3); % Neutrophils 88.8 % (42.2-75.2); Absolute Immature Granulocytes 0.1 10^3/uL (0-0.05); Absolute Lymphocytes 0.9 10^3/uL (1.2-3.4); Absolute Monocytes 0.2 10^3/uL (0.1-0.6); Absolute Neutrophils 9.1 10^3/uL (1.4-6.5); Hematocrit 53.4 % (39.0-52.0); Hemoglobin 18.1 g/dL (13.0-18.0); Mean Corp Hgb Conc. 33.9 g/dL (33.0-37.0); Mean Corpuscular Hgb 31.4 pg (27.0-31.0); Mean Corpuscular Volume 92.7 fL (80.0-94.0); Mean Platelet Volume 11.6 fL (7.4-10.4); Nucleated Red Blood Cells % 0 % (-); Platelet Count 174 10^3/uL (130-400); Red Blood Cell Count 5.76 10^6/uL (4.70-6.10); Red Cell Dist. Width 12.7 % (11.5-14.5); White Blood Cell Count 10.2 10^3/uL (4.8-10.8)
[2024-07-20 09:30] LABS: INR 0.98; PT 13.5 Sec (11.4-14.6)
[2024-07-20 09:55] LABS: ALT (SGPT) 32 U/L (0-50); AST (SGOT) 28 U/L (17-59); Albumin 4.3 g/dl (3.5-5.0); Alkaline Phosphatase 100 U/L (38-126); Blood Urea Nitrogen 41 mg/dl (9-20); Calcium 9.4 mg/dl (8.4-10.2); Carbon Dioxide 27 mmol/L (22-30); Chloride 98 mmol/L (98-107); Glucose 231 mg/dl (70-99); Magnesium 2.4 mg/dl (1.6-2.3); Potassium 5.1 mmol/L (3.5-5.1); Sodium 138 mmol/L (135-145); Total Bilirubin 0.4 mg/dl (0.2-1.3); Total Protein 7.1 g/dl (6.3-8.2); eGFR 51.99
== END ==
LOC: SDSPAT 09:00
PROVIDERS: ATTENDING PHYSICIAN Internal Medicine Cardiovascular Disease
DX: I48.0 Paroxysmal atrial fibrillation (principal)
CPT/HCPCS: 36415; 75572; 80053; 83735; 85025; 85610; 86850; 86900; 86901; Q9967

== ENCOUNTER 2024-07-27 07:50 | Day surgery (SDC) | payer OTHER, SELFPAY ==
[2024-07-20 08:44] VITALS: BMI 27.0
[2024-07-27] VITALS (24 sets, daily range): BP systolic 77–129; BP diastolic 54–85; BMI 27.0
[2024-07-27 08:33] LABS: Glucose - Point of Care 136 mg/dl (70-99)
[2024-07-27 10:59] LABS: ACT-LR - POC 360 Seconds (116-155)
[2024-07-27 11:14] LABS: ACT-LR - POC 321 Seconds (116-155)
--- NOTE | 2024-07-27 11:26 | ITS.CL.ABL ---
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
Ablation
Procedure Report:
ELECTROPHYSIOLOGY ABLATION STUDY
DATE:: July 27, 2024�����������������������������REFERRING: Dr. Chris Cintron
INDICATION: Persistent supraventricular tachycardia in the form of atrial fibrillation.� Tachycardia induced cardiomyopathy
HISTORY: See H and P.��As above
ANTIARRHYTHMIC DRUG: Amiodarone
PRE-PROCEDURE ZANA: No atrial thrombus on intracardiac ultrasound
PRESENTING RHYTHM: Sinus bradycardia
'TIME-OUT':��called and confirmed.
SEDATION/ANESTHESIA:��provided via the anesthesia department using general anesthesia (LMA).
INTRAVENOUS/ARTERIAL ACCESS:
Right femoral venous - 8Fr
Left femoral venous - 8 Fr, 6 Fr
Ultrasound guidance for bilateral femoral vein access was utilized by me to obtain access with demonstration of normal anatomy
CHADS-VASC Score:
HAS-Bled Score
PROCEDURE:
1.��A decapolar CS catheter was placed within the CS for mapping and pacing.��This was also used as the reference catheter for the 3-D map.
2. The intracardiac ultrasound catheter was positioned in the RA to identify the FO for targeting of transseptal puncture, assist��in identification of the pulmonary vein ostia, monitoring pre and post ablation pulmonary vein flow velocities,
monitoring for 'bubble' formation during RF application as a sign of thermal injury,��and to monitor for pericardial effusion during mapping and ablation procedure.���Left atrial size, LV ejection fraction, and pulmonary vein flows were monitored
pre and post ablation procedure. The other valves were inspected and found to be free of significant regurgitation or stenosis.
3.��Half of the calculated heparin bolus was administered prior to the first transeptal puncture.��Transseptal puncture was performed to diagnose RA and LA pressure so that safety of LA mapping and ablation could be further assessed, and to access
the left atrium and pulmonary veins for mapping and ablation.��This entailed advancing an 16 Sami sheath�RF wire with dilator into the superior vena cava and withdrawing both (monitoring intracardiac ultrasound, fluoroscopy and tip pressure) with
the tip oriented toward the atrial septum.��The fossa ovalis was engaged (indicated by sudden displacement of the sheath tip as well as tenting of the fossa seen on intracardiac ultrasound).��Left atrial access required a pass with the [place]
needle extended.��Left atrial catheter position was confirmed by pressure monitoring (RA mean pressure 8 mm Hg and LA mean pressure 14 mm Hg), LA saturation (99%),��as well as fluoroscopy.��The sheath was advanced over the dilator and positioned in
the left atrium.����The remainder of the calculated heparin bolus was administered and heparin was
infused to maintain ACT at 300 -350 seconds throughout the case.
4.��RA pacing was performed via the proximal decapolar poles and LA pacing was performed via the distal decapolar poles.
5. A quadrapolar catheter was first positioned at the His position for His Bundle recording which was tagged via the 3-D Navex sytem, and then passed to the RVA for RV pacing and recording.
6. The multipolar and PFA catheter were placed in each of the LIPV, LSPV, RSPV and the RIPV.��
7.��Next, a 3-D map was created using Navex.���A 3-D reconstructed CT image was compared to the 3-D Navex map to assist in anatomic interpretation, mapping and ablation.��The CT image and the NavX image were fused.
8. Total of 50 lesions were given to the pulmonary veins and all of and basket pose and the roof posterior wall and floor of the left atrium and flower pose. Entrance next block was confirmed in all 4 pulmonary veins and the left atrial posterior
wall the patient was noninducible for any other tachyarrhythmias post procedure.
9. Normal sinus node and AV hardik function noted.
TOTAL FLOURO TIME: 9.6 minutes 82 mGy
TOTAL RF DURATION: 0 minutes
REVERSAL OF HEPARIN: 35 mg of protamine, slow IV administration
COMPLICATIONS:
None
Intracardiac US shows no pericardial effusion post ablation.
SUMMARY:��
Complex left atrial mapping and ablation.
Isolation of all 4 pulmonary veins and the left atrial posterior wall as above.
RECOMMENDATIONS:
1. Admit to monitored bed.��Pulmonary consultation regarding need for home oxygen and outpatient follow-up for his presumed significant emphysema
2. Resume anticoagulation
3.��Lower amiodarone to 200 mg daily and discontinue in 4 to 6 weeks
4.��Anticipate discharge July 28, 2024
Copy to: Dr. Gatito Cintron
[2024-07-27 12:14] LABS: Glucose - Point of Care 140 mg/dl (70-99)
--- NOTE | 2024-07-27 13:30 | PTCARENOTE ---
Rec'd report from Ling in the EP lab; Rec'd pt AAOX3, mildly drowsy but easily arousable. Pt w/no c/o CP or SOB. Pt is on 2L O2 via NC for low SpO2 levels on arrival to the EP lab this AM. Pt's VSS w/HR in the 70's & BP 92/71 on arrival to the
room. Pt's SpO2 95% on 2L. Pt's bilat groins w/fig of [address] & dressing C/D/I w/no signs or symptoms of bleeding or hematoma. Pt w/pedal pulses by doppler. Pt advised of bed rest restrictions & plan of care. Pt verbalized his
understanding. Pt w/call tompkins within reach & plan of care ongoing.
--- NOTE | 2024-07-27 15:04 | CON.PUL ---
Consultation
Consultation Request
Date/Time Consultation Requested: 07/27
Date/Time Consultation Performed: 07/27
Reason for Consultation: Hypoxia
Medical History
-
History of Present Illness:
History obtained from the patient, reviewing hospital records. Patient is a 64-year-old male with history of COPD, atrial flutter, ischemic cardiomyopathy EF 35%, who is status post ablation 07/27/2024. Postprocedure, patient had significant hypoxia
and wheezing. We are asked to help from a pulmonary standpoint. Presently, patient is without complaints. He is lying flat. He denies chest pain, pleurisy, nausea, abdominal pain. Of note patient was intubated for ablation, extubated without
difficulty.
Prior history suggests heart failure, COPD, recent hospital stay in January 2024, Patient also has history of thrombus and pneumonia
.
PMH: History of atrial flutter/fibrillation, reported history of COPD, suspected emphysema based on CT imaging, history of renal insufficiency, right lower extremity DVT, history of pneumonia
Past Medical History
Past Medical History: None (See above)
Past Surgical History: None (See above)
Social History
Tobacco: Smoker (Continues to smoke half a pack a day. Smoked up to a pack at 1 point, likely 30+ pack year)
Alcohol: None
Drug: None
Personal:
Living: With Family
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
Family History
Family History: Other (1 daughter, 2 siblings healthy. Family history negative for blood clots, lung cancer)
Allergies / Home Medications
Allergies
Allergy/AdvReac Type Severity Reaction Status Date / Time
iodine Allergy Unknown Verified 06/09/24 15:48
Home Medications
�Medication �Instructions �Recorded �Confirmed �Last Taken �Type
blood sugar diagnostic (ReliOn #50 ea 02/17/24 Unknown Rx
Prime Test Strips)
blood-glucose meter (ReliOn #1 ea 02/17/24 07/27/24 Unknown Rx
All-In-One Meter kit)
lancets 23 gauge (ReliaMed Lancet) #200 ea 02/17/24 Unknown Rx
glipizide 5 mg tablet 5 mg PO BID@0800,1700 #60 tabs 02/18/24 07/27/24 07/26/24 17:00 Rx
aspirin 81 mg chewable tablet 81 mg PO DAILY 30 days #30 tabs 02/19/24 07/27/24 07/26/24 08:00 Rx
budesonide-formoterol HFA 160 2 puff inhalation R BID 30 days 02/19/24 07/27/24 10 Weeks Ago Rx
mcg-4.5 mcg/actuation aerosol #10.2 grams ~03/31/24
inhaler (Symbicort)
levalbuterol tartrate 45 2 puff inhalation R Q4HPRN PRN 02/19/24 07/27/24 10 Weeks Ago Rx
mcg/actuation aerosol inhaler SOB,WHEEZE,COUGH 30 days #15 grams ~03/31/24
(Xopenex HFA)
tiotropium bromide 2.5 2 puff inhalation R DAILY 30 days 02/19/24 07/27/24 10 Weeks Ago Rx
mcg/actuation mist for inhalation #4 grams ~03/31/24
(Spiriva Respimat)
amiodarone 200 mg tablet 200 mg PO BID Arrhythmia #60 tabs 06/14/24 07/27/24 07/26/24 21:00 Rx
apixaban 5 mg tablet (Eliquis) 5 mg PO BID Blood clot 06/14/24 07/27/24 07/26/24 21:00 Rx
prevention/tx 30 days #60 tabs
dapagliflozin propanediol 10 mg 10 mg PO DAILY Heart Failure #30 06/14/24 07/27/24 07/26/24 09:00 Rx
tablet tabs
furosemide 20 mg tablet 60 mg (3 x 20 mg) PO BID@0800,1600 06/14/24 07/27/24 07/26/24 16:00 Rx
Heart Failure #90 tabs
metoprolol succinate 50 mg 50 mg PO BID Heart Failure #60 tabs 06/14/24 07/27/24 07/26/24 21:00 Rx
tablet,extended release 24 hr
sacubitril 24 mg-valsartan 26 mg 1 tab PO BID Heart Failure #60 tabs 06/14/24 07/27/24 07/26/24 21:00 Rx
tablet (Entresto)
atorvastatin 20 mg tablet 20 mg PO HS 07/27/24 07/27/24 07/26/24 21:00 History
Review of Systems
Vitals / Labs / Diagnostic Testing
Vital Signs
Temp Pulse Resp BP Pulse Ox
97.9 F 65 20 90/67 91
07/27/24 13:27 07/27/24 15:00 07/27/24 13:27 07/27/24 15:00 07/27/24 15:00
Diagnostic Testing:
Physical Exam
-
HEENT: Normocephalic and Anicteric
Cardiovascular: S1/S2, Regular Rhythm, Murmur (n), Rub (n) and Peripheral Edema (n)
Respiratory: Wheeze (n), Rales (n), Rhonchi (n) and Non-Labored Respirations
GI: Soft and Non Tender
Neurology: Awake, Alert, No Motor Deficits (Moves extremities) and Other (Bilateral groin dressing intact)
Skin: Good Color
General: Comfortable
Assessment
-
64-year-old male active tobacco smoker with a past medical history of COPD, atrial flutter/fibrillation, ischemic cardiomyopathy EF 35%, with multiple hospital stays over the past year, now status post ablation 07/27/2024. Patient was found to be
hypoxic with wheezing, required intubation during the procedure, extubated without difficulty. We are asked to help from pulmonary standpoint
Acute hypoxic respiratory insufficiency
86% on 4 L
Status post ablation, requiring intubation
Extubated without difficulty
Wheezing postextubation
Cardiomyopathy, EF 25% per echo 06/10/2024
PA systolic pressure 40
Mild mitral regurgitation
Conditions present prior to admission
History of atrial fibrillation with rapid ventricular response
Amiodarone therapy
Suspected COPD, with COPD exacerbation January 2024
FEV1 2017 1.29L 32%
Basilar bullous emphysema per CT imaging
Symbicort/Spiriva as outpatient
History renal insufficiency
Right lower extremity DVT, January 2024
30+ pack-year history of smoking, continues to smoke half a pack a day
Former alcohol use
Suspected sleep disordered breathing
Plan/recommendations:
At this time, patient appears to be comfortable, lying flat. No wheezing on exam
He is still waking up from anesthesia but following commands, able to give history
Spirometry noted, FEV1 32% in 2017
Moving forward
Reviewed with patient severity of his COPD/emphysema
Unfortunately, he continues to smoke. Multiple hospital stays reviewed, stating 'I am done'. He continues to smoke
Reviewed his 30% lung function based on prior testing
CT images from 07/20/2024 showed basilar bullous changes
For now continue with outpatient regimen, Symbicort/Spiriva
Tobacco cessation will be an ongoing discussion
No clear evidence of heart failure
Will obtain chest x-ray once recovered from catheterization
Doubt any other process except severe underlying COPD/emphysema
No indication for systemic steroids at this time
Strongly recommend outpatient pulmonary follow-up
Will follow-up
Diagnostic Data
CT chest 07/20/2024: Basilar bullous changes per my review
Renal US 02/11/2024: No hydronephrosis or nephrolithiasis. Bilateral cortical atrophy.
Bilateral lower extremity duplex US 02/09/2024: Thrombus within the right peroneal vein. No evidence for deep venous thrombosis of the left lower extremity.
Transthoracic echocardiogram 02/09/2024: Technically difficult study. Normal left ventricular size and function. Normal regional wall motion. Mild concentric left ventricular hypertrophy. LV ejection fraction is 55-60% by Barrera's method of
discs. Diastolic function indeterminate. Enlarged right ventricular size. Dilated RA. Mitral annular calcification. Trace mitral regurgitation. Mild tricuspid regurgitation. Estimated pulmonary artery pressure of 20-25 mmHg. Assuming a right atrial
pressure of 3 mmHg. When compared to prior study on 06/17/2017, RA and RV are enlarged; PASP has improved to 20-25 mmHg from 33-38 mmHg; no other significant change.
[place] 2017: FEV1 1.29L 32%, FVC 3.06L 61%, ratio 42, post FEV1 1.6L 40% no BD response (severe obstruction)
--- NOTE | 2024-07-27 16:15 | PTCARENOTE ---
Pt's bilat fig of 8 sutures clipped at 1600. Sterile dressing applied & pt advised of 30 mins of additional bedrest post. Pt verbalized his understanding. Dressing C/D/I w/no signs or symptoms of bleeding or hematoma.
[2024-07-27] MEDS: LASIX 60 MG PO (17:03)
[2024-07-27] MEDS: GLUCOTROL 5 MG PO (17:03)
--- NOTE | 2024-07-27 17:05 | PTCARENOTE ---
Assisted pt w/getting OOB to the BR. Pt voided & bilat groin dressings still C/D/I w/no signs or symptoms of bleeding or hematoma. Plan of care ongoing.
[2024-07-27] MEDS: SYMBICORT 160/4.5 MCG INHALER 2 PUFF INH (20:30)
[2024-07-27] MEDS: TOPROL XL 50 MG PO (20:46)
[2024-07-27] MEDS: ELIQUIS 5 MG PO (20:46)
[2024-07-27] MEDS: LIPITOR 20 MG PO (20:46)
--- NOTE | 2024-07-27 21:34 | PTCARENOTE ---
b/l groins CDI pedal pulses present by doppler. BP on the softer side 80s/50s to 90s/60s DR. Bee gave a verbal to hold Entresto for the evening. Plan of care discussed patient verbalized understanding.
[2024-07-28] VITALS (11 sets, daily range): BP systolic 73–114; BP diastolic 45–68; O2SAT 84–87; BMI 27.3
[2024-07-28 05:04] LABS: Hematocrit 48.1 % (39.0-52.0); Hemoglobin 16.5 g/dL (13.0-18.0); Mean Corp Hgb Conc. 34.3 g/dL (33.0-37.0); Mean Corpuscular Hgb 32.2 pg (27.0-31.0); Mean Corpuscular Volume 93.8 fL (80.0-94.0); Mean Platelet Volume 11.9 fL (7.4-10.4); Platelet Count 169 10^3/uL (130-400); Red Blood Cell Count 5.13 10^6/uL (4.70-6.10); Red Cell Dist. Width 12.9 % (11.5-14.5); White Blood Cell Count 17.7 10^3/uL (4.8-10.8)
[2024-07-28 05:31] LABS: Blood Urea Nitrogen 44 mg/dl (9-20); Carbon Dioxide 35 mmol/L (22-30); Chloride 93 mmol/L (98-107); Estimated Creatinine Clearance 52 ml/min; Glucose 151 mg/dl (70-99); Magnesium 2.5 mg/dl (1.6-2.3); Potassium 5.3 mmol/L (3.5-5.1); Sodium 134 mmol/L (135-145); eGFR 51.99
[2024-07-28] MEDS: SPIRIVA RESPIMAT 2.5 MCG 2 PUFF INH (07:39)
[2024-07-28] MEDS: SYMBICORT 160/4.5 MCG INHALER 2 PUFF INH (07:39)
[2024-07-28] MEDS: XOPENEX HFA 45 MCG INHALER 2 PUFF INH (07:46)
[2024-07-28] MEDS: ELIQUIS 5 MG PO (08:00)
[2024-07-28] MEDS: PACERONE 200 MG PO (08:00)
[2024-07-28] MEDS: GLUCOTROL 5 MG PO (08:00)
[2024-07-28] MEDS: LOW STRENGTH ASPIRIN 81 MG PO (08:03)
[2024-07-28] MEDS: FARXIGA 10 MG PO (08:04)
[2024-07-28] MEDS: TOPROL XL PO (08:39)
--- NOTE | 2024-07-28 08:59 | CM ---
Reviewed chart. Met with Mr. Noble to review discharge plans. He states prior to admission he resides with two griends in a spilt level home. He states he has six steps to get to his bedroom/bathroom. He states prior to admission he was
independent with ambulation and adls. He states he does not have any DME in the home. He states he has a prescription plan and uses [facility]. The discharge plan is to return home with his friends when medically stable.
--- NOTE | 2024-07-28 09:12 | W.PN.CARDCBS ---
Addendum entered and electronically signed by Chris Cintron MD 07/28/24 10:48:
Agree with ATTENDING PSYCHIATRIST note and assessment
Agree with ATTENDING PSYCHIATRIST plan
Patient seen and examined
Sinus rhythm overnight
Appreciate pulmonary critical care consultation and follow-up
Examination
Lungs are diminished at baseline
Alert and x 3
Nonfocal neurologically
Cor regular no murmur
No extremity edema
JVP 6
Remainder as per ATTENDING PSYCHIATRIST note
Impression:
Symptomatic paroxysmal Afib/AFL
post PVI 07/27/24
acute Hypoxic respiratory insufficiency
Chronic HFrEF 25-30%
HTN
HLD
COPD/Emphysema
DM2
h/o Right peroneal DVT 2023
medical noncompliance
History renal insufficiency
30+ pack-year history of smoking, continues to smoke half a pack a day
Former alcohol use
Plan:
Appreciate pulmonary critical care evaluation
He continues to smoke and only intermittently participates in his pulmonology recommendations
pre procedure, hypoxia sats 88% RA
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
OAC Eliquis 5mg bid
Decrease amiodarone to 200mg daily, probable d/c in 4-6 weeks
HF continue GDMT, holding Entresto and metoprolol this am d/t hypotension continue dapagliflozin and lasix
smoking cessation reinforced
Will need f/u Pulmonary possibly need for home O2 if RA sats <88%
OOB ambulate, C&DB, I.S.
f/u DCA in 1 mo
Anticipating discharge today
Original Note:
Today's Communication / Plan
-
post ablation feels good
acute hypoxia being managed by Pulmonary
OOB ambulate, I.S. C&DB
Impression / Plan
-
PCP: None (previously saw Dr. Quinonez)
CDY: Chris Cintron MD
Impression:
Symptomatic paroxysmal Afib/AFL
post PVI 07/27/24
acute Hypoxic respiratory insufficiency
Chronic HFrEF 25-30%
HTN
HLD
COPD/Emphysema
DM2
h/o Right peroneal DVT 2023
medical noncompliance
History renal insufficiency
30+ pack-year history of smoking, continues to smoke half a pack a day
Former alcohol use
Plan:
post ablation feels good
tele SR, groins stable
pre procedure, hypoxia sats 88% RA
Appreciate pulmonary consult - continue inhalers which he never started
CXR with ? LLL pneumonia, defer to pulm for recommendation, WBC elevated d/t steroids intraprocedurally, afebrile, productive cough yellow sputum
Check sats on RA this am
OAC Eliquis 5mg bid
Decrease amiodarone to 200mg daily, possibly d/c in 4-6 weeks
HF continue GDMT, holding Entresto and metoprolol this am d/t hypotension continue dapagliflozin and lasix
smoking cessation reinforced
Will need f/u Pulmonary possibly need for home O2 if RA sats <88%
OOB ambulate, C&DB, I.S.
f/u DCA in 1 mo
possibly home later today vs tomorrow pending pulmonary issues
Progress Note - Ciaio Counter Molder
Subjective
Date of Service: July 28, 2024
denies cp, mild dyspnea, productive cough with yellow sputum
Objective
Labs:
07/28/24 04:32
07/28/24 04:32
Labs
Hgb 16.5 g/dL (13.0-18.0) 07/28/24 04:32
Hct 48.1 % (39.0-52.0) 07/28/24 04:32
Plt Count 169 10^3/uL (130-400) 07/28/24 04:32
Sodium 134 mmol/L (135-145) L 07/28/24 04:32
Potassium 5.3 mmol/L (3.5-5.1) H 07/28/24 04:32
BUN 44 mg/dl (9-20) H 07/28/24 04:32
Creatinine 1.5 mg/dL (0.7-1.3) H 07/28/24 04:32
Glucose 151 mg/dl (70-99) H 07/28/24 04:32
Vital Signs and I&O:
Vital Signs
Temp Pulse Resp BP Pulse Ox
98.5 F 64 14 /58 93
07/28/24 07:12 07/28/24 07:40 07/28/24 07:40 07/28/24 08:39 07/28/24 07:40
Vital Signs
Temp Pulse Resp BP Pulse Ox
98.5 F 64 14 /58 93
07/28/24 07:12 07/28/24 07:40 07/28/24 07:40 07/28/24 08:39 07/28/24 07:40
Intake & Output
07/26/24 07/27/24 07/28/24 07/29/24
06:59 06:59 06:59 06:59
Intake Total 720 / 720
Balance 720 / 720
Physical Exam
Physical Exam
NAD< AOX3
S1, S2, RRR
scattered rales, exp wheezes t/o, non labored
SNTND Bsx4
b/l groins c/d/i mild ecchymosis, no HT, soft
--- NOTE | 2024-07-28 09:15 | W.PN.PUL3 ---
Addendum entered and electronically signed by Twila Mckeon MD 07/28/24 13:16:
Patient was ambulated.
Noted to be 87% on room air, decreased to 84% with ambulation. Improved on 2 L, saturation 94%.
Patient will require home oxygen.
Recommend using 2 L with activity, sleep and at rest with symptoms
Reviewed with patient at length importance of tobacco cessation
Reviewed his need for oxygen therapy at home
Reviewed absolute importance of pulmonary follow-up. Information left in chart
Patient understands and agrees with plan
Original Note:
Today's Communication / Plan
-
Doxycycline for 7 days
Continue inhaler regimen
Ambulate, check saturation
Will require follow-up imaging to confirm resolution of left lower lobe process
Reviewed risk of lung cancer, risk of ongoing smoking
Tobacco cessation discussed
Follow-up with pulmonary, information left in chart
Assessment
-
64-year-old male active tobacco smoker with a past medical history of COPD, atrial flutter/fibrillation, ischemic cardiomyopathy EF 35%, with multiple hospital stays over the past year, now status post ablation 07/27/2024. Patient was found to be
hypoxic with wheezing, required intubation during the procedure, extubated without difficulty. We are asked to help from pulmonary standpoint
Acute hypoxic respiratory insufficiency
86% on 4 L
Status post ablation, requiring intubation
Extubated without difficulty
Wheezing postextubation
Cardiomyopathy, EF 25% per echo 06/10/2024
PA systolic pressure 40
Mild mitral regurgitation
Conditions present prior to admission
History of atrial fibrillation with rapid ventricular response
Amiodarone therapy
Suspected COPD, with COPD exacerbation January 2024
FEV1 2016 1.29L 32%
Basilar bullous emphysema per CT imaging
Symbicort/Spiriva as outpatient
History renal insufficiency
Right lower extremity DVT, January 2024
30+ pack-year history of smoking, continues to smoke half a pack a day
Former alcohol use
Suspected sleep disordered breathing
Plan/recommendations:
At this time, patient appears to be comfortable, lying flat. No wheezing on exam
He describes chronic bronchitis, no acute worsening
Denies hemoptysis
Spirometry noted, FEV1 32% in 2017
Decreased breath sounds on exam noted
Chest x-ray with mild left pleural parenchymal infiltrate
Moving forward
Reviewed with patient severity of his COPD/emphysema
Unfortunately, he continues to smoke. Multiple hospital stays reviewed, stating 'I am done'.
Reviewed his 30% lung function based on prior testing
CT images from 07/20/2024 showed basilar bullous changes
For now continue with outpatient regimen, Symbicort/Spiriva
Tobacco cessation will be an ongoing discussion
We will treat with 7-day course of doxycycline 100 mg twice a day. First dose this morning
Check ambulatory saturation on room air
No clear evidence of heart failure
Doubt any other process except severe underlying COPD/emphysema
No indication for systemic steroids at this time
Strongly recommend outpatient pulmonary follow-up
Follow-up information left in chart.
I reviewed with patient risk for lung cancer, risk for morbidity and mortality from lung cancer
he will require follow-up imaging
Follow-up information left in chart
Disposition efforts. Okay for discharge from pulmonary standpoint
Diagnostic Data
CT chest 07/20/2024: Basilar bullous changes per my review
Renal US 02/11/2024: No hydronephrosis or nephrolithiasis. Bilateral cortical atrophy.
Bilateral lower extremity duplex US 02/09/2024: Thrombus within the right peroneal vein. No evidence for deep venous thrombosis of the left lower extremity.
Transthoracic echocardiogram 02/09/2024: Technically difficult study. Normal left ventricular size and function. Normal regional wall motion. Mild concentric left ventricular hypertrophy. LV ejection fraction is 55-60% by Barrera's method of
discs. Diastolic function indeterminate. Enlarged right ventricular size. Dilated RA. Mitral annular calcification. Trace mitral regurgitation. Mild tricuspid regurgitation. Estimated pulmonary artery pressure of 20-25 mmHg. Assuming a right atrial
pressure of 3 mmHg. When compared to prior study on 06/17/2017, RA and RV are enlarged; PASP has improved to 20-25 mmHg from 33-38 mmHg; no other significant change.
[place] 2017: FEV1 1.29L 32%, FVC 3.06L 61%, ratio 42, post FEV1 1.6L 40% no BD response (severe obstruction)
Subjective Data
-
Date of Service:
Date of Service: July 28, 2024
Subjective:
Patient is without complaints. Denies chest pain, nausea, abdominal pain, lightheadedness, shortness of breath. Admits to chronic cough, unchanged. Patient lying flat without difficulty on room air
Objective Data
Data Reviewed
Vital Signs / I&O / Oxygen:
Vital Signs
Temp Pulse Resp BP Pulse Ox
98.5 F 64 14 93/58 93
07/28/24 07:12 07/28/24 07:40 07/28/24 07:40 07/28/24 08:39 07/28/24 07:40
Intake and Output
07/27/24 07/28/24 07/29/24
06:59 06:59 06:59
Intake Total 720 / 720
Balance 720 / 720
SaO2 93
Nasal Cannula flow liters per 2
minute
Physical Exam
General: Comfortable
HEENT: Normocephalic and Anicteric
Cardiovascular: S1-S2, Regular Rhythm, Murmur (n), Rub (n) and Other (Decreased, bronchial)
Respiratory: Wheeze (n), Crackles (n), Rhonchi (n) and Non-Labored Respirations
GI: Soft, Non Distended and Non Tender
Skin: Warm, Good Color, Cyanosis (n), Jaundice (n) and Rash
Labs/Micro/Reports
Lab Data
07/28/24 04:32
07/28/24 04:32
[2024-07-28] MEDS: VIBRAMYCIN 100 MG PO (10:59)
[2024-07-28] MEDS: LASIX PO (11:27)
--- NOTE | 2024-07-28 11:53 | PTCARENOTE ---
O2 sat 87% on RA, 84% with ambulation (approx 100 ft). Latest BP 88/54, he denied lightheadedness until the end of the walk. IO2 back on at 2L/min -O2 sat 94%. Dr Mckeon and Marielena Avila aware.
--- NOTE | 2024-07-28 13:58 | CM ---
Addendum entered by Trinidad Cardozo 07/28/24 14:55:
[email or web address] will be here around 3:30 -4:30 p.m. to deliver home 02.
Original Note:
Reviewed chart. Received message that Mr. Noble will need home 02. Met with Mr. Noble to review Home 02. He is agreeable to home 02. Telephone call to [facility] Liaison to make the referral. Sent the referral to [facility]. Awaiting call back from [facility] to call back regarding deliver of home 02. Medical work-up in progress. The discharge plan is to return home with home 02 when medically stable.
--- NOTE | 2024-07-28 16:16 | W.DS.TRANS ---
DC Summary - [employer]
-
Discharge Instructions:
Sleep Apnea Risk High
Discharge Diagnosis/Procedures AFib, s/p ablation, Pneumonia
Diet Low Cholesterol,Diabetic, Carb Controlled
Driving Restrictions No driving for 24 hours
Instructions:
Stand-Alone Forms: DC Instructions- Cath/EP Lab
Changes to Home Medications: Yes
Discharge Medications:
DC Medications w/original date entered in [facility]
blood sugar diagnostic (ReliOn Prime Test Strips) #50 ea 02/17/24
blood-glucose meter (ReliOn All-In-One Meter kit) #1 ea 02/17/24
lancets 23 gauge (ReliaMed Lancet) #200 ea 02/17/24
glipizide 5 mg tablet 5 mg PO BID@0800,1700 #60 tabs 02/18/24
aspirin 81 mg chewable tablet 81 mg PO DAILY 30 days #30 tabs 02/19/24
levalbuterol tartrate 45 mcg/actuation aerosol inhaler (Xopenex HFA) 2 puff inhalation R Q4HPRN PRN SOB,WHEEZE,COUGH 30 days #15 grams 02/19/24
apixaban 5 mg tablet (Eliquis) 5 mg PO BID Blood clot prevention/tx 30 days #60 tabs 06/14/24
dapagliflozin propanediol 10 mg tablet 10 mg PO DAILY Heart Failure #30 tabs 06/14/24
furosemide 20 mg tablet 60 mg (3 x 20 mg) PO BID@0800,1600 Heart Failure #90 tabs 06/14/24
metoprolol succinate 50 mg tablet,extended release 24 hr 50 mg PO BID Heart Failure #60 tabs 06/14/24
sacubitril 24 mg-valsartan 26 mg tablet (Entresto) 1 tab PO BID Heart Failure #60 tabs 06/14/24
atorvastatin 20 mg tablet 20 mg PO HS 07/27/24
amiodarone 200 mg tablet 200 mg PO DAILY #1 tab 07/28/24
budesonide-formoterol HFA 160 mcg-4.5 mcg/actuation aerosol inhaler (Symbicort) 2 puff inhalation R BID 30 days #10.2 grams 07/28/24
doxycycline hyclate 100 mg capsule 100 mg PO Q12 #14 caps 07/28/24
tiotropium bromide 2.5 mcg/actuation mist for inhalation (Spiriva Respimat) 2 puff inhalation R DAILY 30 days #4 grams 07/28/24
Home Medication Changes
new to doxycycline, decrease amio to daily, instructed to obtain inhalers, home O2 [facility] at [facility]
Pending Results: No
--- NOTE | 2024-07-28 16:53 | PTCARENOTE ---
Pt d/c instructions reviewed with Pt. O2 was delivered to room. Pt expressed understanding.
== END 2024-07-28 16:45 | disposition home or self-care (01) ==
LOC: CATH 07:50
PROVIDERS: Nurse Practitioner; ATTENDING PHYSICIAN Internal Medicine Cardiovascular Disease; CONSULT PHYSICIAN Internal Medicine Critical Care Medicine; FAMILY PHYSICIAN Family Medicine
DX: I48.0 Paroxysmal atrial fibrillation (principal); I48.92 Unspecified atrial flutter; I25.5 Ischemic cardiomyopathy; I50.22 Chronic systolic (congestive) heart failure; J43.9 Emphysema, unspecified; Z98.890 Other specified postprocedural states; R09.02 Hypoxemia; E11.9 Type 2 diabetes mellitus without complications; E78.5 Hyperlipidemia, unspecified; F17.210 Nicotine dependence, cigarettes, uncomplicated; N28.9 Disorder of kidney and ureter, unspecified; Z86.718 Personal history of other venous thrombosis and embolism; Z87.01 Personal history of pneumonia (recurrent); Z88.8 Allergy status to other drugs, medicaments and biological substances; Z91.041 Radiographic dye allergy status; Z79.84 Long term (current) use of oral hypoglycemic drugs; Z79.82 Long term (current) use of aspirin; Z79.51 Long term (current) use of inhaled steroids; Z79.01 Long term (current) use of anticoagulants; Z79.899 Other long term (current) drug therapy; I11.0 Hypertensive heart disease with heart failure; I47.10 Supraventricular tachycardia, unspecified; I34.0 Nonrheumatic mitral (valve) insufficiency; Z91.199 Patient's noncompliance with other medical treatment and regimen due to unspecified reason
CPT/HCPCS: C1732; C1894; C1730; C1892; C1759; 71045; 80048; 82962; 83735; 85027; 85347; 86900; 86901; 93005; 93656; 93657; 94640; C1733; C1766

== ENCOUNTER → 2024-11-16 08:00 | Outpatient (REF) | payer OTHER, SELFPAY | LOC: HWRCS 08:00 | PROVIDERS: ATTENDING PHYSICIAN Nurse Practitioner | DX: I50.23 Acute on chronic systolic (congestive) heart failure (principal) | CPT/HCPCS: 93306 ==